=== PATIENT | female | born 1975 ===

== ENCOUNTER 2020-04-05 11:03 | Outpatient (REF) | payer OTHER, SELFPAY ==
--- NOTE | 2020-04-05 | XR_ITS ---
EXAMINATION: XR LUMBOSACRAL SPINE WITH OBLIQUES CLINICAL INFORMATION: Lower back pain. COMPARISON: None TECHNIQUE: AP, both oblique, and lateral views of the lumbar spine. Lateral view of the lumbosacral junction. FINDINGS: The vertebral bodies and posterior elements are normal. There is no spondylolysis defect. The disc spaces are preserved and the vertebral alignment is normal. The paraspinal soft tissues are normal. IMPRESSION: Unremarkable examination.
== END 2020-04-05 11:04 | disposition home or self-care (01) ==
LOC: HO.XRAY 11:03
PROVIDERS: PCP Internal Medicine; Visit Provider Internal Medicine
DX: M54.5 Low back pain (principal)
CPT/HCPCS: 72110

== ENCOUNTER 2020-05-08 16:04 | Outpatient (REF) | payer OTHER, SELFPAY ==
--- NOTE | 2020-05-08 | US_ITS ---
EXAMINATION: US PELVIS COMPLETE. CLINICAL INFORMATION: Pelvic pain. COMPARISON: None. TECHNIQUE: Transabdominal and transvaginal ultrasound of the pelvis is performed. FINDINGS: Uterus is anteverted, anteflexed measuring 8.6 cm in length, 4.5 cm in AP and 6.8 cm in transverse dimension. No focal lesion seen. There is a small echogenic area within the fundal endometrial canal, likely a polyp measuring 0.7 x 0.5 x 0.7 cm. Endometrial thickness is 1.1 cm. Small nabothian cysts are seen in the pelvis. Right ovary measures 2.5 x 1.5 x 1.6 cm and volume 3.1 mL. It appears unremarkable. Left ovary measures 3.5 x 2.2 x 2.1 cm and volume 8.5 mL. The ovary appears unremarkable. There is no free fluid in cul-de-sac. US/US transvaginal IMPRESSION: Anteverted uterus with likely a small endometrial polyp in the fundal region. Correlate with hysteroscopy. Unremarkable ovaries. No free fluid in the cul-de-sac.
--- NOTE | 2020-05-08 | US_ITS ---
EXAMINATION: US PELVIS COMPLETE. CLINICAL INFORMATION: Pelvic pain. COMPARISON: None. TECHNIQUE: Transabdominal and transvaginal ultrasound of the pelvis is performed. FINDINGS: Uterus is anteverted, anteflexed measuring 8.6 cm in length, 4.5 cm in AP and 6.8 cm in transverse dimension. No focal lesion seen. There is a small echogenic area within the fundal endometrial canal, likely a polyp measuring 0.7 x 0.5 x 0.7 cm. Endometrial thickness is 1.1 cm. Small nabothian cysts are seen in the pelvis. Right ovary measures 2.5 x 1.5 x 1.6 cm and volume 3.1 mL. It appears unremarkable. Left ovary measures 3.5 x 2.2 x 2.1 cm and volume 8.5 mL. The ovary appears unremarkable. There is no free fluid in cul-de-sac. US/US pelvic complete IMPRESSION: Anteverted uterus with likely a small endometrial polyp in the fundal region. Correlate with hysteroscopy. Unremarkable ovaries. No free fluid in the cul-de-sac.
== END 2020-05-08 16:05 | disposition home or self-care (01) ==
LOC: HO.US 16:04
PROVIDERS: PCP Internal Medicine
DX: N92.1 Excessive and frequent menstruation with irregular cycle (principal); R10.2 Pelvic and perineal pain
CPT/HCPCS: 76830; 76856

== ENCOUNTER 2020-06-06 13:56 | Outpatient (REF) | payer OTHER, SELFPAY ==
[2020-06-07 10:09] LABS: BV Int Neg Control Negative (Negative); BV Int Pos Control Positive (Positive)
[2020-06-11 12:33] LABS: CT PCR NOT DETECTED (Not Detect.); NG PCR NOT DETECTED (Not Detect.)
== END 2020-06-06 13:57 | disposition home or self-care (01) ==
LOC: HO.LAB 13:56
PROVIDERS: Visit Provider Advanced Practice Midwife
DX: Z20.2 Contact with and (suspected) exposure to infections with a predominantly sexual mode of transmission (principal); R10.2 Pelvic and perineal pain
CPT/HCPCS: 87480; 87491; 87510; 87591; 87660

== ENCOUNTER → 2020-06-18 12:38 | Outpatient (BNVA) | payer OTHER, SELFPAY | PROVIDERS: PCP Internal Medicine; Visit Provider Surgery Vascular Surgery | DX: I83.11 Varicose veins of right lower extremity with inflammation (principal) | CPT/HCPCS: 99202 ==

== ENCOUNTER 2020-07-11 11:00 | Outpatient (RCR) | payer OTHER, SELFPAY | END 2020-07-16 08:18 | disposition other institution (70) | LOC: HO.PT 11:00 | PROVIDERS: PCP Internal Medicine; Visit Provider Internal Medicine | DX: M54.2 Cervicalgia (principal); M54.5 Low back pain | CPT/HCPCS: 97110; 97140; 97161; 99202 ==

== ENCOUNTER 2021-01-23 07:48 | Outpatient (REF) | payer OTHER, SELFPAY ==
[2021-01-24 11:47] LABS: CT PCR NOT DETECTED (Not Detect.); NG PCR NOT DETECTED (Not Detect.)
[2021-01-28 21:15] LABS: HPV mRNA E6/E7 rflx Not Detected (Not Detected)
== END 2021-01-23 07:49 | disposition home or self-care (01) ==
LOC: HO.LAB 07:48
PROVIDERS: Visit Provider Obstetrics & Gynecology
DX: Z01.411 Encounter for gynecological examination (general) (routine) with abnormal findings (principal); Z11.3 Encounter for screening for infections with a predominantly sexual mode of transmission; Z11.51 Encounter for screening for human papillomavirus (HPV); N92.1 Excessive and frequent menstruation with irregular cycle
CPT/HCPCS: 87491; 87591; 87624; 88142

== ENCOUNTER 2021-01-31 09:42 | Day surgery (SDC) | payer OTHER, SELFPAY ==
--- NOTE | 2021-01-30 12:31 | P.CONAN_ITS ---
Documented by User: Nicol Patel 01/30/21 12:31 HPI - Anesthesia Eval Consult details Narrative: 45yo F for D&C Hysteroscopy,poss [facility]pect[facility] Active Problems Active Problems: All Active Problems (Updated 01/23/21 @ 08:22 by Lino Mobley MD) Menometrorrhagia (Acute) Varicose veins of right lower extremity with inflammation (Acute) Potential exposure to STD (Acute) Pelvic pain in female (Acute) Past Medical History Medical History No significant past medical history Surgical History Surgical History Hx of tubal ligation Social History Social History Alcohol intake: never Patient Tobacco Use Status: Never used Tobacco Use of substances other than those prescribed or required for medical reasons: No Are you DNR?: No Advance Directives: No Advance Directives Information Provided: Yes Gender identity: female Meds Allergies Allergy/AdvReac Type Severity Reaction Status Date / Time No Known Allergies Allergy Verified 01/31/21 10:16 Home Medications Medication Instructions Recorded Confirmed Last Taken Type No Known Home Meds 06/06/20 01/31/21 Unknown History Exam Exam Date and Time: January 30, 2021 123 Assessment and Plan Assessment Anesthesia Assessment: Chart Reviewed Documented by User: Alicia Bell 01/31/21 10:52 [facility] Past Medical History Medical History No significant past medical history Family History Family history of problems with anesthesia: No Surgical History Surgical History Hx of tubal ligation History of Problems with Anesthesia: No Social History Social History Alcohol intake: never Patient Tobacco Use Status: Never used Tobacco Use of substances other than those prescribed or required for medical reasons: No Are you DNR?: No Advance Directives: No Advance Directives Information Provided: Yes Gender identity: female Meds Allergies Allergy/AdvReac Type Severity Reaction Status Date / Time No Known Allergies Allergy Verified 01/31/21 10:16 Home Medications Medication Instructions Recorded Confirmed Last Taken Type No Known Home Meds 06/06/20 01/31/21 Unknown History Exam Airway TM Dist: >3cm Neck ROM: Full Loose/Missing/Broken Teeth: No Heart: RRR Lungs: CTA Assessment and Plan Assessment Anesthesia Assessment: Anesthesia Plan Discussed and Chart Reviewed Final Anesthetic Review Family History of Problems with Anesthesia: No History of Problems with Anesthesia: No NPO: Yes ASA Class: II Final Preanesthetic Review: Meds/Allgs Chart Reviewed, Consent Obtained/Reviewed and Anes Risks/Benef Reviewed Patient Risk: Low Procedure Risk: Low Anesthetic Plan Anesthetic Plan: GA Disposition: Standard PACU
[2021-01-31 10:17] VITALS: BMI 34.2
--- NOTE | 2021-01-31 10:23 | MHC.SHP ---
Pre-Procedural Eval Section A Date of Service: 01/31/21 The patient is an INPATIENT: No Changes since office visit: No Cold of Flu in the past 2 weeks, No New Medical Problems, No Changes in Medication and No Patient answered all questions The History & Physical has been completed within 30 days and I have reviewed it.: Yes Section B Chief Complaint: excessive menstruation Allergies: Allergies Allergy/AdvReac Type Severity Reaction Status Date / Time No Known Allergies Allergy Verified 01/31/21 10:16 Plan Diagnosis/Plan: Unchanged I have reviewed the history and physical and performed a pertinent physical examination on my patient. No changes have occurred unless specified.
[2021-01-31 10:28] LABS: UPreg QC Valid YES; Urine Pregnancy NEGATIVE (NEGATIVE)
[2021-01-31 10:31] VITALS: BP 135/80; PULSE 76; RESP 16; TEMP 37.2; O2SAT 100
[2021-01-31] MEDS: Lactated Ringers 1,000 ML 100 ML IVCONT (10:42)
--- NOTE | 2021-01-31 11:38 | P.OP_ITS ---
Operative Note Operative Note Date of Service: 01/31/21 Narrative: Preop Diagnosis: Menometrorrhagia and Endometrial polyp by US Operation: Diagnostic Hysteroscopy, Dilataion & Curettage and polypectomy Post Op Diagnosis: Endometrial Polyp QBL: Minimal Anesthesia: MAC Surgeon: Lino Mobley MD Social Welfare Administrator: None Complication: None Pathology: Endometrial Scrapings, Endometrial polyp Procedure: The patient was put in the dorsal lithotomy position, scrubbed, and draped in the usual manner. A sterile speculum was inserted in the patient's vagina. The anterior lip of the cervix was grasped with a single tooth tenaculum. The cervix was dilated up to 5 mm, then the scope was inserted in the patient's uterus. Inspection revealed endometrial polyp. The Myosure device was used; it was introduced through the operative channel and polypectomy done with no complications. Sharp curettings was carried on the afterwards. At the end of the procedure, all instruments were taken out of the patient uterine and vaginal cavity. The single tooth tenaculum was removed and homeostasis was assured using pressure,. The patient tolerated the procedure well and was transferred to the PACU in a stable condition.
--- NOTE | 2021-01-31 11:38 | PM.OP ---
Brief Operative Note Date of Service: 01/31/21 Pre-op diagnosis: Menometrorrhagia with endometrial polyp by ultrasound Post-op diagnosis: same Procedure: Hysteroscopy D&C, Polypectomy Surgeon: Lino Mobley MD Anesthesia: MAC Was an [employer] Faculty Member used for this Procedure?: No Estimated blood loss (mL): 0 Pathology: other (Endometrial Scrapping. Polyp) Condition: stable Disposition: PACU
[2021-01-31 11:40] VITALS: BP 123/76; PULSE 86; RESP 18; TEMP 36.9; O2SAT 100
[2021-01-31 11:45] VITALS: BP 133/72; PULSE 68; RESP 18; O2SAT 100
[2021-01-31 11:50] VITALS: BP 143/84; PULSE 85; RESP 18; O2SAT 100
[2021-01-31 11:55] VITALS: BP 129/72; PULSE 69; RESP 18; TEMP 36.9; O2SAT 100
== END 2021-01-31 12:22 | disposition home or self-care (01) ==
PROVIDERS: Visit Provider Obstetrics & Gynecology
PROC: 0UDB8ZZ Extraction of Endometrium, Via Natural or Artificial Opening Endoscopic (ICD-10-PCS; CPT 58558; principal; 2021-01-31 11:20)
DX: N92.1 Excessive and frequent menstruation with irregular cycle (principal); N84.0 Polyp of corpus uteri; Z98.51 Tubal ligation status
CPT/HCPCS: 58558; 81025; 88305; J1100; J1885; J2250; J2405; J3010

== ENCOUNTER → 2021-02-12 10:39 | Outpatient (BNVA) | payer OTHER, SELFPAY | PROVIDERS: Visit Provider Obstetrics & Gynecology ==

== ENCOUNTER 2021-02-18 13:20 | Outpatient (REF) | payer OTHER, SELFPAY ==
[2021-02-19 09:06] LABS: CT PCR NOT DETECTED (Not Detect.); NG PCR NOT DETECTED (Not Detect.)
[2021-02-19 09:44] LABS: BV Int Neg Control Negative (Negative); BV Int Pos Control Positive (Positive)
== END 2021-02-18 13:21 | disposition home or self-care (01) ==
LOC: HO.LAB 13:20
PROVIDERS: Visit Provider Obstetrics & Gynecology
DX: Z11.3 Encounter for screening for infections with a predominantly sexual mode of transmission (principal); B37.3 Candidiasis of vulva and vagina
CPT/HCPCS: 87480; 87491; 87510; 87591; 87660

== ENCOUNTER 2021-03-30 13:25 | Emergency (ER) | payer OTHER, SELFPAY ==
[2021-03-30 13:34] VITALS: BP 141/92; PULSE 85; RESP 18; TEMP 36.8; O2SAT 99; BMI 30.7
--- NOTE | 2021-03-30 15:23 | ED.EAR ---
HPI - Ear Problem General Chief complaint: Ear Problems Stated complaint: clogged ear Time Seen by Provider: 03/30/21 15:23 Source: patient Mode of arrival: ambulatory Limitations: language barrier History of Present Illness HPI Narrative: 45-year-old female presents with reduced hearing in her right ear for the last 5 days. Patient states she feels her ears clogged. No ear pain, no fevers, no sore throat or upper respiratory symptoms. Patient has been using the bur ox, but feels that her ears feel clogged. MD Complaint: decreased hearing Location: right ear Duration: constant Severity: moderate Relieving factors: nothing Exacerbating factors: nothing Discharge from ear: no Treatment prior to arrival: eardrops and attempt at ear wax removal Related Data Previous Rx's Medication Instructions Recorded terconazole 0.8 % vaginal cream 1 appful VAGINAL BEDTIME 3 Days 02/18/21 #20 g Allergies Allergy/AdvReac Type Severity Reaction Status Date / Time No Known Allergies Allergy Verified 03/30/21 13:34 Review of Systems Constitutional: Constitutional: Denies body ache(s), Denies chills, Denies fatigue, Denies fever(s), Denies headache(s), Denies malaise and Denies weakness Eyes: Eyes: Denies diplopia ENT: Denies vertigo, Denies dizziness, Denies ear discharge, Denies otalgia, Denies headache(s), Denies nasal congestion, Denies nasal discharge, Denies nasal obstruction, Denies disequilibrium, Denies post nasal drip, Denies tinnitus and Denies throat swelling Comments: Reduced hearing right ear, feeling of right ear being clogged Cardiovascular: Cardiovascular: Denies chest pain, Denies syncope, Denies leg edema, Denies lightheadedness, Denies Loss of Consciousness, Denies palpitations and Denies dyspnea Respiratory: Respiratory: Denies chest congestion, Denies cough and Denies dyspnea Musculoskeletal: Musculoskeletal: Reports no additional musculoskeletal complaints Neurologic: Denies confusion, Denies vertigo, Denies dizziness, Denies syncope, Denies headache(s), Denies disequilibrium and Denies weakness Psychiatric: Psychiatric: Denies anxiety, Denies confusion and Denies depression Endocrine: Endocrine: Denies fatigue and Denies palpitations Allergic/Immunologic: Allergic/Immunologic: Denies throat swelling PMFSH Past Medical History Medical History No significant past medical history Surgical History Hx of tubal ligation Social History Social History Alcohol intake: never Patient Tobacco Use Status: Never used Tobacco Advance Directives: No Advance Directives Information Provided: Yes Patient : No Gender identity: Female Physical Exam Vital Signs: Vital Signs: Last Vital Signs Temp 98.2 F 03/30/21 13:34 Pulse 85 03/30/21 13:34 Resp 18 03/30/21 13:34 BP 141/92 H 03/30/21 13:34 Pulse Ox 99 03/30/21 13:34 Body Mass Index 30.7 Const: General: No confusion Nutritional Appearance: well nourished Orientation/consciousness: No confusion Limitations: no limitations HENMT: Head: Yes normal to inspection, Yes normocephalic and Yes atraumatic Ears: mastoids normal and Abnormal EAC present cerumen impaction bilateral General nose exam: Normal external nose present Face and sinus: Yes normal facial exam Mouth: Normal oral and palatal mucosa present Throat: Yes posterior oropharynx normal Eyes: Conjunctivae: conjunctivae normal Pupils: Equal, round and reactive pupils present EOM: EOMs intact bilaterally Neck: Neck: Yes full ROM, Yes no lymphadenopathy and Yes supple Resp: Effort & Inspection: normal respiratory effort and able to speak in complete sentences Auscultation: clear to auscultation bilaterally, no crackles, no rales, no rhonchi and no wheezes Cardio: Rate: regular rate Rhythm: regular rhythm Heart sounds: S1 normal heart sound present and S2 normal heart sound present Skin: General skin exam: no rashes or lesions noted Neuro: General: No confusion Cranial nerves: Yes Equal, round and reactive pupils present Extrem: General: Yes normal to inspection and Yes full ROM Psych: Appearance: grossly normal Affect: normal affect Attitude: cooperative Thought process: Normal thought process present Course Course Course Narrative: Refer year old female with cerumen impaction bilaterally, with decreased sensation of hearing in right ear Lavage here with warm water, a large chunk of cerumen was dislodged and removed. Patient can hear nail, on her exam, right TM is normal. Patient has cerumen impaction left ear, however this is not bothering her, no reduced hearing. Counseled use Cerumenex on a weekly basis Discharge Plan Discharge Clinical Impression: Cerumen impaction Qualifiers: Laterality: right Qualified Code(s): H61.21 - Impacted cerumen, right ear Patient Disposition: Home, Self-Care Additional Instructions: Please use the ear drops you pot, Ceruminex, every week going forward. This may help you from getting another ear wax impaction in her years again. Please return to emergency room for any new or concerning symptoms Prescriptions: No Action terconazole 0.8 % cream 1 appful vaginal BEDTIME 3 Days Qty: 20 RF: 0
--- NOTE | 2021-03-30 15:25 | PC.NURSE ---
HEBER ERWIN IN TO ASSESS, IRRIGATE RIGHT EAR, LARGE AMOUNT CERUMEN REMOVED, PT CAN NOW HEAR
== END 2021-03-30 15:41 | disposition home or self-care (01) ==
PROVIDERS: Emergency Provider Emergency Medicine Emergency Medical Services; PCP Internal Medicine
DX: H92.01 Otalgia, right ear (principal); H61.21 Impacted cerumen, right ear; Z79.899 Other long term (current) drug therapy
CPT/HCPCS: 69209; 99283

== ENCOUNTER 2021-09-16 14:49 | Outpatient (REF) | payer BC, SELFPAY ==
--- NOTE | ~2021-09-16 | MM_ITS ---
EXAMINATION: MM SCREENING DIGITAL BREAST TOMOSYNTHESIS, BILATERAL CLINICAL INFORMATION: Screening. Asymptomatic. The lifetime risk of breast cancer based on the Tyrer-Cuzick Model is 9%. COMPARISON: Mammography: 06/03/2018, 04/29/2018 (new baseline). TECHNIQUE: Digital breast tomosynthesis is performed in both the craniocaudal and mediolateral oblique views along with computer-aided detection (CAD). Synthesized 2D images are generated from the tomosynthesis. FINDINGS: There are scattered areas of fibroglandular density (ACR BI-RADS breast composition Category b). There are no significant masses, abnormal calcifications, or other abnormalities. Breast tissue composition borders on heterogeneously dense. There is fine fibronodular parenchymal pattern is similar to prior study. The axilla and skin contours are unremarkable. No significant changes. MM/MM tomosynthesis screening BI IMPRESSION: No mammographic evidence of malignancy. ASSESSMENT: BI-RADS 1: Negative RECOMMENDATION: Routine annual mammography screening. This patient's information was entered into a reminder system with a target due date for their next mammogram.
== END 2021-09-16 14:50 | disposition home or self-care (01) ==
LOC: HO.MAMMO 14:49
PROVIDERS: PCP Internal Medicine; Visit Provider Internal Medicine
DX: Z12.31 Encounter for screening mammogram for malignant neoplasm of breast (principal)
CPT/HCPCS: 77063; 77067

== ENCOUNTER 2022-01-26 09:58 | Outpatient (REF) | payer BC, SELFPAY ==
[2022-01-26 12:47] LABS: HCG Quantitative < 2 mIU/mL; TSH reflex Free T4 1.26 uIU/mL (0.32-4.0)
[2022-01-26 15:17] LABS: CT PCR NOT DETECTED (Not Detect.); NG PCR NOT DETECTED (Not Detect.)
[2022-01-27 07:22] LABS: Prolactin 9.2 ng/mL
== END 2022-01-26 09:59 | disposition home or self-care (01) ==
LOC: HO.LAB 09:58
PROVIDERS: PCP Internal Medicine; Visit Provider Obstetrics & Gynecology
DX: Z01.419 Encounter for gynecological examination (general) (routine) without abnormal findings (principal); N93.9 Abnormal uterine and vaginal bleeding, unspecified
CPT/HCPCS: 36415; 84146; 84443; 84702; 87491; 87591

== ENCOUNTER 2022-03-01 08:18 | Emergency (ER) | payer BC, SELFPAY ==
--- NOTE | ~2022-03-01 | XR_ITS ---
EXAMINATION: XR SHOULDER, LEFT CLINICAL INFORMATION: Nodular matter pain COMPARISON: March 23, 2019 TECHNIQUE: AP external rotation, Grashey, scapular Y, and axillary views of the left shoulder. FINDINGS: The bones and soft tissues are normal. No fracture. Glenohumeral and acromioclavicular alignment is anatomic with normal joint space. No abnormal soft tissue calcifications. XR/XR shoulder LT min 2V IMPRESSION: No left shoulder abnormality appreciated.
[2022-03-01 08:25] VITALS: BP 157/85; PULSE 67; RESP 15; TEMP 36.1; O2SAT 98; BMI 30.7
--- NOTE | 2022-03-01 08:36 | ED_ITS ---
HPI - General Adult General Chief complaint: Back Pain/Injury Stated complaint: L side arm pain Time Seen by Provider: 03/01/22 08:25 Source: patient Mode of arrival: ambulatory Limitations: language barrier (speaks british [place] islander-wants to use family as translator/interpreter) History of Present Illness HPI narrative: 46 yo female previously healthy here with left posterior shoulder and arm chávez x 2 weeks despite tylenol, lidocaine patches. Patient reports she is left handed. Patient reports she works with [employer] and does a lot of heavy lifting but cannot recall any specific injury. Patient reports pain is in the posterior shoulder and upper back. No associated weakness, numbness, tingling, fevers or chills. Related Data Previous Rx's Medication Instructions Recorded terconazole 0.8 % vaginal cream 1 appful vaginal BEDTIME 3 days 02/18/21 #20 grams cyclobenzaprine 10 mg tablet 10 mg PO TID PRN muscle spasm #15 03/01/22 tabs naproxen 500 mg tablet 500 mg PO BID PRN pain #30 tabs 03/01/22 Allergies Allergy/AdvReac Type Severity Reaction Status Date / Time No Known Allergies Allergy Verified 01/26/22 09:34 Review of Systems Review of Systems: Yes all other systems are reviewed and are negative Constitutional: Constitutional: Reports no additional constitutional complaints, Denies body ache(s), Denies chills, Denies fever(s), Denies headache(s) and Denies weakness Eyes: Eyes: Reports no additional eye complaints and Denies change in vision ENT: Reports system reviewed and no additional complaints, except as documented, Denies dizziness, Denies headache(s), Denies nasal congestion, Denies nasal discharge and Denies neck pain Cardiovascular: Cardiovascular: Reports no additional cardiovascular complaints, Denies chest pain, Denies leg edema and Denies dyspnea Respiratory: Respiratory: Reports no additional respiratory complaints, Denies cough and Denies dyspnea Gastrointestinal: Gastrointestinal: Reports no additional gastrointestinal complaints, Denies abdominal pain, Denies diarrhea, Denies nausea and Denies vomiting Genitourinary: Genitourinary: Reports no additional female genitourinary complaints and Denies urinary incontinence Musculoskeletal: Musculoskeletal: Reports no additional musculoskeletal c omplaints, Reports back pain, Reports arthralgias, Denies joint swelling, Denies neck pain, Denies numbness and Denies tingling Integumentary/Breasts: Skin/Breast: Reports system reviewed and no additional complaints, except as docu and Denies rash Neurologic: Reports system reviewed and no additional complaints, except as documented, Denies dizziness, Denies headache(s), Denies numbness, Denies tingling and Denies weakness PMFSH Past Medical History Attestation statement: The following information was validated with the patient. Source: old records reviewed and nursing notes reviewed Medical History No significant past medical history Surgical History Hx of tubal ligation Social History Social History Alcohol intake: never Patient Tobacco Use Status: Never used Tobacco Advance Directives: No Advance Directives Information Provided: Yes Gender identity: Female Physical Exam ED Vital Signs: Vital Signs - 24 hr 03/01/22 08:25 Temperature 97 F Pulse Rate 67 Respiratory Rate 15 Blood Pressure 157/85 H Pulse Oximetry 98 Oxygen Delivery Method Room Air BMI result Body Mass Index 30.7 Const General: cooperative, healthy appearing, comfortable and no acute distress Orientation/consciousness: patient oriented x3 Limitations: no limitations HENMT Head: Yes normal to inspection Ears: hearing grossly normal bilaterally Eyes General: appearance normal, both eyes and all related structures Pupils: Equal, round and reactive pupils present Neck Other: No cervical midline tenderness, step-offs deformities Neck: Yes normal visual inspection, Yes full ROM, Yes no lymphadenopathy and Yes no meningeal signs Chest Chest palpation & inspection: normal inspection of the chest Resp Effort & Inspection: normal respiratory effort Auscultation: clear to auscultation bilaterally Cardio Rate: regular rate Rhythm: regular rhythm Peripheral pulses: Peripheral pulses 2+ throughout GI Inspection: Yes normal to inspection Back/Spine/Pelvis Thoracic/Lumbar Spine: thoracic and lumbar spine normal to inspection Skin General skin exam: no rashes or lesions noted Neuro General: patient oriented x3, moves all extremities and no meningeal signs Cranial nerves: Yes CN's II-XII intact bilaterally, Yes Equal, round and reactive pupils present, Yes Bilaterally intact EOM present, Yes Nystagmus not present, Yes Normal facial strength present and Yes Midline tongue present Cognition (Neuro): normal cognition Gait exam (Neuro): Normal gait present Motor exam (neuro): 5/5 motor strength present throughout Sensory Exam: Normal double simultaneous stimulation for sensation Extrem Other: Tenderness to the posterior left shoulder and over the proximal humerus with no obvious swelling or deformity or warmth or redness. Patient has full range of motion of the shoulder. Normal strength and sensation. Normal pulses distally. Patient has pain which is worsened with abduction of the extremity. There is palpable muscle spasm over the left trapezius. Course Course Course Narrative: X-ray show no bony abnormality. Likely strain/muscle spasm. Will recommend patient use anti-inflammatory, low-dose muscle relaxant, heat to the area. She should follow-up with her primary care doctor for any persistent symptoms. Reviewed worrisome signs and symptoms of when to return to the emergency department. Comfortable discharge home. Medical Decision Making MDM Narrative Medical decision making narrative: 46-year-old female who is left-hand dominant who is otherwise healthy presents with 2 weeks of left upper back pain and left shoulder pain that is worsened with movement. Will obtain x-rays Considered strain/sprain Medical Records Medical records reviewed: Yes I reviewed the patient's medical records. Imaging Data shoulder xray: Attestation: I personally reviewed and interpreted this imaging study as follows: Radiologist's impression: [address] [address] XRay Report Signed Patient: Manuela Rodriguez MR#: [id number] : 1975 Acct:[id number] Age/Sex: 46 / F ADM Date: 03/01/22 Loc: HO.ED Attending Dr: Ordering Physician: Leah Sesay NP Date of Service: 03/01/22 Procedure(s): XR shoulder LT min 2V Accession Number(s): [id number] cc: Leah Sesay NP~ EXAMINATION: XR SHOULDER, LEFT CLINICAL INFORMATION: Nodular matter pain? COMPARISON: March 23, 2019? TECHNIQUE: AP external rotation, Grashey, scapular Y, and axillary views of the left shoulder. FINDINGS: The bones and soft tissues are normal. No fracture. Glenohumeral and acromioclavicular alignment is anatomic with normal joint space. No abnormal soft tissue calcifications.? XR/XR shoulder LT min 2V IMPRESSION: No left shoulder abnormality appreciated. Discharge Plan Discharge Clinical Impression: Left shoulder strain, Muscle spasm Patient Disposition: Home, Self-Care Instructions: Muscle Strain (ED), Muscle Spasm (ED) Additional Instructions: Heat to the area gentle stretching see pcp in 1 week for persistent symptoms Prescriptions: New cyclobenzaprine 10 mg tablet 10 mg PO TID PRN (Reason: muscle spasm) Qty: 15 0RF naproxen 500 mg tablet 500 mg PO BID PRN (Reason: pain) Qty: 30 0RF No Action terconazole 0.8 % cream 1 appful vaginal BEDTIME 3 Days Qty: 20 0RF Referrals: Stef Sol MD [Primary Care Provider] - 5 days (for any persistent symptoms ) Stand Alone Forms: Work/School Release Interventions: ED Discharge Assessment Last Done: 03/01/22 10:06 Discharge Date/Time: 03/01/22 10:07 Print Language: Vietnamese
== END 2022-03-01 10:07 | disposition home or self-care (01) ==
PROVIDERS: Emergency Provider Emergency Medicine; PCP Internal Medicine
DX: M54.50 Low back pain, unspecified (principal); M25.512 Pain in left shoulder; Z79.899 Other long term (current) drug therapy
CPT/HCPCS: 73030; 99283

== ENCOUNTER 2022-03-18 06:49 | Emergency (ER) | payer BC, SELFPAY ==
[2022-03-18 07:25] VITALS: BP 145/87; PULSE 90; RESP 16; TEMP 37.1; O2SAT 98; BMI 31.9
--- NOTE | 2022-03-18 07:50 | ED_ITS ---
HPI - URI/Sore Throat General Chief Complaint: Upper Respiratory Symptoms Stated Complaint: Sore throat/Earache Time Seen by Provider: 03/18/22 07:36 Source: patient and park interpreter Mode of arrival: ambulatory Limitations: no limitations History of Present Illness MD elicited complaint: sore throat Onset (ago): day(s) (3) Consistency: constant Severity: moderate Description of mucous: clear Able to tolerate fluids by mouth: Yes Exacerbating factors: swallowing Relieving factors: nothing Context: sick contacts Associated symptoms: headache and other (ear pain) Treatments prior to arrival: none Related Data Previous Rx's Medication Instructions Recorded terconazole 0.8 % vaginal cream 1 appful vaginal BEDTIME 3 days 02/18/21 #20 grams cyclobenzaprine 10 mg tablet 10 mg PO TID PRN muscle spasm #15 03/01/22 tabs naproxen 500 mg tablet 500 mg PO BID PRN pain #30 tabs 03/01/22 amoxicillin 500 mg tablet 500 mg PO BID 10 days #20 tabs 03/18/22 Allergies Allergy/AdvReac Type Severity Reaction Status Date / Time No Known Allergies Allergy Verified 01/26/22 09:34 Review of Systems Review of Systems: Constitutional : no Fever, no Chills ENT/Mouth : positive sore throat, no runny nose, pos ear pain Eyes: No Discharge Cardiovascular : No Chest Pain, No SOB Respiratory : No Cough, No Sputum Gastrointestinal : No Nausea, No Vomiting, No Diarrhea Genitourinary : No Dysuria, No Urinary Frequency Musculoskeletal : no Myalgia Skin : No rash Neuro : No Headache PMFSH Past Medical History Attestation statement: The following information was validated with the patient. Medical History No significant past medical history Surgical History Hx of tubal ligation Social History Social History Alcohol intake: never Patient Tobacco Use Status: Never used Tobacco Advance Directives: No Advance Directives Information Provided: Yes Gender identity: Female Physical Exam Vital Signs: Vital Signs: Last Vital Signs Temp 98.8 F 03/18/22 07:25 Pulse 90 03/18/22 07:25 Resp 16 03/18/22 07:25 BP 145/87 H 03/18/22 07:25 Pulse Ox 98 03/18/22 07:25 O2 Del Method 03/18/22 07:25 BMI result Body Mass Index 31.9 Appearance: Alert. Oriented X3. No acute distress. Eyes: Pupils equal, round and reactive to light. ENT: Pharynx moderate erythema white patches on L tonsil. mild swelling of both tonsils - uvula midline. both TMs normal Neck: Normal inspection. Neck supple. CVS: Normal heart rate and rhythm. Pulses normal. Respiratory: No respiratory distress. Breath sounds normal. Abdomen: Soft and non-tender. Skin: Skin warm and dry. Normal skin color. Normal skin turgor. Extremities: No lower extremity edema. Neuro: Oriented X 3. No motor deficit. No sensory deficit. MDM - URI/Sore Throat MDM Narrative Medical decision making narrative: 46 yo female with no PMH here with c/o sore throat - she has exudates on her throat and symptoms concerning for strep will obtain COVID/strep swab and likely start on amoxicilin. 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 pyogenes GrpA REDD Negative (Negative) Discharge Plan Discharge Clinical Impression: Pharyngitis Qualifiers: Pharyngitis/tonsillitis etiology: unspecified etiology Qualified Code(s): J02.9 - Acute pharyngitis, unspecified Patient Disposition: Home, Self-Care Instructions: Pharyngitis (ED) Additional Instructions: return to ED for any worsening symptoms or concerns COVID negative Prescriptions: New amoxicillin 500 mg tablet 500 mg PO BID 10 Days Qty: 20 0RF No Action terconazole 0.8 % cream 1 appful vaginal BEDTIME 3 Days Qty: 20 0RF cyclobenzaprine 10 mg tablet 10 mg PO TID PRN (Reason: muscle spasm) Qty: 15 0RF naproxen 500 mg tablet 500 mg PO BID PRN (Reason: pain) Qty: 30 0RF Stand Alone Forms: Work/School Release Print Language: Wolof
[2022-03-18 07:53] LABS: Strep A Nucleic Acid Negative (Negative)
[2022-03-18 08:30] LABS: COVID-19 Test Negative (Negative); IDNOW Serial# 16C4AD1C
== END 2022-03-18 09:14 | disposition home or self-care (01) ==
PROVIDERS: Emergency Provider Emergency Medicine
DX: J02.9 Acute pharyngitis, unspecified (principal); Z20.822 Contact with and (suspected) exposure to COVID-19; Z79.899 Other long term (current) drug therapy
CPT/HCPCS: 87635; 87651; 99282; 99283

== ENCOUNTER 2022-03-19 10:56 | Outpatient (REF) | payer BC, SELFPAY ==
--- NOTE | ~2022-03-19 | US_ITS ---
EXAMINATION: US PELVIS COMPLETE CLINICAL INFORMATION: Abnormal uterine bleeding COMPARISON: 05/08/2020 pelvic ultrasound TECHNIQUE: Transabdominal and transvaginal imaging was performed. FINDINGS: The uterus is arcuate in morphology and measures 10.0 x 5.6 x 7.7 cm. A regular homogeneous endometrium is identified measuring 1.6 cm. Both ovaries are of normal appearance and and echogenicity. The right measures 4.3 x 2.2 x 2.7 cm for a volume of 12.9 mL. The left measures 3.4 x 1.7 x 2.0 cm for a volume of 0.9 mL. There is no pelvic free fluid. US/US pelvic and transvaginal IMPRESSION: Acute morphology of the uterus with a 1.6 cm endometrium. Unremarkable ovaries.
== END 2022-03-19 10:57 | disposition home or self-care (01) ==
LOC: HO.US 10:56
PROVIDERS: Visit Provider Obstetrics & Gynecology
DX: N93.9 Abnormal uterine and vaginal bleeding, unspecified (principal)
CPT/HCPCS: 76830; 76856

== ENCOUNTER 2022-07-06 12:35 | Emergency (ER) | payer BC, SELFPAY ==
[2022-07-06 13:46] VITALS: BP 136/85; PULSE 90; RESP 16; TEMP 36.6; O2SAT 97; BMI 30.7
--- NOTE | 2022-07-06 13:46 | ED_ITS ---
HPI - URI/Sore Throat General Chief Complaint: Upper Respiratory Symptoms <HEBER Dewey - Last Filed: 07/06/22 13:48> Stated Complaint: cough congestion headache <HEBER Deewy - Last Filed: 07/06/22 13:48> Time Seen by Provider: 07/06/22 14:50 <HEBER Dewey - Last Filed: 07/06/22 13:48> Source: patient and enterprise analyst <Leah Sesay NP - Last Filed: 07/06/22 15:29> Mode of arrival: ambulatory <Leah Sesay NP - Last Filed: 07/06/22 15:29> Limitations: language barrier <KARENA Polanco Last Filed: 07/06/22 15:29> History of Present Illness HPI Narrative: 46-year-old female previously healthy here with 2 days of cough, sneezing, headache. No fevers, chills, diff breathing, chest pain, shortness of breath <KARENA Polanco Last Filed: 07/06/22 15:29> Related Data Home Medications: Previous Rx's Medication Instructions Recorded terconazole 0.8 % vaginal cream 1 appful vaginal BEDTIME 3 days 02/18/21 #20 grams cyclobenzaprine 10 mg tablet 10 mg PO TID PRN muscle spasm #15 03/01/22 tabs naproxen 500 mg tablet 500 mg PO BID PRN pain #30 tabs 03/01/22 amoxicillin 500 mg tablet 500 mg PO BID 10 days #20 tabs 03/18/22 oseltamivir 75 mg capsule (Tamiflu) 75 mg PO Q12H 5 days #10 caps 07/06/22 <HEBER Dewey - Last Filed: 07/06/22 13:48> Allergies/Adverse Reactions: Allergies Allergy/AdvReac Type Severity Reaction Status Date / Time No Known Allergies Allergy Verified 01/26/22 09:34 <HEBER Dewey Last Filed: 07/06/22 13:48> Review of Systems Review of Systems: Yes all other systems are reviewed and are negative <KARENA Polanco Last Filed: 07/06/22 15:29> Constitutional: Constitutional: Reports no additional constitutional complaints, Denies body ache(s), Denies chills, Denies fever(s), Reports headache(s) and Denies weakness <Leah Sesay NP - Last Filed: 07/06/22 15:29> Eyes: Eyes: Reports no additional eye complaints and Denies change in vision <Leah Sesay WEATHERIZATION INSTALLER - Last Filed: 07/06/22 15:29> ENT: Reports system reviewed and no additional complaints, except as documented, Denies dizziness, Reports headache(s), Reports nasal congestion, Denies nasal discharge and Denies neck pain <Leah Sesay WEATHERIZATION INSTALLER - Last Filed: 07/06/22 15:29> Cardiovascular: Cardiovascular: Reports no additional cardiovascular complaints, Denies chest pain, Denies leg edema and Denies dyspnea <Leah Sesay WEATHERIZATION INSTALLER - Last Filed: 07/06/22 15:29> Respiratory: Respiratory: Reports no additional respiratory complaints, Reports cough and Denies dyspnea <Leah Sesay WEATHERIZATION INSTALLER - Last Filed: 07/06/22 15:29> Gastrointestinal: Gastrointestinal: Reports no additional gastrointestinal complaints, Denies abdominal pain, Denies diarrhea, Denies nausea and Denies vomiting <Leah Sesay WEATHERIZATION INSTALLER - Last Filed: 07/06/22 15:29> Genitourinary: Genitourinary: Reports no additional female genitourinary complaints and Denies urinary incontinence <Leah Sesay WEATHERIZATION INSTALLER - Last Filed: 07/06/22 15:29> Musculoskeletal: Musculoskeletal: Reports no additional musculoskeletal complaints, Denies back pain, Denies arthralgias, Denies joint swelling, Denies neck pain, Denies numbness and Denies tingling <Leah Sesay WEATHERIZATION INSTALLER - Last Filed: 07/06/22 15:29> Integumentary/Breasts: Skin/Breast: Reports system reviewed and no additional complaints, except as docu and Denies rash <Leah Sesay WEATHERIZATION INSTALLER - Last Filed: 07/06/22 15:29> Neurologic: Reports system reviewed and no additional complaints, except as documented, Denies Abnormal speech present, Denies dizziness, Reports headache(s), Denies numbness, Denies tingling and Denies weakness <Leah Sesay NP - Last Filed: 07/06/22 15:29> [facility], LATER [facility] Past Medical History Attestation statement: The following information was validated with the patient. <Leah Sesay NP - Last Filed: 07/06/22 15:29> Source: old records reviewed and nursing notes reviewed <Leah Sesay NP - Last Filed: 07/06/22 15:29> Medical History: Medical History No significant past medical history <HEBER Dewey - Last Filed: 07/06/22 13:48> Surgical History: Surgical History Hx of tubal ligation <HEBER Dewey - Last Filed: 07/06/22 13:48> Social History Social History: Social History Alcohol intake: never Patient Tobacco Use Status: Never used Tobacco Advance Directives: No Advance Directives Information Provided: Yes Gender identity: Female <HEBER Dewey - Last Filed: 07/06/22 13:48> Physical Exam Vital Signs: Vital Signs: Last Vital Signs Temp 97.9 F 07/06/22 13:46 Pulse 90 07/06/22 13:46 Resp 16 07/06/22 13:46 BP 136/85 07/06/22 13:46 Pulse Ox 97 07/06/22 13:46 O2 Del Method 07/06/22 13:46 BMI result Body Mass Index 30.7 <HEBER Dewey - Last Filed: 07/06/22 13:48> Vital Signs: Last Vital Signs Temp 97.9 F 07/06/22 13:46 Pulse 90 07/06/22 13:46 Resp 16 07/06/22 13:46 BP 136/85 07/06/22 13:46 Pulse Ox 97 07/06/22 13:46 O2 Del Method 07/06/22 13:46 BMI result Body Mass Index 30.7 <Leah Sesay NP - Last Filed: 07/06/22 15:29> Const: General: cooperative, healthy appearing, comfortable and no acute distress <Leah Sesay NP - Last Filed: 07/06/22 15:29> Orientation/consciousness: patient oriented x3 <Leah Sesay NP - Last Filed: 07/06/22 15:29> Limitations: no limitations <Leah Sesay NP - Last Filed: 07/06/22 15:29> HEENT: Head: Yes normal to inspection <Leah Sesay NP - Last Filed: 07/06/22 15:29> Ears: hearing grossly normal bilaterally and TM's normal bilaterally <Leah Sesay NP - Last Filed: 07/06/22 15:29> General nose exam: Normal external nose present <Leah Sesay NP - Last Filed: 07/06/22 15:29> Face and sinus: Yes normal facial exam <Leah Sesay NP - Last Filed: 07/06/22 15:29> Mouth: Normal oral and palatal mucosa present <Leah Sesay NP - Last Filed: 07/06/22 15:29> Throat: Yes posterior oropharynx normal, Yes tonsils normal and Yes uvula midline <Leah Sesay NP - Last Filed: 07/06/22 15:29> Eyes: General: appearance normal, both eyes and all related structures <Leah Sesay NP - Last Filed: 07/06/22 15:29> Pupils: Equal, round and reactive pupils present <Leah Sesay NP - Last Filed: 07/06/22 15:29> Neck: Neck: Yes normal visual inspection, Yes full ROM, Yes no lymphadenopathy and Yes no meningeal signs <Leah Sesay NP - Last Filed: 07/06/22 15:29> Chest: Chest palpation & inspection: normal inspection of the chest <Leah Sesay NP - Last Filed: 07/06/22 15:29> Resp: Effort & Inspection: normal respiratory effort <Leah Sesay NP - Last Filed: 07/06/22 15:29> Auscultation: clear to auscultation bilaterally <Leah Sesay NP - Last Filed: 07/06/22 15:29> Cardio: Rate: regular rate <Leah Sesay NP - Last Filed: 07/06/22 15:29> Rhythm: regular rhythm <Leah Sesay NP - Last Filed: 07/06/22 15:29> Peripheral pulses: Peripheral pulses 2+ throughout <Leah Sesay NP - Last Filed: 07/06/22 15:29> GI: Inspection: Yes normal to inspection <Leah Sesay NP - Last Filed: 07/06/22 15:29> Palpation (GI): Soft to palpation and nontender <Leah Sesay NP - Last Filed: 07/06/22 15:29> Auscultation: normal bowel sounds <Leah Sesay NP - Last Filed: 07/06/22 15:29> Back/Spine/Pelvis: Thoracic/Lumbar Spine: thoracic and lumbar spine normal to inspection <Leah Sesay WEATHERIZATION INSTALLER - Last Filed: 07/06/22 15:29> Skin: General skin exam: no rashes or lesions noted <Leah Sesay NP - Last Filed: 07/06/22 15:29> Neuro: General: patient oriented x3, no meningeal signs, no focal motor deficits and normal sensation to monofilament <Leah Sesay NP - Last Filed: 07/06/22 15:29> Cranial nerves: Yes Equal, round and reactive pupils present <Leah Sesay NP - Last Filed: 07/06/22 15:29> Cognition (Neuro): normal cognition <Leah Sesay NP - Last Filed: 07/06/22 15:29> Speech: No Abnormal speech present <Leah Sesay NP - Last Filed: 07/06/22 15:29> Gait exam (Neuro): Normal gait present <Leah Sesay NP - Last Filed: 07/06/22 15:29> Motor exam (neuro): 5/5 motor strength present throughout <Leah Sesay NP - Last Filed: 07/06/22 15:29> Extrem: General: Yes normal to inspection <Leah Sesay NP - Last Filed: 07/06/22 15:29> Course Course Course Narrative: AMBER-13:45PM - 46yoF who is Korean-speaking presenting to the ED with URI complaints for the past 2 days which include generalized fatigue/malaise, body aches, nasal congestion/rhinorrhea there intermittent cough. Reports that her father in law has similar symptoms and he is in the waiting room at this time. She denies any other sick contacts. She denies any other symptoms complaints or concerns at this time. Plan: At this time patient is stable she will be going back to the waiting room to be evaluated in the [facility]. COVID/RSV/flu swab ordered at this time. <HEBER Dewey - Last Filed: 07/06/22 13:48> Reevaluation(s) Reevaluation #1: Flu screen positive. Patient wants Tamiflu. Patient aware of side effects. No hypoxia tachypnea. Lungs are clear. Patient to be discharged home with Tamiflu and supportive care. Reviewed worrisome signs and symptoms when to return to the emergency room. Comfortable plan for discharge home. <Leah Sesay NP - Last Filed: 07/06/22 15:29> Medical Decision Making Medical Decision Making [facility] Narrative: 46-year-old female here with 2 days of cough, congestion, headache. Vitals stable. Normal exam. Will send testing for flu, COVID, RSV <Leah Sesay NP - Last Filed: 07/06/22 15:29> Differential Diagnosis Differential Diagnoses: The differential diagnosis associated with the presentation includes <Leah Sesay NP - Last Filed: 07/06/22 15:29> OM, influenza <Leah Sesay NP - Last Filed: 07/06/22 15:29> Lab Data [facility] Lab Attestation statement: I reviewed the patient's lab results. <Leah Sesay NP - Last Filed: 07/06/22 15:29> Labs: Lab Results 07/06/22 Range/Units 13:55 Influenza Type A (PCR) POSITIVE A (Negative) Influenza Type B (PCR) NEGATIVE (Negative) RSV RNA Qual (PCR) NEGATIVE (Negative) SARS-CoV-2 RNA (RT-PCR) NEGATIVE (Negative) <HEBER Dewey - Last Filed: 07/06/22 13:48> Lab Results 07/06/22 Range/Units 13:55 Influenza Type A (PCR) POSITIVE A (Negative) Influenza Type B (PCR) NEGATIVE (Negative) RSV RNA Qual (PCR) NEGATIVE (Negative) SARS-CoV-2 RNA (RT-PCR) NEGATIVE (Negative) <Leah Sesay NP - Last Filed: 07/06/22 15:29> Prescription Management I considered prescription management with: Antiviral <Leah Sesay NP - Last Filed: 07/06/22 15:29> Offered Tamiflu for flu and patient agreeable with plan of care <Leah Sesay NP - Last Filed: 07/06/22 15:29> Discharge Plan Discharge Clinical Impression: Influenza <HEBER Dewey - Last Filed: 07/06/22 13:48> Patient Disposition: Home, Self-Care <HEBER Dewey - Last Filed: 07/06/22 13:48> Instructions: Influenza (ED) <HEBER Dewey - Last Filed: 07/06/22 13:48> Additional Instructions: Las pruebas para COVID, RSV son negativas. Alterne Motrin y Tylenol para el dolor o la fiebre. [place]umenta los l?quidos, descansa. [place] el Tamiflu para la gripe, agustin si presenta efectos secundarios yesenia v?mitos, diarrea y malestar estomacal, deje de tomarlo. <HEBER Dewey - Last Filed: 07/06/22 13:48> Prescriptions: New oseltamivir [Tamiflu] 75 mg capsule 75 mg PO Q12H 5 Days Qty: 10 0RF No Action terconazole 0.8 % cream 1 appful vaginal BEDTIME 3 Days Qty: 20 0RF cyclobenzaprine 10 mg tablet 10 mg PO TID PRN (Reason: muscle spasm) Qty: 15 0RF naproxen 500 mg tablet 500 mg PO BID PRN (Reason: pain) Qty: 30 0RF amoxicillin 500 mg tablet 500 mg PO BID 10 Days Qty: 20 0RF <HEBER Dewey - Last Filed: 07/06/22 13:48> Referrals: [facility] [Primary Care Provider] - <HEBER Dewey - Last Filed: 07/06/22 13:48> Stand Alone Forms: Work/School Release <HEBER Dewey - Last Filed: 07/06/22 13:48> Print Language: Korean <HEBER Dewey - Last Filed: 07/06/22 13:48>
[2022-07-06 14:43] LABS: Influenza A PCR POSITIVE (Negative); Influenza B PCR NEGATIVE (Negative); Resp Syncy Virus RNA Qual PCR NEGATIVE (Negative); SARS COV2 PCR INHOUSE NEGATIVE (Negative)
== END 2022-07-06 15:39 | disposition home or self-care (01) ==
PROVIDERS: Physician Assistant Medical; Emergency Provider Student in an Organized Health Care Education/Training Program
DX: J11.1 Influenza due to unidentified influenza virus with other respiratory manifestations (principal); Z20.822 Contact with and (suspected) exposure to COVID-19
CPT/HCPCS: 0241U; 99282; 99283

== ENCOUNTER → 2022-07-16 12:50 | Outpatient (BNV) | payer BC, OTHER, SELFPAY | PROVIDERS: Visit Provider Internal Medicine | DX: D50.9 Iron deficiency anemia, unspecified (principal) | CPT/HCPCS: 99204; 99213; 99214 ==

== ENCOUNTER 2022-07-31 07:20 | Outpatient (REF) | payer BC, SELFPAY | END 2022-07-31 07:21 | disposition home or self-care (01) | LOC: HO.MDS 07:20 | PROVIDERS: Visit Provider Internal Medicine | DX: D50.9 Iron deficiency anemia, unspecified (principal) | CPT/HCPCS: 96365; J1756 ==

== ENCOUNTER 2022-08-03 07:58 | Outpatient (REF) | payer BC, SELFPAY ==
[2022-08-03 09:52] LABS: Hematocrit 29.8 % (37.0-47.0); Hemoglobin 8.2 g/dl (12.0-16.0); Mean Corpuscular HGB Conc 27.5 g/dl (31.0-35.0); Mean Corpuscular Hemoglobin 17.8 pg (27.0-33.0); Mean Platelet Volume 10.2 fL (9.4-12.3); Platelet Count 399 X10*3/uL (160-400); Red Blood Count 4.61 X10*6/uL (4.20-5.50); Red Cell Distribution Width 21.3 % (11.0-16.0); White Blood Count 4.7 X10*3/uL (4.8-10.8)
[2022-08-03 09:53] LABS: Mean Corpuscular Volume 64.6 fL (80.0-98.0)
[2022-08-03 10:51] LABS: HCG Quantitative < 2 mIU/mL
== END 2022-08-03 07:59 | disposition home or self-care (01) ==
LOC: HO.LAB 07:58
PROVIDERS: PCP Registered Nurse; Visit Provider Obstetrics & Gynecology
DX: N92.1 Excessive and frequent menstruation with irregular cycle (principal); D64.9 Anemia, unspecified
CPT/HCPCS: 36415; 84443; 84702; 85027

== ENCOUNTER 2022-08-07 12:05 | Outpatient (REF) | payer BC, SELFPAY | END 2022-08-07 12:06 | disposition home or self-care (01) | LOC: HO.MDS 12:05 | PROVIDERS: PCP Registered Nurse; Visit Provider Internal Medicine | DX: D50.9 Iron deficiency anemia, unspecified (principal) | CPT/HCPCS: 96365; J1756 ==

== ENCOUNTER 2022-08-14 07:26 | Outpatient (REF) | payer BC, SELFPAY | END 2022-08-14 07:27 | disposition home or self-care (01) | LOC: HO.MDS 07:26 | PROVIDERS: Visit Provider Internal Medicine | DX: D50.9 Iron deficiency anemia, unspecified (principal) | CPT/HCPCS: 96365; J1756 ==

== ENCOUNTER 2022-08-19 08:57 | Outpatient (REF) | payer BC, SELFPAY | END 2022-08-19 08:58 | disposition home or self-care (01) | LOC: HO.MDS 08:57 | PROVIDERS: Visit Provider Internal Medicine | DX: D50.9 Iron deficiency anemia, unspecified (principal) | CPT/HCPCS: 96365; J1756 ==

== ENCOUNTER 2022-08-19 16:14 | Outpatient (REF) | payer BC, SELFPAY ==
--- NOTE | ~2022-08-19 | US_ITS ---
EXAMINATION: US PELVIS CLINICAL INFORMATION: Pelvic and perineal pain. COMPARISON: None TECHNIQUE: Ultrasound of the pelvis is performed using both transabdominal and transvaginal transducers along with Doppler. Transvaginal imaging is performed due to inadequate visualization transabdominally. FINDINGS: UTERUS: The uterus is anteverted and measures 8.4 x 4.9 x 6.8 cm. There is an arcuate-type appearance. The double wall endometrial thickness is 12-14 mm, decreased from prior when thickness was 16 mm. The uterus is smooth in contour and has normal myometrial echogenicity. There is a submucosal 7 mm hypoechoic mass present consistent with a tiny fibroid. ADNEXA: Both ovaries are visualized. There is normal color flow to the adnexa. There is no ovarian torsion. There is no pelvic ascites or fluid collection. Right ovary measures 3.8 x 2.3 x 2.8 cm for a volume of 12.8 mL which includes a 2.3 x 2.1 x 2.3 cm corpus luteal cyst. Left ovary measures 3.1 x 2.4 x 2.2 cm for a volume of 8.6 mL. US/US pelvic and transvaginal IMPRESSION: Tiny 7 mm submucosal fibroid.
== END 2022-08-19 16:15 | disposition home or self-care (01) ==
LOC: HO.US 16:14
PROVIDERS: Visit Provider Obstetrics & Gynecology
DX: R10.2 Pelvic and perineal pain (principal)
CPT/HCPCS: 76830; 76856

== ENCOUNTER 2022-08-26 08:28 | Outpatient (REF) | payer BC, SELFPAY | END 2022-08-26 08:29 | disposition home or self-care (01) | LOC: HO.MDS 08:28 | PROVIDERS: Visit Provider Internal Medicine | DX: D50.9 Iron deficiency anemia, unspecified (principal) | CPT/HCPCS: 96372; J1756 ==

== ENCOUNTER 2022-09-22 13:32 | Outpatient (REF) | payer BC, SELFPAY ==
[2022-09-22 18:14] LABS: CT PCR NOT DETECTED (Not Detect.); NG PCR NOT DETECTED (Not Detect.)
== END 2022-09-22 13:33 | disposition home or self-care (01) ==
LOC: HO.LNP 13:32
PROVIDERS: PCP Registered Nurse; Visit Provider Obstetrics & Gynecology
DX: N93.9 Abnormal uterine and vaginal bleeding, unspecified (principal); Z32.02 Encounter for pregnancy test, result negative
CPT/HCPCS: 0353U; 58100; 81025; 88305

== ENCOUNTER 2022-09-23 08:15 | Outpatient (REF) | payer BC, SELFPAY ==
--- NOTE | ~2022-09-23 | MM_ITS ---
EXAMINATION: MM SCREENING DIGITAL BREAST TOMOSYNTHESIS, BILATERAL CLINICAL INFORMATION: Screening. Asymptomatic. The lifetime risk of breast cancer based on the Tyrer-Cuzick Model is 9%. COMPARISON: Mammography: 09/16/2021, 06/03/2018, 04/29/2018 (new baseline). TECHNIQUE: Digital breast tomosynthesis is performed in both the craniocaudal and mediolateral oblique views along with computer-aided detection (CAD). Synthesized 2D images are generated from the tomosynthesis. FINDINGS: There are scattered areas of fibroglandular density (ACR BI-RADS breast composition Category b). There are no significant masses, abnormal calcifications, or other abnormalities. No architectural abnormality or developing density or significant change from prior studies. Breast tissue composition borders on heterogeneously dense. The axilla and skin contours are unremarkable. MM/MM tomosynthesis screening BI IMPRESSION: No mammographic evidence of malignancy. ASSESSMENT: BI-RADS 1: Negative RECOMMENDATION: Routine annual mammography screening. This patient's information was entered into a reminder system with a target due date for their next mammogram.
== END 2022-09-23 08:16 | disposition home or self-care (01) ==
LOC: HO.MAMMO 08:15
PROVIDERS: PCP Registered Nurse; Visit Provider Obstetrics & Gynecology
DX: Z12.31 Encounter for screening mammogram for malignant neoplasm of breast (principal)
CPT/HCPCS: 77063; 77067

== ENCOUNTER → 2022-11-27 13:38 | Outpatient (BNVA) | payer BC, SELFPAY | PROVIDERS: PCP Registered Nurse; Visit Provider Obstetrics & Gynecology ==

== ENCOUNTER → 2022-12-16 15:44 | Outpatient (BNVA) | payer BC, SELFPAY | PROVIDERS: PCP Registered Nurse; Visit Provider Obstetrics & Gynecology ==

== ENCOUNTER 2023-01-01 09:48 | Day surgery (SDC) | payer BC, SELFPAY ==
[2022-12-29 12:48] VITALS: BMI 32.0
--- NOTE | 2022-12-31 08:42 | HO.ANESPROP2 ---
Documented by User: Nicol Patel NP 12/31/22 08:42 HPI - Anesthesia Eval Consult details Narrative: 47yo F for D&C Hysteroscopy,poss myomectomy,poss polypectomy, s/p tubal PMFSH Active Problems Active Problems: All Active Problems (Updated 11/27/22 @ 13:58 by Lino Mobley MD) Pelvic pain in female (Acute) Potential exposure to STD (Acute) Varicose veins of right lower extremity with inflammation (Acute) Menometrorrhagia (Acute) Candidal vulvovaginitis (Acute) Well woman exam (Acute) Abnormal uterine bleeding (Acute) Encounter for screening colonoscopy (Acute) Iron deficiency anemia (Chronic) Past Medical History Medical History Anxiety Elevated blood pressure reading Gastroesophageal reflux disease Iron deficiency anemia No significant past medical history Palpitations Family History Family history of problems with anesthesia: No Surgical History Surgical History (Updated 12/29/22 @ 12:48 by Tatiana Avitia RN) History of hysteroscopy Hx of tubal ligation History of Problems with Anesthesia: No Social History Social History Household Members: Spouse, Family and Children Housing: House Alcohol intake: never Patient Tobacco Use Status: Never used Tobacco Are you DNR?: No Advance Directives: No Advance Directives Information Provided: Yes service: No Current occupational status: unemployed Gender identity: Female Meds Allergies Allergy/AdvReac Type Severity Reaction Status Date / Time No Known Allergies Allergy Verified 12/16/22 15:50 Home Medications Medication Instructions Recorded Confirmed Last Taken Type cholecalciferol (vitamin D3) 25 25 mcg PO QAM 11/27/22 Unknown History mcg (1,000 unit) tablet hydroxyzine HCl 25 mg tablet 25 - 50 mg PO BEDTIME PRN insomnia 11/27/22 Unknown History omeprazole 20 mg capsule,delayed 20 mg PO DAILY 11/27/22 Unknown History release Exam Exam Date and Time: December 31, 2022 0842 Height,Weight and Vital Signs: Height 5 ft 6 in Weight 89.811 kg Pertinent Lab Results Pertinent Lab Results: Laboratory Tests 09/11/22 09:45 WBC 4.1 L Hgb 11.2 L D Hct 38.0 D Plt Count 347 Assessment and Plan Assessment Anesthesia Assessment: Chart Reviewed Final Anesthetic Review Family History of Problems with Anesthesia: No History of Problems with Anesthesia: No Documented by User: [place] Damon MD 01/01/23 11:09 PMFSH Past Medical History Medical History Anxiety Elevated blood pressure reading Gastroesophageal reflux disease Iron deficiency anemia No significant past medical history Palpitations Patient : No Surgical History Surgical History (Updated 12/29/22 @ 12:48 by Tatiana Avitia RN) History of hysteroscopy Hx of tubal ligation Social History Social History Household Members: Spouse, Family and Children Housing: House Alcohol intake: never Patient Tobacco Use Status: Never used Tobacco Are you DNR?: No Advance Directives: No Advance Directives Information Provided: Yes service: No Current occupational status: unemployed Gender identity: Female Meds Allergies Allergy/AdvReac Type Severity Reaction Status Date / Time No Known Allergies Allergy Verified 12/16/22 15:50 Home Medications Medication Instructions Recorded Confirmed Last Taken Type cholecalciferol (vitamin D3) 25 25 mcg PO QAM 11/27/22 Unknown History mcg (1,000 unit) tablet hydroxyzine HCl 25 mg tablet 25 - 50 mg PO BEDTIME PRN insomnia 11/27/22 Unknown History omeprazole 20 mg capsule,delayed 20 mg PO DAILY 11/27/22 Unknown History release Exam Airway Mallampati Class: I TM Dist: >3cm Neck ROM: Full Heart: ok Lungs: ok Assessment and Plan Assessment Anesthesia Assessment: Anesthesia Plan Discussed Final Anesthetic Review NPO: Yes ASA Class: II Final Preanesthetic Review: No Changes in Pt Med Stat, Meds/Allgs Chart Reviewed, Consent Obtained/Reviewed and Anes Risks/Benef Reviewed Patient Risk: Low Procedure Risk: Low Anesthetic Plan Anesthetic Plan: GA and Agree w/ Assess. and Plan Disposition: Standard PACU
[2023-01-01 10:12] VITALS: BP 146/81; PULSE 68; RESP 20; TEMP 36.3; O2SAT 99
[2023-01-01 10:15] LABS: UPreg QC Valid YES; Urine Pregnancy NEGATIVE (NEGATIVE)
--- NOTE | 2023-01-01 11:12 | MHC.SHP ---
Pre-Procedural Eval Section A Date of Service: 01/01/23 The patient is an INPATIENT: No Changes since office visit: No Cold of Flu in the past 2 weeks, No New Medical Problems, No Changes in Medication and No Patient answered all questions The History & Physical has been completed within 30 days and I have reviewed it.: Yes Section B Chief Complaint: Abnormal uterine and vaginal bleeding, unspecified Allergies: Allergies Allergy/AdvReac Type Severity Reaction Status Date / Time No Known Allergies Allergy Verified 12/16/22 15:50 Plan Diagnosis/Plan: Unchanged I have reviewed the history and physical and performed a pertinent physical examination on my patient. No changes have occurred unless specified. Time Spent With Patient Time: Total time managing care of this patient today ____ minutes.
--- NOTE | 2023-01-01 11:53 | P.BOP_ITS ---
Brief Operative Note Date of Service: 01/01/23 Pre-op diagnosis: Abnormal uterine bleeding, endometrial polyp on pathology and abnormal endometrium on ultrasound Post-op diagnosis: same (Endometrial polyp) Procedure: Hysteroscopy D&C, Polypectomy Surgeon: Lino Mobley MD Anesthesia: GLMA Was an Oracle Application Consultant used for this Procedure?: No Estimated blood loss (mL): 0 Pathology: other (Endometrial Scrapping. Polyp) Condition: stable Disposition: PACU
--- NOTE | 2023-01-01 11:54 | P.OP_ITS ---
Operative Note Operative Note Date of Service: 01/01/23 Narrative: Preop Diagnosis: Abnormal uterine bleeding, endometrial polyp on pathology and abnormal endometrium by US Operation: Diagnostic Hysteroscopy, Dilataion & Curettage and polypectomy Post Op Diagnosis: Endometrial Polyp QBL: Minimal Anesthesia: GLMA Surgeon: Lino Mobley MD Evening Or Night Nurse Supervisor: None Complication: None Pathology: Endometrial Scrapings, Endometrial polyp Procedure: The patient was put in the dorsal lithotomy position, scrubbed, and draped in the usual manner. A sterile speculum was inserted in the patient's vagina. The anterior lip of the cervix was grasped with a single tooth tenaculum. The cervix was dilated up to 5 mm, then the scope was inserted in the patient's uterus. Inspection revealed endometrial polyp. The Myosure Reach device was used; it was introduced through the operative channel and polypectomy done with no complications. The scope was then taken out from the uterine cavity, sharp curettings was carried on with minimal to moderate amount of tissues retrieved. At the end of the procedure, all instruments were taken out of the patient uterine and vaginal cavity. The single tooth tenaculum was removed and homeostasis was assured using pressure,. The patient tolerated the procedure well and was transferred to the PACU in a stable condition.
[2023-01-01 12:03] VITALS: BP 158/93; PULSE 68; RESP 15; TEMP 37.1; O2SAT 99
[2023-01-01 12:08] VITALS: BP 155/80; PULSE 68; RESP 16; O2SAT 96
[2023-01-01 12:13] VITALS: BP 150/90; PULSE 81; RESP 15; O2SAT 99
[2023-01-01 12:17] VITALS: BP 155/95; PULSE 66; RESP 17; O2SAT 99
[2023-01-01 12:33] VITALS: BP 146/85; PULSE 71; RESP 18; TEMP 36.1; O2SAT 99
== END 2023-01-01 13:05 | disposition home or self-care (01) ==
PROVIDERS: PCP Registered Nurse; Visit Provider Obstetrics & Gynecology
PROC: 0UDB8ZZ Extraction of Endometrium, Via Natural or Artificial Opening Endoscopic (ICD-10-PCS; CPT 58558; principal; 2023-01-01 11:30)
DX: N93.9 Abnormal uterine and vaginal bleeding, unspecified (principal); N84.0 Polyp of corpus uteri; R03.0 Elevated blood-pressure reading, without diagnosis of hypertension; D50.9 Iron deficiency anemia, unspecified; F41.1 Generalized anxiety disorder; R00.2 Palpitations; K21.9 Gastro-esophageal reflux disease without esophagitis; Z79.899 Other long term (current) drug therapy; Z98.51 Tubal ligation status
CPT/HCPCS: 58558; 81025; 88305; J1100; J1885; J2405; J3010

== ENCOUNTER 2023-01-13 22:44 | Emergency (ER) | payer BC, SELFPAY ==
[2023-01-13 22:48] VITALS: BP 154/76; PULSE 81; RESP 18; TEMP 36.5; O2SAT 96; BMI 33.7
--- NOTE | 2023-01-14 01:30 | ED.GENADULT ---
[facility] - General Adult General Chief complaint: Dental/Oral Stated complaint: Ride side of face swollen Time Seen by Provider: 01/14/23 00:32 Source: patient, family and pharmaceutical botanist Mode of arrival: ambulatory History of Present Illness HPI narrative: This is a 47-year-old female who states that she was eating chicken nuggets earlier in the evening when she developed pain at the right lower angle of the jaw and symptoms began approximately 30 minutes prior to arrival. She denies any ear pain, fevers but does states that she has dental issues on the left side and denies any tongue swelling shortness of breath, difficulty swallowing. Related Data Home Medications Medication Instructions Recorded Confirmed cholecalciferol (vitamin D3) 25 25 mcg PO QAM 11/27/22 mcg (1,000 unit) tablet hydroxyzine HCl 25 mg tablet 25 - 50 mg PO BEDTIME PRN insomnia 11/27/22 omeprazole 20 mg capsule,delayed 20 mg PO DAILY 11/27/22 release Previous Rx's Medication Instructions Recorded cyclobenzaprine 10 mg tablet 10 mg PO TID PRN muscle spasm #15 03/01/22 tabs Allergies Allergy/AdvReac Type Severity Reaction Status Date / Time No Known Allergies Allergy Verified 01/13/23 22:54 Review of Systems Review of Systems: Pertinent positives and negatives as stated in HPI [facility] Past Medical History Source: nursing notes reviewed Medical History Anxiety Elevated blood pressure reading Gastroesophageal reflux disease Iron deficiency anemia No significant past medical history Palpitations Surgical History History of hysteroscopy Hx of tubal ligation Social History Social History Household Members: Spouse, Family and Children Housing: House Alcohol intake: never Patient Tobacco Use Status: Never used Tobacco Advance Directives: No Advance Directives Information Provided: Yes service: No Current occupational status: unemployed Gender identity: Female Physical Exam ED Vital Signs: Vital Signs - 24 hr 01/13/23 22:48 Temperature 97.7 F Pulse Rate 81 Respiratory Rate 18 Blood Pressure 154/76 H Pulse Oximetry 96 Oxygen Delivery Method Room Air BMI result Body Mass Index 33.7 VITAL SIGNS: Reviewed. GENERAL: Well developed, well nourished, in no acute distress. HEAD: Normocephalic/atraumatic EYES: PERRLA, EOMI EARS: Ext canals without abnormality, TMs non-bulging and non-erythematous NOSE: Nares patent bilateral OROPHARYNX: no oral lesions noted, posterior pharynx clear and non-erythematous without noted tonsillar enlargement/erythema/exudates, no lip/tongue/facial swelling JAW: There is some mild fullness to the angle of the right jaw but on evaluation there is good alignment on opening and closing of the mouth, there is no temporal tenderness to palpation NECK: Supple, no adenopathy LUNGS: Normal breath sounds. No adventitious sounds or accessory muscle use. SpO2<96> CARDIOVASCULAR: Regular rate and rhythm without noted murmurs ABDOMEN: Soft, non-tender, non-distended with bowel sounds. MUSCULOSKELETAL: No tenderness, deformities, or effusions noted on gross inspection. EXTREMITIES: No cyanosis, clubbing or edema. SKIN: Inspection of the skin reveals no rashes NEUROLOGIC: Alert and oriented x 4. Strength and sensation to light touch were grossly intact x 4. Medical Decision Making Medical Decision Making MDM Narrative: This is a 47-year-old female with acute onset of right job pain without visual disturbance and no symptoms of scalp pain or ear pain. Patient does have a dental caries on the left lower jaw, no evidence to suggest angioedema or anaphylaxis, no evidence to suggest trismus, infected tooth, dislocation, and I feel that this may be secondary to a TMJ as I do not find anything to suggest sialadenitis. Patient does have a follow-up appointment with a dentist and she was strongly encouraged to discuss TMJ. There is no evidence to suggest peritonsillar abscess, pharyngitis, AOM. She is otherwise discharged with presumptive TMJ. Differential Diagnosis Differential Diagnoses: The differential diagnosis associated with the presentation includes Please see the discussion above Discharge Plan Discharge Clinical Impression: Pain in lower jaw Patient Disposition: Home, Self-Care Instructions: Atypical Facial Pain (ED), Temporomandibular Disorder (ED) Additional Instructions: Seguimiento con [facility] dent[facility] seg?n lo programado. Recomiende Tylenol/ibuprofeno de venta neftaly seg?n sea necesario para controlar el dolor. Follow-up with your dentist as scheduled. Recommend [id number] Tylenol/ibuprofen as needed for pain control. Prescriptions: No Action cyclobenzaprine 10 mg tablet 10 mg PO TID PRN (Reason: muscle spasm) Qty: 15 0RF cholecalciferol (vitamin D3) 25 mcg (1,000 unit) tablet 25 mcg PO QAM hydroxyzine HCl 25 mg tablet 25 - 50 mg PO BEDTIME PRN (Reason: insomnia) omeprazole 20 mg capsule,delayed release(DR/EC) 20 mg PO DAILY Referrals: [place],[facility] [Primary Care Provider] - Print Language: Ugandan
== END 2023-01-14 02:40 | disposition home or self-care (01) ==
PROVIDERS: Emergency Provider Student in an Organized Health Care Education/Training Program
DX: R68.84 Jaw pain (principal)
CPT/HCPCS: 99282

== ENCOUNTER 2023-01-14 15:04 | Outpatient (AMB) | payer BC, SELFPAY ==
--- NOTE | 2023-01-14 15:09 | MHC.OFFVIS ---
Intake Vital Signs 01/14/23 15:13 Height 5 ft 6 in Weight 207 lb 3.752 oz BMI 33.4 BP 120/74 Intake Visit Reasons: post op Homemaking Rehabilitation Consultant Required: Yes Homemaking Rehabilitation Consultant Language: Senior Gl Accountant Name: Val KING Information Interpreted: non-clinical & clinical Accompanied by: Self / Same As Patient Allergies No Known Allergies Allergy (Verified 01/14/23 15:13) HPI HPI Comments History of Present Illness Details The patient is presenting post hysteroscopy D&C no complaints minimal vaginal bleeding no feverishness chills or abdominal pain. The pathology showed the following: A. Endometrium, curettage: -Benign dyssynchronous endometrium with variable secretory and focal proliferative glands, and focal breakdown; no atypia or carcinoma. B. Endometrial polyp, resection: -Fragments consistent with benign polyp with secretory changes; no atypia or carcinoma. -Fragments of benign smooth muscle (myometrium versus submucosal leiomyoma). ?The following workup was done.: Recent H&H= 11.2/38 TSH, hCG were negative in 07/27 GC and chlamydia were negative. Endometrial biopsy pathology showed the following: Endometrium, biopsy:? Benign late secretory endometrium; no atypia or carcinoma.? Comment:? Some fragments may be derived from benign functional polyps. Co testing was done in 01/22 was negative. Mammogram was BI-RADS 1 . Pelvic ultrasound showed the following: The uterus is anteverted and measures 8.4 x 4.9 x 6.8 cm. There is an arcuate-type appearance. The double wall endometrial thickness is 12-14 mm, decreased from prior when thickness was 16 mm. The uterus is smooth in contour and has normal myometrial echogenicity. There is a submucosal 7 mm hypoechoic mass present consistent with a tiny fibroid. ADNEXA: Both ovaries are visualized. There is normal color flow to the adnexa. There is no ovarian torsion. There is no pelvic ascites or fluid collection. Right ovary measures 3.8 x 2.3 x 2.8 cm for a volume of 12.8 mL which includes a 2.3 x 2.1 x 2.3 cm corpus luteal cyst. Left ovary measures 3.1 x 2.4 x 2.2 cm for a volume of 8.6 mL. ? [facility] Medical History Anxiety Elevated blood pressure reading Gastroesophageal reflux disease Iron deficiency anemia No significant past medical history Palpitations Surgical History History of hysteroscopy Hx of tubal ligation Social History Household Members: Spouse, Family and Children Housing: House Alcohol intake: never Patient Tobacco Use Status: Never used Tobacco service: No Current occupational status: unemployed Gender identity: Female Female Reproductive History Menstrual Age of Menarche: 14 Review of Systems Const All systems reviewed & are unremarkable except as noted in HPI and below Reports as per HPI and Reports no additional complaints GI Reports no additional complaints Reports no additional complaints Physical Exam Vital Signs: Last Vital Signs BP 120/74 01/14/23 15:13 BMI result Body Mass Index 33.4 Assessment & Plan Assessment & Plan (1) Abnormal uterine bleeding: Code(s): N93.9 - Abnormal uterine and vaginal bleeding, unspecified Plan: Discussed with the patient the results of the work up done and options of treatment including but not limited to BCP's, cyclic Progesterone, Mirena IUD, endometrial ablation and hysterectomy. All pros, cons, risks and benefits of each option were discussed with the patient and the patient decided to go ahead with cyclic Provera, so a more detailed discussion re: Progesterone treatment including mechanism of action, benefits (regular menses, endometrial protection form unopposed estrogen and reduction in the risk of endometrial hyperplasia and/or cancer ...), risks (Thrombosis, mood changes, weight gain, breast soreness, ? increased breast ca, others). Instructions were given to the patient to schedule a 3 month follow-up appointment. All questions answered, the patient verbalized understanding and agreed with the plan. (2) Uterine myoma: Code(s): D25.9 - Leiomyoma of uterus, unspecified Plan: Discussed with the patient the findings on pelvic ultrasound & the risk of myosarcoma; discussed with the patient the options of treatment including expectant management versus hysterectomy; the pros and cons, risks benefits of each approach were discussed with the patient including the fact that in cases of myosarcoma, surgical treatment can lead to early diagnosis and positively affects the prognosis; after further discussion, the patient decided to proceed with expectant management. Will repeat pelvic ultrasound periodically. Instructions given to patient to call in case any of the following occurs: pressure symptoms, abnormal uterine bleeding, pelvic pain; and to schedule a future office follow-up appointment for reassessment and to order a repeat ultrasound . All questions answered, the patient verbalized understanding and agreed with the plan . Medications: New medroxyprogesterone (Provera) start Provera 1 tablet daily from day 15-24 cyclically every months, day 1 being 1st day of menses 10 mg PO DAILY 30 tabs 3RF 10 days Coding Level of Care Code Est Pt Level 3 (76756) Diagnoses Abnormal uterine bleeding N93.9 Uterine myoma D25.9
[2023-01-14 15:13] VITALS: BP 120/74; BMI 33.4
== END 2023-01-14 15:30 | disposition home or self-care (01) ==
LOC: HO.HWS 15:04
PROVIDERS: Visit Provider Obstetrics & Gynecology
DX: N93.9 Abnormal uterine and vaginal bleeding, unspecified (principal); D25.9 Leiomyoma of uterus, unspecified
CPT/HCPCS: 99213

== ENCOUNTER 2023-02-10 13:47 | Outpatient (REF) | payer BC, SELFPAY ==
[2023-02-10 17:17] LABS: Alanine Aminotransferase 16 U/L (0-31); Albumin Level 3.9 g/dL (3.5-5.0); Alkaline Phosphatase 67 U/L (39-117); Anion Gap 12 (12-20); Aspartate Amino Transferase 17 U/L (5-31); Bilirubin Total 0.3 mg/dL (0.0-1.0); Blood Urea Nitrogen 14 mg/dL (9-16); Calcium 9.6 mg/dL (8.4-10.2); Carbon Dioxide 27 mmol/L (22-29); Chloride 103 mmol/L (96-108); Estimated Glomerular Filt Rate > 60; Glucose Random 93 mg/dL (60-115); Sodium 138 mmol/L (135-145); Total Protein 7.5 g/dL (6.5-8.0)
== END 2023-02-10 13:48 | disposition home or self-care (01) ==
LOC: HO.LAB 13:47
PROVIDERS: PCP Registered Nurse; Visit Provider Nurse Practitioner
DX: Z01.818 Encounter for other preprocedural examination (principal)
CPT/HCPCS: 36415; 80053

== ENCOUNTER 2023-02-10 13:47 | Outpatient (AMB) | payer BC, SELFPAY ==
[2023-02-10 13:52] VITALS: BP 119/79; PULSE 95; BMI 33.4
--- NOTE | 2023-02-10 13:52 | MHC.OFFVIS ---
Intake Vital Signs 02/10/23 13:52 Height 5 ft 6 in Weight 207 lb BMI 33.4 BP 119/79 Blood Pressure Location Lt brachial Position Sitting Pulse 95 Intake Visit Reasons: Colonoscopy Screening Intake Note: Patient presents to in office visit today as a new patient for colonoscopy screening. CC: Patient c/o GERD, denies other GI symptoms today. 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 She is referred by Komal Sol of [facility]. PMX Hypertension GERD Anxiety and depression Palpitations Pelvic pain Irregular menses Varicose veins. * SURGICAL HISTORY Hysteroscopy Tubal ligation * ALLERGIES: NKDA * [employer] LABS: Laboratory Tests 09/11/22 09:45 WBC 4.1 L Hgb 11.2 L D Hct 38.0 D MCV 74.1 L MCH 21.8 L Plt Count 347 NEEDS CHEM PANEL TODAY'S VISIT Serbian #Bret Andrade This is her first colonoscopy She has occasional GERD she treats with prn Prilosec, no bowels or other upper GI problems. She has some concern because she has had [address] Mobley, and she was apparently over-sedated the first time, but under-sedated the second time and this second experience frightened her. She is not on any HTN meds now, will be seeing her PCP in 6 weeks to decide this. She denies any cardiac or respiratory problems. NO ID problems. There is no known FHX of crc or polyps. [facility] Medical History Anxiety Elevated blood pressure reading Gastroesophageal reflux disease Iron deficiency anemia No significant past medical history Palpitations Surgical History History of hysteroscopy Hx of tubal ligation Social History Household Members: Spouse, Family and Children Housing: House Alcohol intake: never Patient Tobacco Use Status: Never used Tobacco service: No Current occupational status: unemployed Gender identity: Female Female Reproductive History Menstrual Age of Menarche: 14 Review of Systems Const Denies fatigue, Denies fever(s), Denies night sweats, Denies poor appetite and Denies weight loss ENT Reports Normal hearing present, Denies dental pain, Denies dysphagia, Denies hearing loss, Denies mouth pain, Denies odynophagia, Denies throat swelling, Denies tongue swelling and Reports other (Dentition adequate) Card Reports no additional complaints Resp Reports no additional complaints GI Denies abdominal pain, Denies melena, Denies bloating, Denies hematochezia, Denies constipation, Denies GI cramping, Denies dysphagia, Denies excessive flatus, Denies early satiety, Reports heartburn, Denies diarrhea, Denies nausea, Denies odynophagia, Denies vomiting and Denies hematemesis Skin/Breast Denies pruritus, Denies lesions, Denies rash and Denies jaundice Neuro Reports Normal hearing present and Denies Abnormal speech present Endo Denies fatigue Aller/Immun Denies throat swelling and Denies tongue swelling Physical Exam Vital Signs: Last Vital Signs Pulse 95 02/10/23 13:52 BP 119/79 02/10/23 13:52 BMI result Body Mass Index 33.4 Const General: cooperative, no acute distress, well developed and well groomed Nutritional Appearance: well nourished and obese Orientation/consciousness: oriented to person, oriented to place and oriented to time Limitations: language barrier HEENT Head: Yes normocephalic and Yes atraumatic Eyes General: appearance normal, both eyes and all related structures Pupils: Equal, round and reactive pupils present Neck Neck: Yes normal visual inspection and Yes no lymphadenopathy Thyroid: Thyroid normal Resp Effort & Inspection: normal respiratory effort and able to speak in complete sentences Auscultation: clear to auscultation bilaterally Cardio Rate: regular rate Rhythm: regular rhythm Heart sounds: Normal, physiologic split S2 sound present Peripheral pulses: radial pulses present and posterior tibial pulses present GI Inspection: No distended, No Abdominal panniculus present, Yes obesity and Yes striae Palpation (GI): Soft to palpation, nontender, no guarding, not rigid and No hepatosplenomegaly present Percussion: Yes normal to percussion Auscultation: normal bowel sounds Rectal Exam - Female: deferred Skin General skin exam: no rashes or lesions noted, turgor normal, skin not dry, no jaundice, No spider nevi and no striae Rashes: no rashes Nails: normal Neuro General: oriented to person, oriented to place and oriented to time Cranial nerves: Yes Equal, round and reactive pupils present and Yes Normal hearing present Speech: No Abnormal speech present Extrem General: Yes normal to inspection, No clubbing, No cyanosis and No edema Psych Appearance: grossly normal and well kempt Mental Status: mental status grossly normal Speech and movement: Normal speech and movement present Affect: normal affect Attitude: cooperative Thought process: Normal thought process present and not confabulating Thought content: Normal thought content present Insight: Fair insight present (Psych) Judgement: Fair judgement present (Psych) Assessment & Plan Assessment & Plan (1) Pre-op examination: Code(s): Z01.818 - Encounter for other preprocedural examination Plan: Serbian #Bret Live This is her first colonoscopy She has occasional GERD she treats with prn Prilosec, no bowels or other upper GI problems. She has some concern because she has had [address] Mobley, and she was apparently over-sedated the first time, but under-sedated the second time and this second experience frightened her. She is not on any HTN meds now, will be seeing her PCP in 6 weeks to decide this. She denies any cardiac or respiratory problems. NO ID problems. There is no known FHX of crc or polyps. Orders: Orders Comprehensive Met. Panel Today Z01.818 - Encounter for other preprocedural examination Colonoscopy - GI Use Only Today Z01.818 - Encounter for other preprocedural examination Medications: New peg 3350-electrolytes 236-22.74-6.74 -5.86 gram (Golytely) until fecal effluent is clear; do not exceed a total volume of 2,000 mL 240 mL PO Q10M 1 day 4,000 mL 0RF Z12.11 - Encounter for screening for malignant neoplasm of colon Coding Level of Care Code New Pt Level 3 (86882) Diagnoses Pre-op examination Z01.818
== END 2023-02-10 14:42 | disposition home or self-care (01) ==
PROVIDERS: PCP Registered Nurse; Visit Provider Nurse Practitioner
DX: Z01.818 Encounter for other preprocedural examination (principal); Z12.11 Encounter for screening for malignant neoplasm of colon
CPT/HCPCS: S0285

== ENCOUNTER 2023-04-02 11:29 | Outpatient (REF) | payer BC, SELFPAY ==
[2023-04-02 13:16] LABS: MANUAL DIFF FLAG NO
[2023-04-02 13:22] LABS: Basophils Absolute Auto 0.1 X10*3/uL (0.0-0.2); Basophils Percent Auto 1.6 % (0-2); Eosinophils Absolute Auto 0.2 X10*3/uL (0.0-0.4); Eosinophils Percent Auto 3.8 % (0-4); Hematocrit 31.5 % (37.0-47.0); Hemoglobin 9.4 g/dl (12.0-16.0); Imm Gran Abs Auto 0.01 X10*3/uL (0.00-0.03); Imm Gran Pct Auto 0.2 % (0.0-0.4); Lymphocytes Absolute Auto 1.3 X10*3/uL (1.2-4.9); Mean Corpuscular HGB Conc 29.8 g/dl (31.0-35.0); Mean Corpuscular Hemoglobin 21.9 pg (27.0-33.0); Mean Corpuscular Volume 73.3 fL (80.0-98.0); Mean Platelet Volume 10.3 fL (9.4-12.3); Monocytes Absolute Auto 0.5 X10*3/uL (0.1-1.2); Monocytes Percent Auto 10.9 % (2-11); Neutrophils Absolute Auto 2.5 x10*3/uL (2.0-8.3); Neutrophils Percent Auto 55.5 % (45-73); Platelet Count 390 X10*3/uL (160-400); Red Cell Distribution Width 16.1 % (11.0-16.0); White Blood Count 4.5 X10*3/uL (4.8-10.8)
[2023-04-02 13:44] LABS: Iron 31 mcg/dL (30-160); Percent Iron Saturation 9 % (15-50); Total Iron Binding Capacity 349 mcg/dL (228-428); Unsaturated Iron Binding 318 ug/dL
[2023-04-02 14:02] LABS: Ferritin 5 ng/mL (10-250)
== END 2023-04-02 11:30 | disposition home or self-care (01) ==
LOC: HO.HHCL 11:29
PROVIDERS: Visit Provider Family Medicine
DX: K92.1 Melena (principal)
CPT/HCPCS: 36415; 82728; 83540; 85025

== ENCOUNTER 2023-04-13 10:50 | Outpatient (AMB) | payer BC, SELFPAY ==
--- NOTE | 2023-04-13 10:52 | MHC.OFFVIS ---
Intake Vital Signs 04/13/23 10:54 Height 5 ft 6 in Weight 205 lb BMI 33.1 BP 110/72 Intake Visit Reasons: ANNUAL/3 month medication follow up Intake Note: no concerns Sales And Distribution Clerk Required: Yes Sales And Distribution Clerk Language: Pump Machine Operator Name: Val KING Information Interpreted: non-clinical & clinical Finger Buff Sewer: Finger Buff Sewer Present (Val Carlos KING) Accompanied by: Self / Same As Patient Allergies No Known Allergies Allergy (Verified 04/13/23 10:56) Is last menstrual period known: Yes Last menstrual period: 03/31/23 HPI HPI Comments History of Present Illness Details Presenting for annual exam. No complaints. Patient is Menstrual cycle are regular on cyclic Provera Last Pap/HPV was negative in 01/21 Last Mammogram was BI-RADS 1 in 09/24 No previous screening Colonoscopy [facility] Medical History Iron deficiency anemia Palpitations Gastroesophageal reflux disease Elevated blood pressure reading Anxiety No significant past medical history Surgical History History of hysteroscopy Hx of tubal ligation Social History (Updated 04/13/23 @ 10:57 by Val Gonzalez CMA) Household Members: Spouse, Family and Children Housing: House Alcohol intake: never Patient Tobacco Use Status: Never used Tobacco service: No Current occupational status: unemployed Sexually active: Yes Sexual orientation: Straight/Heterosexual Gender identity: Female Female Reproductive History Menstrual Age of Menarche: 14 Date of last menstrual period: 03/31/23 Total pregnancies: 3 Full term: 3 Number of Living Children: 3 Date of last pap smear: 01/24/21 Date of Mammogram: 09/23/22 Review of Systems Const All systems reviewed & are unremarkable except as noted in HPI and below Card Reports as per HPI Resp Reports as per HPI GI Reports as per HPI and Reports no additional complaints Reports as per HPI Physical Exam Vital Signs: Last Vital Signs BP 110/72 04/13/23 10:54 BMI result Body Mass Index 33.1 Const General: cooperative, healthy appearing and comfortable Chest Chest palpation & inspection: normal inspection of the chest and normal palpation of entire chest wall Breast/axilla inspection: normal inspection of the breasts and normal inspection of the axillae Breast/axilla palpation: normal palpation of the breasts, normal palpation of the axillae and no axillary lymphadenopathy Resp Effort & Inspection: normal respiratory effort Auscultation: clear to auscultation bilaterally Percussion: percussion normal Cardio Palpation: normal PMI Rate: regular rate Rhythm: regular rhythm Heart sounds: no murmurs and no rubs Peripheral pulses: Peripheral pulses 2+ throughout GI Inspection: Yes normal to inspection Palpation (GI): Soft to palpation, nontender, no guarding, not rigid and No hepatosplenomegaly present Percussion: Yes normal to percussion Auscultation: normal bowel sounds Rectal Exam - Female: deferred General: Yes bladder normal to palpation External Female Exam: No lesion Speculum Exam - Vagina: normal appearance of the vagina, normal palpation, normal vaginal discharge and not erythematous Speculum Exam - Cervix: normal appearance of the cervix and normal palpation Bimanual exam- vagina & uterus: normal bimanual exam, normal palpation, uterine size normal, bladder normal to palpation, consistency normal and normal palpation Bimanual Exam- Adnexa, other: normal adnexae, no masses and no tenderness Assessment & Plan Assessment & Plan (1) Well woman exam: Code(s): Z01.419 - Encounter for gynecological examination (general) (routine) without abnormal findings Plan: Co testing not indicated this year. Instructions given the patient to continue Provera cyclicly 10 mg p.o. q.d. day 15-24 Counseled the patient about the recommended dietary allowance of 1200 mg of Calcium & 600 IU of vitamin D. Instructions given the patient to schedule next screen Mammogram in 09/25. The patient is scheduled in June for screening colonoscopy . The patient was instructed to perform monthly self-breast exams and schedule annual exam in a year. All questions answered and the patient verbalized understanding. Coding Level of Care Code Est Pt Prev Care 40-64y(65700) Diagnoses Well woman exam Z01.419
[2023-04-13 10:54] VITALS: BP 110/72; BMI 33.1
== END 2023-04-13 11:38 | disposition home or self-care (01) ==
PROVIDERS: Visit Provider Obstetrics & Gynecology
DX: Z01.419 Encounter for gynecological examination (general) (routine) without abnormal findings (principal)
CPT/HCPCS: 99396

== ENCOUNTER → 2023-04-13 10:50 | Outpatient (BNVA) | payer BC, SELFPAY | PROVIDERS: Visit Provider Obstetrics & Gynecology ==

== ENCOUNTER 2023-07-13 13:13 | Outpatient (REF) | payer OTHER, SELFPAY | END 2023-07-13 13:14 | disposition home or self-care (01) | LOC: HO.MDS 13:13 | PROVIDERS: Visit Provider Internal Medicine | DX: D50.9 Iron deficiency anemia, unspecified (principal) | CPT/HCPCS: 96365; J1756 ==

== ENCOUNTER 2023-07-27 11:32 | Outpatient (REF) | payer OTHER, SELFPAY | END 2023-07-27 11:33 | disposition home or self-care (01) | LOC: HO.MDS 11:32 | PROVIDERS: Visit Provider Internal Medicine | DX: D50.9 Iron deficiency anemia, unspecified (principal) | CPT/HCPCS: 96365; J1756 ==

== ENCOUNTER 2023-08-12 07:46 | Outpatient (REF) | payer OTHER, SELFPAY | END 2023-08-12 07:47 | disposition home or self-care (01) | LOC: HO.MDS 07:46 | PROVIDERS: Visit Provider Internal Medicine | DX: D50.9 Iron deficiency anemia, unspecified (principal) | CPT/HCPCS: 96365; J1756 ==

== ENCOUNTER 2023-08-31 07:37 | Outpatient (REF) | payer OTHER, SELFPAY ==
[2023-08-31 08:04] VITALS: BP 116/57; RESP 16; TEMP 36.8; O2SAT 98; BMI 32.8
[2023-08-31] MEDS: Iron Sucrose Complex 200 MG in 0.9 % Sodium Chloride 100 ML 440 MG IV (08:20)
== END 2023-08-31 07:38 | disposition home or self-care (01) ==
LOC: HO.MDS 07:37
PROVIDERS: Visit Provider Internal Medicine
DX: D50.9 Iron deficiency anemia, unspecified (principal)
CPT/HCPCS: 96374; J1756

== ENCOUNTER 2023-09-15 08:28 | Outpatient (REF) | payer OTHER, SELFPAY ==
[2023-09-15 08:28] VITALS: BP 145/85; PULSE 88; RESP 18; TEMP 36.9; O2SAT 98
[2023-09-15] MEDS: Iron Sucrose Complex 200 MG in 0.9 % Sodium Chloride 100 ML 440 MG IV (08:35)
== END 2023-09-15 08:29 | disposition home or self-care (01) ==
LOC: HO.MDS 08:28
PROVIDERS: Visit Provider Internal Medicine
DX: D50.9 Iron deficiency anemia, unspecified (principal)
CPT/HCPCS: 96365; J1756

== ENCOUNTER 2023-10-08 10:43 | Outpatient (REF) | payer SELFPAY ==
[2023-10-08 14:31] LABS: MANUAL DIFF FLAG NO
[2023-10-08 14:38] LABS: Basophils Percent Auto 0.8 % (0-2); Eosinophils Absolute Auto 0.2 X10*3/uL (0.0-0.4); Eosinophils Percent Auto 4.4 % (0-4); Hematocrit 38.1 % (37.0-47.0); Hemoglobin 11.7 g/dl (12.0-16.0); Imm Gran Abs Auto 0.01 X10*3/uL (0.00-0.03); Imm Gran Pct Auto 0.2 % (0.0-0.4); Lymphocytes Absolute Auto 1.4 X10*3/uL (1.2-4.9); Lymphocytes Percent Auto 28.2 % (20-40); Mean Corpuscular HGB Conc 30.7 g/dl (31.0-35.0); Mean Corpuscular Hemoglobin 23.5 pg (27.0-33.0); Mean Corpuscular Volume 76.7 fL (80.0-98.0); Mean Platelet Volume 9.7 fL (9.4-12.3); Monocytes Absolute Auto 0.5 X10*3/uL (0.1-1.2); Monocytes Percent Auto 10.1 % (2-11); Neutrophils Absolute Auto 2.8 x10*3/uL (2.0-8.3); Neutrophils Percent Auto 56.3 % (45-73); Platelet Count 347 X10*3/uL (160-400); Red Blood Count 4.97 X10*6/uL (4.20-5.50); Red Cell Distribution Width 21.7 % (11.0-16.0)
[2023-10-08 14:45] LABS: Estimated Average Glucose 105 mg/dL; Hemoglobin A1c % 5.3 % (<6.0)
[2023-10-08 15:23] LABS: Alanine Aminotransferase 20 U/L (0-31); Alkaline Phosphatase 55 U/L (39-117); Anion Gap 11 (12-20); Aspartate Amino Transferase 18 U/L (5-31); Bilirubin Total 0.5 mg/dL (0.0-1.0); Blood Urea Nitrogen 11 mg/dL (9-16); Calcium 9.3 mg/dL (8.4-10.2); Carbon Dioxide 28 mmol/L (22-29); Chloride 105 mmol/L (96-108); Cholesterol 234 mg/dL (<200); Estimated Glomerular Filt Rate > 60; Glucose Random 73 mg/dL (60-115); HDL Cholesterol 57 mg/dL (>40); Iron 37 mcg/dL (30-160); LDL Cholesterol Calculated 161 mg/dL (<100); Percent Iron Saturation 12 % (15-50); Potassium 4.3 mmol/L (3.3-5.1); Sodium 140 mmol/L (135-145); Total Iron Binding Capacity 297 mcg/dL (228-428); Total Protein 7.6 g/dL (6.5-8.0); Triglycerides 83 mg/dL (<150); Unsaturated Iron Binding 260 ug/dL
[2023-10-08 15:29] LABS: Ferritin 56 ng/mL (10-250); TSH reflex Free T4 1.08 uIU/mL (0.32-4.0); Vitamin D 25-OH Total 6.8 ng/mL (>30)
[2023-10-08 15:46] LABS: Microalbum/Creatinine Ratio Ur 8.3 ug/mg cr (<30)
[2023-10-09 09:28] LABS: HBS Num1 0.11 mIU/mL (0-7.99); HBc Num1 0.17 S/CO (0.00-0.79); HBsAGNum1 0.37 S/CO (0.00-0.99); HIV AB/AG Nonreactive (Nonreactive); HIV Num 1 0.06 S/CO (0.00-0.99); Hepatitis B Core Antibody Nonreactive (Nonreactive); Hepatitis B Surface Antigen Negative (Negative); ~Hepatitis B Surface Antibody NONREACTIVE (Nonreactive)
[2023-10-12 11:13] LABS: RPR Rapid Plasma Reagin NON-REACTIVE (NON-REACTIVE)
[2023-10-12 16:03] LABS: HCV Log PCR <1.18 NOT DETECTED Log IU/mL (NOT DETECTED); HepC Viral Load <15 NOT DETECTED IU/mL (NOT DETECTED)
== END 2023-10-08 10:44 | disposition home or self-care (01) ==
LOC: HO.CHCLDS 10:43
PROVIDERS: Visit Provider Registered Nurse
DX: Z00.00 Encounter for general adult medical examination without abnormal findings (principal); Z11.4 Encounter for screening for human immunodeficiency virus [HIV]; Z13.6 Encounter for screening for cardiovascular disorders; Z11.59 Encounter for screening for other viral diseases; Z20.2 Contact with and (suspected) exposure to infections with a predominantly sexual mode of transmission; Z72.89 Other problems related to lifestyle
CPT/HCPCS: 36415; 80053; 80061; 82043; 82306; 82570; 82728; 83036; 83540; 84443; 85025; 86592; 86704; 86706; 87340; 87389; 87522

== ENCOUNTER 2023-11-25 09:46 | Outpatient (REF) | payer SELFPAY ==
[2023-11-27 21:22] LABS: TS Negative Control Passed; TS Panel A 3; TS Panel B 4; TS Positive Control Passed; TSpotTB Negative (Negative)
== END 2023-11-25 09:47 | disposition home or self-care (01) ==
LOC: HO.CHCLDS 09:46
PROVIDERS: Visit Provider Registered Nurse
DX: Z00.00 Encounter for general adult medical examination without abnormal findings (principal)
CPT/HCPCS: 36415; 86481

== ENCOUNTER 2024-01-10 11:05 | Outpatient (REF) | payer BC, SELFPAY ==
[2024-01-10 15:12] LABS: MANUAL DIFF FLAG NO
[2024-01-10 15:18] LABS: Basophils Absolute Auto 0.1 X10*3/uL (0.0-0.2); Eosinophils Absolute Auto 0.3 X10*3/uL (0.0-0.4); Eosinophils Percent Auto 6.5 % (0-4); Hemoglobin 11.2 g/dl (12.0-16.0); Imm Gran Abs Auto 0.01 X10*3/uL (0.00-0.03); Imm Gran Pct Auto 0.2 % (0.0-0.4); Lymphocytes Absolute Auto 1.6 X10*3/uL (1.2-4.9); Lymphocytes Percent Auto 33.5 % (20-40); Mean Corpuscular HGB Conc 31.1 g/dl (31.0-35.0); Mean Corpuscular Hemoglobin 24.4 pg (27.0-33.0); Mean Corpuscular Volume 78.4 fL (80.0-98.0); Mean Platelet Volume 10.8 fL (9.4-12.3); Monocytes Absolute Auto 0.4 X10*3/uL (0.1-1.2); Neutrophils Absolute Auto 2.4 x10*3/uL (2.0-8.3); Neutrophils Percent Auto 50.8 % (45-73); Platelet Count 403 X10*3/uL (160-400); Red Blood Count 4.59 X10*6/uL (4.20-5.50); Red Cell Distribution Width 15.3 % (11.0-16.0); White Blood Count 4.8 X10*3/uL (4.8-10.8)
[2024-01-10 15:57] LABS: Cholesterol 176 mg/dL (<200); HDL Cholesterol 42 mg/dL (>40); Iron 26 mcg/dL (30-160); LDL Cholesterol Calculated 115 mg/dL (<100); Percent Iron Saturation 8 % (15-50); Total Iron Binding Capacity 309 mcg/dL (228-428); Triglycerides 99 mg/dL (<150); Unsaturated Iron Binding 283 ug/dL
[2024-01-10 16:07] LABS: Ferritin 13 ng/mL (10-250); Vitamin D 25-OH Total 23.5 ng/mL (>30)
== END 2024-01-10 11:06 | disposition home or self-care (01) ==
LOC: HO.HHCL 11:05
PROVIDERS: Visit Provider Registered Nurse
DX: Z00.00 Encounter for general adult medical examination without abnormal findings (principal); Z13.89 Encounter for screening for other disorder
CPT/HCPCS: 36415; 80061; 82306; 82728; 83540; 85025

== ENCOUNTER 2024-01-28 | Outpatient (REF) | payer BC, SELFPAY | END 2024-01-28 00:01 | disposition home or self-care (01) | LOC: HO.LAB | PROVIDERS: PCP Registered Nurse; Visit Provider Obstetrics & Gynecology | DX: Z32.02 Encounter for pregnancy test, result negative (principal) | CPT/HCPCS: 81002; 81025 ==

== ENCOUNTER 2024-01-28 10:01 | Outpatient (AMB) | payer BC, SELFPAY ==
--- NOTE | 2024-01-28 10:04 | MHC.OFFVIS ---
Vital Signs 01/28/24 10:11 Height 5 ft 6 in Weight 205 lb 0.478 oz BMI 33.1 BP 124/76 Intake Visit Reasons: pelvic pain Allergies No Known Allergies Allergy (Verified 10/15/23 13:51) HPI Comments Details: Presenting complaining of suprapubic pressure more when she holds her unit associated urinary frequency and dysuria, no fever or chills no flank pain no vaginal discharge or any other concerns PFSH Medical History Iron deficiency anemia Palpitations Gastroesophageal reflux disease Elevated blood pressure reading Anxiety Surgical History History of hysteroscopy Hx of tubal ligation Social History Household Members: Spouse, Family and Children Housing: House Alcohol intake: never Patient Tobacco Use Status: Never used Tobacco service: No Current occupational status: unemployed Sexual orientation: Straight/Heterosexual Gender identity: Female Female Reproductive History Menstrual Age of Menarche: 14 Review of Systems Const All systems reviewed & are unremarkable except as noted in HPI and below Physical Exam General: Yes no CVA tenderness External Female Exam: normal external appearance and normal appearance of the urethra Speculum Exam - Vagina: normal appearance of the vagina, normal palpation, no lesions and no masses Speculum Exam - Cervix: normal appearance of the cervix, normal palpation, no lesions, no masses and nontender Bimanual exam- vagina & uterus: normal bimanual exam, normal palpation, uterine size normal, normal palpation, uterine shape normal, No Cervical tenderness present and non-tender Bimanual Exam- Adnexa, other: normal adnexae Back/Spine/Pelvis Back: no CVA tenderness Assessment & Plan Assessment & Plan (1) Pelvic pain in female: Code(s): R10.2 - Pelvic and perineal pain Category: Medical Plan: UPT done in the office was negative. Urine dip was positive for leukocytes and protein. GC/CT taken, Will order pelvic ultrasound. Instructions given the patient to schedule pelvic ultrasound follow-up appointment within 2 weeks. (2) UTI (urinary tract infection): Code(s): N39.0 - Urinary tract infection, site not specified Category: Medical Plan: Since urine dip is positive for leukocyte and protein and the patient is complaining of urinary frequency and dysuria, will send urine for culture treat with Macrobid 100 mg p.o. b.i.d. for 5 days. Instructions given the patient to call in case of persistence of her symptoms within 48 hours, fever above 100.4, flank pain, nausea or vomiting. All questions answered, the patient verbalized understanding Orders: Orders US pelvic and transvaginal Today R10.2 - Pelvic and perineal pain Medications: New nitrofurantoin monohyd/m-cryst 100 mg (Macrobid) 100 mg PO BID 5 days 10 caps 0RF Coding Level of Care Code Est Pt Level 3 (97922) Diagnoses Pelvic pain in female R10.2 UTI (urinary tract infection) N39.0
[2024-01-28 10:11] VITALS: BP 124/76; BMI 33.1
== END 2024-01-28 10:48 | disposition home or self-care (01) ==
LOC: HO.HWS 10:02
PROVIDERS: PCP Registered Nurse; Visit Provider Obstetrics & Gynecology
DX: R10.2 Pelvic and perineal pain (principal); N39.0 Urinary tract infection, site not specified; Z32.02 Encounter for pregnancy test, result negative
CPT/HCPCS: 99213

== ENCOUNTER 2024-01-28 10:35 | Outpatient (REF) | payer BC, SELFPAY ==
[2024-01-28 17:03] LABS: CT PCR NOT DETECTED (Not Detect.); NG PCR NOT DETECTED (Not Detect.)
== END 2024-01-28 10:36 | disposition home or self-care (01) ==
LOC: HO.LNP 10:35
PROVIDERS: Visit Provider Obstetrics & Gynecology
DX: R10.2 Pelvic and perineal pain (principal)
CPT/HCPCS: 87491; 87591

== ENCOUNTER 2024-02-16 11:43 | Outpatient (AMB) | payer BC, SELFPAY ==
--- NOTE | 2024-02-16 12:08 | A.OFFVIS_ITS ---
Vital Signs 02/16/24 12:09 Height 5 ft 6 in Weight 182 lb 15.739 oz BMI 29.5 Intake Visit Reasons: urine dip Airway Controller Required: Yes Airway Controller Language: Ems Instructor Services: Airway Controller Present (in person) Airway Controller Name: Val KING Information Interpreted: non-clinical & clinical Accompanied by: Self / Same As Patient Allergies No Known Allergies Allergy (Verified 02/16/24 12:09) HPI Comments Details: Presenting for repeat urine dip. The patient took Macrobid 100 mg p.o. b.i.d. for 5 days and urine symptoms have improved markedly. Ultrasound is not scheduled yet [facility] Medical History Iron deficiency anemia Palpitations Gastroesophageal reflux disease Elevated blood pressure reading Anxiety Surgical History History of hysteroscopy Hx of tubal ligation Social History Household Members: Spouse, Family and Children Housing: House Alcohol intake: never Patient Tobacco Use Status: Never used Tobacco service: No Current occupational status: unemployed Sexual orientation: Straight/Heterosexual Gender identity: Female Female Reproductive History Menstrual Age of Menarche: 14 Review of Systems Const All systems reviewed & are unremarkable except as noted in HPI and below Reports as per HPI and Reports no additional complaints GI Reports no additional complaints Reports no additional complaints Physical Exam Vital Signs: BMI result Body Mass Index 29.5 Assessment & Plan Assessment & Plan (1) UTI (urinary tract infection): Code(s): N39.0 - Urinary tract infection, site not specified Category: Medical Plan: Repeat urine dip showed leukocytes and protein but no microscopic hematuria. Will send urine for culture. Instructions given the patient to schedule an ultrasound follow-up appointment and to call in case of recurrence of her urine symptoms. All questions answered, the patient verbalized understanding. Coding Level of Care Code Est Pt Level 3 (80282) Diagnoses UTI (urinary tract infection) N39.0
[2024-02-16 12:09] VITALS: BMI 29.5
== END 2024-02-16 12:27 | disposition home or self-care (01) ==
PROVIDERS: PCP Registered Nurse; Visit Provider Obstetrics & Gynecology
DX: N39.0 Urinary tract infection, site not specified (principal)
CPT/HCPCS: 99213

== ENCOUNTER 2024-02-16 11:43 | Outpatient (REF) | payer BC, SELFPAY | END 2024-02-16 11:44 | disposition home or self-care (01) | LOC: HO.LNP 11:43 | PROVIDERS: PCP Registered Nurse; Visit Provider Obstetrics & Gynecology | DX: N39.0 Urinary tract infection, site not specified (principal) | CPT/HCPCS: 87086 ==

== ENCOUNTER 2024-02-23 10:37 | Outpatient (REF) | payer BC, SELFPAY ==
--- NOTE | ~2024-02-23 | US_ITS ---
EXAMINATION: US PELVIS CLINICAL INFORMATION: Pelvic and perineal pain. COMPARISON: Pelvic ultrasound 08/19/2022, 03/19/2022.. TECHNIQUE: Ultrasound of the pelvis is performed using both transabdominal and transvaginal transducers along with Doppler. Transvaginal imaging is performed due to inadequate visualization transabdominally. FINDINGS: Uterus: The uterus measures 9.6 x 5.2 x 7.4 cm. Apparent arcuate morphology. The endometrial stripe measures 1.7 cm. 1.1 cm submucosal fibroid. 0.8 cm submucosal fibroid. Adnexa: The right ovary measures 4.5 x 2.1 x 2.5 cm, volume 12.4 mL. There is a 2.7 cm simple physiologic cyst in the right ovary for which no imaging follow-up is recommended. Color Doppler appears normal. The left ovary measures 3.9 x 1.5 x 2.0 cm, volume 6.1 mL. The left ovary appears normal. Color Doppler appears normal. No free fluid. US/US pelvic and transvaginal IMPRESSION: 2.7 cm physiologic cyst in the right ovary. No imaging follow-up is recommended. Endometrial stripe measures 1.7 cm in thickness which is similar to previous imaging measuring up to 1.6 cm. Small submucosal uterine fibroids. Electronically signed by: Aneudy Jarrett MD 03/08/2024 03:11 PM EDT
== END 2024-02-23 10:38 | disposition home or self-care (01) ==
LOC: HO.US 10:37
PROVIDERS: PCP Registered Nurse; Visit Provider Obstetrics & Gynecology
DX: R10.2 Pelvic and perineal pain (principal)
CPT/HCPCS: 76830; 76856

== ENCOUNTER 2024-03-03 11:22 | Outpatient (REF) | payer BC, SELFPAY ==
--- NOTE | ~2024-03-03 | MM_ITS ---
EXAMINATION: MM SCREENING DIGITAL BREAST TOMOSYNTHESIS, BILATERAL CLINICAL INFORMATION: Screening. Asymptomatic. COMPARISON: Mammography: Comparison is made with available priors TECHNIQUE: Digital breast mammography with tomosynthesis is performed in both the craniocaudal and mediolateral oblique views along with computer-aided detection (CAD). FINDINGS: The breasts are heterogeneously dense, which may obscure small masses (ACR BI-RADS breast composition Category c). There are no significant masses, abnormal calcifications, or other abnormalities. MM/MM tomosynthesis screening BI IMPRESSION: No mammographic evidence of malignancy. ASSESSMENT: BI-RADS BI-RADS 1 - Negative RECOMMENDATION: Routine annual mammography screening. 1 year F/U This examination should not preclude the clinical evaluation of a suspicious palpable abnormality. This patient's information was entered into a reminder system with a target due date for their next mammogram. Electronically signed by: Alta Rodgers DO 03/25/2024 10:37 PM EDT
== END 2024-03-03 11:23 | disposition home or self-care (01) ==
LOC: HO.MAMMO 11:22
PROVIDERS: PCP Registered Nurse; Visit Provider Registered Nurse
DX: Z12.31 Encounter for screening mammogram for malignant neoplasm of breast (principal)
CPT/HCPCS: 77063; 77067

== ENCOUNTER → 2024-03-03 12:00 | Outpatient (BNV) | payer BC, SELFPAY | PROVIDERS: PCP Registered Nurse; Visit Provider Internal Medicine | DX: Z12.31 Encounter for screening mammogram for malignant neoplasm of breast (principal) | CPT/HCPCS: 77063; 77067 ==

== ENCOUNTER 2024-04-20 13:43 | Outpatient (AMB) | payer BC, SELFPAY ==
--- NOTE | 2024-04-20 13:44 | A.OFFVIS_ITS ---
Intake Visit Reasons: u/s results ([phone]) Allergies No Known Allergies Allergy (Verified 03/03/24 10:54) HPI Comments Details: The patient is scheduled a tele health visit to discuss the results of her pelvic ultrasound which showed the following: Uterus: The uterus measures 9.6 x 5.2 x 7.4 cm. Apparent arcuate morphology. The endometrial stripe measures 1.7 cm. 1.1 cm submucosal fibroid. 0.8 cm submucosal fibroid. Adnexa: The right ovary measures 4.5 x 2.1 x 2.5 cm, volume 12.4 mL. There is a 2.7 cm simple physiologic cyst in the right ovary for which no imaging follow-up is recommended. Color Doppler appears normal. The left ovary measures 3.9 x 1.5 x 2.0 cm, volume 6.1 mL. The left ovary appears normal. Color Doppler appears normal. No free fluid. The patient is doing well her pain has completely resolved GC/CT negative. Last visit urine test was negative. Last visit urine dip was neg after ATB rx. PFSH Medical History Iron deficiency anemia Palpitations Gastroesophageal reflux disease Elevated blood pressure reading Anxiety Surgical History History of hysteroscopy Hx of tubal ligation Social History Household Members: Spouse, Family and Children Housing: House Alcohol intake: never Patient Tobacco Use Status: Never used Tobacco service: No Current occupational status: unemployed Sexual orientation: Straight/Heterosexual Gender identity: Female Female Reproductive History Menstrual Age of Menarche: 14 Review of Systems Const All systems reviewed & are unremarkable except as noted in HPI and below Reports as per HPI and Reports no additional complaints GI Reports no additional complaints Reports no additional complaints Telehealth Telehealth Telehealth Platform: Telephone Location of provider rendering services: practice address Location of patient: address on file Patient Identification confirmed using: Name, : Yes Telehealth method: video Patient verbally consented to treatment: Yes Patient verbally consented to billing insurance company: Yes Patient informed of any privacy concerns related to visit: Yes Assessment & Plan Assessment & Plan (1) Pelvic pain in female: Code(s): R10.2 - Pelvic and perineal pain Category: Medical Plan: Discussed with the patient the results of the workup done including negative GC/chlamydia, urine dip, urine test and pelvic ultrasound. Instructions given the patient to call in case of recurrence of pelvic pain. All questions answered, the patient verbalized understand (2) Uterine myoma: Code(s): D25.9 - Leiomyoma of uterus, unspecified Category: Medical Plan: Discussed with the patient the findings on pelvic ultrasound & the risk of myosarcoma; discussed with the patient the options of treatment including expectant management versus hysterectomy; the pros and cons, risks benefits of each approach were discussed with the patient including the fact that in cases of myosarcoma, surgical treatment can lead to early diagnosis and positively affects the prognosis; after further discussion, the patient decided to proceed with expectant management. Will repeat pelvic ultrasound periodically. Instructions given to patient to call in case any of the following occurs: pressure symptoms, abnormal uterine bleeding, pelvic pain; and to schedule a 12months pelvic ultrasound and a follow-up appointment . All questions answered, the patient verbalized understanding and agreed with the plan . I spent a total of 20 minutes reviewing the chart, talking to the patient via video and documenting in the medical record. Orders: Orders 2 US pelvic and transvaginal 1 Year R10.2 - Pelvic and perineal pain Coding Level of Care Code Tele Est Pt Level 1 (91563) Diagnoses Pelvic pain in female R10.2 Uterine myoma D25.9
== END 2024-04-20 15:41 | disposition home or self-care (01) ==
LOC: HO.HWS 13:43
PROVIDERS: PCP Registered Nurse; Visit Provider Obstetrics & Gynecology
DX: R10.2 Pelvic and perineal pain (principal); D25.9 Leiomyoma of uterus, unspecified
CPT/HCPCS: 99211

== ENCOUNTER → 2024-04-20 13:43 | Outpatient (BNVA) | payer BC, SELFPAY | PROVIDERS: PCP Registered Nurse; Visit Provider Obstetrics & Gynecology ==

== ENCOUNTER 2024-10-06 13:02 | Outpatient (AMB) | payer OTHER, SELFPAY ==
--- NOTE | 2024-10-06 13:19 | A.OFFVIS_ITS ---
Intake Visit Reasons: Pelvic pain International Sales Manager Required: Yes International Sales Manager Language: Personal Clothing Laundry Aide Services: International Sales Manager Present (in person) International Sales Manager Name: Val CHRISTINE Gonzalez Information Interpreted: non-clinical & clinical Laboratory Development Technician: Laboratory Development Technician Present (CHRISTINE Dickey) Accompanied by: Self / Same As Patient Allergies No Known Allergies Allergy (Verified 10/06/24 13:20) Is last menstrual period known: Yes Last menstrual period: 09/25/24 (Twice in the month of September ) Post menopausal: No Patient : No HPI Comments Details: The patient is presenting with bilateral lower pain started 1-2 days ago. It's intermittent in nature lasting few seconds . it is not associated with any vaginal discharge or bleeding, no constipation, no dysuria, frequency incontinence, no n/v, no feverishness PFSH Medical History Iron deficiency anemia Palpitations Gastroesophageal reflux disease Elevated blood pressure reading Anxiety Surgical History History of hysteroscopy Hx of tubal ligation Social History Household Members: Spouse, Family and Children Housing: House Alcohol intake: never Patient Tobacco Use Status: Never used Tobacco Patient : No service: No Current occupational status: unemployed Sexual orientation: Straight/Heterosexual Gender identity: Female Female Reproductive History Menstrual Age of Menarche: 14 Duration of menses: 6-7 days Date of last menstrual period: 09/25/24 (Twice in the month of September ) Review of Systems Const All systems reviewed & are unremarkable except as noted in HPI and below Physical Exam General: Yes no CVA tenderness External Female Exam: normal external appearance and normal appearance of the urethra Speculum Exam - Vagina: normal appearance of the vagina, normal palpation, no lesions and no masses Speculum Exam - Cervix: normal appearance of the cervix, normal palpation, no le sions, no masses and nontender Bimanual exam- vagina & uterus: normal bimanual exam, normal palpation, uterine size normal, normal palpation, uterine shape normal, No Cervical tenderness present and non-tender Bimanual Exam- Adnexa, other: normal adnexae Back/Spine/Pelvis Back: no CVA tenderness Assessment & Plan Assessment & Plan (1) Pelvic pain: Code(s): R10.2 - Pelvic and perineal pain Category: Medical Plan: Urine dip and test done in the office were both negative. GC and chlamydia taken and pelvic ultrasound ordered. Discussed with the patient the differential diagnosis of pelvic pain including but not limited to adnexal, uterine masses, pelvic infections (PID), GI the (Irritable bowel syndrome, diverticulitis, others), musculoskeletal, myofascial pain abdominal wall , adhesions, endometriosis, psychological and others causes. Will check results and treat accordingly. All questions answered, the patient verbalized understanding. Instructed the patient to schedule an ultrasound and a follow-up appointment in 2 weeks. All questions answered, the patient verbalized understa nding and agreed with the plan. Orders: Orders US pelvic and transvaginal Today R10.2 - Pelvic and perineal pain Coding Level of Care Code Est Pt Level 3 (38017) Diagnoses Pelvic pain R10.2
== END 2024-10-06 14:05 | disposition home or self-care (01) ==
LOC: HO.HWS 13:02
PROVIDERS: PCP Registered Nurse; Visit Provider Obstetrics & Gynecology
DX: R10.2 Pelvic and perineal pain (principal)
CPT/HCPCS: 99213

== ENCOUNTER 2024-10-06 13:02 | Outpatient (REF) | payer OTHER, SELFPAY ==
--- OUTSIDE RECORDS SUMMARY | 2024-10-06 15:49 | XMS_ITS | Encounter Summary ---
Author Organization [employer] Address [address] [facility] [address] [place] [address] Care Team Providers Care Play Back Operator Name Role Phone Kay Peterson Primary Care Provider [phone] Lino Mobley MD Unavailable Talita Gallagher MD Unavailable [phone] Reason for Visit * Reason Onset Date Comments Appointment Request 10/02/2022 Encounter Details Date Type Department Care Team (Late st Contact Info) Description 10/02/2022 Telephone [facility] [address] [place] [address] Kay Peterson FNP [address] [place], [place] [phone] Appointment Request Social History Tobacco Use Types Packs/Day Years Used Date Smoking Tobacco: Never Smokeless Tobacco: Never Alcohol Use Standard Drinks/Week Comments Never 0 (1 standard drink = 0.6 oz pur e alcohol) Comments Unknown Sex and Gender Information Value Date Recorded Sex Assigned at Female 05/04/2022 10:34 AM EDT Legal Sex Female 10:34 AM EDT Gender Identity Female 05/04/2022 10:34 AM EDT Sexual Orientation Straight 02/23/2023 2: 55 PM EDT Sexual Orientation Choose not to disclose 2022 2:55 PM EDT COVID-19 Exposure Response Date Recorded In the last 10 days, have yo u been in contact with someone who was confirmed or suspected to have Coronavirus/COVID-19? No / Unsure 09/25/2022 10:28 AM EDT documented as of this encounter Miscellaneous Notes * Telephone Encounter - Johnson Mccarthy - 10/02/2022 10:30 AM EDT Tc from pt requesting to r/s appt on 10/02/22 ( Serumen Impact of left ear. Per E[place]se ). Please contact pt at [phone] documented in this encounter Plan of Treatment Upcoming Encounters Date Type Department Care Team (Late st Contact Info) Description 11/17/2024 3:30 PM EDT Office Visit [facility] [address] [place] [address] Kay Peterson FNP [address] [place] [address] documented as of this encounter Visit Diagnoses Not on filedocumented in this encounter Care Teams Play Back Operator Relationship Specialty Start Date End Date Kay Peterson FNP [address] [place] [address] PCP - General Family Medicine 02/26/22 Lino Mobley MD [address] [place] [address] [place] [address] Obstetrics and Gynecology 07/20/24 Talita Gallagher MD [address] [place] [address] Hematology and Oncology 07/20/24 documented as of this encounter
--- OUTSIDE RECORDS SUMMARY | 2024-10-06 15:49 | XMS_ITS | Encounter Summary ---
Author Organization [employer] Address [address] [facility] [address] [place] [address] Care Team Providers Care Reinforcing Steel Worker Wire Mesh Name Role Phone ColtonKay arshad JAMIE Primary Care Provider [phone] Lino Mobley MD Unavailable Talita Gallagher MD Unavailable [phone] Reason for Visit * Reason Onset Date Comments medication 02/19/2023 Encounter Details Date Type Department Care Team (Late st Contact Info) Description 02/19/2023 Telephone [facility] [address] [place], [place] [phone] Fausto Rascon DDS [address] [place], [place] [phone] medication Social History Tobacco Use Types Packs/Day Years Used Date Smoking Tobacco: Never Passive Smoke Exposure: Never Smokeless Tobacco: Never Alcohol Use Standard Drinks/Week Comments Never 0 (1 standard drink = 0.6 oz pur e alcohol) Depression Answer Date Recorded Patient Health Questionnaire-9 Score 0 10/26/2022 Depression Answer Date Recorded Patient Health Questionnaire-2 Score 0 10/26/2022 Comments Unknown Sex and Gender Information Value Date Recorded Sex Assigned at Female 05/04/2022 10:34 AM EDT Legal Sex Female 10:34 AM EDT Gender Identity Female 05/04/2022 10:34 AM EDT Sexual Orientation Straight 02/23/2023 2: 55 PM EDT Sexual Orientation Choose not to disclose 2022 2:55 PM EDT documented as of this encounter Miscellaneous Notes * Telephone Encounter - Gladys Murillos - 02/19/2023 2:28 PM EDT Patient called in stating that she went to the pharmacy and script not there. I do see it in the system as being sent but it has not gone through. Can it be resent. documented in this encounter Plan of Treatment Upcoming Encounters Date Type Department Care Team ([facility] st Contact Info) Description 11/17/2024 3:30 PM EDT Office Visit [facility] [address] [place] [address] Kay Peterson FNP [address] [place] [address] documented as of this encounter Visit Diagnoses Not on filedocumented in this encounter Additional Health Concerns Assessment Noted Time PHQ-9 Depression Total Score: 0 10/27/19 23 10:17 AM EDT documented as of this encounter Care Teams Reinforcing Steel Worker Wire Mesh Relationship Specialty Start Date End Date Kay Peterson FNP [address] [place] [address] PCP - General Family Medicine 02/26/22 Lino Mobley MD [address] [place] [phone] Obstetrics and Gynecology 07/20/24 Talita Gallagher MD [address] [place] [address] Hematology and Oncology 07/20/24 documented as of this encounter
--- OUTSIDE RECORDS SUMMARY | 2024-10-06 15:49 | XMS_ITS | Encounter Summary ---
Author Organization [employer] Address [address] [facility] [address] [place] [address] Care Team Providers Care Physician Scribe Name Role Phone Kay Peterson Primary Care Provider [phone] Lino Mobley MD Unavailable Talita Gallagher MD Unavailable [phone] Reason for Visit * Reason Onset Date Comments Appointment Request 08/26/2022 Encounter Details Date Type Department Care Team (Late st Contact Info) Description 08/26/2022 Telephone [facility] [address] [place] [address] Kay Peterson FNP [address] [place], [place] [phone] Appointment Request Social History Tobacco Use Types [...] encounter Miscellaneous Notes * Telephone Encounter - Syd Marino - 08/31/2022 10:26 AM EST Tc from pt requesting status for Physical states she doesn't mind with a different provider. ([place] speaker) * Telephone Encounter - Johnson Mccarthy - 08/26/2022 11:44 AM EST Tc from pt requesting an Physical appt states work is requiring pt to have Physical updated Please contact pt at [phone] documented in this encounter Plan of Treatment Upcoming Encounters Date Type Department Care Team (Late st Contact Info) Description 11/17/2024 3:30 PM EDT Office Visit [facility] [address] [place] [address] Kay Peterson FNP [address] [place] [address] documented as of this encounter Visit Diagnoses Not on filedocumented in this encounter Care Teams Physician Scribe Relationship Specialty Start Date End Date Kay Peterson FNP [address] [place] [address] PCP - General Family Medicine 02/26/22 Lino Mobley MD [address] [place] [address] [place] [address] Obstetrics and Gynecology 07/20/24 Talita Gallagher MD [address] [place] [address] Hematology and Oncology 07/20/24 documented as of this encounter
--- OUTSIDE RECORDS SUMMARY | 2024-10-06 15:49 | XMS_ITS | Encounter Summary ---
Author Organization [employer] Address [address] [facility] [address] [place] [address] Care Team Providers Care Automobile Tester Name Role Phone Kay Peterson Primary Care Provider [phone] Lino Mobley MD Unavailable Talita Gallagher MD Unavailable [phone] Reason for Visit * Reason Onset Date Comments Appointment Confirmation 11/08/2023 Encounter Details Date Type Department Care Team ([facility] st Contact Info) Description 11/08/2023 Telephone [facility] MED [facility] PEDS [address] [place], [place] [phone] Kay Peterson FNP [address] [place], [place] [phone] Appointment Confirmation Social History Tobacco Use Types Packs/Day Years Used Date Smoking Tobacco: Never Passive Smoke Exposure: Never Smokeless Tobacco: Never Alcohol Use Standard Drinks/Week Comments Never 0 (1 standard drink = 0.6 oz pur e alcohol) Depression Answer Date Recorded Patient Health Questionnaire-9 Score 3 10/08/2023 Patient Health Questionnaire-9 Score 3 10/08/2023 Last PHQ-9: Questionnaire Data Not on file 0 10/08/2023 Housing Stability Answer Date Recorded What is your housing situation today? I have john paniagua 09/28/[address] you li ve. Do you have problems with any of the following? None of the above 09/28/2023 Food Insecurity Answer Date Recorded Within the past 12 months, y ou worried that your food would run out before you got money to buy more: Never True 09/28/2023 Within the past 12 months,th e food you bought just didn't last and you didn't have enough money to get more: Never True Transportation Answer Date Recorded In the past 12 months, has l ack of transportation kept you from medical appts, meetings, work or from getting things needed for daily living? No 09/28/2023 Utilities Answer Date Recorded In the past 12 months, has t he electric, gas, oil or water company threatened to shut off services in your home? No 09/28/2023 Depression Answer Date Recorded Patient Health Questionnaire-2 Score 0 10/08/2023 Comments Unknown Sex and Gender Information Value Date Recorded Sex Assigned at Female 05/04/2022 10:34 AM EDT Legal Sex Female 10:34 AM EDT Gender Identity Female 05/04/2022 10:34 AM EDT Sexual Orientation Straight 02/23/2023 2: 55 PM EDT Sexual Orientation Choose not to disclose 2022 2:55 PM EDT documented as of this encounter Miscellaneous Notes * Telephone Encounter - Marisol Orellana - 11/08/2023 9:41 AM EDT Tc from pt requesting an appt to get TB shot. States has an orientation tomorrow and has to provideinformation. documented in this encounter Plan of Treatment Upcoming Encounters Date Type Department Care Team ([facility] st Contact Info) Description 11/17/2024 3:30 PM EDT Office Visit [facility] MED & PEDS [address] [place] [address] Kay Peterson FNP [address] [place] [address] documented as of this encounter Visit Diagnoses Not on filedocumented in this encounter Additional Health Concerns Assessment Noted Time PHQ-9 Depression Total Score: 3 10/08/19 24 9:44 AM EDT documented as of this encounter Care Teams Automobile Tester Relationship Specialty Start Date End Date Kay Peterson FNP [address] [place] [phone] PCP - General Family Medicine 02/26/22 Lino Mobley MD [address] [place] [address] [place] [phone] Obstetrics and Gynecology 07/20/24 Talita Gallagher MD [address] [place] [id number] Hematology and Oncology 07/20/24 documented as of this encounter
--- OUTSIDE RECORDS SUMMARY | 2024-10-06 15:49 | XMS_ITS | Encounter Summary ---
Author Organization [employer] Address [address] [facility] [address] [place] [address] Care Team Providers Care Public Health Inspector Name Role Phone Kay Peterson Primary Care Provider [phone] Lino Mobley MD Unavailable Talita Gallagher MD Unavailable [phone] Reason for Visit * Reason Onset Date Comments Nurse Triage 11/30/2023 Encounter Details Date Type Department Care Team (Late st Contact Info) Description 11/30/2023 Telephone [facility] MEDICINE [address] [place] [address] Kay Peterson FNP [address] [place], [place] [phone] Nurse Triage Social History Tobacco Use Types Packs/Day Years [...] encounter Miscellaneous Notes * Telephone Encounter - JAMIE Tony - 12/01/2023 8:06 AM EDT Pt currently on recall for beginning of January 2024. Ok to schedule end of December/early January. Same Day Care or Walk in Center available sooner with any urgent concerns, thank you! * Telephone Encounter - Maria G James RN - 11/30/2023 3:09 PM EDT T/C to pt who is requesting appointment with PCP for re-evaluation of pain in her ovaries. Pt is also complaining of swelling in her feet. Ovary pain began about 10 days ago and has been extremely intense - but pt does report no pain today. Pt states that she feet began swelling 4 days ago, but pt states that she think the swelling is more related to her new shoes. RN asked for clarification about if she believes her feet are swelling or if her shoes are causing discomfort. Pt states that she believes that her feet are swelling - but states that she is not swollen at this time. Pt denies any other symptoms at this time. Pt then complains of urinary urgency x10 days (pt also states she is not experiencing these symptoms today). Pt denies urinary frequency and states that she is peeing baseline volumes. Pt also deniesurinary pain. At this time RN asks pt to clarify which symptoms she is still experiencing and would like to be seen for. Pt states that all symptoms have subsided at this time. RN advises pt to call back if any ofthese symptoms return for further evaluation. RN also reviews the diamond cutter triage nurses and that ptcan call anytime, and the hours of operations of the walk-in clinic. RN will also send an FYI to PCP for update on pt status. Pt expresses understanding and agrees to plan of care. * Telephone Encounter - Per Ramirez - 11/30/2023 2:40 PM EDT Symptoms: Foot or Ankle Swelling, Abdominal Pain - Female - Not Outcome: Schedule an urgent appointment (within 4 hours) or talk to a nurse or provider soon Reason: Started within the past 3 days The caller accepted this outcome Patient speaks chinese documented in this encounter Plan of Treatment Upcoming Encounters Date Type Department Care Team (Late st Contact Info) Description 11/17/2024 3:30 PM EDT Office Visit [facility] MED & PEDS [address] [place] [address] Kay Peterson FNP [address] [place] [address] documented as of this encounter Visit Diagnoses Not on filedocumented in this encounter Additional Health Concerns Assessment Noted Time PHQ-9 Depression Total Score: 3 10/08/19 24 9:44 AM EDT documented as of this encounter Care Teams Public Health Inspector Relationship Specialty Start Date End Date Kay Peterson FNP [address] [place] [address] PCP - General Family Medicine 02/26/22 Lino Mobley MD [address] [place] [address] [place] [phone] Obstetrics and Gynecology 07/20/24 Talita Gallagher MD [address] [place] [phone] Hematology and Oncology 07/20/24 documented as of this encounter
--- OUTSIDE RECORDS SUMMARY | 2024-10-06 15:49 | XMS_ITS | Encounter Summary ---
Author Organization [employer] Address [address] [facility] [address] [place] [address] Care Team Providers Care Building Construction Foreman Name Role Phone Kay Peterson Primary Care Provider [phone] Lino Mobley MD Unavailable Talita Gallagher MD Unavailable [phone] Reason for Visit * Reason Onset Date Comments Lab Orders 11/05/2023 Encounter Details Date Type Department Care Team (Late st Contact Info) Description 11/05/2023 Telephone [facility] MEDICINE [address] [place] [address] Kay Peterson FNP [address] [place], [place] [phone] Lab Orders Social History Tobacco Use Types Packs/Day Years [...] encounter Miscellaneous Notes * Telephone Encounter - Per Ramirez - 11/05/2023 11:43 AM EDT Tc from patient 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 documented in this encounter Plan of Treatment Upcoming Encounters Date Type Department Care Team (Late st Contact Info) Description 11/17/2024 3:30 PM EDT Office Visit [facility] MED & PEDS [address] [place] [address] Kay Peterson FNP [address] [place] [address] documented as of this encounter Visit Diagnoses Not on filedocumented in this encounter Additional Health Concerns Assessment Noted Time PHQ-9 Depression Total Score: 3 10/08/19 24 9:44 AM EDT documented as of this encounter Care Teams Building Construction Foreman Relationship Specialty Start Date End Date Kay Peterson FNP [address] [place] [address] PCP - General Family Medicine 02/26/22 Lino Mobley MD [address] [place] [address] [place] [phone] Obstetrics and Gynecology 07/20/24 Talita Gallagher MD [address] [place] [phone] Hematology and Oncology 07/20/24 documented as of this encounter
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
[2024-10-06 18:08] LABS: CT PCR NOT DETECTED (Not Detect.); NG PCR NOT DETECTED (Not Detect.)
== END 2024-10-06 13:03 | disposition home or self-care (01) ==
LOC: HO.LNP 13:02
PROVIDERS: PCP Registered Nurse; Visit Provider Obstetrics & Gynecology
DX: R10.2 Pelvic and perineal pain (principal)
CPT/HCPCS: 87491; 87591

== ENCOUNTER 2024-10-18 09:58 | Outpatient (AMB) | payer OTHER, SELFPAY ==
--- NOTE | 2024-10-18 10:07 | A.OFFPC_ITS ---
Vital Signs 10/18/24 10:17 10/18/24 10:24 Height 5 ft 6 in Weight 202 lb 8 oz BMI 32.7 BP 134/94 H 128/88 Blood Pressure Location Lt brachial Lt brachial Position Sitting Sitting Respiration 14 Pulse 72 Pulse Source Pulse Oximeter Pulse Oximetry (%) 97 Oxygen Delivery Method Room Air Intake Visit Reasons: est care/ anxiety Intake Note: New patient visit Tool Radial Drill Press Set Up Operator Required: Yes Allergies No Known Allergies Allergy (Verified 10/18/24 10:07) Tobacco use date assessed: 10/18/24 Dental Screening Dental Screen Date: 10/18/24 Did you have a dental visit in the last 12 months?: Yes Did you have a dental problem in the last 6 months where you did not have access to dental care?: No Was dental information given to patient?: Patient has dentist HPI est care/ anxiety HPI Details Patient is a 49-year-old female who presents today to [facility]. She is transferring from [facility]. Tool Radial Drill Press Set Up Operator: #[id number] Psych: Currently on hydroxyzine 25-50 mg as needed. Heme: She had blood work which showed significant anemia. She is following with Hematology. There is no personal or family history of bleeding disorder. She did not have any problems during her pregnancies, delivery or multiple teeth extractions. She received Venofer 200 mg IV weekly x5 in 10/23/2023. She was unable to receive oral iron therapy because of insurance reasons. She was become anemic again with ferritin below 10. She is started on Venofer infusions. Sterile Proc Tech: Following with rehabilitation medicine physician for pelvic pain. Has a pelvic ultrasound ordered. She did have 1 last year which did show a right ovarian cyst. Colonoscopy: never had Mammo: 02/2024 Pap: UTD- follows with WIRELESS DEVELOPMENT MANAGER [facility] Medical History (Updated 10/18/24 @ 10:42 by [place] Mg PA-C) Iron deficiency anemia Palpitations Gastroesophageal reflux disease Elevated blood pressure reading Anxiety Surgical History History of hysteroscopy Hx of tubal ligation Family History Other Substance abuse Social History Household Members: Spouse, Family and Children Housing: House Alcohol intake: never Patient Tobacco Use Status: Never used Tobacco e-Cigarette/Vaping Use: Never Used Second Hand Smoke Exposure: No service: No Current occupational status: unemployed Sexual orientation: Straight/Heterosexual Gender identity: Female Cognitive needs: No Hearing needs: No Vision needs: No Female Reproductive History Menstrual Age of Menarche: 14 Questionnaire PHQ-9 Over the last 2 weeks, how often have you been bothered by any of the following problems? 1. Little interest or pleasure in doing things: not at all 2. Feeling down, depressed, or hopeless: not at all 3. Trouble falling or staying asleep, or sleeping too much: not at all 4. Feeling tired or having little energy: several days 5. Poor appetite or overeating: not at all 6. Feeling bad about yourself - or that you are a failure or have let yourself or your family down: not at all 7. Trouble concentrating on things, such as reading the newspaper or watching television: not at all 8. Moving or speaking so slowly that other people could have noticed. Or the opposite - being so fidgety or restless that you have been moving around a lot more than usual: not at all 9. Thoughts that you would be better off or of hurting yourself in some way: not at all Total score: 1 Depression Screening Interpretation: Negative Depression Screening Done: Yes 96278 - PHQ-9 Billing: Yes Source: Developed by Drs. Marlon Virk, Suki Crane, Ozzie Thompson and colleagues, with an educational niranjan from [employer]. Thrive Questionnaire Date Thrive assessed: 10/18/24 I am a: Patient What is your living situation today?: I have a steady place to live Within the past 12 months, did the food you bought not last and you didn't have the money to get more?: I choose not to answer this question Within the past 12 months, did you worry whether your food would run out before you got money to buy more?: I choose not to answer this question Do you have trouble paying for medicines?: No Do you have trouble getting transportation to medical appointments?: No Do you have trouble paying your heating and electricity bill?: No Do you have trouble taking care of your child, family member or friend?: No Do you have trouble with day-to-day activities such as bathing, preparing meals, shopping, managing finances, etc.?: No Are you currently unemployed and looking for a job?: No Are you interested in more education?: No Please select the resources that you would like help with: None Currently or been in a relationship where the following occur: I choose not to answer THRIVE Score: 0 AUDIT C Alcohol Use Questionnaire (AUDIT-C) 1. How often do you have a drink containing alcohol?: Never 3. How often do you have six or more drinks on one occasion?: Never Total Score: 0 Score Reviewed/Action Taken: Yes NILDA-7 AMB Questionnaire NILDA-7 Date NILDA - 7 assessed: 10/18/24 Feeling nervous, anxious, or on edge: 0 = Not at all Not being able to stop or control worryin = Several days Worrying too much about different things: 1 = Several days Trouble relaxin = Not at all Being so restless that it is hard to sit still: 0 = Not at all Becoming easily annoyed or irritable: 0 = Not at all Feeling afraid as if something awful might happen: 0 = Not at all Total NILDA-7 score (0-4 normal; 5-9 mild; 10-14 moderate; 15-21 severe): 2 Source: Developed by Drs. Marlon Virk, Suki Crane, Ozzie Thompson and colleagues, with an educational niranjan from [employer]. NILDA-7 Assessment Billing NILDA-7 Assessment Tool: NILDA-7 Assessment 32721 Physical exam (Primary Care) Vital Signs: Last Vital Signs Pulse 72 10/18/24 10:17 Resp 14 10/18/24 10:17 BP 128/88 10/18/24 10:24 Pulse Ox 97 10/18/24 10:17 Oxygen Delivery Method Room Air 10/18/24 10:17 BMI result Body Mass Index 32.7 Tobacco/Smoking Status: Tobacco use Status Tobacco use date assessed 10/18/24 10/18/24 10:09 Patient Tobacco Use Status Never used Tobacco 10/18/24 10:09 e-Cigarette/Vaping Use Never Used 10/18/24 10:09 PHQ-9: PHQ-9 Score PHQ-9: Total score 1 10/18/24 10:42 Depression Screening Interpretation: Negative Thrive Assessment: Date of Thrive Assessment Date Thrive assessed 10/18/24 10/18/24 10:09 Currently or been in a relationship where the following occur: I choose not to answer Const Orientation/consciousness: patient oriented x3 HENMT Ears: hearing grossly normal bilaterally Neck Thyroid: Thyroid normal Lymphatic: no lymphadenopathy noted Resp Auscultation: clear to auscultation bilaterally Cardio Rate: regular rate Rhythm: regular rhythm Heart sounds: S1 normal heart sound present and S2 normal heart sound present GI Inspection: Yes normal to inspection Palpation (GI): Soft to palpation and Other GI palpation findings present (nontender, no cva tenderness) Auscultation: normoactive bowel sounds Rectal Exam - Female: deferred Skin General skin exam: no rashes or lesions noted Neuro General: patient oriented x3, gait normal and no focal motor deficits Coding Level of Care Code New Pt Level 3 (01605) Complex EM visit Add On G2211 Diagnoses Encounter to establish care Z76.89 Iron deficiency anemia D50.9 Generalized anxiety disorder F41.1 Palpitations R00.2 Additional Codes NILDA-7 Assessment Billing - NILDA-7 Assessment Tool: NILDA-7 Assessment 48255 ([id number]) PHQ-9 - 30431 - PHQ-9 Billing: Yes ([id number]) Assessment & Plan Assessment & Plan (1) Encounter to establish care: Code(s): Z76.89 - Persons encountering health services in other specified circumstances Plan: labs ordered hm reviewed referred to GI for colonoscopy (2) Iron deficiency anemia: Code(s): D50.9 - Iron deficiency anemia, unspecified Category: Medical Plan: going for infusions will monitor following with hematology (3) Generalized anxiety disorder: Code(s): F41.1 - Generalized anxiety disorder Category: Medical Plan: overall stable (4) Palpitations: Code(s): R00.2 - Palpitations Category: Medical Plan: ekg today holter and echo ordered ?related to anemia will check labs today She will try hydroxyizine too if needed as she thinks it could be related to anxiety Orders: Orders CA echo transthoracic complete 10/18/24 D50.9 - Iron deficiency anemia, unspecified, R00.2 - Palpitations UA CC w/rflx Micro + Cult 10/18/24 D50.9 - Iron deficiency anemia, unspecified, F41.1 - Generalized anxiety disorder, Z13.220 - Encounter for screening for lipoid disorders, Z76.89 - Persons encountering health services in other specified circumstances Complete Blood Count Auto Diff 10/18/24 D50.9 - Iron deficiency anemia, unspecified, F41.1 - Generalized anxiety disorder, Z13.220 - Encounter for screening for lipoid disorders, Z76.89 - Persons encountering health services in other specified circumstances Comprehensive Canones. Panel Fast 10/18/24 D50.9 - Iron deficiency anemia, unsp ecified, F41.1 - Generalized anxiety disorder, Z13.220 - Encounter for screening for lipoid disorders, Z76.89 - Persons encountering health services in other specified circumstances IRON PROFILE 10/18/24 D50.9 - Iron deficiency anemia, unspecified, F41.1 - Generalized anxiety disorder, Z13.220 - Encounter for screening for lipoid disorders, Z76.89 - Persons encountering health services in other specified circumstances Lipid Panel 10/18/24 D50.9 - Iron deficiency anemia, unspecified, F41.1 - Generalized anxiety disorder, Z13.220 - Encounter for screening for lipoid disorders, Z76.89 - Persons encountering health services in other specified circumstances TSH reflex Free T4 10/18/24 D50.9 - Iron deficiency anemia, unspecified, F41.1 - Generalized anxiety disorder, Z13.220 - Encounter for screening for lipoid disorders, Z76.89 - Persons encountering health services in other specified circumstances AMB EKG-In Office 10/18/24 D50.9 - Iron deficiency anemia, unspecified, R00.2 - Palpitations ECG holter monitor 24 hour 10/18/24 D50.9 - Iron deficiency anemia, unspecified, R00.2 - Palpitations Referrals Gastroenterology Referral D50.9 - Iron deficiency anemia, unspecified, Z12.11 - Encounter for screening for malignant neoplasm of colon
[2024-10-18 10:17] VITALS: BP 134/94; PULSE 72; RESP 14; O2SAT 97; BMI 32.7
[2024-10-18 10:24] VITALS: BP 128/88
--- OUTSIDE RECORDS SUMMARY | 2024-10-18 11:23 | XMS_ITS | Encounter Summary ---
Author Organization [employer] Address [address] [facility] [address] [place] [address] Care Team Providers Care Community Health Agent Name Role Phone Kay Peterson Primary Care Provider [phone] Lino Mobley MD Unavailable Talita Gallagher MD Unavailable Reason for Visit * Reason Onset Date Comments Appointment Request 10/02/2022 Encounter Details Date Type Department Care Team (Late st Contact Info) Description 10/02/2022 Telephone [facility] MEDICINE [address] [place] [address] Kay Peterson FNP [address] [place], [place] [phone] Appointment Request Social History Tobacco Use Types [...] Per Elyse ). Please contact pt at [phone] documented in this encounter Plan of Treatment Upcoming Encounters Date Type Department Care Team (Late st Contact Info) Description 10/19/2024 10:15 AM EDT Office Visit [facility] PEDS [address] [place] [address] Yuki Mccormack MD [address] [place] [address] 11/17/2024 3:30 PM EDT Office Visit [facility] [address] [place] [address] Kay Peterson FNP [address] [place] [address] documented as of this encounter Visit Diagnoses Not on filedocumented in this encounter Care Teams Community Health Agent Relationship Specialty Start Date End Date Kay Peterson FNP [address] [place] [address] PCP - General Family Medicine 02/26/22 Lino Mobley MD [address] [place] [address] [place] [address] Obstetrics and Gynecology 07/20/24 Talita Gallagher MD [address] [place] [address] Hematology and Oncology 07/20/24 documented as of this encounter
--- OUTSIDE RECORDS SUMMARY | 2024-10-18 11:24 | XMS_ITS | Encounter Summary ---
Author Organization [employer] Address [address] [facility] 7t [place] [address] Care Team Providers Care Switchboard And Control Room Operator Name Role Phone Kay Peterson Primary Care Provider [phone] Lino Mobley MD Unavailable Talita Gallagher MD Unavailable [phone] Reason for Visit * Reason Onset Date Comments Nurse Triage 11/30/2023 Encounter Details Date Type Department Care Team (Late st Contact Info) Description 11/30/2023 Telephone [facility] MEDICINE [address] [place] [address] Kay Peterson FNP [address] [place], [place] [phone] Nurse Triage Social History Tobacco Use Types [...] for further evaluation. RN also reviews the manager validation triage nurses and that ptcan call anytime, and the hours of operations of the walk-in clinic. RN will also send an FYI to PCP for update on pt status. Pt expresses understanding and agrees to plan of care. * Telephone Encounter - Per James - 11/30/2023 2:40 PM EDT Symptoms: Foot or Ankle Swelling, Abdominal Pain - Female - Not Outcome: Schedule an urgent appointment (within 4 hours) or talk to a nurse or provider soon Reason: Started within the past 3 days The caller accepted this outcome Patient speaks burkinan documented in this encounter Plan of Treatment Upcoming Encounters Date Type Department Care Team (Late st Contact Info) Description 10/19/2024 10:15 AM EDT Office Visit [facility] MED & PEDS [address] [place] [address] Yuki Mccormack MD [address] [place] [address] 11/17/2024 3:30 PM EDT Office Visit [facility] MED [facility] PEDS [address] [place] [address] Kay Peterson FNP [address] [place] [address] documented as of this encounter Visit Diagnoses Not on filedocumented in this encounter Additional Health Concerns Assessment Noted Time PHQ-9 Depression Total Score: 3 10/08/19 24 9:44 AM EDT documented as of this encounter Care Teams Switchboard And Control Room Operator Relationship Specialty Start Date End Date Kay Peterson FNP [address] [place] [address] PCP - General Family Medicine 02/26/22 Lino Mobley MD [address] [place] [address] Obstetrics and Gynecology 07/20/24 Talita Gallagher MD [address] [place] [address] Hematology and Oncology 07/20/24 documented as of this encounter
--- OUTSIDE RECORDS SUMMARY | 2024-10-18 11:24 | XMS_ITS | Encounter Summary ---
Author Organization [employer] Address [address] [facility] 7t [place] [address] Care Team Providers Care Dope Worker Name Role Phone Kay Peterson Primary Care Provider [phone] Lino Mobley MD Unavailable Talita Gallagher MD Unavailable Reason for Visit * Reason Onset Date Comments Lab Orders 11/05/2023 Encounter Details Date Type Department Care Team (Late st Contact Info) Description 11/05/2023 Telephone [facility] MEDICINE [address] [place] [address] Kay Peterson FNP [address] [place], [place] [phone] Lab Orders Social History Tobacco Use Types [...] Description 10/19/2024 10:15 AM EDT Office Visit [facility] MED & PEDS [address] [place] [address] Yuki Mccormack MD [address] [place] [address] 11/17/2024 3:30 PM EDT Office Visit [facility] MED & PEDS [address] [place] [address] Kay Peterson FNP [address] [place], [place] documented as of this encounter Visit Diagnoses Not on filedocumented in this encounter Additional Health Concerns Assessment Noted Time PHQ-9 Depression Total Score: 3 04/05/20 24 9:44 AM EDT documented as of this encounter Care Teams Dope Worker Relationship Specialty Start Date End Date Kay Peterson FNP [address] [place] [address] PCP - General Family Medicine 02/26/22 Lino Mobley MD [address] [place] [address] Obstetrics and Gynecology 07/20/24 Talita Gallagher MD [address] [place] [address] Hematology and Oncology 07/20/24 documented as of this encounter
--- OUTSIDE RECORDS SUMMARY | 2024-10-18 11:24 | XMS_ITS | Encounter Summary ---
Author Organization [employer] Address [address] [facility] 7t [place] [address] Care Team Providers Care Cosmetic Sales Consultant Name Role Phone ColtonKay arshad JAMIE Primary Care Provider [phone] Lino Mobley MD Unavailable Talita Gallagher MD Unavailable [phone] Reason for Visit * Reason Onset Date Comments medication 02/19/2023 Encounter Details Date Type Department Care Team (Late st Contact Info) Description 02/19/2023 Telephone [facility] [address] [place], [place] [phone] Fausto Rascon DDS [address] [place], [place] [phone] medication Social History Tobacco Use Types Packs/Day [...] Miscellaneous Notes * Telephone Encounter - Gladys Bucio - 02/19/2023 2:28 PM EDT Patient called [...] 10:15 AM EDT Office Visit [facility] MED [facility] PEDS [address] [place] [address] Yuki Mccormack MD [address] [place] [address] 11/17/2024 3:30 PM EDT Office Visit [facility] MED & PEDS [address] [place] [address] Kay Peterson FNP [address] [place] [address] documented as of this encounter Visit Diagnoses Not on filedocumented in this encounter Additional Health Concerns Assessment Noted Time PHQ-9 Depression Total Score: 0 10/27/19 23 10:17 AM EDT documented as of this encounter Care Teams Cosmetic Sales Consultant Relationship Specialty Start Date End Date Kay Peterson FNP [address] [place] [address] PCP - General Family Medicine 02/26/22 Lino Mobley MD [address] [place] [address] Obstetrics and Gynecology 07/20/24 Talita Gallagher MD [address] [place] [address] Hematology and Oncology 07/20/24 documented as of this encounter
--- OUTSIDE RECORDS SUMMARY | 2024-10-18 11:24 | XMS_ITS | Encounter Summary ---
Author Organization [employer] Address [address] [facility] [address] [place] [address] Care Team Providers Care Retail Furniture Sales Name Role Phone Kay Peterson Primary Care Provider [phone] Lino Mobley MD Unavailable Talita Gallagher MD Unavailable [phone] Reason for Visit * Reason Onset Date Comments Appointment Request 08/26/2022 Encounter Details Date Type Department Care Team (Late st Contact Info) Description 08/26/2022 Telephone [facility] MEDICINE [address] [place] [address] Kay Peterson FNP [address] [place], [place] [phone] Appointment Request Social History Tobacco Use Types [...] she doesn't mind with a different provider. (Wolof speaker) * Telephone Encounter - Johnson Mccarthy - 08/26/2022 11:44 AM EST Tc from pt requesting an Physical appt states work is requiring pt to have Physical updated Please contact pt at [phone] documented in this encounter Plan of Treatment Upcoming Encounters Date Type Department Care Team (Late st Contact Info) Description 10/19/2024 10:15 AM EDT Office Visit [facility]S [address] [place] [address] Yuki Mccormack MD [address] [place] [address] 11/17/2024 3:30 PM EDT Office Visit [facility] [address] [place] [address] Kay Peterson FNP [address] [place] [address] documented as of this encounter Visit Diagnoses Not on filedocumented in this encounter Care Teams Retail Furniture Sales Relationship Specialty Start Date End Date Kay Peterson FNP [address] [place] [address] PCP - General Family Medicine 02/26/22 Lino Mobley MD [address] [place] [address] Obstetrics and Gynecology 07/20/24 Talita Gallagher MD [address] [place] [address] Hematology and Oncology 07/20/24 documented as of this encounter
--- OUTSIDE RECORDS SUMMARY | 2024-10-18 11:24 | XMS_ITS | Encounter Summary ---
Author Organization [employer] Address [address] [facility] 7t [place] [address] Care Team Providers Care Lab Manager Name Role Phone Kay Peterson Primary Care Provider [phone] Lino Mobley MD Unavailable Talita Gallagher MD Unavailable [phone] Reason for Visit * Reason Onset Date Comments Appointment Confirmation 11/08/2023 Encounter Details Date Type Department Care Team ([facility] st Contact Info) Description 11/08/2023 Telephone [facility] PEDS [address] [place], [place] [phone] Kay Peterson FNP [address] [place], [place] [phone] Appointment Confirmation Social History Tobacco Use Types [...] Upcoming Encounters Date Type Department Care Team ([facility] st Contact Info) Description 10/19/2024 10:15 AM EDT [facility] Visit [facility] [address] [place] [address] Yuki Mccormack MD [address] [place] [address] 11/17/2024 3:30 PM EDT Office Visit [facility] [address] [place] [address] Kay Peterson FNP [address] [place] [address] documented as of this encounter Visit Diagnoses Not on filedocumented in this encounter Additional Health Concerns Assessment Noted Time PHQ-9 Depression Total Score: 3 10/08/19 24 9:44 AM EDT documented as of this encounter Care Teams Lab Manager Relationship Specialty Start Date End Date Kay Peterson FNP [address] [place] [address] PCP - General Family Medicine 02/26/22 Lino Mobley MD [address] [place] [address] Obstetrics and Gynecology 07/20/24 Talita Gallagher MD [address] [place] [address] Hematology and Oncology 07/20/24 documented as of this encounter
--- OUTSIDE RECORDS SUMMARY | 2024-10-18 11:24 | XMS_ITS | Clinical Summary ---
Author Organization [employer] Address [address] [place] [address] Care Team Providers Care Food And Beverage Assistant Name Role Phone Coltonjeancarlos Kay AYALA Primary Care Provider [phone] Lino Mobley MD Unavailable Talita Gallagher MD Unavailable [phone] Allergies No known active allergies Medications [...] 4 Active ergocalciferol (Vitamin D2) 1.25 MG (18084 UT) capsuleIndication s:Vitamin D deficiency Take 1 [...] 5:14 PM EDT): Intermittently bothersome/symptomatic Referral to [facility] placed 01/14/24 for further eval [...] May 2018. Due May 2023. Following with [facility] - encouraged to call office to schedule Colonoscopy: referred 09/25/22 for routine colon CA screening. Scheduled October 2023 Optometry: referral to [facility] Eye Care October 2023 Dental: established BMD: starting at 65 y/o ASCVD: 0.7% September 2022 Last PE: 10/08/23 Abnormal uterine bleeding 02/03/2023 Overview (07/20/2024): Followed by [facility] - Dr. Mobley Endometrial biopsy September 2022 w/o signs atypia or carcinoma 01/01/23: Hysteroscopy D&C, polypectomy by Dr. Mobley at [facility]. Post op diagnosis: AUB, endometrial polyp Feb 2024: Pelvic US demonstrated 2.7cm physiologic cyst right ovary. No follow up imaging rec. Endometrial stripe is 1.7cm. Also noted small submucosal uterine fibroid. Pt reviewed results w/ Dr. Mobley during [facility] consult in April 2024. Plan to proceed with expectant management at this time and repeat pelvic ultrasounds periodically Iron deficiency anemia 07/15/2022 Overview (07/20/2024): -Established with [facility] Heme/Onc: Dr. Gallagher -Received iron infusions (Venofer 200mg IV weekly x 5-6 weeks) through their office H/H improved from 7.8/27.8 in Jul 2022 to 11.7/37.8 in September 2022 H/H 9.4/31.5, microcytic Mar 2023 H/H 11.7/38.1 in October 2023 -Cause: upcoming colonoscopy scheduled to r/o GIB; following with [facility] for menorrhagia Assessment & Plan (07/20/2024 11:08 AM EST): - Plan to start iron supplementation with vitamin C through heme-onc. Encouraged hydration and fiber to help offset constipation Assessment & Plan (10/08/2023 5:51 AM EDT): -Last consult note: Jun 2023 Assessment & Plan (03/31/2023 4:21 PM EDT): -Established with [facility] Heme/Onc -Receiving iron infusions (Venofer 200mg IV [...] organization. Date Type Department Care Team Description 10/11/2024 Patient Outreach [facility] MEDICINE [address] [place] [address] Kay Peterson FNP Pre-visit Planning (SDOH screening negative and Tobacco screening negative) 10/06/2024 Orders Only GENERIC EXTERNAL DATA DEPARTMENT Provider, Generic External Data 09/12/2024 Telephone [facility] [address] [place], [place] [phone] Kay Peterson FNP October recall from Last 3 Months Immunizations Name Administration [...] housing situation today? I have john paniagua 10/11/[address] you li ve. Do you have problems with any of the following? None of the above 10/11/2024 Food Insecurity Answer Date Recorded Within the past 12 months, y ou worried that your food would run out before you got money to buy more: Never True 10/11/2024 Within the past 12 months,th e food you bought just didn't last and you didn't have enough money to get more: Never True 03/2025 Transportation Answer Date Recorded In the past 12 months, has l ack of transportation kept you from medical appts, meetings, work or from getting things needed for daily living? No 10/11/2024 Utilities Answer Date Recorded In the past 12 months, has t he electric, gas, oil or water company threatened to shut off services in your home? No 10/11/2024 Depression Answer Date Recorded Patient Health Questionnaire-2 Score 0 10/08/2023 Internet Access Answer Date Recorded Internet Access Q1 Yes 10/11/2024 Internet Access Q2 Not on file 10/11/2024 Comments Unknown Sex and Gender Information Value [...] Description 10/19/2024 10:15 AM EDT Office Visit [facility] [address] [place] [address] Yuki Mccormack MD [address] [place] [address] 11/17/2024 3:30 PM EDT Office Visit [facility] [address] [place] [address] Kay Peterson, INDUSTRIAL CONTROLS TECHNICIAN [address] [place] [address] Health Maintenance Due Date Last Done Comments CT Colonography 1976 Colonoscopy 1976 Colorectal Cancer Screening 1976 Dental Oral Exam 1976 Dental Prophylaxis 1976 FIT DNA/Cologuard 1976 FIT 1976 FOBT 1976 Sigmoidoscopy 1976 Alcohol/Substance Use Screening 1988 Family Planning (PISQ) 10/17/1991 Pap Smear 1997 Dental X-Ray: Bitewings 08/09/2021 08/08/2020 Cervical Cancer Screening 05/11/2023 HPV/Cotest 05/11/2023 05/11/2018, 05/11/2018 Hepatitis B Vaccines (2 of 3 - 19+ 3-dose series) 02/07/2024 01/10/2024 COVID-19 Vaccine (2 - 2023- season) 2024 07/29/2021 Depression Screening 10/07/2024 10/08/2023, 10/08/19 24 Mammogram 03/03/2025 03/03/2024, 09/02, 06/03/2018, Additional history exists Tobacco Screening 07/17/2025 07/17/2024 SDOH Screening 10/11/2025 10/11/2024 Dental X-Ray: Full Mouth 01/15/2026 01/14/2023 Zoster Vaccines (1 of 2) 2026 DTaP/Tdap/Td Vaccines (2 - Td or Tdap) 07/08/2028 07/08/2018 Lipid Panel 01/09/2029 01/10/2024, 04/11/2023, 09/29/2022, Additional history exists RSV Patients and Patients Aged 60 years or older (1 - 1-dose 75+ series) 10/17/2051 HIV Screening Completed 10/08/2023, 03/2 02/2023, 08/12/2021 Hepatitis C Screening Completed 10/08/2023 , [...] Procedure Name Priority Date/Time Associated Diagnosis Comments CHLAMYDIA/N. GONORRHOEAE RNA, TMA, UROGENITAL Routine 10/06/2024 1:02 PM EDT BI MAMMOGRAM SCREENING TOMOSYNTHESIS BILATERAL Routine 03/03/2024 [...] Recently Relevant to Health Maintenance Results * Chlamydia/N. Gonorrhoeae RNA, TMA, Urogenitial (10/06/2024 1:02 PM EDT) CT PCR NOT DETECTED Not Detect. [facility] Comment:A not detected test result does not exclude the possibilityof infection because test results can be affected byimproper specimen collection, concurrent antibiotic therapy,or the number of organisms in the specimen which may bebelow the sensitivity of the test. As with many diagnostictests, results from the Xpert CT/NG assay should beinterpreted in conjunction with other laboratory andclinical data available to the clinician.Xpert CT/NG performance has not been evaluated in patientsless than 14 years of age. The assay should not be used forthe evaluationof suspected sexual abuse or for other medico-legalindications. Additional testing is recommended in anycircumstance when false positive or false negative resultscould lead to adverse medical, social or psychologicalconsequences. NG PCR NOT DETECTED Not Detect. [facility] Comment:A not detected test result does not exclude the possibilityof infection because test results can be affected byimproper specimen collection, concurrent antibiotic therapy,or the number of organisms in the specimen which may bebelow the sensitivity of the test. As with many diagnostictests, results from the Xpert CT/NG assay should beinterpreted in conjunction with other laboratory andclinical data available to the clinician.Xpert CT/NG performance has not been evaluated in patientsless than 14 years of age. The assay should not be used forthe evaluationof suspected sexual abuse or for other medico-legalindications. Additional testing is recommended in anycircumstance when false positive or false negative resultscould lead to adverse medical, social or psychologicalconsequences. 10/06/2024 1:02 PM EDT 10/06/2024 3:24 PM EDT Narrative [facility] - 10/06/2024 6:08 PM EDT Vaginal us Generic External Data Provider LAB MICROBIOLOGY - GENERAL ORDERABLES Final Result [facility] [address] [place] [phone] * BI Mammogram Screening Tomosynthesis Bilateral (03/03/2024 11:30 AM EDT) Anatomical Region Laterality Modality Breast Bilateral Mammography 03/03/2024 11:3 0 AM EDT Narrative 03/25/2024 10:40 PM EDT ? [facility] ? [address] ?[place] [address] ? Mammography Report ? Signed ? Patient: Manuela Rodriguez ?M ?? R#: [id number] ? : 1975 ?Acct:[id number] ? Age/Sex: 48 / F ?ADM Date: 03/03/24 ? Loc: HO.MAMMO ? Attending Dr: Kay Peterson INDUSTRIAL CONTROLS TECHNICIAN ? Ordering Physician: Kristen,Kay INDUSTRIAL CONTROLS TECHNICIAN ?Results: 1Negat ?? roberta ? Date of Service: 03/03/24 ?Follow Up: 1 Year From Orig ?? inal Mammogram ? Procedure(s): MM tomosynthesis screening BI ?? Accession Number(s): [id number] ? cc: Kristen,Kya INDUSTRIAL CONTROLS TECHNICIAN ? EXAMINATION: ?? MM SCREENING DIGITAL BREAST [...] by Alta Rodgers, DO in OV> ? 09/21/24 2237 ? DD/ 1130 ? TD/TT: 03/03/24 1148 ? Hydraulic Plumber Helper: ? Procedure Note Gómez Denise - 03/25/2024 Shlomo [facility] [address] [place] [address] Mammography Report Signed Patient: Jacqueline LarryManuela R#: [id number] : 1975Acct:[id number] Age/Sex: 48 / FADM Date: 03/03/24 Loc: HO.MAMMO Attending Dr: Kay Peterson INDUSTRIAL CONTROLS TECHNICIAN Ordering Physician: Kay Peterson FNPResults: 1Negat roberta Date of Service: 03/03/24Follow Up: 1 Year From Orig inal Mammogram Procedure(s): MM tomosynthesis screening BI Accession Number(s): [id number] cc: Kay Peterson EXAMINATION: MM SCREENING DIGITAL [...] 03/25/24 2237 DD/ 1130 TD/TT: 03/03/24 1148 Hydraulic Plumber Helper: Kay Peterson INDUSTRIAL CONTROLS TECHNICIAN IMG BI PROCEDURES Edited Resul t - Final * (ABNORMAL) Lipid Panel, Standard (01/10/2024 11:06 AM EDT) Triglycerides 99 <150 mg/dL [facility] Comment:Desirable Triglyceri de: less than 150 mg/dLBorderline High Triglyceride 150-199 mg/dLHigh Triglyceride: 200-499 mg/dLVery High Triglyceride: greater than or equal to 5OO mg/dL Cholesterol 176 <200 mg/dL [facility] Comment:Desirable Cholestero l: less than 200 mg/dLBorderline High Cholesterol: 200-239 mg/dLHigh Cholesterol: greater than 239 mg/dL LDL Cholesterol Calculated 115(H) <100 mg/dL [facility] Comment:Desirable LDL: less than 100 mg/dLNear Optimal/Above Optimal LDL: 110- 129 mg/dLBorderline High LDL: 130-159 mg/dLHigh LDL: 160-189 mg/dLVery High LDL: greater than or equal to 190 mg/dL HDL Cholesterol 42 >40 mg/dL [facility] Comment:Desirable HDL: great er than 40 mg/dL Note: This HDL assay may give artificially low results in patients with liver disease. Blood Venous blood specimen / Unknown 01/10/2024 11:06 AM EDT 01/10/2024 3:04 PM EDT Kay Peterson [facility] BLOOD ORDERABLES Final Res ult Performing Organization Address [facility] Co de Phone Number [facility] [address] [place] [phone] * Hepatitis C Viral RNA, Quantitative, Real-Time PCR (10/08/2023 10:47 AM EDT) Hepatitis C Viral Load <15 NOT DETECTED NOT DETECTED IU/mL [facility] HCV Log PCR <1.18 NOT DETECTED NOT DETECTED Log IU/mL [facility] Comment:This test was perfor med using Real-Time Polymerase ChainReaction.Reportable Range: 15 IU/mL to 100,000,000 IU/mL(1.18 Log IU/mL to 8.00 Log IU/mL).The analytical performance characteristics of thisassay have been determined by [employer].The modifications have not been cleared or approved bythe FDA. This assay has been validated pursuant to theCLIA regulations and is used for clinical purposes.For more information on this test, go to:http://education.[employer].Tonara/faq/UMR82v4(This link is being provided for informational/educational purposes only.)THIS TEST WAS PERFORMED AT:[facility] [place] [phone] CORNEJO MD Blood 10/08/2023 10:4 7 AM EDT 10/08/2023 2:24 PM EDT Kay Peterson [facility] LAB BLOOD ORDERABLES Final Res ult Performing Organization Address [facility]/ZIP Co de Phone Number [facility] [address] [place] [phone] * HIV-1/2 Antigen and Antibodies, Fourth Generation, with Reflexes (10/08/2023 10:47 AM EDT) Pathologist [facility] HIV AB/AG Nonreactive Nonreactive [facility] Comment:HIV-1 p24 Ag and/or HIV-1/HIV-2 Ab not detected.A test result that is nonreactive does not exclude thepossibility of exposure to or infection with HIV-1 and/orHIV-2. Nonreactive results in this assay for individualswith prior exposure to HIV-1 and/or HIV-2 may be due toantigen and antibody levels that are below the limit ofdetection of this assay.The charming charlie HIV Ag/Ab Combo assay result andsupplemental assay results should be interpreted inconjunction with the patient's clinical presentation,history and other laboratory results. If the results areinconsistent with clinical evidence, additional testing issuggested to confirm the result. Blood Venous blood specimen / Unknown 10/08/2023 10:47 AM EDT 10/08/2023 2:24 PM EDT us Kay Peterson [facility] LAB BLOOD ORDERABLES Final Res ult [facility] [address] [place] [phone] * HPV mRNA E6/E7 (05/11/2018 3:05 PM EST) Pathologist [facility] HPV mRNA E6/E7 Not Detected NOT DETECTED [facility] Comment: This test was performed using the APTIMA(R) HPV Assay ([employer] This assay detects E6/E7 viral messenger RNA (mRNA) from 14 high-risk HPV types (16,18,31,33,35,39,45,51, 52,56,58,59,66,68). For additional information please refer to: http://education.[employer].Tonara/faq/TGV575y0 (This link is being provided for informational/ educational purposes only.) The analytical performance characteristics of this assay have been determined by [employer] [place], [place]. The modifications have not been cleared or approved by the FDA. This assay has been validated pursuant to the CLIA regulations and is used for clinical purposes. Test Performed by [facility], [employer] [facility], [address] [place] [address] Rogelio Lua M.D., Ph.D., Director of Laboratories , CLIA [id number] Please note: ??Effective 03/16/2016, HPV testing will be performed using [employer]'s APTIMA test which targets mRNA. Detecting mRNA instead of DNA, as in older methods, offers significant improvements in specificity. 05/11/2018 3:05 PM EST us Quin Barney MD HISTORICAL/NON ORDERABLE LABS Final Result [facility] [address] from Last 3 Months or Most Recently Relevant to Health Maintenance Insurance [employer] Care Teams Food And Beverage Assistant Relationship Specialty Start Date End Date Kay Peterson FNP [address] [place] [phone] PCP - General Family Medicine 02/26/22 Lino Mobley MD [address] [place] [phone] Obstetrics and Gynecology 07/20/24 Talita Gallagher MD [address] [place] [phone] Hematology and Oncology 07/20/24
== END 2024-10-18 10:59 | disposition home or self-care (01) ==
LOC: HO.HMCFM 09:59
PROVIDERS: PCP Registered Nurse; Visit Provider Physician Assistant
DX: Z76.89 Persons encountering health services in other specified circumstances (principal); D50.9 Iron deficiency anemia, unspecified; F41.1 Generalized anxiety disorder; R00.2 Palpitations

== ENCOUNTER → 2024-10-18 09:58 | Outpatient (BNVA) | payer OTHER, SELFPAY | PROVIDERS: PCP Registered Nurse; Visit Provider Physician Assistant | DX: Z76.89 Persons encountering health services in other specified circumstances (principal); D50.9 Iron deficiency anemia, unspecified; F41.1 Generalized anxiety disorder; R00.2 Palpitations; Z79.899 Other long term (current) drug therapy | CPT/HCPCS: 96127 ==

== ENCOUNTER 2024-10-24 11:34 | Outpatient (REF) | payer OTHER, SELFPAY ==
--- OUTSIDE RECORDS SUMMARY | 2024-10-24 14:09 | XMS_ITS | Clinical Summary ---
Author Organization [employer] Address [address] [facility] [address] 7t [place] [address] Care Team Providers Care Blockmason Name Role Phone Coltonjeancarlos Kay AYALA Primary Care Provider [phone] Lino Mobley MD Unavailable Talita Gallagher MD Unavailable [phone] Allergies No known active allergies Medications [...] 4 Active ergocalciferol (Vitamin D2) 1.25 MG (37260 UT) capsuleIndication s:Vitamin D deficiency Take 1 [...] May 2018. Due May 2023. Following with [facility] RESOLUTION REP - encouraged to call office to schedule Colonoscopy: referred 09/25/22 for routine colon CA screening. Scheduled October 2023 Optometry: referral to [facility] October 2023 Dental: established BMD: starting at 66 y/o ASCVD: 0.7% September 2022 Last PE: 10/08/23 Abnormal uterine bleeding 02/03/2023 Overview (07/20/2024): Followed by [facility] RESOLUTION REP - Dr. Mobley Endometrial biopsy September 2022 w/o signs atypia or carcinoma 01/01/23: Hysteroscopy D&C, polypectomy by Dr. Mobley at [facility]. Post op diagnosis: AUB, endometrial polyp Feb 2024: Pelvic US demonstrated 2.7cm physiologic cyst right ovary. No follow up imaging rec. Endometrial stripe is 1.7cm. Also noted small submucosal uterine fibroid. Pt reviewed results w/ Dr. Mobley during RESOLUTION REP consult in April 2024. Plan to proceed with expectant management at this time and repeat pelvic ultrasounds periodically Iron deficiency anemia 07/15/2022 Overview (07/20/2024): -Established with [facility] Heme/Onc: Dr. Gallagher -Received iron infusions (Venofer 200mg IV weekly x 5-6 weeks) through their office H/H improved from 7.8/27.8 in Jul 2022 to 11.7/37.8 in September 2022 H/H 9.4/31.5, microcytic Mar 2023 H/H 11.7/38.1 in October 2023 -Cause: upcoming colonoscopy scheduled to r/o GIB; following with [facility] RESOLUTION REP for menorrhagia Assessment & Plan (07/20/2024 11:08 AM EST): - Plan to start iron supplementation with vitamin C through heme-onc. Encouraged hydration and fiber to help offset constipation Assessment & Plan (10/08/2023 5:51 AM EDT): -Last consult note: Jun 2023 Assessment & Plan (03/31/2023 4:21 PM EDT): -Established with [facility] Heme/Onc -Receiving iron infusions (Venofer 200mg IV [...] organization. Date Type Department Care Team Description 10/19/2024 10:15 AM EDT Office Visit [facility] MED & PEDS [address] [place] [address] Yuki Mccormack MD Healthcare maintenance (Primary Dx); Primary hypertension; Gastroesophageal reflux disease without esophagitis; Class 1 obesity without serious comorbidity with body mass index (BMI) of 31.0 to 31.9 in adult, unspecified obesity type; Other iron deficiency anemia; Vitamin D deficiency 10/19/2024 Travel 10/11/2024 Patient Outreach [facility] MEDICINE [address] [place] [address] Kay Peterson FNP Pre-visit Planning (SDOH screening negative and Tobacco screening negative) 10/06/2024 Orders Only GENERIC EXTERNAL DATA DEPARTMENT Provider, Generic External Data 09/12/2024 Telephone [facility] MED & PEDS [address] [place] [address] Kay Peterson FNP October recall from Last [...] Never Smokeless Tobacco: Never Tobacco Cessation:Counseling Given: Not Answered Alcohol Use Standard Drinks/Week Comments Never 0 (1 standard drink = 0.6 oz pur e alcohol) Depression Answer Date Recorded Patient Health Questionnaire-9 Score 0 10/19/2024 Patient Health Questionnaire-9 Score 0 10/19/2024 Last PHQ-9: Questionnaire Data Not on file 0 10/19/2024 Housing Stability Answer Date Recorded What is [...] Date Recorded Patient Health Questionnaire-2 Score 0 10/19/2024 Internet Access Answer Date Recorded Internet Access Q1 No 10/19/2024 Internet Access Q2 I do not want or need it 10/03 Comments No Sex and Gender Information Value Date Recorded Sex Assigned at Female 05/04/2022 10:34 AM EDT Legal Sex Female 10:34 AM EDT Gender Identity Female 05/04/2022 10:34 AM EDT Sexual Orientation Straight 02/23/2023 2: 55 PM EDT Sexual Orientation Choose not to disclose 2022 2:55 PM EDT Last Filed Vital Signs Vital Sign Reading Time Taken Comments Blood Pressure 128/78 10/19/2024 10:20 AM EDT Pulse 90 10/19/2024 10:20 AM EDT Temperature 36.2 ??C (97.1 ??F) 10/19/2024 10:20 AM E DT Respiratory Rate 18 10/19/2024 10:20 AM EDT Oxygen Saturation 98% 02/29/2024 2:54 PM EDT Inhaled Oxygen Concentration - - Weight 89.8 kg (198 lb) 10/19/2024 10:20 AM EDT Height 170.2 cm (5' 7 ) 10/19/2024 10:20 AM EDT Body Mass Index 31.01 10/19/2024 10:20 AM EDT Plan of Treatment Upcoming Encounters Date Type Department Care Team (Late st Contact Info) Description 11/17/2024 3:30 PM EDT Office Visit [facility] MED & PEDS [address] [place] [address] Kay Peterson, RO[address] [employer] LOCKSMITH [address] [place] [address] Health Maintenance Due Date Last Done Comments [...] 19+ 3-dose series) 02/07/2024 01/10/2024 COVID-19 Vaccine ( - 2023- season) 2024 07/29/2021 Mammogram 03/03/2025 03/03/2024, 09/02, 06/03/2018, Additional history exists Alcohol/Substance Use Screening 10/19/2025 10/19/2024 Depression Screening 10/19/2025 10/19/2024, 10/20/19 25 SDOH Screening 10/19/2025 10/19/2024 Tobacco Screening 10/19/2025 10/19/2024 Dental X-Ray: Full Mouth 01/15/2026 01/14/2023 Zoster [...] RADIOGRAPHIC IMAGE Routine 08/08/2020 12:00 AM EST ESTEPHANIA HISTORICAL HPV MRNA E6/E7 Routine 05/11/2018 3:05 PM EST from Last 3 Months or Most Recently Relevant to Health Maintenance Results * Chlamydia/N. Gonorrhoeae RNA, TMA, Urogenitial (10/06/2024 1:02 PM EDT) CT PCR NOT DETECTED Not Detect. [facility] Comment:A not detected test result [...] psychologicalconsequences. NG PCR NOT DETECTED Not Detect. [facility] Comment:A not detected test result [...] PM EDT 10/06/2024 3:24 PM EDT Narrative [facility] - 10/06/2024 6:08 PM EDT Vaginal us Generic External Data Provider LAB MICROBIOLOGY - GENERAL ORDERABLES Final Result [facility] [address] [place] [address] [phone] * BI Mammogram Screening Tomosynthesis Bilateral (03/03/2024 11:30 AM EDT) Anatomical Region Laterality Modality Breast Bilateral Mammography 03/03/2024 11:3 0 AM EDT Narrative 03/25/2024 10:40 PM EDT ? [facility] [place] ? [address] ?[place] [address] ? Mammography Report ? Signed ? Patient: Manuela Rodriguez ?M ?? R#: [id number] ? : 1975 ?Acct:[id number] ? Age/Sex: 48 / F ?ADM Date: 03/03/24 ? Loc: HO.MAMMO ? Attending Dr: Kay Peterson ROAD [employer]OCKSMITH ? Ordering Physician: Kay Peterson RO[employer]OCKSM[employer] ?Results: 1Negat ?? roberta ? Date of Service: 03/03/24 ?Follow Up: 1 Year From Orig ?? inal Mammogram ? Procedure(s): MM tomosynthesis screening BI ?? Accession Number(s): [id number] ? cc: Kay Peterson RO[employer]SMITH ? EXAMINATION: ?? MM SCREENING DIGITAL BREAST [...] by Alta Rodgers, DO in OV> ? 03/25/247 ? DD/ 1130 ? TD/TT: 03/03/24 1148 ? Manufacturing Specialist: ? Procedure Note Camelia, Gómez - 03/25/2024 [facility] [address] [place] [address] Dr. Ke[place], [place] [address] Mammography Report Signed Patient: Manuela Rodriguez R#: [id number] : 1975Acct:[id number] Age/Sex: 48 / FADM Date: 03/03/24 Loc: HO.MAMMO Attending Dr: Kay Peterson RO[employer] Ordering Physician: Kay Peterson FNPResults: 1Negat roberta Date of Service: 03/03/24Follow Up: 1 Year From Orig inal Mammogram Procedure(s): MM tomosynthesis screening BI Accession Number(s): [id number] cc: Kay Peterson EXAMINATION: MM SCREENING DIGITAL [...] Alta Rodgers DO 03/25/2024 10:37 PM EDT Dictated By: Alta Rodgers DO Signed By: <Electronically signed by Alta Rodgers DO in OV> 03/25/24 2237 DD/ 1130 TD/TT: 03/03/24 1148 Manufacturing Specialist: Kay Peterson RO[employer]SMITH IMG BI PROCEDURES Edited Resul t - Final * (ABNORMAL) Lipid Panel, Standard (01/10/2024 11:06 AM EDT) Triglycerides 99 <150 mg/dL [facility] Comment:Desirable Triglyceri de: less than 150 mg/dLBorderline High Triglyceride 150-199 mg/dLHigh Triglyceride: 200-499 mg/dLVery High Triglyceride: greater than or equal to 5OO mg/dL Cholesterol 176 <200 mg/dL [facility] Comment:Desirable Cholestero l: less than 200 mg/dLBorderline High Cholesterol: 200-239 mg/dLHigh Cholesterol: greater than 239 mg/dL LDL Cholesterol Calculated 115(H) <100 mg/dL [facility] Comment:Desirable LDL: less than 100 mg/dLNear Optimal/Above Optimal LDL: 110- 129 mg/dLBorderline High LDL: 130-159 mg/dLHigh LDL: 160-189 mg/dLVery High LDL: greater than or equal to 190 mg/dL HDL Cholesterol 42 >40 mg/dL [facility] Comment:Desirable HDL: great er than 40 mg/dL Note: This HDL assay may give artificially low results in patients with liver disease. Blood Venous blood specimen / Unknown 01/10/2024 11:06 AM EDT 01/10/2024 3:04 PM EDT Kay AYALA LAB BLOOD ORDERABLES Final Res ult [facility] [address] [place] [phone] * Hepatitis C Viral RNA, Quantitative, Real-Time PCR (10/08/2023 10:47 AM EDT) Hepatitis C Viral Load <15 NOT DETECTED NOT DETECTED IU/mL [facility] HCV Log PCR <1.18 NOT DETECTED NOT DETECTED Log IU/mL [facility] Comment:This test was perfor med using Real-Time Polymerase ChainReaction.Reportable Range: 15 IU/mL to 100,000,000 IU/mL(1.18 Log IU/mL to 8.00 Log IU/mL).The analytical performance characteristics of thisassay have been determined by [employer].The modifications have not been cleared or approved bythe FDA. This assay has been validated pursuant to theCLIA regulations and is used for clinical purposes.For more information on this test, go to:http://education.SantoSolve/faq/MDV17a1(This link is being provided for informational/educational purposes only.)THIS TEST WAS PERFORMED AT:[facility] [place] [id number] CORNEJO MD Blood 10/08/2023 10:4 7 AM EDT 10/08/2023 2:24 PM EDT us Kay TOP LAB BLOOD ORDERABLES Final Res ult Performing Organization Address [facility] Co de Phone Number [facility] [address] [place] [phone] * HIV-1/2 Antigen and Antibodies, Fourth Generation, with Reflexes (10/08/2023 10:47 AM EDT) Pathologist [facility] HIV AB/AG Nonreactive Nonreactive [facility] Comment:HIV-1 p24 Ag and/or HIV-1/HIV-2 Ab not detected.A test result that is nonreactive does not exclude thepossibility of exposure to or infection with HIV-1 and/orHIV-2. Nonreactive results in this assay for individualswith prior exposure to HIV-1 and/or HIV-2 may be due toantigen and antibody levels that are below the limit ofdetection of this assay.The Topix HIV Ag/Ab Combo assay result andsupplemental assay results should be interpreted inconjunction with the patient's clinical presentation,history and other laboratory results. If the results areinconsistent with clinical evidence, additional testing issuggested to confirm the result. Blood Venous blood specimen / Unknown 10/08/2023 10:47 AM EDT 10/08/2023 2:24 PM EDT Kay Peterson [facility] LAB BLOOD ORDERABLES Final Res ult Performing Organization Address [facility] Co de Phone Number [facility] [address] [place] [phone] * HPV mRNA E6/E7 (05/11/2018 3:05 PM EST) Pathologist [facility] HPV mRNA E6/E7 Not Detected NOT DETECTED [facility] Comment: This test was performed using the APTIMA(R) HPV Assay ([employer] This assay detects E6/E7 viral messenger RNA (mRNA) from 14 high-risk HPV types (16,18,31,33,35,39,45,51, 52,56,58,59,66,68). For additional information please refer to: http://education.MaxxAthlete.Dinos Rule/faq/TFR688m5 (This link is being provided for informational/ educational purposes only.) The analytical performance characteristics of this assay have been determined by [employer] [place]. The modifications have not been cleared or approved by the FDA. This assay has been validated pursuant to the CLIA regulations and is used for clinical purposes. Test Performed by [facility], [employer] [facility], [address] [place] [address] Rogelio Lua M.D., Ph.D., Director of Laboratories , CLIA [id number] Please note: ??Effective 03/16/2016, HPV testing will be performed using [employer]'s APTIMA test which targets mRNA. Detecting mRNA instead of DNA, as in older methods, offers significant improvements in specificity. 05/11/2018 3:05 PM EST us Quin Barney MD HISTORICAL/NON ORDERABLE LABS Final Result [facility] [address] from Last 3 Months or Most Recently Relevant to Health Maintenance Insurance [employer] Care Teams Blockmason Relationship Specialty Start Date End Date Kay Peterson FNP [address] [place] [address] PCP - General Family Medicine 02/26/22 Lino Mobley MD [address] [place] [address] Obstetrics and Gynecology 07/20/24 Talita Gallagher MD [address] [place] [address] Hematology and Oncology 07/20/24
--- OUTSIDE RECORDS SUMMARY | 2024-10-24 14:09 | XMS_ITS | Encounter Summary ---
Author Organization [employer] Address [address] [facility] 7t [place] [address] Care Team Providers Care Director Of Special Education Name Role Phone ColtonKay arshad JAMIE Primary Care Provider [phone] Lino Mobley MD Unavailable Talita Gallagher MD Unavailable [phone] Reason for Visit * Reason Onset Date Comments medication 02/19/2023 Encounter Details Date Type Department Care Team (Late st Contact Info) Description 02/19/2023 Telephone [facility] ADULT DENTAL [address] [place], [place] [phone] Fausto Rascon DDS [address] [place], [place] [phone] medication Social History Tobacco Use Types Packs/Day [...] Upcoming Encounters Date Type Department Care Team ([facility] st Contact Info) Description 11/17/2024 3:30 PM EDT Office Visit [facility] MED & PEDS [address] [place] [address] Kay Peterson FNP [address] [place] [address] documented as of this encounter Visit Diagnoses Not on filedocumented in this encounter Additional Health Concerns Assessment Noted Time PHQ-9 Depression Total Score: 0 10/27/19 23 10:17 AM EDT documented as of this encounter Care Teams Director Of Special Education Relationship Specialty Start Date End Date Kay Peterson FNP [address] [place] [address] PCP - General Family Medicine 02/26/22 Lino Mobley MD [address] [place] [address] Obstetrics and Gynecology 07/20/24 Talita Gallagher MD [address] [place] [address] Hematology and Oncology 07/20/24 documented as of this encounter
--- OUTSIDE RECORDS SUMMARY | 2024-10-24 14:09 | XMS_ITS | Encounter Summary ---
Author Organization [employer] Address [address] [facility] 7t [place] [address] Care Team Providers Care Accounting Director Name Role Phone Kay Peterson Primary Care Provider [phone] Lino Mobley MD Unavailable Talita Gallagher MD Unavailable [phone] Reason for Visit * Reason Onset Date Comments Appointment Request 10/02/2022 Encounter Details Date Type Department Care Team (Late st Contact Info) Description 10/02/2022 Telephone [facility] MEDICINE [address] [place] [address] Kay Peterson FNP [address] [place], [place] [phone] Appointment Request Social History Tobacco Use Types [...] Per Elyse ). Please contact pt at [phone] documented in this encounter Plan of Treatment Upcoming Encounters Date Type Department Care Team (Late st Contact Info) Description 11/17/2024 3:30 PM EDT Office Visit [facility] MED & PEDS [address] [place] [address] Kay Peterson FNP [address] [place] [address] documented as of this encounter Visit Diagnoses Not on filedocumented in this encounter Care Teams Accounting Director Relationship Specialty Start Date End Date Kay Peterson FNP [address] [place] [address] PCP - General Family Medicine 02/26/22 Lino Mobley MD [address] [place] [address] [place] [address] Obstetrics and Gynecology 07/20/24 Talita Gallagher MD [address] [place] [address] Hematology and Oncology 07/20/24 documented as of this encounter
--- OUTSIDE RECORDS SUMMARY | 2024-10-24 14:09 | XMS_ITS | Encounter Summary ---
Author Organization [employer] Address [address] 7t [place] [address] Care Team Providers Care Surgeon Partner Name Role Phone Kay Peterson JAMIE Primary Care Provider [phone] Lino Mobley MD Unavailable Talita Gallagher MD Unavailable [phone] Encounter Details Date Type Department Care Team (Latest Contact Info) Description 10/19/2024 Travel Social History Tobacco Use Types Packs/Day Years [...] PM EDT documented as of this encounter Plan of Treatment Upcoming Encounters Date Type Department Care Team (Late st Contact Info) Description 11/17/2024 3:30 PM EDT Office Visit [facility] MED & PEDS [address] [place] [address] Kay Peterson FNP [address] [place] [address] documented as of this encounter Visit Diagnoses Not on filedocumented in this encounter Additional Health Concerns Assessment Noted Time PHQ-9 Depression Total Score: 0 10/20/19 25 10:22 AM EDT documented as of this encounter Care Teams Surgeon Partner Relationship Specialty Start Date End Date Kay Peterson FNP [address] [place] [address] PCP - General Family Medicine 02/26/22 Lino Mobley MD [address] [place] [address] Obstetrics and Gynecology 07/20/24 Talita Gallagher MD [address] [place] [address] Hematology and Oncology 07/20/24 documented as of this encounter
--- OUTSIDE RECORDS SUMMARY | 2024-10-24 14:09 | XMS_ITS | Encounter Summary ---
Author Organization [employer] Address [address] [facility] 7t [place] [address] Care Team Providers Care Patient Financial Representative Name Role Phone Kay Peterson Primary Care Provider [phone] Lino Mobley MD Unavailable Talita Gallagher MD Unavailable [phone] Reason for Visit * Reason Onset Date Comments Appointment Request 08/26/2022 Encounter Details Date Type Department Care Team (Late st Contact Info) Description 08/26/2022 Telephone [facility] MEDICINE [address] [place] [address] Kay Peterson FNP [address] [place], [place] [phone] Appointment Request Social History Tobacco Use Types [...] she doesn't mind with a different provider. (Irish speaker) * Telephone Encounter - Johnson Mccarthy - 08/26/2022 11:44 AM EST Tc from pt requesting an Physical appt states work is requiring pt to have Physical updated Please contact pt at [phone] documented in this encounter Plan of Treatment Upcoming Encounters Date Type Department Care Team (Late st Contact Info) Description 11/17/2024 3:30 PM EDT Office Visit [facility] MED & PEDS [address] [place] [address] Kay Peterson FNP [address] [place] [address] documented as of this encounter Visit Diagnoses Not on filedocumented in this encounter Care Teams Patient Financial Representative Relationship Specialty Start Date End Date Kay Peterson FNP [address] [place] [address] PCP - General Family Medicine 02/26/22 Lino Mobley MD [address] [place] [address] [place] [address] Obstetrics and Gynecology 07/20/24 Talita Gallagher MD [address] [place] [address] Hematology and Oncology 07/20/24 documented as of this encounter
--- OUTSIDE RECORDS SUMMARY | 2024-10-24 14:09 | XMS_ITS | Encounter Summary ---
Author Organization [employer] Address [address] [facility] 7t [place] [address] Care Team Providers Care Stave Planer Tender Name Role Phone Kay Peterson Primary Care Provider [phone] Lino Mobley MD Unavailable Talita Gallagher MD Unavailable [phone] Reason for Visit * Reason Onset Date Comments Appointment Confirmation 11/08/2023 Encounter Details Date Type Department Care Team ([facility] st Contact Info) Description 11/08/2023 Telephone [facility] MED & PEDS [address] [place], [place] [phone] Kay Peterson FNP [address] [place], [place] [phone] Appointment Confirmation Social History Tobacco Use Types [...] Upcoming Encounters Date Type Department Care Team ([facility] st Contact Info) Description 11/17/2024 3:30 PM EDT Office Visit [facility] MED & PEDS [address] [place] [address] Kay Peterson FNP [address] [place] [address] documented as of this encounter Visit Diagnoses Not on filedocumented in this encounter Additional Health Concerns Assessment Noted Time PHQ-9 Depression Total Score: 3 10/08/19 24 9:44 AM EDT documented as of this encounter Care Teams Stave Planer Tender Relationship Specialty Start Date End Date Kay Peterson FNP [address] [place] [address] PCP - General Family Medicine 02/26/22 Lino Mobley MD [address] [place] [address] [place] [address] Obstetrics and Gynecology 07/20/24 Talita Gallagher MD [address] [place] [address] Hematology and Oncology 07/20/24 documented as of this encounter
--- OUTSIDE RECORDS SUMMARY | 2024-10-24 14:09 | XMS_ITS | Encounter Summary ---
Author Organization [employer] Address [address] [facility] 7t [place] [address] Care Team Providers Care Political Geographer Name Role Phone Kay Peterson Primary Care Provider [phone] Lino Mobley MD Unavailable Talita Gallagher MD Unavailable [phone] Reason for Visit * Reason Onset Date Comments Nurse Triage 11/30/2023 Encounter Details Date Type Department Care Team (Late st Contact Info) Description 11/30/2023 Telephone [facility] MEDICINE [address] [place] [address] Kay Peterson FNP [address] [place], [place] [phone] Nurse Triage Social History Tobacco Use Types [...] for further evaluation. RN also reviews the front end web designer triage nurses and that ptcan call anytime, [...] The caller accepted this outcome Patient speaks czech documented in this encounter Plan of Treatment Upcoming Encounters Date Type Department Care Team (Late st Contact Info) Description 11/17/2024 3:30 PM EDT Office Visit [facility] MED & PEDS [address] [place] [address] Kay Peterson FNP [address] [place] [address] documented as of this encounter Visit Diagnoses Not on filedocumented in this encounter Additional Health Concerns Assessment Noted Time PHQ-9 Depression Total Score: 3 10/08/19 24 9:44 AM EDT documented as of this encounter Care Teams Political Geographer Relationship Specialty Start Date End Date Kay Peterson FNP [address] [place] [address] PCP - General Family Medicine 02/26/22 Lino Mobley MD [address] [place] [address] [place] [phone] Obstetrics and Gynecology 07/20/24 Talita Gallagher MD [address] [place] [address] Hematology and Oncology 07/20/24 documented as of this encounter
--- OUTSIDE RECORDS SUMMARY | 2024-10-24 14:09 | XMS_ITS | Encounter Summary ---
Author Organization [employer] Address [address] [facility] 7t [place] [address] Care Team Providers Care Cherry Picker Operator Name Role Phone Kay Peterson Primary Care Provider [phone] Lino Mobley MD Unavailable Talita Gallagher MD Unavailable [phone] Reason for Visit * Reason Onset Date Comments Lab Orders 11/05/2023 Encounter Details Date Type Department Care Team (Late st Contact Info) Description 11/05/2023 Telephone [facility] MEDICINE [address] [place] [address] Kay Peterson FNP [address] [place], [place] [phone] Lab Orders Social History Tobacco Use Types [...] [facility] MED [facility] PED[facility] 505 [place] [address] Kay Peterson FNP [address] [place] [address] documented as of this encounter Visit Diagnoses Not on filedocumented in this encounter Additional Health Concerns Assessment Noted Time PHQ-9 Depression Total Score: 3 10/08/19 24 9:44 AM EDT documented as of this encounter Care Teams Cherry Picker Operator Relationship Specialty Start Date End Date Kay Peterson FNP [address] [place] [address] PCP - General Family Medicine 02/26/22 Lino Mobley MD [address] [place] [address] [place] [address] [phone] Obstetrics and Gynecology 07/20/24 Talita Gallagher MD [address] [place] [address] [phone] Hematology and Oncology 07/20/24 documented as of this encounter
--- OUTSIDE RECORDS SUMMARY | 2024-10-24 14:09 | XMS_ITS | Encounter Summary ---
Author Organization [employer] Address [address] [facility] [address] 7[address] [place] [address] Care Team Providers Care Cigarette Making Machine Hopper Feeder Name Role Phone ColtonKay arshad JAMIE Primary Care Provider [phone] Lino Mobley MD Unavailable aTlita Gallagher MD Unavailable [phone] Reason for Visit * Reason Comments Annual Exam Headache Encounter Details Date Type Department Care Team (Late st Contact Info) Description 10/19/2024 10:15 AM EDT Office Visit [facility] MED & PEDS [address] [place], [place] [phone] Yuki Mccormack MD [address] [place], [place] [phone] Healthcare maintenance (Primary Dx); Primary hypertension; Gastroesophageal reflux disease without esophagitis; Class 1 obesity without serious comorbidity with body mass index (BMI) of 31.0 to 31.9 in adult, unspecified obesity type; Other iron deficiency anemia; Vitamin D deficiency Social History Tobacco Use Types Packs/Day Years [...] PM EDT documented as of this encounter Last Filed Vital Signs Vital Sign Reading Time Taken Comments Blood Pressure 128/78 10/19/2024 10:20 AM EDT Pulse 90 10/19/2024 10:20 AM EDT Temperature 36.2 ??C (97.1 ??F) 10/19/2024 10:20 AM E DT Respiratory Rate 18 10/19/2024 10:20 AM EDT Oxygen Saturation - - Inhaled Oxygen Concentration - - Weight 89.8 kg (198 lb) 10/19/2024 10:20 AM EDT Height 170.2 cm (5' 7 ) 10/19/2024 10:20 AM EDT Body Mass Index 31.01 10/19/2024 10:20 AM EDT documented in this encounter Progress Notes * Yuki Mccormack MD - 10/19/2024 10:15 AM EDT Subjective Patient ID: Manuela Juarez is a 49 y.o. female who presents for Annual Exam and Headache. Hypertension This is a chronic problem. The current episode started more than 1 year ago. The problem is controlled. Pertinent negatives include no chest pain, headaches, neck pain, palpitations or shortness of breath. Review of Systems Constitutional: Negative. Respiratory: Negative. Negative for shortness of breath. Cardiovascular: Negative for chest pain and palpitations. Gastrointestinal: Negative. Genitourinary: Negative. Musculoskeletal: Negative for neck pain. Neurological: Negative for headaches. Objective Physical Exam Constitutional: Appearance: Normal appearance. HENT: Head: Normocephalic and atraumatic. Right Ear: Tympanic membrane normal. Left Ear: Tympanic membrane normal. Mouth/Throat: Mouth: Mucous membranes are moist. Eyes: Pupils: Pupils are equal, round, and reactive to light. Cardiovascular: Rate and Rhythm: Normal rate and regular rhythm. Pulmonary: Effort: Pulmonary effort is normal. Breath sounds: Normal breath sounds. Abdominal: General: Abdomen is flat. Palpations: Abdomen is soft. Musculoskeletal: General: Normal range of motion. Skin: General: Skin is warm. Neurological: General: No focal deficit present. Mental Status: She is alert. Psychiatric: Mood and Affect: Mood normal. Behavior: Behavior normal. Assessment/Plan Diagnoses and all orders for this visit: Healthcare maintenance Comments: Pt is scheduled for Colonoscopy PAP uptodate Primary hypertension Comments: Well controlled Maintain a low-sodium diet (less than 2 grams per day). Maintain a regular cardiovascular exercise program. Advised to maintain a low-fat, low-cholesterol diet. Counseled regarding importance of weight loss. Counseled re: potential co-morbidities including cardiovascular disease. Orders: - Basic Metabolic Panel; Future - Lipid Panel, Standard; Future - Hepatic Function Panel; Future Gastroesophageal reflux disease without esophagitis Comments: Stable Avoid provocative foods: citrus, alcohol, coffee, chocolate, mints. Eat smaller meals, no eating three hours prior to bedtime. Class 1 obesity without serious comorbidity with body mass index (BMI) of 31.0 to 31.9 in adult, unspecified obesity type Other iron deficiency anemia Comments: Follows with Labs ordered today Orders: - CBC auto differential; Future Vitamin D deficiency Comments: Cont Vit D Labs ordered Orders: - Vitamin D, 25-Hydroxy, Total, Immunoassay; Future documented in this encounter Plan of Treatment Upcoming Encounters Date Type Department Care Team (Late st Contact Info) Description 11/17/2024 3:30 PM EDT Office Visit [facility] MED & PEDS [address] [place] [address] Kay Peterson FNP [address] [place] [address] Scheduled Orders Name Type Priority Associated Diagnoses Orde r Schedule Basic Metabolic Panel Lab Routine Primary hypertension Expected: 10/19/2024 (Approximate), Expires: 10/19/2025 Lipid Panel, Standard Lab Routine Primary hypertension Expected: 10/19/2024 (Approximate), Expires: 10/19/2025 Hepatic Function Panel Lab Routine Primary hypertension Expected: 10/19/2024 (Approximate), Expires: 10/19/2025 CBC auto differential Lab Routine Other iron deficiency anemia Expected: 10/19/2024 (Approximate), Expires: 10/19/2025 Vitamin D, 25-Hydroxy, Total, Immunoassay Lab Routine Vitamin D deficiency Expected: 10/19/2024 (Approximate), Expires: 10/19/2025 documented as of this encounter Visit Diagnoses Diagnosis Healthcare maintenance- Primary Primary hypertension Unspecified essential hypertension Gastroesophageal reflux disease without esophagitis Esophageal reflux Class 1 obesity without serious comorbidity with body mass index (BMI) of 31.0 to 31.9 in adult, unspecified obesity type Other iron deficiency anemia Vitamin D deficiency documented in this encounter Additional Health Concerns Assessment Noted Time PHQ-9 Depression Total Score: 0 10/20/19 25 10:22 AM EDT documented as of this encounter Care Teams Cigarette Making Machine Hopper Feeder Relationship Specialty Start Date End Date Kay Peterson FNP [address] [place] [address] PCP - General Family Medicine 02/26/22 Lino Mobley MD [address] [place] [address] Obstetrics and Gynecology 07/20/24 Talita Gallagher MD [address] [place] [address] Hematology and Oncology 07/20/24 documented as of this encounter
[2024-10-24 14:10] LABS: MANUAL DIFF FLAG NO
[2024-10-24 14:13] LABS: Basophils Absolute Auto 0.1 X10*3/uL (0.0-0.2); Basophils Percent Auto 1.3 % (0-2); Eosinophils Absolute Auto 0.2 X10*3/uL (0.0-0.4); Eosinophils Percent Auto 3.8 % (0-4); Hematocrit 33.8 % (37.0-47.0); Imm Gran Abs Auto 0.01 X10*3/uL (0.00-0.03); Imm Gran Pct Auto 0.2 % (0.0-0.4); Lymphocytes Absolute Auto 1.5 X10*3/uL (1.2-4.9); Lymphocytes Percent Auto 28.4 % (20-40); Mean Corpuscular HGB Conc 29.6 g/dl (31.0-35.0); Monocytes Absolute Auto 0.6 X10*3/uL (0.1-1.2); Monocytes Percent Auto 11.5 % (2-11); Neutrophils Absolute Auto 2.9 x10*3/uL (2.0-8.3); Neutrophils Percent Auto 54.8 % (45-73); Platelet Count 427 X10*3/uL (160-400); Red Blood Count 4.76 X10*6/uL (4.20-5.50); Red Cell Distribution Width 19.4 % (11.0-16.0); White Blood Count 5.2 X10*3/uL (4.8-10.8)
[2024-10-24 14:20] LABS: Appearance Urine Turbid; Color Urine Yellow; Glucose Urine UA Negative (Negative); Leukocyte Esterase Urine Small (1+) (Negative); Nitrite Urine Negative (Negative); PH 5.5 (5.0-9.0); UMIC TRIGGER UACC YES; Urine Blood Trace (Negative); Urine Ketones Negative (Negative); Urine Protein Trace mg/dL (Neg-Trace)
[2024-10-24 14:26] LABS: Bacteria Urine None Seen (None Seen); Hyaline Casts Urine 0-2 /LPF (0-2); RBC Urine 0-2 /HPF (0-2); UACC Culture Trigger YES
[2024-10-24 14:41] LABS: Estimated Average Glucose 114 mg/dL; Hemoglobin A1C 102.1119 umol/L; Hemoglobin A1c % 5.6 % (<6.0); Total Hemoglobin (HGBA1C) 2699.9195 umol/L
[2024-10-24 14:44] LABS: Cholesterol 220 mg/dL (<200); HDL Cholesterol 50 mg/dL (>40); LDL Cholesterol Calculated 148 mg/dL (<100); Triglycerides 113 mg/dL (<150)
[2024-10-24 14:46] LABS: Alanine Aminotransferase 16 U/L (0-31); Albumin Level 4.1 g/dL (3.5-5.0); Alkaline Phosphatase 59 U/L (39-117); Anion Gap 9 (12-20); Aspartate Amino Transferase 26 U/L (5-31); Bilirubin Direct 0.2 mg/dL (0.0-0.5); Bilirubin Total 0.6 mg/dL (0.0-1.0); Blood Urea Nitrogen 8 mg/dL (9-16); Carbon Dioxide 27 mmol/L (22-29); Chloride 106 mmol/L (96-108); Estimated Glomerular Filt Rate > 60; Glucose Fasting 94 mg/dL (60-99); Glucose Random 93 mg/dL (60-115); Iron 21 mcg/dL (30-160); Percent Iron Saturation 6 % (15-50); Potassium 3.8 mmol/L (3.3-5.1); Sodium 138 mmol/L (135-145); Total Iron Binding Capacity 362 mcg/dL (228-428); Total Protein 7.5 g/dL (6.5-8.0); Unsaturated Iron Binding 341 ug/dL
[2024-10-24 14:59] LABS: Vitamin D 25-OH Total 18.4 ng/mL (>30)
[2024-10-24 15:06] LABS: TSH reflex Free T4 1.12 uIU/mL (0.32-4.0)
== END 2024-10-24 11:35 | disposition home or self-care (01) ==
LOC: HO.CHCLDS 11:34
PROVIDERS: PCP Student in an Organized Health Care Education/Training Program; Referring Provider Physician Assistant; Visit Provider Student in an Organized Health Care Education/Training Program
DX: I10 Essential (primary) hypertension (principal); D50.9 Iron deficiency anemia, unspecified; Z13.220 Encounter for screening for lipoid disorders; F41.1 Generalized anxiety disorder; Z76.89 Persons encountering health services in other specified circumstances; E55.9 Vitamin D deficiency, unspecified; D50.8 Other iron deficiency anemias; R30.0 Dysuria; Z13.1 Encounter for screening for diabetes mellitus
CPT/HCPCS: 36415; 80048; 80053; 80061; 80076; 81001; 82248; 82306; 83036; 83540; 84443; 85025; 87086

== ENCOUNTER 2024-11-06 16:19 | Outpatient (REF) | payer SELFPAY ==
--- NOTE | ~2024-11-06 | US_ITS ---
EXAMINATION: US PELVIS CLINICAL INFORMATION: Pelvic and perineal pain COMPARISON: Present pelvis 02/23/2024 TECHNIQUE: Ultrasound of the pelvis is performed using both transabdominal and transvaginal transducers along with Doppler. Transvaginal imaging is performed due to inadequate visualization transabdominally. FINDINGS: Uterus: The uterus is anteverted , anteflexed and measures 9.7 x 5.1 x 5.9 cm. The double wall endometrial thickness is 1.1 cm. The uterus is smooth in contour and has normal myometrial echogenicity. There are 2 small hypoechoic lesions. A 1.2 x 0.9 x 1.0 lesion likely submucosal in the mid to lower uterus. Previously measured 1.1 x 1.1 x 1.0 cm. Second lesion in the body of the left mid uterus measuring 0.6 x 0.3 x 0.6 cm. Previously it measured 0.8 x 0.4 0.6 cm. There are small nabothian cyst in the cervix. Adnexa: Both ovaries are visualized. There is normal color flow to the adnexa. There is no ovarian torsion. There is no pelvic ascites or fluid collection. Right ovary transabdominal ultrasound measures 3.5 and 1.9 x 2.8 cm in volume 9.8 mL. There is anechoic dominant follicle or cyst measuring 1.0 x 0.9 0.9 cm. Left ovary is not visualized. US/US pelvic and transvaginal IMPRESSION: Dominant 1 cm follicle right ovary. Left ovary not seen. Small nabothian cysts in cervix. There are 2 hypoechoic fibroids noted. Electronically signed by: Luis M Fletcher MD 11/07/2024 07:26 AM EDT
--- OUTSIDE RECORDS SUMMARY | 2024-11-06 17:36 | XMS_ITS | Encounter Summary ---
Author Organization [employer] Address [address] [facility] [address] [place] [address] Care Team Providers Care Kiln Puller Name Role Phone Kristen Kay AYALA Primary Care Provider [phone] Lino Mobley MD Unavailable Talita Gallagher MD Unavailable [phone] Encounter Details Date Type Department Care Team (Late st Contact Info) Description 10/25/2024 Orders Only [facility] MED & PEDS [address] [place] [address] Veronica Zhang Social History Tobacco Use Types Packs/Day Years [...] as of this encounter Plan of Treatment Not on file documented as of this encounter Procedures Procedure Name Priority Date/Time Associated Diagnosis Comments HM PAP/HPV Routine 01/24/2021 12:00 AM EDT documented in this encounter Results * HM PAP/HPV (01/24/2021 12:00 AM EDT) us Historical Provider HEALTH MAINTENANCE Final Result Performing Organization Address City/State/[facility] Co de Phone Number [facility] [address] [place] [phone] documented in this encounter Visit Diagnoses Not on filedocumented in this encounter Additional Health Concerns Assessment Noted Time PHQ-9 Depression Total Score: 0 10/20/19 25 10:22 AM EDT documented as of this encounter Care Teams Kiln Puller Relationship Specialty Start Date End Date Kay Peterson FNP [address] [place] [address] PCP - General Family Medicine 02/26/22 Lino Mobley MD [address] [place] [address] [place] [address] Obstetrics and Gynecology 07/20/24 Talita Gallagher MD [address] [place] [address] Hematology and Oncology 07/20/24 documented as of this encounter
--- OUTSIDE RECORDS SUMMARY | 2024-11-06 17:36 | XMS_ITS | Encounter Summary ---
Author Organization [employer] Address [address] [facility] [address] 7[address] [place] [address] Care Team Providers Care Pharmacy Benefit Manager Name Role Phone Kay Peterson Primary Care Provider [phone] Lino Mobley MD Unavailable Talita Gallagher MD Unavailable [phone] Reason for Visit * Reason Onset Date Comments Appointment Request 10/02/2022 Encounter Details Date Type Department Care Team (Late st Contact Info) Description 10/02/2022 Telephone [facility] MEDICINE [address] [place] [address] Kay Peterson FNP [address] [place], [place] [phone] Appointment Request Social History Tobacco Use Types [...] Per Elyse ). Please contact pt at [phone] documented in this encounter Plan of Treatment Not on file documented as of this encounter Visit Diagnoses Not on filedocumented in this encounter Care Teams Pharmacy Benefit Manager Relationship Specialty Start Date End Date Kay Peterson FNP [address] [place] [address] PCP - General Family Medicine 02/26/22 Lino Mobley MD [address] [place] [address] Obstetrics and Gynecology 07/20/24 Talita Gallagher MD [address] [place] [address] Hematology and Oncology 07/20/24 documented as of this encounter
--- OUTSIDE RECORDS SUMMARY | 2024-11-06 17:36 | XMS_ITS | Encounter Summary ---
Author Organization [employer] Address [address] [facility] [address] 7[address] [place] [address] Care Team Providers Care Band Saw Runner Name Role Phone Kay Peterson Primary Care Provider [phone] Lino Mobley MD Unavailable Talita Gallagher MD Unavailable [phone] Reason for Visit * Reason Onset Date Comments medication 02/19/2023 Encounter Details Date Type Department Care Team (Late st Contact Info) Description 02/19/2023 Telephone [facility] [address] [place], [place] [phone] Fausto Rascon DDS [address] [place], [place] [phone] medication Social History Tobacco Use Types Packs/Day [...] documented as of this encounter Care Teams Band Saw Runner Relationship Specialty Start Date End Date Kay Peterson FNP [address] [place] [address] PCP - General Family Medicine 02/26/22 Lino Mobley MD [address] [place] [address] Obstetrics and Gynecology 07/20/24 Talita Gallagher MD [address] [place] [address] Hematology and Oncology 07/20/24 documented as of this encounter
--- OUTSIDE RECORDS SUMMARY | 2024-11-06 17:37 | XMS_ITS | Encounter Summary ---
Author Organization [employer] Address [address] [facility] [address] 7[address] [place] [address] Care Team Providers Care Hog Handler Name Role Phone Kay Peterson Primary Care Provider [phone] Lino Mobley MD Unavailable Talita Gallagher MD Unavailable [phone] Reason for Visit * Reason Onset Date Comments Appointment Request 08/26/2022 Encounter Details Date Type Department Care Team (Late st Contact Info) Description 08/26/2022 Telephone [facility] MEDICINE [address] [place] [address] Kay Peterson FNP [address] [place], [place] [phone] Appointment Request Social History Tobacco Use Types [...] she doesn't mind with a different provider. ([place] speaker) * Telephone Encounter - Johnson Mccarthy - 08/26/2022 11:44 AM EST Tc from pt requesting an Physical appt states work is requiring pt to have Physical updated Please contact pt at [phone] documented in this encounter Plan of Treatment Not on file documented as of this encounter Visit Diagnoses Not on filedocumented in this encounter Care Teams Hog Handler Relationship Specialty Start Date End Date Kay Peterson FNP [address] [place] [address] PCP - General Family Medicine 02/26/22 Lino Mobley MD [address] [place] [address] Obstetrics and Gynecology 07/20/24 Talita Gallagher MD [address] [place] [address] Hematology and Oncology 07/20/24 documented as of this encounter
--- OUTSIDE RECORDS SUMMARY | 2024-11-06 17:37 | XMS_ITS | Encounter Summary ---
Author Organization [employer] Address [address] [facility] 7t [place] [address] Care Team Providers Care Magnetometer Operator Name Role Phone Kay Peterson Primary Care Provider [phone] Lino Mobley MD Unavailable Talita Gallagher MD Unavailable [phone] Reason for Visit * Reason Onset Date Comments Appointment Confirmation 11/08/2023 Encounter Details Date Type Department Care Team ([facility] st Contact Info) Description 11/08/2023 Telephone [facility] MED & PEDS [address] [place], [place] [phone] Kay Peterson FNP [address] [place], [place] [phone] Appointment Confirmation Social History Tobacco Use Types [...] documented as of this encounter Care Teams Magnetometer Operator Relationship Specialty Start Date End Date Kay Peterson FNP [address] [place] [address] PCP - General Family Medicine 02/26/22 Lino Mobley MD [address] [place] [address] [place] [phone] Obstetrics and Gynecology 07/20/24 Talita Gallagher MD [address] [place] [address] Hematology and Oncology 07/20/24 documented as of this encounter
--- OUTSIDE RECORDS SUMMARY | 2024-11-06 17:37 | XMS_ITS | Clinical Summary ---
Author Organization [employer] Address [address] [place] [address] Care Team Providers Care Edging Catcher Name Role Phone Kay Peterson Primary Care Provider [phone] Lino Mobley MD Unavailable Talita Gallagher MD Unavailable [phone] Allergies No known active allergies Medications * This document contains information received from the source organization and may not represent a complete record from that organization. hydrOXYzine HCl (Atarax) 25 MG tablet Take 1-2 tablets before bed as needed for sleep. 30 tablet 02/04/20 23 Active medroxyPROGESTE Richard (Provera) 10 MG tablet 03/22/20 23 Active cyclobenzaprine (Flexeril) 10 MG tabletIndicatio ns:Muscle spasm Take 1 tablet (10 mg) by mouth if needed in the morning, at noon, and at bedtime for muscle spasms. 30 tablet 3 10/08/19 24 Active cholecalciferol (Vitamin D-3) 25 MCG (1000 UT) tabletIndicatio ns:Vitamin D Deficiency Take 1 tablet (25 mcg) by mouth Once per day. 90 tablet 3 05/04/20 24 025 Active naproxen (Naprosyn) 500 MG tabletIndicatio ns:Muscle spasm Take 1 tablet (500 mg) by mouth if needed in the morning and at bedtime for moderate pain or headaches. 60 tablet 1 07/17/19 25 Active olmesartan (Benicar) 5 MG tabletIndicatio ns:Primary hypertension Take 1 tablet (5 mg) by mouth at bedtime. 90 tablet 1 07/17/19 25 026 Active omeprazole OTC (PriLOSEC OTC) 20 MG EC tabletIndicatio ns:Gastroesopha geal reflux disease, unspecified whether esophagitis present take 1 tablet by mouth prior to meal once daily as needed for heartburn 90 tablet 3 07/17/19 25 Active propranolol (Inderal) 10 MG tabletIndicatio ns:Anxiety TAKE 1 TABLET BY MOUTH 30 TO 60 MINUTES BEFORE STRESS INDUCING EVENT 90 tablet 1 07/17/19 25 Active ergocalciferol (Vitamin D2) 1.25 MG (59633 UT) capsuleIndicati ons:Vitamin D deficiency Take 1 capsule (1.25 mg) by mouth 1 (one) time per week. Take for 8 weeks, then repeat labs. 8 capsule 10/27/19 25 Active simvastatin (Zocor) 5 MG tablet Take 1 tablet (5 mg) by mouth at bedtime. 30 tablet 11 10/27/19 25 026 Active ergocalciferol (Vitamin D2) 1.25 MG (64355 UT) capsuleIndicati ons:Vitamin D deficiency Take 1 capsule (1.25 mg) by mouth 1 (one) time per week. Take for 8 weeks, then repeat labs. 8 capsule 10/12/19 24 025 Discontinued(Re order (will not trigger notification to Pharmacy)) Active Problems Problem Noted Date Diagnosed Date [...] 5:14 PM EDT): Intermittently bothersome/symptomatic Referral to [facility] placed 01/14/24 for further eval Encouraged symptomatic management such as compression stockings Class 1 obesity without seri ous comorbidity with body mass index (BMI) of 31.0 to 31.9 in adult 01/14/2024 Assessment & Plan (01/14/2024 5:17 PM EDT): Discussed multimodal approach to weight management involving pharm and non-pharm interventions. Shared decision making to proceed with PA for Wegovy. Reviewed med safety and SE. Pt to [...] without first consulting health care provider EMMETT CUMMINGS in 2 weeks Healthcare maintenance 02/04/2023 Overview (07/20/2024): Mammo: Bi-RADS 1 on 03/03/24 Pap: NILM HPV neg May 2018. Due May 2023. Following with [facility] MEDICINE OFFICER - encouraged to call office to schedule Colonoscopy: referred 09/25/22 for routine colon CA screening. Scheduled October 2023 Optometry: referral to [facility] October 2023 Dental: established BMD: starting at 66 y/o ASCVD: 0.7% September 2022 Last PE: 10/08/23 Abnormal uterine bleeding 02/03/2023 Overview (07/20/2024): Followed by [facility] PREVENTIVE MEDICINE OFFICER - Dr. Mobley Endometrial biopsy September 2022 w/o signs atypia or carcinoma 01/01/23: Hysteroscopy D&C, polypectomy by Dr. Mobley at [facility]. Post op diagnosis: AUB, endometrial polyp Feb 2024: Pelvic US demonstrated 2.7cm physiologic cyst right ovary. No follow up imaging rec. Endometrial stripe is 1.7cm. Also noted small submucosal uterine fibroid. Pt reviewed results w/ Dr. Mobley during [facility] MEDICINE OFFIC[facility] consult in April 2024. Plan to proceed with expectant management at this time and repeat pelvic ultrasounds periodically Iron deficiency anemia 07/15/2022 Overview (07/20/2024): -Established with [facility] Heme/Onc: Dr. Gallagher -Received iron infusions (Venofer 200mg IV weekly x 5-6 weeks) through their office H/H improved from 7.8/27.8 in Jul 2022 to 11.7/37.8 in September 2022 H/H 9.4/31.5, microcytic Mar 2023 H/H 11.7/38.1 in October 2023 -Cause: upcoming colonoscopy scheduled to r/o GIB; following with [facility] PRE[facility] MEDICINE OFFICER for menorrhagia Assessment & Plan (07/20/2024 11:08 AM EST): - Plan to start iron supplementation with vitamin C through heme-onc. Encouraged hydration and fiber to help offset constipation Assessment & Plan (10/08/2023 5:51 AM EDT): -Last consult note: Jun 2023 Assessment & Plan (03/31/2023 4:21 PM EDT): -Established with [facility] Heme/Onc -Receiving iron infusions (Venofer 200mg IV [...] daily Anxiety 02/22/2018 Overview (07/20/2024): -Referral to [facility] 09/27/22 -Referral for IBH on 02/04/23 -Previous [...] Elevated blood pressure reading 02/22/2018 09/27/2022 Encounters Date Type Department Care Team Description 10/27/2024 Telephone [facility] [address] [place] [address] Kay Peterson FNP PCP Contact 10/26/2024 9:40 AM EDT Telemedicine [facility] [address] [place] [address] Yuki Mccormack MD Other iron deficiency anemia (Primary Dx); Vitamin D deficiency; Hypercholesterolemi a 10/26/2024 Travel 10/25/2024 Telephone [facility] [address] [place] [address] Yuki Mccormack MD Appointment Request 10/25/2024 Orders Only [facility] [address] [place] [address] Veronica Zhang 10/24/2024 Orders Only GENERIC EXTERNAL DATA DEPARTMENT Provider, Generic External Data 10/19/2024 10:15 AM EDT Office Visit [facility] [address] [place] [address] Yuki Mccormack MD Healthcare maintenance (Primary Dx); Primary hypertension; Gastroesophageal reflux disease without esophagitis; Class 1 obesity without serious comorbidity with body mass index (BMI) of 31.0 to 31.9 in adult, unspecified obesity type; Other iron deficiency anemia; Vitamin D deficiency 10/19/2024 Travel 10/11/2024 Patient Outreach [facility] [address] [place] [address] Kay Peterson FNP Pre-visit Planning (SDOH screening negative and Tobacco screening negative) 10/06/2024 Orders Only GENERIC EXTERNAL DATA DEPARTMENT Provider, Generic External Data 09/12/2024 Telephone [facility] [address] [place] [address] Kay Peterson FNP October recall from Last [...] 10/19/2024 10:20 AM EDT Plan of Treatment Health Maintenance Due Date Last Done Comments CT Colonography 1975 Colonoscopy 1975 Colorectal Cancer Screening 1975 Dental Oral Exam 1975 Dental Prophylaxis 1975 FIT DNA/Cologuard 1975 FIT 1975 FOBT 1975 Sigmoidoscopy 1975 Family Planning (PISQ) 10/17/1991 Dental X-Ray: Bitewings 08/09/2021 08/08/2020 Hepatitis B Vaccines (2 of 3 - 19+ 3-dose series) 02/07/2024 01/10/2024 COVID-19 Vaccine ( season) 2024 07/29/2021 Mammogram 03/03/2025 03/03/2024, 0311/2021, 06/03/2018, Additional history exists Alcohol/Substance Use Screening 10/19/2025 10/19/2024 Depression Screening 10/19/2025 10/19/2024, 10/20/19 SDOH Screening 10/19/2025 10/19/2024 Tobacco Screening 10/19/2025 10/19/2024 Dental X-Ray: Full Mouth 01/15/2026 01/14/2023 Cervical Cancer Screening 01/24/2026 HPV/Cotest 01/24/2026 05/11/2018, 05/11/2018 Pap Smear 01/24/2026 01/24/2021 Zoster Vaccines (1 of 2) 2026 DTaP/Tdap/Td Vaccines (2 - Td or Tdap) 07/08/2028 07/08/2018 Lipid Panel 10/24/2029 10/24/2024, 07/0 02/2024, 10/08/2023, Additional history exists RSV Patients and Patients [...] Procedure Name Priority Date/Time Associated Diagnosis Comments URINALYSIS, COMPLETE, WITH REFLEX TO CULTURE Routine 10/24/2024 11:45 AM EDT TSH W/REFLEX TO FT4 Routine 10/24/2024 1 1:40 AM EDT IRON AND TOTAL IRON BINDING CAPACITY Routine 10/24/2024 11:40 AM EDT COMPREHENSIVE METABOLIC PANEL, FASTING Routine 10/24/2024 11:40 AM EDT HEMOGLOBIN A1C Routine 10/24/2024 11:40 AM EDT VITAMIN D,25-OH,TOTAL,IA Routine 10/24/2024 11:40 AM EDT Vitamin D deficiency CBC WITH AUTO DIFFERENTIAL Routine 10/24/2024 11:40 AM EDT Other iron deficiency anemia HEPATIC FUNCTION PANEL Routine 10/24/2024 11:40 AM EDT Primary hypertension LIPID PANEL, STANDARD Routine 10/24/2024 11:40 AM EDT Primary hypertension BASIC METABOLIC PANEL Routine 10/24/2024 11:40 AM EDT Primary hypertension CULTURE, URINE, ROUTINE Routine 10/24/2024 12:00 AM EDT CHLAMYDIA/N. GONORRHOEAE RNA, TMA, UROGENITAL Routine 10/06/2024 1:02 PM EDT BI MAMMOGRAM SCREENING TOMOSYNTHESIS BILATERAL Routine 03/03/2024 11:30 AM EDT HEPATITIS C VIRAL RNA, QUANTITATIVE, REAL-TIME PCR Routine 10/08/2023 10:47 AM EDT Encounter for routine history and physical examination of adult HIV 1/2 ANTIGEN/ANTIBODY, FOURTH GENERATION W/RFL Routine 10/08/2023 10:47 AM EDT Encounter for routine history and physical examination of adult PANORAMIC RADIOGRAPHIC IMAGE Routine 01/14/2023 11:30 AM EDT HM PAP/HPV Routine 01/24/2021 12:00 AM EDT BITEWING - SINGLE RADIOGRAPHIC IMAGE Routine 08/08/2020 12:00 AM EST ZZZ HISTORICAL HPV MRNA E6/E7 Routine 05/11/2018 3:05 PM EST from Last 3 Months or Most Recently Relevant to Health Maintenance Results * (ABNORMAL) Urinalysis, Complete, with Reflex to Culture (10/24/2024 11:45 AM EDT) Color Urine Yellow [facility] Appearance Urine Turbid [facility] PH 5.5 5.0 - 9.0 [facility] Glucose Urine UA Negative Negative mg/dL [facility] Urine Blood Trace(A) Negative [facility] Specific [place] - Urine 1.020 1.005 - 1.025 [facility] Urine Protein Trace Neg-Trace mg/dL [facility] Urine Ketones Negative Negative mg/dL [facility] Nitrite Urine Negative Negative [facility] Leukocyte Esterase Urine Small (1+)(A) Negative [facility] RBC Urine 0-2 0 - 2 /HPF [facility] Urine WBC 11-20(A) 0 - 5 /HPF [facility] Urine Squamous Epithelial Cell 3-5 0 - 2 /HPF [facility] Urine Bacteria None Seen None Seen [facility] Hyaline Casts, Urine 0-2 0 - 2 /LPF [facility] 10/24/2024 11:4 5 AM EDT 10/24/2024 2:04 PM EDT Narrative [facility] - 10/24/2024 2:27 PM EDT Urine, Clean Catch us Generic External Data Provider LAB URINE ORDERAB LES Final Result [facility] [address] [place] [phone] * (ABNORMAL) Comprehensive Metabolic Panel, Fasting (10/24/2024 11:40 AM EDT) Pathologist [facility] Sodium 138 135 - 145 mmol/L [facility] Potassium 3.8 3.3 - 5.1 mmol/L [facility] Chloride 106 96 - 108 mmol/L [facility] Carbon Dioxide 27 22 - 29 mmol/L [facility] Anion Gap 9(L) 12 - 20 [facility] Urea Nitrogen (BUN) 8(L) 9 - 16 mg/dL [facility] Creatinine, Serum 0.67 0.5 - 1.4 mg/dL [facility] Estimated Glomerular Filt Rate >60 [facility] Comment:Chronic Kidney Disea se: Estimated GFR < 60 mL/min/1.30m7Wxddcg Kidney Disease: Estimated GFR < 15 mL/min/1.73m2 Glucose Fasting 94 60 - 99 mg/dL [facility] Calcium 9.0 8.4 - 10.2 mg/dL [facility] Bilirubin, Total 0.6 0.0 - 1.0 mg/dL [facility] Aspartate Amino Transferase 26 5 - 31 U/L [facility] Alanine Aminotransferase 16 0 - 31 U/L [facility] Total Protein 7.5 6.5 - 8.0 g/dL [facility] Albumin Level 4.1 3.5 - 5.0 g/dL [facility] Alkaline Phosphatase 59 39 - 117 U/L [facility] 10/24/2024 11:4 0 AM EDT 10/24/2024 2:04 PM EDT us Generic External Data Provider LAB BLOOD ORDERAB LES Final Result [facility] [address] [place] [phone] * (ABNORMAL) Vitamin D, 25-Hydroxy, Total, Immunoassay (10/24/2024 11:40 AM EDT) Pathologist [facility] Vitamin D 25-OH Total 18.4(L) >30 ng/mL [facility] Comment: Health Based Reference Values*< 20 ??ng/mL ??Ukvyuunwb36-47 ng/mL ??Insufficient> 30 ??ng/mL ??Sufficient*Danny ROSEN. N Engl J Med. 2007;357:266-280There is no well-established upper level of normal vitamin Dlevels. Some laboratories use 50 ng/mL as an upper limit ofnormal. However, toxicity is patient-dependent and may occurat any level. Careful correlation with the patient'spresentation is necessary and, if there is concern forvitamin D toxicity, treatment should be consideredirrespective of the serum level.Care must be taken in interpreting Vitamin D results fromdifferent laboratories and methodologies. ??Published datademonstrated that results from patients undergoinghemodialysis may show a negative bias when tested withvarious automated 25-OH vitamin D assays when compared toLC- MS/MS.When testing samples from patients whose predominant form ofVitamin D is Vitamin D2, such as patients receiving VitaminD2 supplementation, results that are subtherapeutic shouldbe confirmed with another method such as LC-MS/MS. Blood Venous blood specimen / Unknown 10/24/2024 11:40 AM EDT 10/24/2024 2:04 PM EDT us Yuki Mccormack MD LAB BLOOD ORDERABLES Final Resul t Performing Organization Address City/[facility]/ZIP Co de Phone Number [facility] [address] [place] [phone] * TSH with Reflex to Free T4 (10/24/2024 11:40 AM EDT) TSH reflex Free T4 1.12 0.32 - 4.0 uIU/mL [facility] 10/24/2024 11:4 0 AM EDT 10/24/2024 2:04 PM EDT us Generic External Data Provider LAB BLOOD ORDERAB LES Final Result [facility] [address] [place] [phone] * (ABNORMAL) CBC auto differential (10/24/2024 11:40 AM EDT) White Blood Count 5.2 4.8 - 10.8 X10*3/uL [facility] Red Blood Count 4.76 4.20 - 5.50 X10*6/uL [facility] Hemoglobin 10.0(L) 12.0 - 16.0 g/dl [facility] Hematocrit 33.8(L) 37.0 - 47.0 % [facility] Mean Corpuscular Volume 71.0(L) 80.0 - 98.0 fL [facility] Mean Corpuscular Hemoglobin 21.0(L) 27.0 - 33.0 pg [facility] Mean Corpuscular HGB Conc 29.6(L) 31.0 - 35.0 g/dl [facility] Red Cell Distribution Width 19.4(H) 11.0 - 16.0 % [facility] Platelet Count 427(H) 160 - 400 X10*3/uL [facility] Mean Platelet Volume 10.0 9.4 - 12.3 fL [facility] Neutrophils Percent Auto 54.8 45 - 73 % [facility] Imm Gran Pct Auto 0.2 0.0 - 0.4 % [facility] Lymphocytes Percent Auto 28.4 20 - 40 % [facility] Monocytes Percent Auto 11.5(H) 2 - 11 % [facility] Eosinophils Percent Auto 3.8 0 - 4 % [facility] Basophils Percent Auto 1.3 0 - 2 % [facility] NRBC Pct Auto 0.0 0.0 - 0.2 /100WBC [facility] Neutrophils Absolute Auto 2.9 2.0 - 8.3 x10*3/uL [facility] Imm Gran Abs Auto 0.01 0.00 - 0.03 X10*3/uL [facility] Lymphocytes Absolute Auto 1.5 1.2 - 4.9 X10*3/uL [facility] Monocytes Absolute Auto 0.6 0.1 - 1.2 X10*3/uL [facility] Eosinophils Absolute Auto 0.2 0.0 - 0.4 X10*3/uL [facility] Basophils Absolute Auto 0.1 0.0 - 0.2 X10*3/uL [facility] NRBC Abs Auto 0.000 0.0 - 0.012 X10*3/uL [facility] Blood Venous blood specimen / Unknown 10/24/2024 11:40 AM EDT 10/24/2024 2:04 PM EDT us Yuki Mccormack MD LAB BLOOD ORDERABLES Final Resul t Performing Organization Address [facility] Co de Phone Number [facility] [address] [place] [phone] * (ABNORMAL) Iron And Total Iron Binding Capacity (10/24/2024 11:40 AM EDT) Pathologist [facility] Iron 21(L) 30 - 160 mcg/dL [facility] Total Iron Binding Capacity 362 228 - 428 mcg/dL [facility] Percent Iron Saturation 6(L) 15 - 50 % [facility] Unsaturated Iron Binding 341 ug/dL [facility] 10/24/2024 11:4 0 AM EDT 10/24/2024 2:04 PM EDT us Generic External Data Provider LAB BLOOD ORDERAB LES Final Result Performing Organization Address [facility]/ZIP Co de Phone Number [facility] [address] [place] [phone] * Hemoglobin A1c (10/24/2024 11:40 AM EDT) Hemoglobin A1c 5.6 <6.0 % [facility] Comment:Hemoglobin A1C Refer ence Range Adults: 4.8 - 6.0 % Non diabetic: < 6.0 % Goal: < 7.0 %Additional Action Suggested: > 8.0 %Note: Hemoglobin A1c results are invalid for patients with abnormal amounts of HbF. Blood transfusions may impact the HbA1c concentration in the patient sample. Estimated Average Glucose 114 mg/dL [facility] Comment:eAG = Estimated ave rage glucose which is %A1C expressed asaverage glucose, using the formula of the H0E-MbkfhowMcawzzg Glucose study (ADAG), Diabetes Care, Vol.31,#8,2007 10/24/2024 11:4 0 AM EDT 10/24/2024 2:04 PM EDT Yuki Mccormack MD LAB BLOOD ORDERABLES Final Resul t Performing Organization Address City/[facility]/ZIP Co de Phone Number [facility] [address] [place] [phone] * Hepatic Function Panel (10/24/2024 11:40 AM EDT) Bilirubin, Direct 0.2 0.0 - 0.5 mg/dL [facility] Blood Venous blood specimen / Unknown 10/24/2024 11:40 AM EDT 10/24/2024 2:04 PM EDT Yuki Mccormack MD LAB BLOOD ORDERABLES Final Resul t Performing Organization Address [facility] Co de Phone Number [facility] [address] [place] [address] [phone] * (ABNORMAL) Lipid Panel, Standard (10/24/2024 11:40 AM EDT) Triglycerides 113 <150 mg/dL [facility] Comment:Desirable Triglyceri de: less than 150 mg/dLBorderline High Triglyceride 150-199 mg/dLHigh Triglyceride: 200-499 mg/dLVery High Triglyceride: greater than or equal to 5OO mg/dL Cholesterol 220(H) <200 mg/dL [facility] Comment:Desirable Cholestero l: less than 200 mg/dLBorderline High Cholesterol: 200-239 mg/dLHigh Cholesterol: greater than 239 mg/dL LDL Cholesterol Calculated 148(H) <100 mg/dL [facility] Comment:Desirable LDL: less than 100 mg/dLNear Optimal/Above Optimal LDL: 110- 129 mg/dLBorderline High LDL: 130-159 mg/dLHigh LDL: 160-189 mg/dLVery High LDL: greater than or equal to 190 mg/dL HDL Cholesterol 50 >40 mg/dL [facility] Comment:Desirable HDL: great er than 40 mg/dL Note: This HDL assay may give artificially low results in patients with liver disease. Blood Venous blood specimen / Unknown 10/24/2024 11:40 AM EDT 10/24/2024 2:04 PM EDT Yuki Mccormack MD LAB BLOOD ORDERABLES Final Resul t Performing Organization Address [facility] de Phone Number [facility] [address] [place] [address] [phone] * Basic Metabolic Panel (10/24/2024 11:40 AM EDT) Glucose 93 60 - 115 mg/dL [facility] Blood Venous blood specimen / Unknown 10/24/2024 11:40 AM EDT 10/24/2024 2:04 PM EDT Yuki Mccormack MD LAB BLOOD ORDERABLES Final Resul t Performing Organization Address [facility] Co de Phone Number [facility] [address] [place] [phone] * Culture, Urine, Routine (10/24/2024 12:00 AM EDT) Urine Urine specimen obtained by clean catch procedure / Unknown 10/24/2024 10/24/2024 Comment:UACC Narrative [facility] - 10/25/2024 8:31 AM EDT Urine Culture No growth. Specimen Source: Urine clean catch Generic External Data Provider LAB MICROBIOLOGY - GENERAL ORDERABLES Final Result Performing Organization Address [facility] Co de Phone Number [facility] [address] [place] [address] [phone] * Chlamydia/N. Gonorrhoeae RNA, TMA, Urogenitial (10/06/2024 1:02 PM EDT) CT PCR NOT DETECTED Not Detect. [facility] Comment:A not detected test result [...] psychologicalconsequences. NG PCR NOT DETECTED Not Detect. [facility] Comment:A not detected test result [...] PM EDT 10/06/2024 3:24 PM EDT Narrative [facility] - 10/06/2024 6:08 PM EDT Vaginal us Generic External Data Provider LAB MICROBIOLOGY - GENERAL ORDERABLES Final Result [facility] [address] [facility] [place] [phone] * BI Mammogram Screening Tomosynthesis Bilateral (03/03/2024 11:30 AM EDT) Anatomical Region Laterality Modality Breast Bilateral Mammography 03/03/2024 11:3 0 AM EDT Narrative 03/25/2024 10:40 PM EDT ? [facility] [place] ? [address] ?[place] [address] ? Mammography Report ? Signed ? Patient: Manuela Rodriguez L ?M ?? R#: [id number] ? : 1975 ?Acct:[id number] ? Age/Sex: 48 / F ?ADM Date: 03/03/24 ? Loc: HO.MAMMO ? Attending Dr: Kay Peterson LURE MAKER ? Ordering Physician: Kay Peterson LURE MAKER ?Results: 1Negat ?? roberta ? Date of Service: 03/03/24 ?Follow Up: 1 Year From Orig ?? inal Mammogram ? Procedure(s): MM tomosynthesis screening BI ?? Accession Number(s): [id number] ? cc: ColtonjeancarlosKay LURE MAKER ? EXAMINATION: ?? MM SCREENING DIGITAL BREAST [...] by Alta Rodgers, DO in OV> ? 03/25/24 2237 ? DD/ 1130 ? TD/TT: 03/03/24 1148 ? Silhouette Artist: ? Procedure Note Troyemorybyronsisi, Image - 03/25/2024 [facility] [address] [place] [address] Mammography Report Signed Patient: Manuela Rodriguez R#: [id number] : 1975Acct:[id number] Age/Sex: 48 / FADM Date: 03/03/24 Loc: SON[facility] Attending Dr: Kay Peterson LURE MAKER Ordering Physician: Kay Peterson FNPResults: 1Negat roberta Date of Service: 03/03/24Follow Up: 1 Year From Orig inal Mammogram Procedure(s): MM tomosynthesis screening BI Accession Number(s): [id number] cc: Kay Peterson LURE MAKER EXAMINATION: MM SCREENING DIGITAL BREAST TOMOSYNTHESIS, BILATERAL [...] 03/25/24 2237 DD/ 1130 TD/TT: 03/03/24 1148 Silhouette Artist: Kay Peterson [facility] BI PROCEDURES Edited Resul t - Final * Hepatitis C Viral RNA, Quantitative, Real-Time PCR (10/08/2023 10:47 AM EDT) Hepatitis C Viral Load <15 NOT DETECTED NOT DETECTED IU/mL [facility] HCV Log PCR <1.18 NOT DETECTED NOT DETECTED Log IU/mL [facility] Comment:This test was perfor med using Real-Time Polymerase ChainReaction.Reportable Range: 15 IU/mL to 100,000,000 IU/mL(1.18 Log IU/mL to 8.00 Log IU/mL).The analytical performance characteristics of thisassay have been determined by [employer].The modifications have not been cleared or approved bythe FDA. This assay has been validated pursuant to theCLIA regulations and is used for clinical purposes.For more information on this test, go to:http://education.[employer].SmarTots/faq/AUQ53g3(This link is being provided for informational/educational purposes only.)THIS TEST WAS PERFORMED AT:[employer] [place] [id number] CORNEJO MD Blood 10/08/2023 10:4 7 AM EDT 10/08/2023 2:24 PM EDT Kay Coltonjeancarlos [facility] BLOOD ORDERABLES Final Res ult Performing Organization Address City/[facility]/ZIP Co de Phone Number [facility] [address] [place] [address] [phone] * HIV-1/2 Antigen and Antibodies, Fourth Generation, with Reflexes (10/08/2023 10:47 AM EDT) [facility] HIV AB/AG Nonreactive Nonreactive [facility] Comment:HIV-1 p24 Ag and/or HIV-1/HIV-2 Ab not detected.A test result that is nonreactive does not exclude thepossibility of exposure to or infection with HIV-1 and/orHIV-2. Nonreactive results in this assay for individualswith prior exposure to HIV-1 and/or HIV-2 may be due toantigen and antibody levels that are below the limit ofdetection of this assay.[employer] HIV Ag/Ab Combo assay result andsupplemental assay results should be interpreted inconjunction with the patient's clinical presentation,history and other laboratory results. If the results areinconsistent with clinical evidence, additional testing issuggested to confirm the result. Blood Venous blood specimen / Unknown 10/08/2023 10:47 AM EDT 10/08/2023 2:24 PM EDT Kay [facility] LAB BLOOD ORDERABLES Final Res ult Performing Organization Address City/[facility]/ZIP Co de Phone Number [facility] [address] [place] [address] [phone] * HM PAP/HPV (01/24/2021 12:00 AM EDT) Historical Provider MD HEALTH MAINTENANCE Final Result [facility] [address] [place] [address] [phone] * HPV mRNA E6/E7 (05/11/2018 3:05 PM EST) HPV mRNA E6/E7 Not Detected NOT DETECTED [facility] Comment: This test was performed using the APTIMA(R) HPV Assay ([employer] This assay detects E6/E7 viral messenger RNA (mRNA) from 14 high-risk HPV types (16,18,31,33,35,39,45,51, 52,56,58,59,66,68). For additional information please refer to: http://education.Dandelion/faq/CDM720c5 (This link is being provided for informational/ educational purposes only.) The analytical performance characteristics of this assay have been determined by [employer] [place], [place]. The modifications have not been cleared or approved by the FDA. This assay has been validated pursuant to the CLIA regulations and is used for clinical purposes. Test Performed by [facility], [facility] [place], [address] [place] [address] Rogelio Lua M.D., Ph.D., Director of Laboratories , CLIA [id number] Please note: ??Effective 03/16/2016, HPV testing will be performed using [employer]'s APTIMA test which targets mRNA. Detecting mRNA instead of DNA, as in older methods, offers significant improvements in specificity. 05/11/2018 3:05 PM EST Quin Barney MD HISTORICAL/NON ORDERABLE LABS Final Result [facility] [address] from Last 3 Months or Most Recently Relevant to Health [place] [address] Care Teams Edging Catcher Relationship Specialty Start Date End Date Kay Peterson FNP [address] [place] [address] PCP - General Family Medicine 02/26/22 Lino Mobley MD [address] [place] [address] Obstetrics and Gynecology 07/20/24 Talita Gallagher MD [address] [place] [address] Hematology and Oncology 07/20/24
--- OUTSIDE RECORDS SUMMARY | 2024-11-06 17:37 | XMS_ITS | Encounter Summary ---
Author Organization [employer] Address [address] [facility] [address] 7t [place] [address] Care Team Providers Care Service Line Bus Cleaner Name Role Phone Kay Peterson Primary Care Provider [phone] Lino Mobley MD Unavailable Talita Gallagher MD Unavailable [phone] Reason for Visit * Reason Onset Date Comments Lab Orders 11/05/2023 Encounter Details Date Type Department Care Team (Late st Contact Info) Description 11/05/2023 Telephone [facility] MEDICINE [address] [place] [address] Kay Peterson FNP [address] [place], [place] [phone] Lab Orders Social History Tobacco Use Types [...] documented as of this encounter Care Teams Service Line Bus Cleaner Relationship Specialty Start Date End Date Kay Peterson FNP [address] [place] [address] PCP - General Family Medicine 02/26/22 Lino Mobley MD [address] [place] [address] [place] [address] Obstetrics and Gynecology 07/20/24 Talita Gallagher MD [address] [place] [address] [place] [address] Hematology and Oncology 07/20/24 documented as of this encounter
--- OUTSIDE RECORDS SUMMARY | 2024-11-06 17:37 | XMS_ITS | Encounter Summary ---
Author Organization [employer] Address [address] [facility] [address] 7t [place] [address] Care Team Providers Care Science Intern Name Role Phone Kay Peterson Primary Care Provider Lino Mobley MD Unavailable Talita Gallagher MD Unavailable [phone] Reason for Visit * Reason Onset Date Comments Nurse Triage 11/30/2023 Encounter Details Date Type Department Care Team (Late st Contact Info) Description 11/30/2023 Telephone [facility] [address] [place] [address] Kay Peterson FNP [address] [place], [place] [phone] Nurse Triage Social History Tobacco Use Types [...] further evaluation. RN also reviews the manager of broadcast content triage nurses and that ptcan call anytime, [...] The caller accepted this outcome Patient speaks french documented in this encounter Plan of Treatment Not on file documented as of this encounter Visit Diagnoses Not on filedocumented in this encounter Additional Health Concerns Assessment Noted Time PHQ-9 Depression Total Score: 3 10/08/19 24 9:44 AM EDT documented as of this encounter Care Teams Science Intern Relationship Specialty Start Date End Date Kay Peterson FNP [address] [place] [address] PCP - General Family Medicine 02/26/22 Lino Mobley MD [address] [place] [address] Obstetrics and Gynecology 07/20/24 Talita Gallagher MD [address] [place] [address] Hematology and Oncology 07/20/24 documented as of this encounter
== END 2024-11-06 16:20 | disposition home or self-care (01) ==
LOC: HO.US 16:19
PROVIDERS: PCP Physician Assistant; Visit Provider Obstetrics & Gynecology
DX: R10.2 Pelvic and perineal pain (principal)
CPT/HCPCS: 76830; 76856

== ENCOUNTER → 2024-11-06 16:21 | Outpatient (BNV) | payer SELFPAY | PROVIDERS: PCP Physician Assistant; Visit Provider Radiology Diagnostic Radiology | DX: N83.01 Follicular cyst of right ovary (principal); N88.8 Other specified noninflammatory disorders of cervix uteri; D25.9 Leiomyoma of uterus, unspecified | CPT/HCPCS: 76830; 76856 ==

== ENCOUNTER 2024-11-09 09:54 | Outpatient (AMB) | payer OTHER, SELFPAY ==
--- NOTE | 2024-11-09 09:54 | A.OFFVIS_ITS ---
Intake Visit Reasons: ultrasound results Talent Development Coordinator Required: Yes Talent Development Coordinator Language: Senior Communications Specialist Services: Talent Development Coordinator Present (in person) Talent Development Coordinator Name: Val Gonzalez RMAnil Allergies No Known Allergies Allergy (Verified 11/03/24 13:16) HPI Comments Details: Presenting for follow-up regarding her pelvic pain. The patient is doing well. The following workup was done so far: GC/CT negative. Last visit urine test was negative. Last visit urine dip was negative. Pelvic ultrasound showed the following: Uterus: The uterus is anteverted , anteflexed and measures 9.7 x 5.1 x 5.9 cm. The double wall endometrial thickness is 1.1 cm. The uterus is smooth in contour and has normal myometrial echogenicity. There are 2 small hypoechoic lesions. A 1.2 x 0.9 x 1.0 lesion likely submucosal in the mid to lower uterus. Previously measured 1.1 x 1.1 x 1.0 cm. Second lesion in the body of the left mid uterus measuring 0.6 x 0.3 x 0.6 cm. Previously it measured 0.8 x 0.4 0.6 cm. There are small nabothian cyst in the cervix. Adnexa: Both ovaries are visualized. There is normal color flow to the adnexa. There is no ovarian torsion. There is no pelvic ascites or fluid collection. Right ovary transabdominal ultrasound measures 3.5 and 1.9 x 2.8 cm in volume 9.8 mL. There is anechoic dominant follicle or cyst measuring 1.0 x 0.9 0.9 cm. Left ovary is not visualized.. [facility] Medical History (Updated 11/03/24 @ 17:04 by Saloni Valles NP) Iron deficiency anemia Palpitations Gastroesophageal reflux disease Elevated blood pressure reading Anxiety Surgical History History of hysteroscopy Hx of tubal ligation Family History Other Substance abuse Social History Household Members: Spouse, Family and Children Housing: House Alcohol intake: never Patient Tobacco Use Status: Never used Tobacco e-Cigarette/Vaping Use: Never Used Second Hand Smoke Exposure: No service: No Current occupational status: unemployed Sexual orientation: Straight/Heterosexual Gender identity: Female Cognitive needs: No Hearing needs: No Vision needs: No Female Reproductive History Menstrual Age of Menarche: 14 Review of Systems Const All systems reviewed & are unremarkable except as noted in HPI and below Reports as per HPI and Reports no additional complaints GI Reports no additional complaints Reports no additional complaints Telehealth Telehealth Telehealth Platform: Telephone Location of provider rendering services: practice address Location of patient: address on file Patient Identification confirmed using: Name, : Yes Telehealth method: video Patient verbally consented to treatment: Yes Patient verbally consented to billing insurance company: Yes Patient informed of any privacy concerns related to visit: Yes Minutes spent on Phone/Video with Pt.: 4 Assessment & Plan Assessment & Plan (1) Pelvic pain in female: Code(s): R10.2 - Pelvic and perineal pain Category: Medical Plan: Discussed with the patient the results of the workup done including negative GC/chlamydia, urine dip, urine test and pelvic ultrasound. Dif ferential diagnosis of auto body repair teacher causes that have not be ruled out yet include but not limited to endometriosis, pelvic adhesions , or others. Recommended for the patient to see her PCP for further workup for non auto body repair teacher causes; if the all the results are negative and the patient's pelvic pain is persistent, instructions given to patient to call back for further testing. Meanwhile, instructions were given the patient to go to emergency room or call in case of fever above 100.4, heavy vaginal bleeding, persistence or worsening of her pelvic pain. All questions answered, the patient verbalized understanding. (2) Uterine myoma: Code(s): D25.9 - Leiomyoma of uterus, unspecified Category: Medical Plan: Discussed with the patient the findings on pelvic ultrasound & the risk of myosarcoma; in addition reviewed with the patient that malignancy and pre malignancy cannot be ruled out without hysterectomy for pathological evaluation ; furthermore, explained to the patient the limitation of pelvic ultrasound and endometrial biopsy in the setting. Discussed with the patient the options of treatment including expectant management versus hysterectomy; the pros and cons, risks benefits of each approach were discussed with the patient including the fact that in cases of myosarcoma, surgical treatment can lead to early diagnosis and positively affects the prognosis; after further discussion, the patient decided to proceed with expectant management. Will repeat pelvic ultrasound periodically. Instructions given to patient to call in case any of the following occurs: pressure symptoms, abnormal uterine bleeding, pelvic pain; and to schedule a 12 months pelvic ultrasound (order placed) and a follow-up appointment . All questions answered, the patient verbalized understanding and agreed with the plan . I spent a total of 20 minutes reviewing the chart, talking to the patient via video and documenting in the medical record. Orders: Orders US pelvic and transvaginal 12 Months D25.9 - Leiomyoma of uterus, unspecified Coding Level of Care Code Tele Est Pt Level 3 (18278) Diagnoses Pelvic pain in female R10.2 Uterine myoma D25.9
--- OUTSIDE RECORDS SUMMARY | 2024-11-09 10:47 | XMS_ITS | Encounter Summary ---
Author Organization [employer] Address [address] [facility] [address] [facility] [address] 7[address] [place] [address] Care Team Providers Care Customs Manager Name Role Phone Kristen Kay AYALA Primary Care Provider [phone] Lino Mobley MD Unavailable Talita Gallagher MD Unavailable [phone] Encounter Details Date Type Department Care Team (Late st Contact Info) Description 10/25/2024 Orders Only [facility] MED & PEDS [address] [place] [address] Veronica Zhang Social History Tobacco Use Types [...] HEALTH MAINTENANCE Final Result Performing Organization Address City/State/[facility] Co de Phone Number [facility] [address] [place] [phone] documented in this encounter Visit Diagnoses Not on filedocumented in this encounter Additional Health Concerns Assessment Noted Time PHQ-9 Depression Total Score: 0 10/20/19 25 10:22 AM EDT documented as of this encounter Care Teams Customs Manager Relationship Specialty Start Date End Date Kay Peterson FNP [address] [place] [address] PCP - General Family Medicine 02/26/22 Lino Mobley MD [address] [place] [address] [place] [address] Obstetrics and Gynecology 07/20/24 Talita Gallagher MD [address] [place] [address] Hematology and Oncology 07/20/24 documented as of this encounter
--- OUTSIDE RECORDS SUMMARY | 2024-11-09 10:47 | XMS_ITS | Encounter Summary ---
Author Organization [employer] Address [address] [facility] [address] 7[address] [place] [address] Care Team Providers Care Hooker Inspector Name Role Phone Kay Peterson Primary Care Provider [phone] Lino Mobley MD Unavailable Talita Gallagher MD Unavailable [phone] Reason for Visit * Reason Onset Date Comments Lab Orders 11/05/2023 Encounter Details Date Type Department Care Team (Late st Contact Info) Description 11/05/2023 Telephone [facility] MEDICINE [address] [place] [address] Kay Peterson FNP [address] [place], [place] [phone] Lab Orders Social History Tobacco Use Types [...] documented as of this encounter Care Teams Hooker Inspector Relationship Specialty Start Date End Date Kay Peterson FNP [address] [place] [address] PCP - General Family Medicine 02/26/22 Lino Mobley MD [address] [place] [address] [place] [address] Obstetrics and Gynecology 07/20/24 Talita Gallagher MD [address] [place] [address] [place] [address] Hematology and Oncology 07/20/24 documented as of this encounter
--- OUTSIDE RECORDS SUMMARY | 2024-11-09 10:47 | XMS_ITS | Encounter Summary ---
Author Organization [employer] Address [address] [facility] [address] 7t [place] [address] Care Team Providers Care Steel Cutter Name Role Phone Kay Peterson Primary Care Provider [phone] Lino Mobley MD Unavailable Talita Gallagher MD Unavailable [phone] Reason for Visit * Reason Onset Date Comments Nurse Triage 11/30/2023 Encounter Details Date Type Department Care Team (Late st Contact Info) Description 11/30/2023 Telephone [facility] MEDICINE [address] [place] [address] Kay Peterson FNP [address] [place], [place] [phone] Nurse Triage Social History Tobacco Use Types [...] for further evaluation. RN also reviews the projection welding machine operator triage nurses and that ptcan call anytime, [...] The caller accepted this outcome Patient speaks ukrainian documented in this encounter Plan of Treatment Not on file documented as of this encounter Visit Diagnoses Not on filedocumented in this encounter Additional Health Concerns Assessment Noted Time PHQ-9 Depression Total Score: 3 10/08/19 24 9:44 AM EDT documented as of this encounter Care Teams Steel Cutter Relationship Specialty Start Date End Date Kay Peterson FNP [address] [place] [address] PCP - General Family Medicine 02/26/22 Lino Mobley MD [address] [place] [address] Obstetrics and Gynecology 07/20/24 Talita Gallagher MD [address] [place] [address] Hematology and Oncology 07/20/24 documented as of this encounter
--- OUTSIDE RECORDS SUMMARY | 2024-11-09 10:47 | XMS_ITS | Encounter Summary ---
Author Organization [employer] Address [address] [facility] [address] 7[address] [place] [address] Care Team Providers Care Senior Microsoft Consultant Name Role Phone Kay Peterson Primary Care Provider [phone] Lino Mobley MD Unavailable Talita Gallagher MD Unavailable [phone] Reason for Visit * Reason Onset Date Comments Appointment Request 08/26/2022 Encounter Details Date Type Department Care Team (Late st Contact Info) Description 08/26/2022 Telephone [facility] MEDICINE [address] [place] [address] Kay Peterson FNP [address] [place], [place] [phone] Appointment Request Social History Tobacco Use Types [...] she doesn't mind with a different provider. (Puerto Rican speaker) * Telephone Encounter - Johnson Mccarthy - 08/26/2022 11:44 AM EST Tc from pt requesting an Physical appt states work is requiring pt to have Physical updated Please contact pt at [phone] documented in this encounter Plan of Treatment Not on file documented as of this encounter Visit Diagnoses Not on filedocumented in this encounter Care Teams Senior Microsoft Consultant Relationship Specialty Start Date End Date Kay Peterson FNP [address] [place] [address] PCP - General Family Medicine 02/26/22 Lino Mobley MD [address] [place] [address] Obstetrics and Gynecology 07/20/24 Talita Gallagher MD [address] [place] [address] Hematology and Oncology 07/20/24 documented as of this encounter
--- OUTSIDE RECORDS SUMMARY | 2024-11-09 10:47 | XMS_ITS | Encounter Summary ---
Author Organization [employer] Address [address] [facility] [address] 7[address] [place] [address] Care Team Providers Care Dining Room Tables Set Up Attendant Name Role Phone Kay Peterson Primary Care Provider [phone] Lino Mobley MD Unavailable Talita Gallagher MD Unavailable [phone] Reason for Visit * Reason Onset Date Comments Appointment Request 10/02/2022 Encounter Details Date Type Department Care Team (Late st Contact Info) Description 10/02/2022 Telephone [facility] MEDICINE [address] [place] [address] Kay Peterson FNP [address] [place], [place] [phone] Appointment Request Social History Tobacco Use Types [...] Per Elyse ). Please contact pt at [phone] documented in this encounter Plan of Treatment Not on file documented as of this encounter Visit Diagnoses Not on filedocumented in this encounter Care Teams Dining Room Tables Set Up Attendant Relationship Specialty Start Date End Date Kay Peterson FNP [address] [place] [address] PCP - General Family Medicine 02/26/22 Lino Mobley MD [address] [place] [address] Obstetrics and Gynecology 07/20/24 Talita Gallagher MD [address] [place] [address] Hematology and Oncology 07/20/24 documented as of this encounter
--- OUTSIDE RECORDS SUMMARY | 2024-11-09 10:47 | XMS_ITS | Encounter Summary ---
Author Organization [email or web address] Address [address] [facility] 7t [place] [address] Care Team Providers Care Watcher Lookout Tower Name Role Phone Kay Peterson Primary Care Provider [phone] Lino Mobley MD Unavailable Talita Gallagher MD Unavailable [phone] Reason for Visit * Reason Onset Date Comments Appointment Confirmation 11/08/2023 Encounter Details Date Type Department Care Team ([facility] st Contact Info) Description 11/08/2023 Telephone [facility] MED & PEDS [address] [place], [place] [phone] Kay Peterson FNP [address] [place], [place] [phone] Appointment Confirmation Social History Tobacco Use Types [...] documented as of this encounter Care Teams Watcher Lookout Tower Relationship Specialty Start Date End Date Kay Peterson FNP [address] [place] [address] PCP - General Family Medicine 02/26/22 Lino Mobley MD [address] [place] [address] [place] [address] Obstetrics and Gynecology 07/20/24 Talita Gallagher MD [address] [place] [address] Hematology and Oncology 07/20/24 documented as of this encounter
--- OUTSIDE RECORDS SUMMARY | 2024-11-09 10:47 | XMS_ITS | Encounter Summary ---
Author Organization [employer] Address [address] [facility] [address] [place] [address] Care Team Providers Care E Learning Coordinator Name Role Phone Kay Peterson Primary Care Provider [phone] Lino Mobley MD Unavailable Talita Gallagher MD Unavailable [phone] Reason for Visit * Reason Onset Date Comments medication 02/19/2023 Encounter Details Date Type Department Care Team (Late st Contact Info) Description 02/19/2023 Telephone [facility] D[facility] [address] [place], [place] [phone] Fausto Rascon DDS [address] [place], [place] [phone] medication Social History Tobacco Use Types Packs/Day [...] documented as of this encounter Care Teams E Learning Coordinator Relationship Specialty Start Date End Date Kay Peterson FNP [address] [place] [address] PCP - General Family Medicine 02/26/22 Lino Mobley MD [address] [place] [address] Obstetrics and Gynecology 07/20/24 Talita Gallagher MD [address] [place] [address] Hematology and Oncology 07/20/24 documented as of this encounter
--- OUTSIDE RECORDS SUMMARY | 2024-11-09 10:47 | XMS_ITS | Clinical Summary ---
Author Organization [employer] Address [address] [facility] [address] [place] [address] Care Team Providers Care Clothing Presser Name Role Phone Kay Peterson Primary Care Provider Lino Mobley MD Unavailable Talita Gallagher MD Unavailable [phone] Allergies No known active allergies Medications [...] 25 Active ergocalciferol (Vitamin D2) 1.25 MG (98592 UT) capsuleIndicati ons:Vitamin D deficiency Take 1 capsule (1.25 mg) by mouth 1 (one) time per week. Take for 8 weeks, then repeat labs. 8 capsule 10/27/19 25 Active simvastatin (Zocor) 5 MG tablet Take 1 tablet (5 mg) by mouth at bedtime. 30 tablet 11 10/27/19 25 026 Active ergocalciferol (Vitamin D2) 1.25 MG (39893 UT) capsuleIndicati ons:Vitamin D deficiency Take 1 [...] 5:14 PM EDT): Intermittently bothersome/symptomatic Referral to [facility] placed 01/14/24 for further eval Encouraged [...] May 2018. Due May 2023. Following with [facility]ERAPIST - encouraged to call office to schedule Colonoscopy: referred 09/25/22 for routine colon CA screening. Scheduled October 2023 Optometry: referral to [facility] October 2023 Dental: established BMD: starting at 66 y/o ASCVD: 0.7% September 2022 Last PE: 10/08/23 Abnormal uterine bleeding 02/03/2023 Overview (07/20/2024): Followed by [facility]ODYWORK THERAPIST - Dr. Mobley Endometrial biopsy September 2022 w/o signs atypia or carcinoma 01/01/23: Hysteroscopy D&C, polypectomy by Dr. Mobley at [facility]. Post op diagnosis: AUB, endometrial polyp Feb 2024: Pelvic US demonstrated 2.7cm physiologic cyst right ovary. No follow up imaging rec. Endometrial stripe is 1.7cm. Also noted small submucosal uterine fibroid. Pt reviewed results w/ Dr. Mobley during BODYWORK THERAPIST consult in April 2024. Plan to proceed with expectant management at this time and repeat pelvic ultrasounds periodically Iron deficiency anemia 07/15/2022 Overview (07/20/2024): -Established with [facility] Heme/Onc: Dr. Gallagher -Received iron infusions (Venofer 200mg IV weekly x 5-6 weeks) through their office H/H improved from 7.8/27.8 in Jul 2022 to 11.7/37.8 in September 2022 H/H 9.4/31.5, microcytic Mar 2023 H/H 11.7/38.1 in October 2023 -Cause: upcoming colonoscopy scheduled to r/o GIB; following with [facility]WORK THERAPIST for menorrhagia Assessment & Plan (07/20/2024 11:08 AM EST): - Plan to start iron supplementation with vitamin C through heme-onc. Encouraged hydration and fiber to help offset constipation Assessment & Plan (10/08/2023 5:51 AM EDT): -Last consult note: Jun 2023 Assessment & Plan (03/31/2023 4:21 PM EDT): -Established with [facility] -Receiving iron infusions (Venofer 200mg IV [...] Type Department Care Team Description 10/27/2024 Telephone [facility] [address] [place] [address] Kay Peterson FNP PCP Contact 10/26/2024 9:40 AM EDT Telemedicine [facility] [address] [place] [address] Yuki Mccormack MD Other iron deficiency anemia (Primary Dx); Vitamin D deficiency; Hypercholesterolemi a 10/26/2024 Travel 10/25/2024 Telephone [facility] [address] [place] [address] Yuki Mccormack MD Appointment Request 10/25/2024 Orders Only [facility] [address] [place] [address] Veronica Zhang 10/24/2024 Orders Only GENERIC EXTERNAL DATA DEPARTMENT Provider, Generic External Data 10/19/2024 10:15 AM EDT Office Visit [facility] [address] [place] [address] Yuki Mccormack MD Healthcare maintenance (Primary Dx); Primary hypertension; Gastroesophageal reflux disease without esophagitis; Class 1 obesity without serious comorbidity with body mass index (BMI) of 31.0 to 31.9 in adult, unspecified obesity type; Other iron deficiency anemia; Vitamin D deficiency 10/19/2024 Travel 10/11/2024 Patient Outreach [facility] [address] [place] [address] Kay Peterson FNP Pre-visit Planning (SDOH screening negative and Tobacco screening negative) 10/06/2024 Orders Only GENERIC EXTERNAL DATA DEPARTMENT Provider, Generic External Data 09/12/2024 Telephone [facility] [address] [place] [address] Kay Peterson FNP October recall from Last [...] (10/24/2024 11:45 AM EDT) Color Urine Yellow [facility] Appearance Urine Turbid [facility] PH 5.5 5.0 - 9.0 [facility] Glucose Urine UA Negative Negative mg/dL [facility] Urine Blood Trace(A) Negative [facility] Specific [place] - Urine 1.020 1.005 - 1.025 [facility] Urine Protein Trace Neg-Trace mg/dL [facility] Urine Ketones Negative Negative mg/dL [facility] Nitrite Urine Negative Negative [facility] Leukocyte Esterase Urine Small (1+)(A) Negative [facility] RBC Urine 0-2 0 - 2 /HPF [facility] Urine WBC 11-20(A) 0 - 5 /HPF [facility] Urine Squamous Epithelial Cell 3-5 0 - 2 /HPF [facility] Urine Bacteria None Seen None Seen [facility] Hyaline Casts, Urine 0-2 0 - 2 /LPF [facility] 10/24/2024 11:4 5 AM EDT 10/24/2024 2:04 PM EDT Narrative [facility] - 10/24/2024 2:27 PM EDT Urine, Clean Catch us Generic External Data Provider LAB URINE ORDERAB LES Final Result [facility] [address] [place] [phone] * (ABNORMAL) Comprehensive Metabolic Panel, Fasting (10/24/2024 11:40 AM EDT) Pathologist [facility] Sodium 138 135 - 145 mmol/L [facility] Potassium 3.8 3.3 - 5.1 mmol/L [facility] Chloride 106 96 - 108 mmol/L [facility] Carbon Dioxide 27 22 - 29 mmol/L [facility] Anion Gap 9(L) 12 - 20 [facility] Urea Nitrogen (BUN) 8(L) 9 - 16 mg/dL [facility] Creatinine, Serum 0.67 0.5 - 1.4 mg/dL [facility] Estimated Glomerular Filt Rate >60 [facility] Comment:Chronic Kidney Disea se: Estimated GFR < 60 mL/min/[id number] Kidney Disease: Estimated GFR < 15 mL/min/1.73m2 Glucose Fasting 94 60 - 99 mg/dL [facility] Calcium 9.0 8.4 - 10.2 mg/dL [facility] Bilirubin, Total 0.6 0.0 - 1.0 mg/dL [facility] Aspartate Amino Transferase 26 5 - 31 U/L [facility] Alanine Aminotransferase 16 0 - 31 U/L [facility] Total Protein 7.5 6.5 - 8.0 g/dL [facility] Albumin Level 4.1 3.5 - 5.0 g/dL [facility] Alkaline Phosphatase 59 39 - 117 U/L [facility] 10/24/2024 11:4 0 AM EDT 10/24/2024 2:04 PM EDT us Generic External Data Provider LAB BLOOD ORDERAB LES Final Result [facility] [address] [place] [address] [phone] * (ABNORMAL) Vitamin D, 25-Hydroxy, Total, Immunoassay (10/24/2024 11:40 AM EDT) Pathologist [facility] Vitamin D 25-OH Total 18.4(L) >30 ng/mL [facility] Comment: Health Based Reference Values*< 20 ??ng/mL ??[id number] ng/mL ??Insufficient> 30 ??ng/mL ??Sufficient*Danny ROSEN. N [...] ORDERABLES Final Resul t Performing Organization Address City/[facility]/ZIP Co de Phone Number [facility] [address] [place] [phone] * TSH with Reflex to Free T4 (10/24/2024 11:40 AM EDT) TSH reflex Free T4 1.12 0.32 - 4.0 uIU/mL [facility] 10/24/2024 11:4 0 AM EDT 10/24/2024 2:04 PM EDT us Generic External Data Provider LAB BLOOD ORDERAB LES Final Result [facility] [address] [place] [address] [phone] * (ABNORMAL) CBC auto differential (10/24/2024 11:40 AM EDT) White Blood Count 5.2 4.8 - 10.8 X10*3/uL [facility] Red Blood Count 4.76 4.20 - 5.50 X10*6/uL [facility] Hemoglobin 10.0(L) 12.0 - 16.0 g/dl [facility] Hematocrit 33.8(L) 37.0 - 47.0 % [facility] Mean Corpuscular Volume 71.0(L) 80.0 - 98.0 fL [facility] Mean Corpuscular Hemoglobin 21.0(L) 27.0 - 33.0 pg [facility] Mean Corpuscular HGB Conc 29.6(L) 31.0 - 35.0 g/dl [facility] Red Cell Distribution Width 19.4(H) 11.0 - 16.0 % [facility] Platelet Count 427(H) 160 - 400 X10*3/uL [facility] Mean Platelet Volume 10.0 9.4 - 12.3 fL [facility] Neutrophils Percent Auto 54.8 45 - 73 % [facility] Imm Gran Pct Auto 0.2 0.0 - 0.4 % [facility] Lymphocytes Percent Auto 28.4 20 - 40 % [facility] Monocytes Percent Auto 11.5(H) 2 - 11 % [facility] Eosinophils Percent Auto 3.8 0 - 4 % [facility] Basophils Percent Auto 1.3 0 - 2 % [facility] NRBC Pct Auto 0.0 0.0 - 0.2 /100WBC [facility] Neutrophils Absolute Auto 2.9 2.0 - 8.3 x10*3/uL [facility] Imm Gran Abs Auto 0.01 0.00 - 0.03 X10*3/uL [facility] Lymphocytes Absolute Auto 1.5 1.2 - 4.9 X10*3/uL [facility] Monocytes Absolute Auto 0.6 0.1 - 1.2 X10*3/uL [facility] Eosinophils Absolute Auto 0.2 0.0 - 0.4 X10*3/uL [facility] Basophils Absolute Auto 0.1 0.0 - 0.2 X10*3/uL [facility] NRBC Abs Auto 0.000 0.0 - 0.012 X10*3/uL [facility] Blood Venous blood specimen / Unknown 10/24/2024 11:40 AM EDT 10/24/2024 2:04 PM EDT us Yuki Mccormack MD LAB BLOOD ORDERABLES Final Resul t Performing Organization Address [facility] Co de Phone Number [facility] [address] [place] [phone] * (ABNORMAL) Iron And Total Iron Binding Capacity (10/24/2024 11:40 AM EDT) Pathologist [facility] Iron 21(L) 30 - 160 mcg/dL [facility] Total Iron Binding Capacity 362 228 - 428 mcg/dL [facility] Percent Iron Saturation 6(L) 15 - 50 % [facility] Unsaturated Iron Binding 341 ug/dL [facility] 10/24/2024 11:4 0 AM EDT 10/24/2024 2:04 PM EDT us Generic External Data Provider LAB BLOOD ORDERAB LES Final Result Performing Organization Address [facility]/ZIP Co de Phone Number [facility] [address] [place] [phone] * Hemoglobin A1c (10/24/2024 11:40 AM EDT) Hemoglobin A1c 5.6 <6.0 % [facility] Comment:Hemoglobin A1C Refer ence Range Adults: 4.8 - 6.0 % Non diabetic: < 6.0 % Goal: < 7.0 %Additional Action Suggested: > 8.0 %Note: Hemoglobin A1c results are invalid for patients with abnormal amounts of HbF. Blood transfusions may impact the HbA1c concentration in the patient sample. Estimated Average Glucose 114 mg/dL [facility] Comment:eAG = Estimated ave rage glucose which is %A1C expressed asaverage glucose, using the formula of the J9Z-EzrtlzfTninbra Glucose study (ADAG), Diabetes Care, Vol.31,#8,2007 10/24/2024 11:4 0 AM EDT 10/24/2024 2:04 PM EDT Yuki Mccomrack MD LAB BLOOD ORDERABLES Final Resul t Performing Organization Address City/[facility]/ZIP Co de Phone Number [facility] [address] [place] [phone] * Hepatic Function Panel (10/24/2024 11:40 AM EDT) Bilirubin, Direct 0.2 0.0 - 0.5 mg/dL [facility] Blood Venous blood specimen / Unknown 10/24/2024 11:40 AM EDT 10/24/2024 2:04 PM EDT Yuki Mccormack MD LAB BLOOD ORDERABLES Final Resul t Performing Organization Address [facility] Co de Phone Number [facility] [address] [place] [phone] * (ABNORMAL) Lipid Panel, Standard (10/24/2024 11:40 AM EDT) Triglycerides 113 <150 mg/dL [facility] Comment:Desirable Triglyceri de: less than 150 mg/dLBorderline High Triglyceride 150-199 mg/dLHigh Triglyceride: 200-499 mg/dLVery High Triglyceride: greater than or equal to 5OO mg/dL Cholesterol 220(H) <200 mg/dL [facility] Comment:Desirable Cholestero l: less than 200 mg/dLBorderline High Cholesterol: 200-239 mg/dLHigh Cholesterol: greater than 239 mg/dL LDL Cholesterol Calculated 148(H) <100 mg/dL [facility] Comment:Desirable LDL: less than 100 mg/dLNear Optimal/Above Optimal LDL: 110- 129 mg/dLBorderline High LDL: 130-159 mg/dLHigh LDL: 160-189 mg/dLVery High LDL: greater than or equal to 190 mg/dL HDL Cholesterol 50 >40 mg/dL [facility] Comment:Desirable HDL: great er than 40 mg/dL Note: This HDL assay may give artificially low results in patients with liver disease. Blood Venous blood specimen / Unknown 10/24/2024 11:40 AM EDT 10/24/2024 2:04 PM EDT Yuki Mccormack MD LAB BLOOD ORDERABLES Final Resul t Performing Organization Address [facility] de Phone Number [facility] [address] [place] [phone] * Basic Metabolic Panel (10/24/2024 11:40 AM EDT) Glucose 93 60 - 115 mg/dL [facility] Blood Venous blood specimen / Unknown 10/24/2024 11:40 AM EDT 10/24/2024 2:04 PM EDT Yuki Mccormack MD LAB BLOOD ORDERABLES Final Resul t Performing Organization Address [facility] Co de Phone Number [facility] [address] [place] [phone] * Culture, Urine, Routine (10/24/2024 12:00 AM EDT) Urine Urine specimen obtained by clean catch procedure / Unknown 10/24/2024 10/24/2024 Comment:UACC Narrative [facility] - 10/25/2024 8:31 AM EDT Urine Culture No growth. Specimen Source: Urine clean catch Generic External Data Provider LAB MICROBIOLOGY - GENERAL ORDERABLES Final Result Performing Organization Address [facility] Co de Phone Number [facility] [address] [place] [phone] * Chlamydia/N. Gonorrhoeae RNA, TMA, Urogenitial (10/06/2024 1:02 PM EDT) CT PCR NOT DETECTED Not Detect. [facility] Comment:A not detected test result [...] psychologicalconsequences. NG PCR NOT DETECTED Not Detect. [facility] Comment:A not detected test result [...] PM EDT 10/06/2024 3:24 PM EDT Narrative [facility] - 10/06/2024 6:08 PM EDT Vaginal us Generic External Data Provider LAB MICROBIOLOGY - GENERAL ORDERABLES Final Result [facility] [address] [facility] [place] [address] [phone] * BI Mammogram Screening Tomosynthesis Bilateral (03/03/2024 11:30 AM EDT) Anatomical Region Laterality Modality Breast Bilateral Mammography 03/03/2024 11:3 0 AM EDT Narrative 03/25/2024 10:40 PM EDT ? [facility] [place] ? [address] ?[place] [address] ? Mammography Report ? Signed ? Patient: Manuela Rodriguez L ?M ?? R#: [id number] ? : 1975 ?Acct:[id number] ? Age/Sex: 48 / F ?ADM Date: 03/03/24 ? Loc: HO.MAMMO ? Attending Dr: Kay Peterson VIBRATING SCREED OPERATOR ? Ordering Physician: Kay Peterson VIBRATING SCREED OPERATOR ?Results: 1Negat ?? roberta ? Date of Service: 03/03/24 ?Follow Up: 1 Year From Orig ?? inal Mammogram ? Procedure(s): MM tomosynthesis screening BI ?? Accession Number(s): [id number] ? cc: ColtonjeancarlosKay VIBRATING SCREED OPERATOR ? EXAMINATION: ?? MM SCREENING DIGITAL BREAST [...] DD/ 1130 ? TD/TT: 03/03/24 1148 ? Reproduction Technician: ? Procedure Note Troyemorybyronsisi, Image - 03/25/2024 [facility] [address] [place] [address] Mammography Report Signed Patient: Manuela Rodriguez R#: [id number] : 1975Acct:[id number] Age/Sex: 48 / FADM Date: 03/03/24 Loc: SONIA Attending Dr: Kay Peterson VIBRATING SCREED OPERATOR Ordering Physician: Kay Peterson FNPResults: 1Negat roberta Date of Service: 03/03/24Follow Up: 1 Year From Orig inal Mammogram Procedure(s): MM tomosynthesis screening BI Accession Number(s): [id number] cc: Kay Peterson VIBRATING SCREED OPERATOR EXAMINATION: MM SCREENING DIGITAL BREAST TOMOSYNTHESIS, BILATERAL [...] 03/25/24 2237 DD/ 1130 TD/TT: 03/03/24 1148 Reproduction Technician: Kay Peterson [facility] BI PROCEDURES Edited Resul t - Final * Hepatitis C Viral RNA, Quantitative, Real-Time PCR (10/08/2023 10:47 AM EDT) Hepatitis C Viral Load <15 NOT DETECTED NOT DETECTED IU/mL [facility] HCV Log PCR <1.18 NOT DETECTED NOT DETECTED Log IU/mL [facility] Comment:This test was perfor med using Real-Time Polymerase ChainReaction.Reportable Range: 15 IU/mL to 100,000,000 IU/mL(1.18 Log IU/mL to 8.00 Log IU/mL).The analytical performance characteristics of thisassay have been determined by [employer].The modifications have not been cleared or approved bythe FDA. This assay has been validated pursuant to theCLIA regulations and is used for clinical purposes.For more information on this test, go to:http://education.[employer]/faq/HCF64m2(This link is being provided for informational/educational purposes only.)THIS TEST WAS PERFORMED AT:[facility] [place] [phone] CORNEJO MD Blood 10/08/2023 10:4 7 AM EDT 10/08/2023 2:24 PM EDT Kay Coltonjeancarlos [facility] LAB BLOOD ORDERABLES Final Res ult Performing Organization Address City/[facility]/ZIP Co de Phone Number [facility] [address] [place] [phone] [phone] * HIV-1/2 Antigen and Antibodies, Fourth Generation, with Reflexes (10/08/2023 10:47 AM EDT) [facility] HIV AB/AG Nonreactive Nonreactive [facility] Comment:HIV-1 p24 Ag and/or HIV-1/HIV-2 Ab not detected.A test result that is nonreactive does not exclude thepossibility of exposure to or infection with HIV-1 and/orHIV-2. Nonreactive results in this assay for individualswith prior exposure to HIV-1 and/or HIV-2 may be due toantigen and antibody levels that are below the limit ofdetection of this assay.The [employer] HIV Ag/Ab Combo assay result andsupplemental assay results should be interpreted inconjunction with the patient's clinical presentation,history and other laboratory results. If the results areinconsistent with clinical evidence, additional testing issuggested to confirm the result. Blood Venous blood specimen / Unknown 10/08/2023 10:47 AM EDT 10/08/2023 2:24 PM EDT Kay TOP LAB BLOOD ORDERABLES Final Res ult Performing Organization Address City/[facility]/ZIP Co de Phone Number [facility] [address] [place] [address] [phone] * HM PAP/HPV (01/24/2021 12:00 AM EDT) Historical Provider MD HEALTH MAINTENANCE Final Result [facility] [address] [place] [phone] * HPV mRNA E6/E7 (05/11/2018 3:05 PM EST) HPV mRNA E6/E7 Not Detected NOT DETECTED [facility] Comment: This test was performed using the APTIMA(R) HPV Assay ([employer] This assay detects E6/E7 viral messenger RNA (mRNA) from 14 high-risk HPV types (16,18,31,33,35,39,45,51, 52,56,58,59,66,68). For additional information please refer to: http://education.Ariisto/faq/HFK437m8 (This link is being provided for informational/ educational purposes only.) The analytical performance characteristics of this assay have been determined by [employer] [place], [place]. The modifications have not been cleared or approved by the FDA. This assay has been validated pursuant to the CLIA regulations and is used for clinical purposes. Test Performed by [facility], [employer] [place], [address] [place] [address] Rogelio Lua M.D., Ph.D., Director of Laboratories , CLIA [id number] Please note: ??Effective 03/16/2016, HPV testing will be performed using [employer] APTIMA test which targets mRNA. Detecting mRNA instead of DNA, as in older methods, offers significant improvements in specificity. 05/11/2018 3:05 PM EST Quin Barney MD HISTORICAL/NON ORDERABLE LABS Final Result [facility] [address] from Last 3 Months or Most Recently Relevant to Health [place] [address] Care Teams Clothing Presser Relationship Specialty Start Date End Date Kay Peterson FNP [address] [place] [address] PCP - General Family Medicine 02/26/22 Lino Mobley MD [address] [place] [phone] Obstetrics and Gynecology 07/20/24 Talita Gallagher MD [address] [place] [phone] Hematology and Oncology 07/20/24
== END 2024-11-09 10:03 | disposition home or self-care (01) ==
LOC: HO.HWS 09:54
PROVIDERS: PCP Physician Assistant; Visit Provider Obstetrics & Gynecology
DX: R10.2 Pelvic and perineal pain (principal); D25.9 Leiomyoma of uterus, unspecified
CPT/HCPCS: 99213

== ENCOUNTER → 2024-11-14 13:46 | Outpatient (REF) | payer OTHER, SELFPAY ==
--- NOTE | 2024-11-14 14:18 | CA_ITS ---
Transthoracic Echocardiogram Patient (Last, First, Middle): Manuela Rodriguez L Gender: Female Date of : 1975 Age: 49 Procedure Date: 11/14/2024 Procedure Type: Transthoracic Echocardiogram Location: OP Height: 170.18 cm Weight: 87.09 kg BSA: 1.99 m2 Heart Rate: bpm BP: 128 / 82 mmHg Gre Tutor: TO Referring MD: [place] Mg PA-C Symptoms: R00.2 - Palpitations Study Quality: Adequate w contrast Conclusions: - 1. Normal LV ejection fraction 55-60% 2. Mildly dilated right ventricle with preserved contractility and mildly dilated left atrium 3. Mild tricuspid regurgitation 4. Normal RV systolic pressure 5. No pericardial effusion Findings Procedure Information Contrast agent, definity, is being given per protocol without apparent complications. Left Ventricle Normal left ventricular size, thickness, and systolic function. The visually estimated ejection fraction is between 55-60%. Spectral Doppler is indicative of a normal filling pattern. Right Ventricle Mildly increased right ventricular cavity size. There is normal right ventricular systolic function. Atria The left atrium is mildly dilated. There is a mobile atrial septum noted. Interatrial shunt cannot be excluded. The right atrium is normal in size. Aortic Valve Normal aortic valve structure and function. There is no aortic valve stenosis. There is no aortic valve regurgitation. Mitral Valve Normal mitral valve structure and function. There is trace mitral valve regurgitation. There is no mitral valve stenosis. Pulmonic Valve The pulmonic valve is likely normal. Tricuspid Valve Normal tricuspid valve structure. There is mild tricuspid valve regurgitation. The right ventricular systolic pressure is normal. The right ventricular systolic pressure is 25 mmHg. Normal right atrial pressure. There is no evidence of pulmonary hypertension. Great Vessels All visible segments of the aorta are normal in size. The pulmonary artery was not well visualized. Venous The inferior vena cava is normal in size and collapses greater than 50% with inspiration. Pericardium/Pleural There is no evidence of pericardial effusion. Measurements 2D Linear Measurements IVSd: 0.69 0.6-0.9/0.6-1.0 cm LVIDd: 4.85 3.9-5.3/4.2-5.9 cm LVIDd Index: 2.44 2.4-3.2/2.2-3.1 cm/m2 LVIDs: 3.50 2.0-3.6 cm LVPWd: 0.79 0.7-1.1 cm LA Diam: 4.00 2.7-3.8/3.0-4.0 cm LAIDs Index: 2.01 1.5-2.3 cm/m2 LV Mass: 144.88 67-162/88-224 g LV Mass Index: 72.81 43-95/49-115 g/m2 LVOT Diam: 2.00 3.0+(-)1.3 cm Mitral Valve MV Pk E: 0.65 MV PK A: 0.62 MV Decel Time: 170.00 E/A: 1.10 E'Lateral: 9.36 E'Medial: 6.42 E/E' Med: 10.10 E/E' Lat: 7.00 PHT: 50.00 MVA PHT: 4.40 Decel [place]: 3.83 Aortic Valve AoV Pk [place]: 1.35 AoV Mn [place]: 0.91 AoV VTI: 0.29 AoV Pk Grad: 7.00 Aov Mn Grad: 4.00 TRAY Cont.VTI: 2.90 LVOT LVOT Pk [place]: 1.21 LVOT Mn [place]: 0.72 LVOT VTI: 0.26 LVOT Pk Grad: 6.00 LVOT Mn Grad: 2.00 LVOT Diam: 2.00 LVOT Area: 3.14 Diastolic Function MV Pk E: 0.65 MV Pk A: 0.62 E/A: 1.10 E'Medial: 6.42 E/E' Med: 10.10 E' Laterial: 9.36 E/E' Lat: 7.00 Right Ventricle TAPSE (mm): 23.00 TVS' Kay[place]: 12.30 Tricuspid Valve TR Pk [place]: 2.34 TR Pk Grad: 22.00 RA Press: 3.00 RVSP: 25.00 Great Vessels Aorta Sinus of Valsalva: 2.89 2.0-3.5 cm Ao Asc: 2.80 2.1-3.4 cm Updated in Other Vendor System with Status of Final Justin Duran MD electronically signed on 11/14/2024 5:34:29 PM with status of Final
--- OUTSIDE RECORDS SUMMARY | 2024-11-14 14:57 | XMS_ITS | Encounter Summary ---
Author Organization [employer] Address [address] [place] [address] Care Team Providers Care Arterial Embalmer Name Role Phone Kay Peterson Primary Care Provider [phone] Lino Mobley MD Unavailable Talita Gallagher MD Unavailable [phone] Reason for Visit * Reason Onset Date Comments Nurse Triage 11/30/2023 Encounter Details Date Type Department Care Team (Late st Contact Info) Description 11/30/2023 Telephone [facility] MEDICINE [address] [place] [address] Kay Peterson FNP [address] [place], [place] [id number] Nurse Triage Social History Tobacco Use Types [...] for further evaluation. RN also reviews the dermatological surgeon triage nurses and that ptcan call anytime, [...] The caller accepted this outcome Patient speaks italian documented in this encounter Plan of Treatment Not on file documented as of this encounter Visit Diagnoses Not on filedocumented in this encounter Additional Health Concerns Assessment Noted Time PHQ-9 Depression Total Score: 3 10/08/19 24 9:44 AM EDT documented as of this encounter Care Teams Arterial Embalmer Relationship Specialty Start Date End Date Kay Peterson FNP [address] [place] [id number] PCP - General Family Medicine 02/26/22 Lino Mobley MD [address] [place] [id number] Obstetrics and Gynecology 07/20/24 Talita Gallagher MD [address] [place] [id number] Hematology and Oncology 07/20/24 documented as of this encounter
--- OUTSIDE RECORDS SUMMARY | 2024-11-14 14:57 | XMS_ITS | Clinical Summary ---
Author Organization [employer] Address [address] [place] [address] Care Team Providers Care Note Keeper Name Role Phone Kay Peterson Primary Care Provider [phone] Lino Mobley MD Unavailable Talita Gallagher MD Unavailable [phone] Allergies No known active allergies Medications [...] 25 Active ergocalciferol (Vitamin D2) 1.25 MG (24959 UT) capsuleIndicati ons:Vitamin D deficiency Take 1 capsule (1.25 mg) by mouth 1 (one) time per week. Take for 8 weeks, then repeat labs. 8 capsule 10/27/19 25 Active simvastatin (Zocor) 5 MG tablet Take 1 tablet (5 mg) by mouth at bedtime. 30 tablet 11 10/27/19 25 026 Active ergocalciferol (Vitamin D2) 1.25 MG (40008 UT) capsuleIndicati ons:Vitamin D deficiency Take 1 [...] 5:14 PM EDT): Intermittently bothersome/symptomatic Referral to [facility] placed 01/14/24 for further eval Encouraged [...] May 2018. Due May 2023. Following with [facility] - encouraged to call office to schedule Colonoscopy: referred 09/25/22 for routine colon CA screening. Scheduled October 2023 Optometry: referral to [facility] October 2023 Dental: established BMD: starting at 66 y/o ASCVD: 0.7% September 2022 Last PE: 10/08/23 Abnormal uterine bleeding 02/03/2023 Overview (07/20/2024): Followed by [facility] - Dr. Mobley Endometrial biopsy September 2022 w/o signs atypia or carcinoma 01/01/23: Hysteroscopy D&C, polypectomy by Dr. Mobley at [facility]. Post op diagnosis: AUB, endometrial polyp Feb 2024: Pelvic US demonstrated 2.7cm physiologic cyst right ovary. No follow up imaging rec. Endometrial stripe is 1.7cm. Also noted small submucosal uterine fibroid. Pt reviewed results w/ Dr. Mobley during [facility] consult in April 2024. Plan to proceed with expectant management at this time and repeat pelvic ultrasounds periodically Iron deficiency anemia 07/15/2022 Overview (07/20/2024): -Established with [facility] Heme/Onc: Dr. Gallagher -Received iron infusions (Venofer 200mg IV weekly x 5-6 weeks) through their office H/H improved from 7.8/27.8 in Jul 2022 to 11.7/37.8 in September 2022 H/H 9.4/31.5, microcytic Mar 2023 H/H 11.7/38.1 in October 2023 -Cause: upcoming colonoscopy scheduled to r/o GIB; following with [facility] for menorrhagia Assessment & Plan (07/20/2024 11:08 AM EST): - Plan to start iron supplementation with vitamin C through heme-onc. Encouraged hydration and fiber to help offset constipation Assessment & Plan (10/08/2023 5:51 AM EDT): -Last consult note: Jun 2023 Assessment & Plan (03/31/2023 4:21 PM EDT): -Established with [facility] -Receiving iron infusions (Venofer 200mg IV [...] Type Department Care Team Description 10/27/2024 Telephone [facility] [address] [place] [address] Kay Peterson FNP PCP Contact 10/26/2024 9:40 AM EDT Telemedicine [facility] [address] [place] [address] Yuki Mccormack MD Other iron deficiency anemia (Primary Dx); Vitamin D deficiency; Hypercholesterolemi a 10/26/2024 Travel 10/25/2024 Telephone [facility] [address] [place] [address] Yuki Mccormack MD Appointment Request 10/25/2024 Orders Only [facility] [address] [place] [address] Veronica Zhang 10/24/2024 Orders Only GENERIC EXTERNAL DATA DEPARTMENT Provider, Generic External Data 10/19/2024 10:15 AM EDT Office Visit [facility] [address] [place] [address] Yuki Mccormack MD Healthcare maintenance (Primary Dx); Primary hypertension; Gastroesophageal reflux disease without esophagitis; Class 1 obesity without serious comorbidity with body mass index (BMI) of 31.0 to 31.9 in adult, unspecified obesity type; Other iron deficiency anemia; Vitamin D deficiency 10/19/2024 Travel 10/11/2024 Patient Outreach [facility] [address] [place] [address] Kay Peterson FNP Pre-visit Planning (SDOH screening negative and Tobacco screening negative) 10/06/2024 Orders Only GENERIC EXTERNAL DATA DEPARTMENT Provider, Generic External Data 09/12/2024 Telephone [facility] [address] [place] [address] Kay Peterson FNP October recall from Last [...] (10/24/2024 11:45 AM EDT) Color Urine Yellow [facility] Appearance Urine Turbid [facility] PH 5.5 5.0 - 9.0 [facility] Glucose Urine UA Negative Negative mg/dL [facility] Urine Blood Trace(A) Negative [facility] Specific [place] - Urine 1.020 1.005 - 1.025 [facility] Urine Protein Trace Neg-Trace mg/dL [facility] Urine Ketones Negative Negative mg/dL [facility] Nitrite Urine Negative Negative [facility] Leukocyte Esterase Urine Small (1+)(A) Negative [facility] RBC Urine 0-2 0 - 2 /HPF [facility] Urine WBC 11-20(A) 0 - 5 /HPF [facility] Urine Squamous Epithelial Cell 3-5 0 - 2 /HPF [facility] Urine Bacteria None Seen None Seen [facility] Hyaline Casts, Urine 0-2 0 - 2 /LPF [facility] 10/24/2024 11:4 5 AM EDT 10/24/2024 2:04 PM EDT Narrative [facility] - 10/24/2024 2:27 PM EDT Urine, Clean Catch us Generic External Data Provider LAB URINE ORDERAB LES Final Result [facility] [address] [place] [phone] * (ABNORMAL) Comprehensive Metabolic Panel, Fasting (10/24/2024 11:40 AM EDT) Pathologist [facility] Sodium 138 135 - 145 mmol/L [facility] Potassium 3.8 3.3 - 5.1 mmol/L [facility] Chloride 106 96 - 108 mmol/L [facility] Carbon Dioxide 27 22 - 29 mmol/L [facility] Anion Gap 9(L) 12 - 20 [facility] Urea Nitrogen (BUN) 8(L) 9 - 16 mg/dL [facility] Creatinine, Serum 0.67 0.5 - 1.4 mg/dL [facility] Estimated Glomerular Filt Rate >60 [facility] Comment:Chronic Kidney Disea se: Estimated GFR < 60 mL/min/1.45m3Idtoxt Kidney Disease: Estimated GFR < 15 mL/min/1.73m2 Glucose Fasting 94 60 - 99 mg/dL [facility] Calcium 9.0 8.4 - 10.2 mg/dL [facility] Bilirubin, Total 0.6 0.0 - 1.0 mg/dL [facility] Aspartate Amino Transferase 26 5 - 31 U/L [facility] Alanine Aminotransferase 16 0 - 31 U/L [facility] Total Protein 7.5 6.5 - 8.0 g/dL [facility] Albumin Level 4.1 3.5 - 5.0 g/dL [facility] Alkaline Phosphatase 59 39 - 117 U/L [facility] 10/24/2024 11:4 0 AM EDT 10/24/2024 2:04 PM EDT us Generic External Data Provider LAB BLOOD ORDERAB LES Final Result [facility] [address] [place] [address] [phone] * (ABNORMAL) Vitamin D, 25-Hydroxy, Total, Immunoassay (10/24/2024 11:40 AM EDT) Pathologist [facility] Vitamin D 25-OH Total 18.4(L) >30 ng/mL [facility] Comment: Health Based Reference Values*< 20 ??ng/mL ??Lclxdxtpu85-95 ng/mL ??Insufficient> 30 ??ng/mL ??Sufficient*Danny ROSEN. N [...] ORDERABLES Final Resul t Performing Organization Address City/[facility]/ZIP Co de Phone Number [facility] [address] [place] [phone] * TSH with Reflex to Free T4 (10/24/2024 11:40 AM EDT) TSH reflex Free T4 1.12 0.32 - 4.0 uIU/mL [facility] 10/24/2024 11:4 0 AM EDT 10/24/2024 2:04 PM EDT us Generic External Data Provider LAB BLOOD ORDERAB LES Final Result [facility] [address] [place] [address] [phone] * (ABNORMAL) CBC auto differential (10/24/2024 11:40 AM EDT) White Blood Count 5.2 4.8 - 10.8 X10*3/uL [facility] Red Blood Count 4.76 4.20 - 5.50 X10*6/uL [facility] Hemoglobin 10.0(L) 12.0 - 16.0 g/dl [facility] Hematocrit 33.8(L) 37.0 - 47.0 % [facility] Mean Corpuscular Volume 71.0(L) 80.0 - 98.0 fL [facility] Mean Corpuscular Hemoglobin 21.0(L) 27.0 - 33.0 pg [facility] Mean Corpuscular HGB Conc 29.6(L) 31.0 - 35.0 g/dl [facility] Red Cell Distribution Width 19.4(H) 11.0 - 16.0 % [facility] Platelet Count 427(H) 160 - 400 X10*3/uL [facility] Mean Platelet Volume 10.0 9.4 - 12.3 fL [facility] Neutrophils Percent Auto 54.8 45 - 73 % [facility] Imm Gran Pct Auto 0.2 0.0 - 0.4 % [facility] Lymphocytes Percent Auto 28.4 20 - 40 % [facility] Monocytes Percent Auto 11.5(H) 2 - 11 % [facility] Eosinophils Percent Auto 3.8 0 - 4 % [facility] Basophils Percent Auto 1.3 0 - 2 % [facility] NRBC Pct Auto 0.0 0.0 - 0.2 /100WBC [facility] Neutrophils Absolute Auto 2.9 2.0 - 8.3 x10*3/uL [facility] Imm Gran Abs Auto 0.01 0.00 - 0.03 X10*3/uL [facility] Lymphocytes Absolute Auto 1.5 1.2 - 4.9 X10*3/uL [facility] Monocytes Absolute Auto 0.6 0.1 - 1.2 X10*3/uL [facility] Eosinophils Absolute Auto 0.2 0.0 - 0.4 X10*3/uL [facility] Basophils Absolute Auto 0.1 0.0 - 0.2 X10*3/uL [facility] NRBC Abs Auto 0.000 0.0 - 0.012 X10*3/uL [facility] Blood Venous blood specimen / Unknown 10/24/2024 11:40 AM EDT 10/24/2024 2:04 PM EDT us Yuki Mccormack MD LAB BLOOD ORDERABLES Final Resul t Performing Organization Address [facility] Co de Phone Number [facility] [address] [place] [phone] * (ABNORMAL) Iron And Total Iron Binding Capacity (10/24/2024 11:40 AM EDT) Pathologist [facility] Iron 21(L) 30 - 160 mcg/dL [facility] Total Iron Binding Capacity 362 228 - 428 mcg/dL [facility] Percent Iron Saturation 6(L) 15 - 50 % [facility] Unsaturated Iron Binding 341 ug/dL [facility] 10/24/2024 11:4 0 AM EDT 10/24/2024 2:04 PM EDT us Generic External Data Provider LAB BLOOD ORDERAB LES Final Result Performing Organization Address [facility]/ZIP Co de Phone Number [facility] [address] [place] [address] [phone] * Hemoglobin A1c (10/24/2024 11:40 AM EDT) Hemoglobin A1c 5.6 <6.0 % [facility] Comment:Hemoglobin A1C Refer ence Range Adults: 4.8 - 6.0 % Non diabetic: < 6.0 % Goal: < 7.0 %Additional Action Suggested: > 8.0 %Note: Hemoglobin A1c results are invalid for patients with abnormal amounts of HbF. Blood transfusions may impact the HbA1c concentration in the patient sample. Estimated Average Glucose 114 mg/dL [facility] Comment:eAG = Estimated ave rage glucose which is %A1C expressed asaverage glucose, using the formula of the G7F-AvdmynyXmchwoa Glucose study (ADAG), Diabetes Care, Vol.31,#8,2007 10/24/2024 11:4 0 AM EDT 10/24/2024 2:04 PM EDT Yuki Mccormack MD LAB BLOOD ORDERABLES Final Resul t Performing Organization Address City/[facility]/ZIP Co de Phone Number [facility] [address] [place] [phone] * Hepatic Function Panel (10/24/2024 11:40 AM EDT) Bilirubin, Direct 0.2 0.0 - 0.5 mg/dL [facility] Blood Venous blood specimen / Unknown 10/24/2024 11:40 AM EDT 10/24/2024 2:04 PM EDT Yuki Mccormack MD LAB BLOOD ORDERABLES Final Resul t Performing Organization Address [facility] Co de Phone Number [facility] [address] [place] [phone] * (ABNORMAL) Lipid Panel, Standard (10/24/2024 11:40 AM EDT) Triglycerides 113 <150 mg/dL [facility] Comment:Desirable Triglyceri de: less than 150 mg/dLBorderline High Triglyceride 150-199 mg/dLHigh Triglyceride: 200-499 mg/dLVery High Triglyceride: greater than or equal to 5OO mg/dL Cholesterol 220(H) <200 mg/dL [facility] Comment:Desirable Cholestero l: less than 200 mg/dLBorderline High Cholesterol: 200-239 mg/dLHigh Cholesterol: greater than 239 mg/dL LDL Cholesterol Calculated 148(H) <100 mg/dL [facility] Comment:Desirable LDL: less than 100 mg/dLNear Optimal/Above Optimal LDL: 110- 129 mg/dLBorderline High LDL: 130-159 mg/dLHigh LDL: 160-189 mg/dLVery High LDL: greater than or equal to 190 mg/dL HDL Cholesterol 50 >40 mg/dL [facility] Comment:Desirable HDL: great er than 40 mg/dL Note: This HDL assay may give artificially low results in patients with liver disease. Blood Venous blood specimen / Unknown 10/24/2024 11:40 AM EDT 10/24/2024 2:04 PM EDT Yuki Mccormack MD LAB BLOOD ORDERABLES Final Resul t Performing Organization Address [facility] de Phone Number [facility] [address] [place] [phone] * Basic Metabolic Panel (10/24/2024 11:40 AM EDT) Glucose 93 60 - 115 mg/dL [facility] Blood Venous blood specimen / Unknown 10/24/2024 11:40 AM EDT 10/24/2024 2:04 PM EDT Yuki Mccormack MD LAB BLOOD ORDERABLES Final Resul t Performing Organization Address [facility] Co de Phone Number [facility] [address] [place] [phone] * Culture, Urine, Routine (10/24/2024 12:00 AM EDT) Urine Urine specimen obtained by clean catch procedure / Unknown 10/24/2024 10/24/2024 Comment:UACC Narrative [facility] - 10/25/2024 8:31 AM EDT Urine Culture No growth. Specimen Source: Urine clean catch Generic External Data Provider LAB MICROBIOLOGY - GENERAL ORDERABLES Final Result Performing Organization Address [facility] Co de Phone Number [facility] [address] [place] [phone] * Chlamydia/N. Gonorrhoeae RNA, TMA, Urogenitial (10/06/2024 1:02 PM EDT) CT PCR NOT DETECTED Not Detect. [facility] Comment:A not detected test [...] psychologicalconsequences. NG PCR NOT DETECTED Not Detect. [facility] Comment:A not detected test [...] PM EDT 10/06/2024 3:24 PM EDT Narrative [facility] - 10/06/2024 6:08 PM EDT Vaginal us Generic External Data Provider LAB MICROBIOLOGY - GENERAL ORDERABLES Final Result [facility] [address] [place] [phone] * BI Mammogram Screening Tomosynthesis Bilateral (03/03/2024 11:30 AM EDT) Anatomical Region Laterality Modality Breast Bilateral Mammography 03/03/2024 11:3 0 AM EDT Narrative 03/25/2024 10:40 PM EDT ? [facility] [place] ? [address] ?[place] [address] ? Mammography Report ? Signed ? Patient: Manuela Rodriguez L ?M ?? R#: [id number] ? : 1975 ?Acct:[id number] ? Age/Sex: 48 / F ?ADM Date: 03/03/24 ? Loc: HO.MAMMO ? Attending Dr: Kay Peterson WOOD MECHANIST ? Ordering Physician: Kay Peterson WOOD MECHANIST ?Results: 1Negat ?? roberta ? Date of Service: 03/03/24 ?Follow Up: 1 Year From Orig ?? inal Mammogram ? Procedure(s): MM tomosynthesis screening BI ?? Accession Number(s): [id number] ? cc: ColtonjeancarlosKay WOOD MECHANIST ? EXAMINATION: ?? MM SCREENING DIGITAL BREAST [...] DD/ 1130 ? TD/TT: 03/03/24 1148 ? Police Department Secretary: ? Procedure Note Troyemorybyronsisi, Image - 03/25/2024 Shlomo [facility] [address] [place] [address] Mammography Report Signed Patient: Manuela Rodriguez R#: [id number] : 1975Acct:[id number] Age/Sex: 48 / FADM Date: 03/03/24 Loc: SONIA Attending Dr: Kay Peterson WOOD MECHANIST Ordering Physician: Kay Peterson FNPResults: 1Negat roberta Date of Service: 03/03/24Follow Up: 1 Year From Orig inal Mammogram Procedure(s): MM tomosynthesis screening BI Accession Number(s): [id number] cc: Kay Peterson WOOD MECHANIST EXAMINATION: MM SCREENING DIGITAL BREAST TOMOSYNTHESIS, BILATERAL [...] 03/25/24 2237 DD/ 1130 TD/TT: 03/03/24 1148 Police Department Secretary: Kay Peterson [facility] BI PROCEDURES Edited Resul t - Final * Hepatitis C Viral RNA, Quantitative, Real-Time PCR (10/08/2023 10:47 AM EDT) Hepatitis C Viral Load <15 NOT DETECTED NOT DETECTED IU/mL [facility] HCV Log PCR <1.18 NOT DETECTED NOT DETECTED Log IU/mL [facility] Comment:This test was perfor med using Real-Time Polymerase ChainReaction.Reportable Range: 15 IU/mL to 100,000,000 IU/mL(1.18 Log IU/mL to 8.00 Log IU/mL).The analytical performance characteristics of thisassay have been determined by [employer].The modifications have not been cleared or approved bythe FDA. This assay has been validated pursuant to theCLIA regulations and is used for clinical purposes.For more information on this test, go to:http://education.[employer]/faq/ETQ71p0(This link is being provided for informational/educational purposes only.)THIS TEST WAS PERFORMED AT:[facility] [place] [phone] CORNEJO MD Blood 10/08/2023 10:4 7 AM EDT 10/08/2023 2:24 PM EDT Kay Coltonjeancarlos [facility] LAB BLOOD ORDERABLES Final Res ult Performing Organization Address City/[facility]/ZIP Co de Phone Number [facility] [address] [place] [phone] [phone] * HIV-1/2 Antigen and Antibodies, Fourth Generation, with Reflexes (10/08/2023 10:47 AM EDT) [facility] HIV AB/AG Nonreactive Nonreactive [facility] Comment:HIV-1 p24 Ag and/or HIV-1/HIV-2 Ab not detected.A test result that is nonreactive does not exclude thepossibility of exposure to or infection with HIV-1 and/orHIV-2. Nonreactive results in this assay for individualswith prior exposure to HIV-1 and/or HIV-2 may be due toantigen and antibody levels that are below the limit ofdetection of this assay.The Spotlight HIV Ag/Ab Combo assay result andsupplemental assay results should be interpreted inconjunction with the patient's clinical presentation,history and other laboratory results. If the results areinconsistent with clinical evidence, additional testing issuggested to confirm the result. Blood Venous blood specimen / Unknown 10/08/2023 10:47 AM EDT 10/08/2023 2:24 PM EDT Kay TOP LAB BLOOD ORDERABLES Final Res ult Performing Organization Address City/[facility]/ZIP Co de Phone Number [facility] [address] [place] [phone] * HM PAP/HPV (01/24/2021 12:00 AM EDT) Historical Provider MD HEALTH MAINTENANCE Final Result [facility] [address] [place] [address] [phone] * HPV mRNA E6/E7 (05/11/2018 3:05 PM EST) HPV mRNA E6/E7 Not Detected NOT DETECTED [facility] Comment: This test was performed using the APTIMA(R) HPV Assay ([employer] This assay detects E6/E7 viral messenger RNA (mRNA) from 14 high-risk HPV types (16,18,31,33,35,39,45,51, 52,56,58,59,66,68). For additional information please refer to: http://education.[employer]/faq/XJJ302f7 (This link is being provided for informational/ educational purposes only.) The analytical performance characteristics of this assay have been determined by [employer] [place], [place]. The modifications have not been cleared or approved by the FDA. This assay has been validated pursuant to the CLIA regulations and is used for clinical purposes. Test Performed by [facility], [facility] [facility] [place], [address] [place] [address] Rogelio Lua M.D., Ph.D., Director of Laboratories , CLIA [id number] Please note: ??Effective 03/16/2016, HPV testing will be performed using [employer]'s APTIMA test which targets mRNA. Detecting mRNA instead of DNA, as in older methods, offers significant improvements in specificity. 05/11/2018 3:05 PM EST Quin Barney MD HISTORICAL/NON ORDERABLE LABS Final Result [facility] [address] from Last 3 Months or Most Recently Relevant to Health [place] [address] Care Teams Note Keeper Relationship Specialty Start Date End Date Kay Peterson FNP [address] [place] [address] PCP - General Family Medicine 02/26/22 Lino Mobley MD [address] [place] [phone] Obstetrics and Gynecology 07/20/24 Talita Gallagher MD [address] [place] [phone] Hematology and Oncology 07/20/24
--- OUTSIDE RECORDS SUMMARY | 2024-11-14 14:57 | XMS_ITS | Encounter Summary ---
Author Organization [employer] Address [address] [place] [address] Care Team Providers Care Ballast Inspector Name Role Phone Kay Peterson Primary Care Provider [phone] Lino Mobley MD Unavailable Talita Gallagher MD Unavailable [phone] Reason for Visit * Reason Onset Date Comments Appointment Request 08/26/2022 Encounter Details Date Type Department Care Team (Late st Contact Info) Description 08/26/2022 Telephone [facility] [address] [place] [address] Kay Peterson FNP [address] [place], [place] [phone] Appointment Request Social History Tobacco Use Types [...] she doesn't mind with a different provider. (Sinhala speaker) * Telephone Encounter - Johnson Mccarthy - 08/26/2022 11:44 AM EST Tc from pt requesting an Physical appt states work is requiring pt to have Physical updated Please contact pt at [phone] documented in this encounter Plan of Treatment Not on file documented as of this encounter Visit Diagnoses Not on filedocumented in this encounter Care Teams Ballast Inspector Relationship Specialty Start Date End Date Kay Peterson FNP [address] [place] [address] PCP - General Family Medicine 02/26/22 Lino Mobley MD [address] [place] [phone] Obstetrics and Gynecology 07/20/24 Talita Gallagher MD [address] [place] [phone] Hematology and Oncology 07/20/24 documented as of this encounter
--- OUTSIDE RECORDS SUMMARY | 2024-11-14 14:57 | XMS_ITS | Encounter Summary ---
Author Organization [employer] Address [address] [place] [address] Care Team Providers Care Financial Engineer Name Role Phone Kay Peterson Primary Care Provider [phone] Lino Mobley MD Unavailable Talita Gallagher MD Unavailable [phone] Reason for Visit * Reason Onset Date Comments Appointment Request 10/02/2022 Encounter Details Date Type Department Care Team (Late st Contact Info) Description 10/02/2022 Telephone [facility] [address] [place] [address] Kay Peterson FNP [address] [place], [place] [phone] Appointment Request Social History Tobacco Use Types [...] Per Elyse ). Please contact pt at [phone] documented in this encounter Plan of Treatment Not on file documented as of this encounter Visit Diagnoses Not on filedocumented in this encounter Care Teams Financial Engineer Relationship Specialty Start Date End Date Kay Peterson FNP [address] [place] [address] PCP - General Family Medicine 02/26/22 Lino Mobley MD [address] [place] [phone] Obstetrics and Gynecology 07/20/24 Talita Gallagher MD [address] [place] [phone] Hematology and Oncology 07/20/24 documented as of this encounter
--- OUTSIDE RECORDS SUMMARY | 2024-11-14 14:57 | XMS_ITS | Encounter Summary ---
Author Organization [employer] Address [address] [facility] 7[address] [place] [address] Care Team Providers Care Transfer And Line Up Worker Name Role Phone Kay Peterson Primary Care Provider [phone] Lino Mobley MD Unavailable Talita Gallagher MD Unavailable [phone] Reason for Visit * Reason Onset Date Comments Lab Orders 11/05/2023 Encounter Details Date Type Department Care Team (Late st Contact Info) Description 11/05/2023 Telephone [facility] MED[facility] [address] [place] [address] Kay Peterson FNP [address] [place], [place] [phone] Lab Orders Social History Tobacco Use Types [...] documented as of this encounter Care Teams Transfer And Line Up Worker Relationship Specialty Start Date End Date Kay Peterson FNP [address] [place] [address] PCP - General Family Medicine 02/26/22 Lino Mobley MD [address] [place] [address] [place] [address] Obstetrics and Gynecology 07/20/24 Talita Gallagher MD [address] [place] [address] [place] [address] Hematology and Oncology 07/20/24 documented as of this encounter
--- OUTSIDE RECORDS SUMMARY | 2024-11-14 14:57 | XMS_ITS | Encounter Summary ---
Author Organization [employer] Address [address] [facility] [address] [address] 7[address] [place] [address] Care Team Providers Care Asphalt Distributor Tender Name Role Phone Kay Peterson Primary Care Provider [phone] Lino Mobley MD Unavailable Talita Gallagher MD Unavailable [phone] Reason for Visit * Reason Onset Date Comments medication 02/19/2023 Encounter Details Date Type Department Care Team (Late st Contact Info) Description 02/19/2023 Telephone [facility] [address] [place], [place] [phone] Fausto Rascon DDS [address] [place], [place] [phone] medication Social History Tobacco Use Types Packs/Day [...] documented as of this encounter Care Teams Asphalt Distributor Tender Relationship Specialty Start Date End Date Kay Peterson FNP [address] [place] [address] PCP - General Family Medicine 02/26/22 Lino Mobley MD [address] [place] [address] Obstetrics and Gynecology 07/20/24 Talita Gallagher MD [address] [place] [address] Hematology and Oncology 07/20/24 documented as of this encounter
--- OUTSIDE RECORDS SUMMARY | 2024-11-14 14:57 | XMS_ITS | Encounter Summary ---
Author Organization [email or web address] Address [address] [facility] 7t [place] [address] Care Team Providers Care Sports Commentator Name Role Phone Kay Peterson Primary Care Provider [phone] Lino Mobley MD Unavailable Talita Gallagher MD Unavailable [phone] Reason for Visit * Reason Onset Date Comments Appointment Confirmation 11/08/2023 Encounter Details Date Type Department Care Team ([facility] st Contact Info) Description 11/08/2023 Telephone [facility] 505 [place], [place] [phone] Kay Peterson FNP 505 [place], [place] [phone] Appointment Confirmation Social History Tobacco Use Types [...] documented as of this encounter Care Teams Sports Commentator Relationship Specialty Start Date End Date Kay Peterson FNP [address] [place] [address] PCP - General Family Medicine 02/26/22 Lino Mobley MD [address] [place] [address] [place] [address] Obstetrics and Gynecology 07/20/24 Talita Gallagher MD 5 [place] [address] Hematology and Oncology 07/20/24 documented as of this encounter
--- OUTSIDE RECORDS SUMMARY | 2024-11-14 14:57 | XMS_ITS | Encounter Summary ---
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 Name Role Phone Kristen Kay AYALA Primary Care Provider Lino Mobley MD Unavailable Talita Gallagher MD Unavailable [phone] Encounter Details Date Type Department Care Team (Late st Contact Info) Description 10/25/2024 Orders Only [facility]EDS [address] [place] [address] Veronica Zhang Social History Tobacco Use Types [...] HEALTH MAINTENANCE Final Result Performing Organization Address City/State/[facility] Co de Phone Number [facility] [address] [place] [phone] documented in this encounter Visit Diagnoses Not on filedocumented in this encounter Additional Health Concerns Assessment Noted Time PHQ-9 Depression Total Score: 0 10/20/19 25 10:22 AM EDT documented as of this encounter Care Teams Experimental Outboard Motors Mechanic Relationship Specialty Start Date End Date Kay Peterson FNP 230 [place] [address] PCP - General Family Medicine 02/26/22 Lino Mobley MD [address] [place] [address] [place] [address] Obstetrics and Gynecology 07/20/24 Talita Gallagher MD [address] [place] [address] Hematology and Oncology 07/20/24 documented as of this encounter
== END ==
LOC: HO.CARD 13:46
PROVIDERS: PCP Registered Nurse; Visit Provider Physician Assistant
DX: R00.2 Palpitations (principal); D50.9 Iron deficiency anemia, unspecified
CPT/HCPCS: 93225; 93306; Q9957

== ENCOUNTER → 2024-11-14 14:18 | Outpatient (BNV) | payer OTHER, SELFPAY | PROVIDERS: PCP Registered Nurse; Visit Provider Internal Medicine Cardiovascular Disease | DX: I51.0 Cardiac septal defect, acquired (principal); I36.1 Nonrheumatic tricuspid (valve) insufficiency | CPT/HCPCS: 93306 ==

== ENCOUNTER 2024-11-23 10:13 | Outpatient (AMB) | payer OTHER, SELFPAY ==
--- NOTE | 2024-11-23 10:55 | A.OFFPC_ITS ---
Vital Signs 11/23/24 11:03 11/23/24 11:05 Height 5 ft 6 in Weight 206 lb 4 oz BMI 33.3 BP 144/86 H 142/82 H Blood Pressure Location Lt brachial Lt brachial Position Sitting Sitting Respiration 14 Pulse 75 Pulse Source Pulse Oximeter Pulse Oximetry (%) 98 Oxygen Delivery Method Room Air Intake Visit Reasons: labs and palpitations Used Building Materials Yard Worker Required: Yes Used Building Materials Yard Worker Language: Seo Coordinator Name: [id number] Deb Allergies No Known Allergies Allergy (Verified 11/23/24 10:58) Medication List - Last Reconciled 11/23/24 by [place] Mg PA-C bisacodyl (Dulcolax (bisacodyl)) 10 mg (2 x 5 mg) PO BEDTIME 2 days cholecalciferol (vitamin D3) 25 mcg PO QAM cyclobenzaprine 10 mg PO TID PRN ferrous sulfate (Feosol) 325 mg PO BID iron,carbonyl-vitamin C 65 mg iron- 125 mg (Vitron-C) 1 tab PO DAILY naproxen sodium 220 mg PO BID PRN omeprazole 20 mg PO DAILY peg 3350-electrolytes 236-22.74-6.74 -5.86 gram (Golytely) 240 mL PO Q10M 1 day Tobacco use date assessed: 11/23/24 Dental Screening Dental Screen Date: 11/23/24 Did you have a dental visit in the last 12 months?: No Did you have a dental problem in the last 6 months where you did not have access to dental care?: No Was dental information given to patient?: Patient has dentist HPI labs and palpitations HPI Details Patient is a 49-year-old female who presents today for a follow up. this is our second visit. She is transferring from [facility]. Used Building Materials Yard Worker: Deb [id number] Psych: Currently on hydroxyzine 25-50 mg as needed. Heme: She had blood work which showed significant anemia. She is following with Hematology. There is no personal or family history of bleeding disorder. She did not have any problems during her pregnancies, delivery or multiple teeth extractions. She is supposed to be on infusions but is having insurance issues. Trying to take supplemen BID Cabinet Worker: Following with cake tester for pelvic pain. Had pelvic ultrasound consistent with fibroids. Uro: States that she struggles with urinary urge incontinence and some frequency. She says when she has to go to the bathroom she has to go immediately and feels like she can not hold it. This has been going on for many years. She would like to see someone for this. CV: was on atorvastatin in the past but states stopped due to rx sanches. her bp today in the office is 142/82. She states that in the past she was treated with propranolol but told to only take it if she felt that she had symptoms related to high blood pressure. She says that she has not been on this in a few years. This was given to her by her previous PCP. We did review her Holter was overall normal. She says that she is not having as many frequent palpitations. We also reviewed the echo that showed some chronic changes. She would like to consult with a word processing operator. Vasc: Used to follow with vascular surgery for her varicose veins and would like to go back. Colonoscopy: never had- was referred but states she has not heard Mammo: 02/2024 Pap: UTD- follows with [facility] Medical History (Updated 11/23/24 @ 11:30 by India Mg PA-C) Iron deficiency anemia Palpitations Gastroesophageal reflux disease Elevated blood pressure reading Anxiety Surgical History History of hysteroscopy Hx of tubal ligation Family History Other Substance abuse Social History (Updated 11/23/24 @ 11:05 by Norma Grigsby CMA) Household Members: Spouse, Family and Children Housing: House Alcohol intake: never Patient Tobacco Use Status: Never used Tobacco e-Cigarette/Vaping Use: Never Used Second Hand Smoke Exposure: No service: No Current occupational status: unemployed Sexual orientation: Straight/Heterosexual Gender identity: Female Cognitive needs: No Hearing needs: No Vision needs: No Female Reproductive History Menstrual Age of Menarche: 14 Questionnaire Thrive Questionnaire Date Thrive assessed: 10/18/24 I am a: Patient What is your living situation today?: I have a steady place to live Within the past 12 months, did the food you bought not last and you didn't have the money to get more?: I choose not to answer this question Within the past 12 months, did you worry whether your food would run out before you got money to buy more?: I choose not to answer this question Do you have trouble paying for medicines?: No Do you have trouble getting transportation to medical appointments?: No Do you have trouble paying your heating and electricity bill?: No Do you have trouble taking care of your child, family member or friend?: No Do you have trouble with day-to-day activities such as bathing, preparing meals, shopping, managing finances, etc.?: No Are you currently unemployed and looking for a job?: No Are you interested in more education?: No Please select the resources that you would like help with: None Currently or been in a relationship where the following occur: I choose not to answer THRIVE Score: 0 NILDA-7 AMB Questionnaire NILDA-7 Date NILDA - 7 assessed: 10/18/24 Source: Developed by Drs. Marlon Virk, Suki Crane, Ozzie Thompson and colleagues, with an educational niranjan from [employer]. Physical exam (Primary Care) Vital Signs: Last Vital Signs Pulse 75 11/23/24 11:03 Resp 14 11/23/24 11:03 BP 142/82 H 11/23/24 11:05 Pulse Ox 98 11/23/24 11:03 Oxygen Delivery Method Room Air 11/23/24 11:03 BMI result Body Mass Index 33.3 Tobacco/Smoking Status: Tobacco use Status Tobacco use date assessed 11/23/24 11/23/24 11:07 Patient Tobacco Use Status Never used Tobacco 11/23/24 11:05 e-Cigarette/Vaping Use Never Used 11/23/24 11:05 Thrive Assessment: Date of Thrive Assessment Date Thrive assessed 10/18/24 11/23/24 10:56 Currently or been in a relationship where the following occur: I choose not to answer Const Orientation/consciousness: patient oriented x3 HENMT Ears: hearing grossly normal bilaterally Neck Thyroid: Thyroid normal Lymphatic: no lymphadenopathy noted Resp Auscultation: clear to auscultation bilaterally Cardio Rate: regular rate Rhythm: regular rhythm Heart sounds: S1 normal heart sound present and S2 normal heart sound present GI Inspection: Yes normal to inspection Palpation (GI): Soft to palpation and Other GI palpation findings present (nontender, no cva tenderness) Auscultation: normoactive bowel sounds Rectal Exam - Female: deferred Skin General skin exam: no rashes or lesions noted Neuro General: patient oriented x3, gait normal and no focal motor deficits Results Reviewed Results Reviewed: Laboratory Tests 10/24/24 11/03/24 11:40 13:22 WBC 5.3 RBC 4.43 Hgb 9.4 L Hct 30.8 L Plt Count 348 Sodium 138 Potassium 3.8 Chloride 106 Carbon Dioxide 27 Anion Gap 9 L BUN 8 L Creatinine 0.67 Estimated GFR > 60 Random Glucose 93 Hemoglobin A1c % 5.6 Calcium 9.0 Iron 21 L TIBC 362 % Saturation 6 L Unsat Iron Binding 341 Ferritin 5 L AST 26 ALT 16 Alkaline Phosphatase 59 Total Protein 7.5 Albumin 4.1 Triglycerides 113 Cholesterol 220 H LDL Cholesterol, Calc 148 H HDL Cholesterol 50 25-OH Vitamin D Total 18.4 L TSH 1.12 Conclusion: 1. Patient was monitored for total period of 14 hours 2. Baseline was normal sinus rhythm with average heart of 78 beats per minute 3. No significant pauses or arrhythmias noted 4. No patient reported events Conclusions: - 1. Normal LV ejection fraction 55-60% 2. Mildly dilated right ventricle with preserved contractility and mildly dilated left atrium 3. Mild tricuspid regurgitation 4. Normal RV systolic pressure 5. No pericardial effusion Coding Level of Care Code Est Pt Level 4 (92697) Complex EM visit Add On G2211 Diagnoses Palpitations R00.2 Iron deficiency anemia D50.9 Urinary incontinence, urge N39.41 Varicose veins of both lower extremities I83.93 HTN (hypertension) I10 Atrial dilatation, left I51.7 Right ventricular dilation I51.7 Assessment & Plan Assessment & Plan (1) Palpitations: Code(s): R00.2 - Palpitations Category: Medical Plan: feeling a bit better, less sx (2) Iron deficiency anemia: Code(s): D50.9 - Iron deficiency anemia, unspecified Category: Medical Plan: has not started infusions yet trying to take iron bid (3) Urinary incontinence, urge: Code(s): N39.41 - Urge incontinence Category: Medical Plan: ref to urology (4) Varicose veins of both lower extremities: Code(s): I83.93 - Asymptomatic varicose veins of bilateral lower extremities Category: Medical Plan: ref to vasc (5) HTN (hypertension): Code(s): I10 - Essential (primary) hypertension Category: Medical Plan: start amlodipine 5 mg discussed risks and benefits and adverse effects (6) Atrial dilatation, left: Code(s): I51.7 - Cardiomegaly Category: Medical Plan: will start treatment for bps referral to cards (7) Right ventricular dilation: Code(s): I51.7 - Cardiomegaly Category: Medical Plan: as above Orders: Orders Complete Blood Count Auto Diff Today D50.9 - Iron deficiency anemia, unspecified, I10 - Essential (primary) hypertension, I83.93 - Asymptomatic varicose veins of bilateral lower extremities, N39.41 - Urge incontinence, R00.2 - Palpitations Comprehensive Met. Panel Today D50.9 - Iron deficiency anemia, unspecified, I10 - Essential (primary) hypertension, I83.93 - Asymptomatic varicose veins of bilateral lower extremities, N39.41 - Urge incontinence, R00.2 - Palpitations UA CC w/rflx Micro + Cult Today D50.9 - Iron deficiency anemia, unspecified, I10 - Essential (primary) hypertension, I83.93 - Asymptomatic varicose veins of bilateral lower extremities, N39.41 - Urge incontinence, R00.2 - Palpitations, Z13.220 - Encounter for screening for lipoid disorders Referrals Cardiology Referral I10 - Essential (primary) hypertension, I34.0 - Nonr heumatic mitral (valve) insufficiency, I51.7 - Cardiomegaly, R00.2 - Palpitations Urology Referral N39.41 - Urge incontinence Vascular Surgery Referral I83.93 - Asymptomatic varicose veins of bilateral lower extremities Medications: New amlodipine 5 mg PO DAILY 30 tabs 4RF
[2024-11-23 11:03] VITALS: BP 144/86; PULSE 75; RESP 14; O2SAT 98; BMI 33.3
[2024-11-23 11:05] VITALS: BP 142/82
== END 2024-11-23 11:42 | disposition home or self-care (01) ==
LOC: HO.HMCFM 10:14
PROVIDERS: PCP Registered Nurse; Visit Provider Physician Assistant
DX: R00.2 Palpitations (principal); D50.9 Iron deficiency anemia, unspecified; N39.41 Urge incontinence; I83.93 Asymptomatic varicose veins of bilateral lower extremities; I10 Essential (primary) hypertension; I51.7 Cardiomegaly

== ENCOUNTER → 2024-11-23 10:13 | Outpatient (BNVA) | payer OTHER, SELFPAY | PROVIDERS: PCP Registered Nurse; Visit Provider Physician Assistant | DX: Z13.89 Encounter for screening for other disorder (principal) ==

== ENCOUNTER 2024-11-30 09:51 | Outpatient (AMB) | payer OTHER, SELFPAY ==
--- NOTE | 2024-11-30 10:01 | MHC.OFFVIS ---
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 She was seen in June 2020 , ordered but was never done. Reestablishing. She feels cramping and some pain in her right leg. 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 She was seen in this office in 2019 and a was ordered; however, the pt did not schedule the and did not follow up. Complaints include pain over varicosities, swelling of lower extremities, cramping, fatigue, and heaviness of the lower extremities. It has been affecting their daily activities including working, standing, and physical activity. It is noted more so in the right leg. She states her mother has varicose veins, but has not had them assessed/treated; there is no family hx of clotting disorders/blood clots. She is a nonsmoker and does not have diabetes. Patient denies any previous venous surgery or injections. Patient denies any history of DVT/ PE. Patient denies any history of phlebitis. Trial of compression includes - nothing at this point They now present for vascular evaluation regarding their varicose veins. [facility] Medical History (Updated 11/23/24 @ 11:30 by India Mg PA-C) Iron deficiency anemia Palpitations Gastroesophageal reflux disease Elevated blood pressure reading Anxiety Surgical History History of hysteroscopy Hx of tubal ligation Family History Other Substance abuse Social History (Updated 11/23/24 @ 11:05 by Norma Grigsby CMA) Household Members: Spouse, Family and Children Housing: House Alcohol intake: never Patient Tobacco Use Status: Never used Tobacco e-Cigarette/Vaping Use: Never Used Second Hand Smoke Exposure: No service: No Current occupational status: unemployed Sexual orientation: Straight/Heterosexual Gender identity: Female Cognitive needs: No Hearing needs: No Vision needs: No Female Reproductive History Menstrual Age of Menarche: 14 Review of Systems Const Reports as per HPI and Denies weakness ENT Reports Normal hearing present and Denies dizziness Card Reports as per HPI, Denies chest pain, Denies chest pain at rest, Denies chest pain with activity, Denies dyspnea and Denies dyspnea on exertion Resp Reports as per HPI, Denies cough, Denies dyspnea and Denies dyspnea on exertion GI Reports as per HPI, Denies abdominal pain, Denies nausea and Denies vomiting Musc Denies numbness Skin/Breast Reports as per HPI, Denies erythema and Denies wounds Neuro Reports Normal hearing present, Denies dizziness, Denies numbness, Denies Sensory deficit (Neuro) and Denies weakness Psych Reports no additional complaints Endo Reports no additional complaints Physical Exam Const General: healthy appearing and no acute distress Orientation/consciousness: patient oriented x3 HEENT Head: Yes normal to inspection Ears: hearing grossly normal bilaterally Mouth: Normal oral and palatal mucosa present Resp Effort & Inspection: normal respiratory effort and able to speak in complete sentences Auscultation: clear to auscultation bilaterally Cardio Jugular venous distension: no JVD Rate: regular rate Rhythm: regular rhythm Heart sounds: S1 normal heart sound present and S2 normal heart sound present Bruits: no abdominal aortic bruits, no carotid bruits, no femoral bruits and no renal bruits Peripheral pulses: Peripheral pulses 2+ throughout GI Inspection: Yes normal to inspection Palpation (GI): No Abdominal aortic bruit present Skin General skin exam: no rashes or lesions noted Wounds: no wounds Hair: normal Neuro General: patient oriented x3 Cranial nerves: Yes Normal hearing present Cognition (Neuro): normal cognition Gait exam (Neuro): Normal gait present Motor exam (neuro): 5/5 motor strength present throughout Sensory Exam: No Sensory deficit (Neuro) Extrem Other: Right lower extremity: cluster of painful to palpation telangiectasia on the lateral aspect of the right upper thigh. Trace peripheral edema noted. No varicosities noted. Left lower extremity: very small cluster of telangiectasia noted behind the knee. No varicosities noted. Trace peripheral edema noted. CEAP: C - 3 E - primary A - superficial P - reflux General: Yes normal to inspection, Yes full ROM, Yes capillary refill normal and Yes normal gait Assessment & Plan Assessment & Plan (1) Varicose veins of right lower extremity with inflammation: Code(s): I83.11 - Varicose veins of right lower extremity with inflammation Category: Medical Plan: Manuela is presenting today with concerns of worsening VV. She states they started appx 5y ago; she did have an appt in this office in 2019 but did not schedule a US or follow up. In short, the patient has evidence of venous insufficiency. I have discussed the pathophysiology with the patient. In addition I have provided informational material regarding venous disease to the patient. We have discussed conservative measures including compression, elevation, and exercise. We were unable to provide her with a handout (they are only in Belarusian) but we discussed it with her in Lao. I have taken the liberty of ordering venous insufficiency testing with the patient. They will follow up with me after testing. The patient had an opportunity to ask questions regarding the treatment plan. All questions were answered. Imaging studies, laboratory studies and physical exam results were discussed and reviewed in detail. No major barriers to understanding were identified. The patient expressed understanding and agreement with the above treatment plan. The patient is aware they should contact our office by phone for worsening of the current condition or the appearance of new symptoms. Thank you for allowing me to participate in the vascular care of this patient. If you have any questions or concerns regarding the treatment for the above condition please do not hesitate to contact me. The office telephone contact is [phone]. This note is constructed using voice recognition software. While every effort has been made to ensure accuracy, machine edge bander errors may have been included. Thank you for allowing me to participate in the care of your patient. Yours sincerely, HEBER Yates Orders: Orders US venous duplex LE BI 1 Week I83.11 - Varicose veins of right lower extremity with inflammation Coding Level of Care Code New Pt Level 4 (76500) Diagnoses Varicose veins of right lower extremity with inflammation I83.11
--- OUTSIDE RECORDS SUMMARY | 2024-11-30 10:13 | XMS_ITS | Encounter Summary ---
Author Organization [employer] Address [address] [place] [address] Care Team Providers Care Security Messenger Name Role Phone Kay Peterson Primary Care Provider [phone] Lino Mobley MD Unavailable Talita Gallagher MD Unavailable [phone] Reason for Visit * Reason Onset Date Comments Appointment Request 10/02/2022 Encounter Details Date Type Department Care Team (Late st Contact Info) Description 10/02/2022 Telephone [facility] MEDICINE [address] [place] [address] Kay Peterson FNP [address] [place], [place] [phone] Appointment Request Social History Tobacco Use Types [...] ( Serumen Impact of left ear. Per lEyse ). Please contact pt at [phone] documented in this encounter Plan of Treatment Not on file documented as of this encounter Visit Diagnoses Not on filedocumented in this encounter Care Teams Security Messenger Relationship Specialty Start Date End Date Kay Peterson FNP [address] [place] [address] PCP - General Family Medicine 02/26/22 Lino Mobley MD [address] [place] [address] Obstetrics and Gynecology 07/20/24 Talita Gallagher MD [address] [place] [address] Hematology and Oncology 07/20/24 documented as of this encounter
== END 2024-11-30 10:13 | disposition home or self-care (01) ==
LOC: HO.HVS 09:52
PROVIDERS: PCP Physician Assistant; Visit Provider Physician Assistant Surgical
DX: I83.11 Varicose veins of right lower extremity with inflammation (principal)
CPT/HCPCS: 99204

== ENCOUNTER 2024-12-15 09:57 | Outpatient (REF) | payer OTHER, SELFPAY ==
[2024-12-15 14:05] LABS: MANUAL DIFF FLAG NO
[2024-12-15 14:14] LABS: Basophils Absolute Auto 0.1 X10*3/uL (0.0-0.2); Basophils Percent Auto 1.3 % (0-2); Eosinophils Absolute Auto 0.2 X10*3/uL (0.0-0.4); Eosinophils Percent Auto 3.3 % (0-4); Hematocrit 32.3 % (37.0-47.0); Hemoglobin 9.5 g/dl (12.0-16.0); Imm Gran Abs Auto 0.02 X10*3/uL (0.00-0.03); Imm Gran Pct Auto 0.3 % (0.0-0.4); Lymphocytes Absolute Auto 1.6 X10*3/uL (1.2-4.9); Lymphocytes Percent Auto 26.1 % (20-40); Mean Corpuscular HGB Conc 29.4 g/dl (31.0-35.0); Mean Corpuscular Hemoglobin 20.3 pg (27.0-33.0); Mean Corpuscular Volume 69.2 fL (80.0-98.0); Mean Platelet Volume 10.3 fL (9.4-12.3); Monocytes Absolute Auto 0.7 X10*3/uL (0.1-1.2); Monocytes Percent Auto 11.2 % (2-11); Neutrophils Absolute Auto 3.5 x10*3/uL (2.0-8.3); Neutrophils Percent Auto 57.8 % (45-73); Platelet Count 449 X10*3/uL (160-400); Red Blood Count 4.67 X10*6/uL (4.20-5.50); Red Cell Distribution Width 17.2 % (11.0-16.0); White Blood Count 6.1 X10*3/uL (4.8-10.8)
[2024-12-15 14:26] LABS: Alanine Aminotransferase 19 U/L (0-31); Albumin Level 4.4 g/dL (3.5-5.0); Alkaline Phosphatase 61 U/L (39-117); Anion Gap 9 (12-20); Aspartate Amino Transferase 24 U/L (5-31); Bilirubin Total 0.7 mg/dL (0.0-1.0); Blood Urea Nitrogen 10 mg/dL (9-16); Calcium 9.4 mg/dL (8.4-10.2); Carbon Dioxide 28 mmol/L (22-29); Chloride 104 mmol/L (96-108); Estimated Glomerular Filt Rate > 60; Glucose Random 102 mg/dL (60-115); Potassium 4.4 mmol/L (3.3-5.1); Sodium 137 mmol/L (135-145); Total Protein 7.7 g/dL (6.5-8.0)
[2024-12-15 14:40] LABS: Appearance Urine Clear; Color Urine Yellow; Glucose Urine UA Negative (Negative); Leukocyte Esterase Urine Negative (Negative); Nitrite Urine Negative (Negative); Urine Blood Negative (Negative); Urine Ketones Negative (Negative); Urine Protein Trace mg/dL (Neg-Trace)
== END 2024-12-15 09:58 | disposition home or self-care (01) ==
LOC: HO.CHCLDS 09:57
PROVIDERS: Visit Provider Physician Assistant
DX: D50.9 Iron deficiency anemia, unspecified (principal); R00.2 Palpitations; N39.41 Urge incontinence; I83.93 Asymptomatic varicose veins of bilateral lower extremities; Z13.220 Encounter for screening for lipoid disorders; I10 Essential (primary) hypertension
CPT/HCPCS: 36415; 80053; 81003; 85025

== ENCOUNTER 2024-12-18 07:05 | Outpatient (REF) | payer OTHER, SELFPAY ==
[2024-12-18 12:17] LABS: CT PCR NOT DETECTED (Not Detect.); NG PCR NOT DETECTED (Not Detect.)
== END 2024-12-18 07:06 | disposition home or self-care (01) ==
LOC: HO.LNP 07:05
PROVIDERS: PCP Physician Assistant; Visit Provider Obstetrics & Gynecology
DX: N93.9 Abnormal uterine and vaginal bleeding, unspecified (principal)
CPT/HCPCS: 81025; 87491; 87591

== ENCOUNTER 2024-12-18 07:05 | Outpatient (AMB) | payer OTHER, SELFPAY ==
--- NOTE | 2024-12-18 07:32 | A.OFFVIS_ITS ---
Intake Visit Reasons: AUB Tar Distillation Supervisor Required: Yes Tar Distillation Supervisor Language: Certified Alcohol And Drug Counselor Name: Nakita [id number] Information Interpreted: non-clinical & clinical Quick Print Operator: Quick Print Operator Present (Mercedes) Allergies No Known Allergies Allergy (Verified 12/18/24 07:33) HPI Comments Details: Presenting complaining of irregular heavy menstrual cycles associated with pa ssage of blood clots. Pelvic ultrasound done on 11/07/2024 showed the following: Uterus: The uterus is anteverted , anteflexed and measures 9.7 x 5.1 x 5.9 cm. The double wall endometrial thickness is 1.1 cm. The uterus is smooth in contour and has normal myometrial echogenicity. There are 2 small hypoechoic lesions. A 1.2 x 0.9 x 1.0 lesion likely submucosal in the mid to lower uterus. Previously measured 1.1 x 1.1 x 1.0 cm. Second lesion in the body of the left mid uterus measuring 0.6 x 0.3 x 0.6 cm. Previously it measured 0.8 x 0.4 0.6 cm. There are small nabothian cyst in the cervix. Adnexa: Both ovaries are visualized. There is normal color flow to the adnexa. There is no ovarian torsion. There is no pelvic ascites or fluid collection. Right ovary transabdominal ultrasound measures 3.5 and 1.9 x 2.8 cm in volume 9.8 mL. There is anechoic dominant follicle or cyst measuring 1.0 x 0.9 0.9 cm. Left ovary is not visualized. Last co testing In 01/22 was negative Last mammogram 02/25 was BI-RADS 1, next mammogram scheduled on 03/16/2025 [facility] Medical History Iron deficiency anemia Palpitations Gastroesophageal reflux disease Elevated blood pressure reading Anxiety Surgical History History of hysteroscopy Hx of tubal ligation Family History Other Substance abuse Social History Household Members: Spouse, Family and Children Housing: House Alcohol intake: never Patient Tobacco Use Status: Never used Tobacco e-Cigarette/Vaping Use: Never Used Second Hand Smoke Exposure: No service: No Current occupational status: unemployed Sexual orientation: Straight/Heterosexual Gender identity: Female Cognitive needs: No Hearing needs: No Vision needs: No Female Reproductive History Menstrual Age of Menarche: 14 Review of Systems Const All systems reviewed & are unremarkable except as noted in HPI and below Card Reports as per HPI Resp Reports as per HPI GI Reports as per HPI and Reports no additional complaints Reports as per HPI Physical Exam Const General: cooperative, healthy appearing and comfortable Chest Chest palpation & inspection: normal inspection of the chest and normal palpation of entire chest wall Breast/axilla inspection: normal inspection of the breasts and normal inspection of the axillae Breast/axilla palpation: normal palpation of the breasts, normal palpation of the axillae and no axillary lymphadenopathy Resp Effort & Inspection: normal respiratory effort Auscultation: clear to auscultation bilaterally Percussion: percussion normal Cardio Palpation: normal PMI Rate: regular rate Rhythm: regular rhythm Heart sounds: no murmurs and no rubs Peripheral pulses: Peripheral pulses 2+ throughout GI Inspection: Yes normal to inspection Palpation (GI): Soft to palpation, nontender, no guarding, not rigid and No hepatosplenomegaly present Percussion: Yes normal to percussion Auscultation: normal bowel sounds Rectal Exam - Female: deferred General: Yes bladder normal to palpation External Female Exam: No lesion Speculum Exam - Vagina: normal appearance of the vagina, normal palpation, normal vaginal discharge and not erythematous Speculum Exam - Cervix: normal appearance of the cervix and normal palpation Bimanual exam- vagina & uterus: normal bimanual exam, normal palpation, uterine size normal, bladder normal to palpation, consistency normal and normal palpation Bimanual Exam- Adnexa, other: normal adnexae, no masses and no tenderness Results AMB Test Urine AMB Test Urine Negative Last Edit by CHRISTINE Lloyd on 12/18/24 07:38 Results Reviewed Results Reviewed: Laboratory Last Values Tst Clinic Negative 12/18/24 07:37 Assessment & Plan Assessment & Plan (1) Uterine myoma: Code(s): D25.9 - Leiomyoma of uterus, unspecified Category: Medical Plan: Discussed with the patient the findings on pelvic ultrasound & the risk of myosarcoma; in addition reviewed with the patient that malignancy and pre mal ignancy cannot be ruled out without hysterectomy for pathological evaluation ; furthermore, explained to the patient the limitation of pelvic ultrasound and endometrial biopsy in the setting. Discussed with the patient the typical symptoms that are caused by myomas including but not limited to pelvic pain, pressure symptoms, abnormal uterine bleeding. In addition discussed with the patient options of treatment for myomas including: Serial ultrasounds periodically to follow-up on the size of the myoma while targeting the treatment against fibroids related symptoms ( control pills, Mirena IUD, progesterone treatment, GnRH agonist/antagonist, uterine artery embolization or endometrial ablation) versus surgical treatment including hysterectomy and or myomectomy. All pros and cons, risks and benefits of all options were discussed with the patient. The patient understands that delay in surgical treatment in case of myosarcoma can affect her prognosis, after further discussion, the patient decided to think about it and get back to us next visit (2) Abnormal uterine bleeding: Code(s): N93.9 - Abnormal uterine and vaginal bleeding, unspecified Category: Medical Plan: GC and chlamydia taken CBC, TSH, FSH/LH, HCG ordered. Discussed with the patient the different causes of abnormal bleeding including thyroid disorders, uterine and ovarian pathology, endometrial hyperplasia, carcinoma and other potential causes. Discussed with the patient the work up including CBC (to r/o anemia), TSH, FSH/LH, endometrial biopsy to r/o endometrial pathology. All questions answered and the patient verbalized understanding. Instructed the patient to schedule an appointment for an endometrial biopsy in 2 weeks. Orders: Orders HCG Quantitative Today N93.9 - Abnormal uterine and vaginal bleeding, unspecified Lutenizing Hormone Today N93.9 - Abnormal uterine and vaginal bleeding, unspecified TSH reflex Free T4 Today N93.9 - Abnormal uterine and vaginal bleeding, unspecified Complete Blood Count no Diff Today N93.9 - Abnormal uterine and vaginal bleeding, unspecified US pelvic and transvaginal Today N93.9 - Abnormal uterine and vaginal bleeding, unspecified AMB HCG Urine Test Today N93.9 - Abnormal uterine and vaginal bleeding, unspecified CT NG by PCR Today N93.9 - Abnormal uterine and vaginal bleeding, unspecified Follicle Stimulating Hormone Today N93.9 - Abnormal uterine and vaginal bleeding, unspecified Coding Level of Care Code Est Pt Level 3 (41303) Diagnoses Uterine myoma D25.9 Abnormal uterine bleeding N93.9
== END 2024-12-18 07:55 | disposition home or self-care (01) ==
LOC: HO.HWS 07:06
PROVIDERS: PCP Physician Assistant; Visit Provider Obstetrics & Gynecology
DX: D25.9 Leiomyoma of uterus, unspecified (principal); N93.9 Abnormal uterine and vaginal bleeding, unspecified
CPT/HCPCS: 99213

== ENCOUNTER 2024-12-21 11:25 | Outpatient (AMB) | payer OTHER, SELFPAY ==
--- NOTE | 2024-12-21 11:31 | MHC.PC.OV ---
Vital Signs 12/21/24 11:35 Height 5 ft 6 in Weight 200 lb 4 oz BMI 32.3 BP 118/70 Blood Pressure Location Rt brachial Position Sitting Respiration 14 Pulse 81 Pulse Source Pulse Oximeter Temp 98.3 F Temp Source Oral Pulse Oximetry (%) 100 Oxygen Delivery Method Room Air Intake Visit Reasons: 30 min appointment, medication and labs Intake Note: Follow up medication and lab results Management Technician Name: motor vehicle parts interpreter declined Accompanied by: Spouse Allergies No Known Allergies Allergy (Verified 12/18/24 07:33) Tobacco use date assessed: 11/23/24 Dental Screening Dental Screen Date: 11/23/24 HPI 30 min appointment, medication and labs HPI Details Patient is a 49-year-old female who presents today for a follow up. Management Technician: Psych: Currently on hydroxyzine 25-50 mg as needed. Heme: She had blood work which showed significant anemia. She is following with Hematology. There is no personal or family history of bleeding disorder. She did not have any problems during her pregnancies, delivery or multiple teeth extractions. She is supposed to be on infusions but is having insurance issues. cannot tolerate supplement at all. Physician Chief Of Pathology: Following with engineer automated equipment for pelvic pain. Had pelvic ultrasound consistent with fibroids. has bx upcoming. Uro: States that she struggles with urinary urge incontinence and some frequency. She says when she has to go to the bathroom she has to go immediately and feels like she can not hold it. This has been going on for many years. She was referred and scheduled in a couple weeks. CV: bp today in office is 118/70. tolerating the amlodipine. Colonoscopy: never had- was referred but states she has not heard Mammo: 02/2024 Pap: UTD- follows with [facility]PL[facility] Medical History Iron deficiency anemia Palpitations Gastroesophageal reflux disease Elevated blood pressure reading Anxiety Surgical History History of hysteroscopy Hx of tubal ligation Family History Other Substance abuse Social History (Updated 12/21/24 @ 11:40 by Norma Grigsby CMA) Household Members: Spouse, Family and Children Housing: House Alcohol intake: never Patient Tobacco Use Status: Never used Tobacco e-Cigarette/Vaping Use: Never Used Second Hand Smoke Exposure: No service: No Current occupational status: unemployed Sexual orientation: Straight/Heterosexual Gender identity: Female Cognitive needs: No Hearing needs: No Vision needs: No Female Reproductive History Menstrual Age of Menarche: 14 Questionnaire Thrive Questionnaire Date Thrive assessed: 10/18/24 I am a: Patient What is your living situation today?: I have a steady place to live Within the past 12 months, did the food you bought not last and you didn't have the money to get more?: I choose not to answer this question Within the past 12 months, did you worry whether your food would run out before you got money to buy more?: I choose not to answer this question Do you have trouble paying for medicines?: No Do you have trouble getting transportation to medical appointments?: No Do you have trouble paying your heating and electricity bill?: No Do you have trouble taking care of your child, family member or friend?: No Do you have trouble with day-to-day activities such as bathing, preparing meals, shopping, managing finances, etc.?: No Are you currently unemployed and looking for a job?: No Are you interested in more education?: No Please select the resources that you would like help with: None Currently or been in a relationship where the following occur: I choose not to answer THRIVE Score: 0 NILDA-7 AMB Questionnaire NILDA-7 Date NILDA - 7 assessed: 10/18/24 Source: Developed by Drs. Marlon Virk, Suki Crane, Ozzie Thompson and colleagues, with an educational niranjan from [employer]. Physical exam (Primary Care) Vital Signs: Last Vital Signs Temp 98.3 F 12/21/24 11:35 Pulse 81 12/21/24 11:35 Resp 14 12/21/24 11:35 BP 118/70 12/21/24 11:35 Pulse Ox 100 12/21/24 11:35 Oxygen Delivery Method Room Air 12/21/24 11:35 BMI result Body Mass Index 32.3 Tobacco/Smoking Status: Tobacco use Status Tobacco use date assessed 11/23/24 12/21/24 11:33 Patient Tobacco Use Status Never used Tobacco 12/21/24 11:40 e-Cigarette/Vaping Use Never Used 12/21/24 11:40 Thrive Assessment: Date of Thrive Assessment Date Thrive assessed 10/18/24 12/21/24 11:33 Currently or been in a relationship where the following occur: I choose not to answer Const Orientation/consciousness: patient oriented x3 HENMT Ears: hearing grossly normal bilaterally Neck Thyroid: Thyroid normal Lymphatic: no lymphadenopathy noted Resp Auscultation: clear to auscultation bilaterally Cardio Rate: regular rate Rhythm: regular rhythm Heart sounds: S1 normal heart sound present and S2 normal heart sound present GI Inspection: Yes normal to inspection Palpation (GI): Soft to palpation and Other GI palpation findings present (nontender, no cva tenderness) Auscultation: normoactive bowel sounds Rectal Exam - Female: deferred Skin General skin exam: no rashes or lesions noted Neuro General: patient oriented x3, gait normal and no focal motor deficits Coding Level of Care Code Est Pt Level 4 (62915) Complex EM visit Add On G2211 Diagnoses HTN (hypertension) I10 Urinary incontinence, urge N39.41 Iron deficiency anemia D50.9 Assessment & Plan Assessment & Plan (1) HTN (hypertension): Code(s): I10 - Essential (primary) hypertension Category: Medical Plan: bp better with norvasc continue current plan (2) Urinary incontinence, urge: Code(s): N39.41 - Urge incontinence Category: Medical Plan: has follow up with urology discussed pelvic floor strengthening following with engineer automated equipment for fibroids (3) Iron deficiency anemia: Code(s): D50.9 - Iron deficiency anemia, unspecified Category: Medical Plan: following with engineer automated equipment has follow up with gi for scope has seen heme/onc- insurances issues right now
[2024-12-21 11:35] VITALS: BP 118/70; PULSE 81; RESP 14; TEMP 36.8; O2SAT 100; BMI 32.3
--- OUTSIDE RECORDS SUMMARY | 2024-12-21 13:00 | XMS_ITS | Encounter Summary ---
Author Organization [employer] Address [address] [place] [address] Care Team Providers Care Label Pinker Name Role Phone Kay Peterson Primary Care Provider [phone] Lino Mobley MD Unavailable Talita Gallagher MD Unavailable [phone] Reason for Visit * Reason Onset Date Comments Appointment Request 10/02/2022 Encounter Details Date Type Department Care Team (Late st Contact Info) Description 10/02/2022 Telephone [facility] [address] [place] [address] Kay Peterson FNP [address] [place], [place] [phone] Appointment Request Social History Tobacco Use Types [...] Per Elyse ). Please contact pt at [phone] documented in this encounter Plan of Treatment Not on file documented as of this encounter Visit Diagnoses Not on filedocumented in this encounter Care Teams Label Pinker Relationship Specialty Start Date End Date Kay Peterson FNP [address] [place] [phone] PCP - General Family Medicine 02/26/22 Lino Mobley MD [address] [place] [id number] Obstetrics and Gynecology 07/20/24 Talita Gallagher MD [address] [place] [phone] Hematology and Oncology 07/20/24 documented as of this encounter
== END 2024-12-21 12:09 | disposition home or self-care (01) ==
LOC: HO.HMCFM 11:28
PROVIDERS: PCP Physician Assistant; Visit Provider Physician Assistant
DX: I10 Essential (primary) hypertension (principal); N39.41 Urge incontinence; D50.9 Iron deficiency anemia, unspecified

== ENCOUNTER → 2024-12-21 11:25 | Outpatient (BNVA) | payer OTHER, SELFPAY | PROVIDERS: PCP Physician Assistant; Visit Provider Physician Assistant | DX: Z13.89 Encounter for screening for other disorder (principal) ==

== ENCOUNTER 2025-01-04 08:52 | Outpatient (AMB) | payer OTHER, SELFPAY ==
--- NOTE | 2025-01-04 08:59 | A.OFFVIS_ITS ---
Intake Visit Reasons: urge incontinence Intake Note: New Patient presents for initial visit for urinary frequency Urology Medications: none Blood Thinner: none PVR: 0ml's Motor Vehicle Assembly Supervisor Required: Yes Motor Vehicle Assembly Supervisor Services: Motor Vehicle Assembly Supervisor Present Motor Vehicle Assembly Supervisor Name: BAILEY SHAWRISSA Accompanied by: Self / Same As Patient Allergies No Known Allergies Allergy (Verified 01/04/25 09:29) Medication List - Last Reconciled 01/04/25 by MAN Hernandez bisacodyl (Dulcolax (bisacodyl)) 10 mg (2 x 5 mg) PO BEDTIME 2 days naproxen sodium 220 mg PO BID PRN omeprazole 20 mg PO DAILY peg 3350-electrolytes 236-22.74-6.74 -5.86 gram (Golytely) 240 mL PO Q10M 1 day HPI Comments Details: Manuela is a pleasant 49-year-old Korean-speaking female patient of Dr. Mg. She has a past medical history of GERD, anxiety, and iron deficiency anemia. She presents to the office today as a new patient for urge incontinence as well as bladder pressure. In discussion with the patient today she reports noting over the last few months she has been experiencing episodes of urge incontinence and bladder pressure at which time recommendations were made for urology referral for further assessment evaluation. 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 She feels this is a contributing factor to her lower urinary tract symptoms. She reports when she is home and has access to a bathroom she does not experience these issues. In office urinalysis results reviewed with the patient today 1+ leukocytes and 3+ microscopic hematuria noted however patient is currently on her menses. PVR 0 mL. We did discuss healthy bathroom behaviors. We did discussed potential causes of these lower urinary tract symptoms she is experiencing as well as further treatment options and risks and benefits of these treatment options. Will obtain retroperitoneal ultrasound for further assessment evaluation. All questions were answered. We also discussed bladder triggers/irritants. She denies nocturia, gross/visible hematuria, dysuria, foul smelling urine, changes to urinary stream, flank pain, fever, and or chills. She otherwise offers no other issues or concerns at this time. [facility] Medical History Iron deficiency anemia Palpitations Gastroesophageal reflux disease Elevated blood pressure reading Anxiety Surgical History History of hysteroscopy Hx of tubal ligation Family History Other Substance abuse Social History Household Members: Spouse, Family and Children Housing: House Alcohol intake: never Patient Tobacco Use Status: Never used Tobacco e-Cigarette/Vaping Use: Never Used Second Hand Smoke Exposure: No service: No Current occupational status: unemployed Sexual orientation: Straight/Heterosexual Gender identity: Female Cognitive needs: No Hearing needs: No Vision needs: No Female Reproductive History Menstrual Age of Menarche: 14 Review of Systems Const All systems reviewed & are unremarkable except as noted in HPI and below Physical Exam Const General: cooperative, healthy appearing, comfortable, no acute distress, well developed, alert and awake Orientation/consciousness: patient oriented x3 Limitations: language barrier HEENT Head: Yes normal to inspection, Yes normocephalic and Yes atraumatic Ears: hearing grossly normal bilaterally Eyes General: appearance normal, both eyes and all related structures Neck Neck: Yes normal visual inspection and Yes trachea midline Chest Chest palpation & inspection: normal inspection of the chest Resp Effort & Inspection: normal respiratory effort and able to speak in complete sentences Cardio Rate: regular rate GI Inspection: Yes normal to inspection General: Yes no CVA tenderness Back/Spine/Pelvis Back: no CVA tenderness Skin General skin exam: no rashes or lesions noted Neuro General: patient oriented x3 Extrem General: Yes normal to inspection Psych Appearance: grossly normal and well kempt Mental Status: mental status grossly normal Speech and movement: Normal speech and movement present and Clear speech present Affect: normal affect Attitude: cooperative Thought process: Normal thought process present Thought content: Normal thought content present Insight: Fair insight present (Psych) Judgement: Fair judgement present (Psych) Office Procedures Post Void Residual Post Residual Void Post Void Residual (PVR): 0 [id number] Void Residual by ultrasound Results AMB Urinalysis, Automated UA Leukoctes 70 Surya/uL Last Edit by Rafatfelton Albaomer [facility] on 01/04/25 09:24 UA Nitrite Last Edit by Merrill Alba, [facility] on 01/04/25 09:24 UA Urobilinogen 0.2 mg/dL Last Edit by Rafatfelton Alba, [facility] on 01/04/25 09:2 4 UA Protein 100 mg/dL Last Edit by Pafelton Anjali, [facility] on 01/04/25 09:24 UA pH 6.0 Last Edit by Pafelton Anjali, [facility] on 01/04/25 09:24 UA Blood 200 Curt/uL Last Edit by [facility], [facility] on 01/04/25 09:24 UA Specific [place] 1.030 Last Edit by Merrill Anjali, [facility] on 01/04/25 09: 24 UA Ketone Positive Last Edit by Merrill Anjali, [facility] on 01/04/25 09:24 UA Bilirubin 1 mg/dL Last Edit by [facility], [facility] on 01/04/25 09:24 UA Glucose 0 mg/dL Last Edit [facility], [facility] on 01/04/25 09:24 Results Reviewed Results Reviewed: Laboratory Last Values Urine pH (Auto) 6.0 01/04/25 09:21 Specific [place] (Auto) 1.030 01/04/25 09:21 Urine Protein (Auto) 100 mg/dL 01/04/25 09:21 Glucose (UA)(Auto) 0 mg/dL 01/04/25 09:21 Urine Ketones (Auto) Positive 01/04/25 09:21 Urine Blood (Auto) 200 Curt/uL 01/04/25 09:21 Urine Bilirubin (Auto) 1 mg/dL 01/04/25 09:21 Urine Urobilinogen (Auto) 0.2 mg/dL 01/04/25 09:21 Leukocyte Esterase (Auto) 70 Surya/uL 01/04/25 09:21 Assessment & Plan Assessment & Plan (1) Urinary incontinence, urge: Code(s): N39.41 - Urge incontinence Category: Medical Plan In office urinalysis results reviewed with the patient today; she is currently on her menses. PVR 0 mL. We did discuss healthy bathroom behaviors. We discussed bladder triggers/irritants. We discussed further treatment options and risks and benefits of these treatment options. We did discussed potential causes of lower urinary tract symptoms she is experiencing. Will obtain retroperitoneal ultrasound for further assessment evaluation. Work note provided; for patient to be able to access bathroom Follow-up in 3 months with imaging to be completed prior; or sooner with any issues, concerns, and or questions. Orders: Orders AMB Urinalysis Automated Today Z13.9 - Encounter for screening, unspecified US retroperitoneal comp Today N39.41 - Urge incontinence, R39.89 - Other s ymptoms and signs involving the genitourinary system AMB Post Void Residual by ultrasound Today N39.41 - Urge incontinence Patient Instructions: The patient had an opportunity to ask questions regarding the treatment plan. All questions were answered. Physical exam, labs, and imaging were discussed and reviewed in detail. As well as risks, benefits, and discussion of treatment choices. No major barriers to understanding were identified. The patient expressed understanding and agreement with the above treatment plan. The patient was made aware they should contact our office by phone for worsening of their current condition, the appearance of new symptoms, or with any questions or concerns. Compliance is encouraged with any medications and follow up testing that is ordered. It is a privilege to be allowed the opportunity to participate in? your urological care.? Again, if you have any questions or conc erns If you have any questions or concerns please do not hesitate to contact me. The office is [phone]. This note is constructed using voice recognition software. While every effort has been made to ensure accuracy distribution sales manager errors may have been included. Yours sincerely, MAN Hernandez Coding Level of Care Code New Pt Level 3 (30743) Diagnoses Urinary incontinence, urge N39.41 CPT Codes Post Residual Void - PVR CPT Code: 27344-Ckuw Void Residual by ultrasound ( [id number])
--- OUTSIDE RECORDS SUMMARY | 2025-01-04 09:03 | XMS_ITS | Encounter Summary ---
Author Organization [employer] Address [address] [place] [address] Care Team Providers Care Environmental Geologist Name Role Phone Kay Peterson Primary Care Provider Lino Mobley MD Unavailable Talita Gallagher MD Unavailable [phone] Reason for Visit * Reason Onset Date Comments Appointment Request 10/02/2022 Encounter Details Date Type Department Care Team (Late st Contact Info) Description 10/02/2022 Telephone [facility] [address] [place] [address] Kay Peterson FNP [address] [place], [place] [phone] Appointment Request Social History Tobacco Use Types [...] Per Elyse ). Please contact pt at [phone] documented in this encounter Plan of Treatment Not on file documented as of this encounter Visit Diagnoses Not on filedocumented in this encounter Care Teams Environmental Geologist Relationship Specialty Start Date End Date Kay Peterson FNP [address] [place] [phone] PCP - General Family Medicine 02/26/22 Lino Mobley MD [address] [place] [phone] Obstetrics and Gynecology 07/20/24 Talita Gallagher MD [address] [place] [phone] Hematology and Oncology 07/20/24 documented as of this encounter
== END 2025-01-04 09:31 | disposition home or self-care (01) ==
LOC: HO.HUSH 08:53
PROVIDERS: PCP Physician Assistant; Visit Provider Nurse Practitioner Family
DX: N39.41 Urge incontinence (principal); Z13.9 Encounter for screening, unspecified
CPT/HCPCS: 99203

== ENCOUNTER → 2025-01-04 08:52 | Outpatient (BNVA) | payer OTHER, SELFPAY | PROVIDERS: PCP Physician Assistant; Visit Provider Nurse Practitioner Family | DX: N39.41 Urge incontinence (principal) | CPT/HCPCS: 51798; 81003 ==

== ENCOUNTER 2025-01-16 | Outpatient (REF) | payer OTHER, SELFPAY ==
--- OUTSIDE RECORDS SUMMARY | 2025-01-25 08:55 | XMS_ITS | Encounter Summary ---
Author Organization [employer] Address [address] 7[address] [place] [address] Care Team Providers Care Cigarette Maker Name Role Phone Kay Peterson Primary Care Provider Lino Mobley MD Unavailable Talita Gallagher MD Unavailable [phone] Reason for Visit * Reason Onset Date Comments Appointment Request 10/02/2022 Encounter Details Date Type Department Care Team (Late st Contact Info) Description 10/02/2022 Telephone [facility] MEDICINE 230 [place] [address] Kay Peterson FNP [address] [place], [place] [phone] Appointment Request Social History Tobacco Use Types [...] Per Elyse ). Please contact pt at [phone] documented in this encounter Plan of Treatment Not on file documented as of this encounter Visit Diagnoses Not on filedocumented in this encounter Care Teams Cigarette Maker Relationship Specialty Start Date End Date Kay Peterson FNP [address] [place] [address] PCP - General Family Medicine 02/26/22 Lino Mobley MD [address] [place] [address] Obstetrics and Gynecology 07/20/24 Talita Gallagher MD [address] [place] [address] Hematology and Oncology 07/20/24 documented as of this encounter
== END 2025-01-16 00:01 | disposition home or self-care (01) ==
LOC: CF
PROVIDERS: PCP Physician Assistant; Visit Provider Obstetrics & Gynecology
DX: N93.9 Abnormal uterine and vaginal bleeding, unspecified (principal); I83.11 Varicose veins of right lower extremity with inflammation; Z32.02 Encounter for pregnancy test, result negative
CPT/HCPCS: 58100; 81025

== ENCOUNTER 2025-01-17 09:01 | Outpatient (AMB) | payer OTHER, SELFPAY ==
--- NOTE | 2025-01-17 09:07 | MHC.OFFVIS ---
Vital Signs 01/17/25 09:15 Height 5 ft 6 in Weight 200 lb BMI 32.3 Intake Visit Reasons: EMB Dormitory Counselor Required: Yes Dormitory Counselor Language: Graphic Art Designer Services: Dormitory Counselor Present (in person) Dormitory Counselor Name: Val KING Information Interpreted: non-clinical & clinical Sociocultural Anthropology Professor: Sociocultural Anthropology Professor Present (Val KING) Accompanied by: Self / Same As Patient Allergies No Known Allergies Allergy (Verified 01/17/25 09:16) HPI Comments Details: Presenting for EMB [facility] Medical History Iron deficiency anemia Palpitations Gastroesophageal reflux disease Elevated blood pressure reading Anxiety Surgical History History of hysteroscopy Hx of tubal ligation Family History Other Substance abuse Social History Household Members: Spouse, Family and Children Housing: House Alcohol intake: never Patient Tobacco Use Status: Never used Tobacco e-Cigarette/Vaping Use: Never Used Second Hand Smoke Exposure: No service: No Current occupational status: unemployed Sexual orientation: Straight/Heterosexual Gender identity: Female Cognitive needs: No Hearing needs: No Vision needs: No Female Reproductive History Menstrual Age of Menarche: 14 Review of Systems Const All systems reviewed & are unremarkable except as noted in HPI and below Reports as per HPI and Reports no additional complaints GI Reports no additional complaints Reports no additional complaints Physical Exam Vital Signs: BMI result Body Mass Index 32.3 Office Procedures Endometrial Biopsy Details: The patient was counseled regarding the indication and benefits of endometrial sampling to rule out endometrial pathology including not limited to endometrial hyperplasia or endometrial cancer and others; The alternatives (Either do nothing vs. hysteroscopy D&C) & the risks were discussed with the patient including but not limited: pain, uterine perforation, bleeding, infection, possible injury to bladder, bowel, ureter, possible need for blood transfusion with all its possible risks. The patient verbalized understanding all questions answered and signed consent. Urine test done in the office was negative The patient was placed into the dorsal lithotomy position; a speculum was inserted in the vagina. Using aseptic technique for the procedure, the cervix was cleansed with Betadine. The anterior lip of the cervix was grasped with a single tooth tenaculum. The uterus was sounded to 7 cm with a 4 mm Pipelle was used. Tissues samples were obtained and placed in formalin, in a patient labeled container and sent to the pathology department. At the end of the procedure, there was minimal bleeding noted The patient tolerated the procedure well and was discharged in good condition with the following instructions: Nothing in the vagina until the bleeding stops. No sex until the bleeding stops, to call if any of the following occurs: fever (>100.4), flu-like symptoms, abdominal pain, heavy bleeding, four smelling vaginal discharge. The patient was instructed to schedule a Follow up appointment in 2 weeks to discuss pathology results of the biopsy and treatment options. This note was generated with a voice recognition program. Some errors may have been overlooked during the review of this note. Sometimes these errors may affect the content or meaning of a given sentence. 57915-Oryyktjsoxs Biopsy Results AMB Test Urine AMB Test Urine Negative Last Edit by Val Gonzalez CMA on 01/17/25 09:17 Results Reviewed Results Reviewed: Laboratory Last Values Tst Clinic Negative 01/17/25 09:17 Assessment & Plan Assessment & Plan (1) Abnormal uterine bleeding: Code(s): N93.9 - Abnormal uterine and vaginal bleeding, unspecified Category: Medical Plan: EMB done, see procedure Orders: Orders AMB HCG Urine Test Today Z32.02 - Encounter for test, result negative AMB Endometrial Biopsy Today N93.9 - Abnormal uterine and vaginal bleeding, unspecified Coding Level of Care Code Procedure Only Diagnoses Abnormal uterine bleeding N93.9 CPT Codes Endometrial Biopsy - CPT: 03844-Ooegknolkrf Biopsy ([id number])
[2025-01-17 09:15] VITALS: BMI 32.3
--- OUTSIDE RECORDS SUMMARY | 2025-01-17 09:17 | XMS_ITS | Encounter Summary ---
Author Organization [employer] Address [address] [place] [address] Care Team Providers Care Drop Hammer Pile Driver Operator Name Role Phone Kay Peterson Primary Care Provider [phone] Lino Mobley MD Unavailable Talita Gallagher MD Unavailable [phone] Reason for Visit * Reason Onset Date Comments Appointment Request 10/02/2022 Encounter Details Date Type Department Care Team (Late st Contact Info) Description 10/02/2022 Telephone [facility] MEDICINE 230 [place] [address] Kay Peterson FNP [address] [place], [place] [phone] Appointment Request Social History Tobacco Use Types [...] Per Elyse ). Please contact pt at [phone] documented in this encounter Plan of Treatment Not on file documented as of this encounter Visit Diagnoses Not on filedocumented in this encounter Care Teams Drop Hammer Pile Driver Operator Relationship Specialty Start Date End Date Kay Peterson FNP [address] [place] [address] PCP - General Family Medicine 02/26/22 Lino Mobley MD [address] [place] [address] Obstetrics and Gynecology 07/20/24 Talita Gallagher MD [address] [place] [address] Hematology and Oncology 07/20/24 documented as of this encounter
== END 2025-01-17 09:27 | disposition home or self-care (01) ==
LOC: HO.HWS 09:02
PROVIDERS: PCP Physician Assistant; Visit Provider Obstetrics & Gynecology
DX: N93.9 Abnormal uterine and vaginal bleeding, unspecified (principal); Z32.02 Encounter for pregnancy test, result negative
CPT/HCPCS: 58100

== ENCOUNTER 2025-01-17 09:25 | Outpatient (REF) | payer OTHER, SELFPAY | END 2025-01-17 09:26 | disposition home or self-care (01) | LOC: HO.LNP 09:25 | PROVIDERS: Visit Provider Obstetrics & Gynecology | DX: Z32.02 Encounter for pregnancy test, result negative (principal); N93.9 Abnormal uterine and vaginal bleeding, unspecified | CPT/HCPCS: 88305 ==

== ENCOUNTER 2025-02-07 10:03 | Outpatient (AMB) | payer OTHER, SELFPAY ==
--- NOTE | 2025-02-07 10:04 | A.OFFVIS_ITS ---
Intake Visit Reasons: TV EMB Results Electrical Service Technician Required: Yes Electrical Service Technician Language: Family Nurse Practitioner Services: Electrical Service Technician Present (in person) Electrical Service Technician Name: Val KING Information Interpreted: non-clinical & clinical Accompanied by: Self / Same As Patient Allergies No Known Allergies Allergy (Verified 02/07/25 10:10) HPI Comments Details: The patient scheduled a telehealth visit for follow-up to discuss the results of her abnormal uterine bleeding workup and options of treatment. The following workup was done.: H&H= 9.5/32.3 on Fe 325 mg po qd TSH, hCG, GC and chlamydia were negative. Endometrial biopsy pathology showed the following: Endometrium, biopsy: Disordered proliferative endometrium; few fragments of en docervical epithelium within normal limits; no atypia or hyperplasia identified Co testing was done in 01/22 was negative. Mammogram was done in 02/25 was BI-RADS 1 Pelvic ultrasound showed the following: Uterus: The uterus is anteverted , anteflexed and measures 9.7 x 5.1 x 5.9 cm. The double wall endometrial thickness is 1.1 cm. The uterus is smooth in contour and has normal myometrial echogenicity. There are 2 small hypoechoic lesions. A 1.2 x 0.9 x 1.0 lesion likely submucosal in the mid to lower uterus. Previously measured 1.1 x 1.1 x 1.0 cm. Second lesion in the body of the left mid uterus measuring 0.6 x 0.3 x 0.6 cm. Previously it measured 0.8 x 0.4 0.6 cm. There are small nabothian cyst in the cervix. Adnexa: Both ovaries are visualized. There is normal color flow to the adnexa. There is no ovarian torsion. There is no pelvic ascites or fluid collection. Right ovary transabdominal ultrasound measures 3.5 and 1.9 x 2.8 cm in volume 9.8 mL. There is anechoic dominant follicle or cyst measuring 1.0 x 0.9 0.9 cm. Left ovary is not visualized. [facility] Medical History Iron deficiency anemia Palpitations Gastroesophageal reflux disease Elevated blood pressure reading Anxiety Surgical History History of hysteroscopy Hx of tubal ligation Family History Other Substance abuse Social History Household Members: Spouse, Family and Children Housing: House Alcohol intake: never Patient Tobacco Use Status: Never used Tobacco e-Cigarette/Vaping Use: Never Used Second Hand Smoke Exposure: No service: No Current occupational status: unemployed Sexual orientation: Straight/Heterosexual Gender identity: Female Cognitive needs: No Hearing needs: No Vision needs: No Female Reproductive History Menstrual Age of Menarche: 14 Review of Systems Const All systems reviewed & are unremarkable except as noted in HPI and below Reports as per HPI and Reports no additional complaints GI Reports no additional complaints Reports no additional complaints Telehealth Telehealth Telehealth Platform: Telephone Location of provider rendering services: practice address Location of patient: address on file Patient Identification confirmed using: Name, : Yes Telehealth method: video Patient verbally consented to treatment: Yes Patient verbally consented to billing insurance company: Yes Patient informed of any privacy concerns related to visit: Yes Minutes spent on Phone/Video with Pt.: 10 Assessment & Plan Assessment & Plan (1) Abnormal uterine bleeding: Code(s): N93.9 - Abnormal uterine and vaginal bleeding, unspecified Category: Medical Plan: Discussed with the patient the results of the work up done and options of treatment including Lysteda, control pills, Mirena IUD, endometrial ablation and hysterectomy. All pros, cons, risks and benefits if each option was discussed with the patient and the patient decided to go ahead with Mirena IUD so a more detailed discussion about it was conducted including mechanism of action, risks (uterine perforation, infection, injury to bladder, bowel, d isplacement, and others) benefits (hypo menorrhea, amenorrhea, ...). GC/CT were taken and the patient was instructed to schedule Mirena IUD insertion on day 1-5 of next cycle . All questions answered, the patient verbalized understanding I spent a total of 20 minutes reviewing the chart, talking to the patient via video and documenting in the medical record. (2) Uterine myoma: Comment: 1 myoma submucosal Code(s): D25.9 - Leiomyoma of uterus, unspecified Category: Medical Plan: Discussed with the patient the findings on pelvic ultrasound & the risk of myosarcoma; in addition reviewed with the patient that malignancy and pre malignancy cannot be ruled out without hysterectomy for pathological evaluation ; furthermore, explained to the patient the limitation of pelvic ultrasound and endometrial biopsy in the setting. Discussed with the patient the options of treatment including expectant management versus hysterectomy; the pros and cons, risks benefits of each approach were discussed with the patient including the fact that in cases of myosarcoma, surgical treatment can lead to early diagnosis and positively affects the prognosis; after further discussion, the patient decided to proceed with expectant management. Will repeat pelvic ultrasound periodically. Instructions given to patient to call in case any of the following occurs: pressure symptoms, abnormal uterine bleeding, pelvic pain; and to schedule a six-months pelvic ultrasound (order placed) and a follow-up appointment . All questions answered, the patient verbalized understanding and agreed with the plan . Orders: Orders US pelvic and transvaginal 12 Months D25.9 - Leiomyoma of uterus, unspecified Coding Level of Care Code Tele Est Pt Level 3 (78604) Diagnoses Abnormal uterine bleeding N93.9 Uterine myoma D25.9
--- OUTSIDE RECORDS SUMMARY | 2025-02-07 10:35 | XMS_ITS | Encounter Summary ---
Author Organization [employer] Address [address] 7[address] [place] [address] Care Team Providers Care Housekeeping Lead Name Role Phone Kay Peterson Primary Care Provider [phone] Lino Mobley MD Unavailable Talita Gallagher MD Unavailable [phone] Reason for Visit * Reason Onset Date Comments Appointment Request 10/02/2022 Encounter Details Date Type Department Care Team (Late st Contact Info) Description 10/02/2022 Telephone [facility] MEDICINE 230 [place] [address] Kay Peterson FNP [address] [place], [place] [phone] Appointment Request Social History Tobacco Use Types [...] Per Elyse ). Please contact pt at [phone] documented in this encounter Plan of Treatment Not on file documented as of this encounter Visit Diagnoses Not on filedocumented in this encounter Care Teams Housekeeping Lead Relationship Specialty Start Date End Date Kay Peterson FNP [address] [place] [address] PCP - General Family Medicine 02/26/22 Lino Mobley MD [address] [place] [address] Obstetrics and Gynecology 07/20/24 Talita Gallagher MD [address] [place] [address] Hematology and Oncology 07/20/24 documented as of this encounter
== END 2025-02-07 10:29 | disposition home or self-care (01) ==
LOC: HO.HWS 10:03
PROVIDERS: PCP Physician Assistant; Visit Provider Obstetrics & Gynecology
DX: N93.9 Abnormal uterine and vaginal bleeding, unspecified (principal); D25.9 Leiomyoma of uterus, unspecified
CPT/HCPCS: 99213

== ENCOUNTER 2025-04-04 14:27 | Outpatient (REF) | payer OTHER, SELFPAY ==
--- NOTE | ~2025-04-04 | US_ITS ---
EXAMINATION: US PELVIS CLINICAL INFORMATION: N 93 .9. Abnormal uterine and vaginal bleed COMPARISON: November 06, 2024 TECHNIQUE: Ultrasound of the pelvis is performed using transabdominal approach and transducer along with Doppler. . FINDINGS: Uterus: The uterus is anteversion flexion and measures 8 x 5 x 7 cm. The cervix is closed without gross abnormality. The double wall endometrial thickness is 7 mm. There is a 1.4 cm hypoechoic abnormality within the submucosal body. No dystrophic desiccation's. No flow on color Doppler interrogation. Adnexa: The ovaries are identified with flow on color Doppler interrogation.. No gross free fluid in the cul-de-sac. Right ovary measures 3 x 2 x 1 cm. Volume: 3 cc. No solid or cystic lesion. Left ovary measures 4 x 2 x 4 cm. Volume: 18 ccThere is a 3.5 cm lobulated, well-defined anechoic lesion without septations or flow on color Doppler interrogation.. US/US pelvic and transvaginal IMPRESSION: 1.4 cm submucosal uterine fibroid. 3.5 cm cystic lesion, left ovary. No ovarian torsion. Electronically signed by: Payam Meeks MD 04/04/2025 03:39 PM EDT
--- NOTE | ~2025-04-04 | US_ITS ---
EXAMINATION: US RETROPERITONEAL LIMITED (RENAL ONLY) CLINICAL INFORMATION: R 39.89.. COMPARISON: None available. TECHNIQUE: Real-time ultrasound kidneys and bladder using grayscale technique. FINDINGS: RIGHT KIDNEY: 12 x 5 x 4 cm (SAG x AP x TRV). Normal echotexture. Renal cortical thickness is normal. No hydronephrosis. No solid or cystic lesion. LEFT KIDNEY: 10 x 5 x 4 cm (SAG x AP x TRV). Normal echotexture. Renal cortical thickness is normal. No hydronephrosis. No gross solid or cystic lesion. BLADDER: Fluid-filled. Bilateral jets are present. Prevoid: 32 cc. Postvoid: 2 cc. US/US renal BI IMPRESSION: No hydronephrosis. 2 cc residual urine in a post void image... Electronically signed by: Payam Meeks MD 04/04/2025 03:33 PM EDT
--- OUTSIDE RECORDS SUMMARY | 2025-04-04 15:37 | XMS_ITS | Encounter Summary ---
Author Organization [employer] Address [address] 7[address] [place] [address] Care Team Providers Care Hospital Monitor Name Role Phone Coltonjeancarlos Kay AYALA Primary Care Provider [phone] Lino Mobley MD Unavailable Talita Gallagher MD Unavailable [phone] Reason for Visit * Reason Comments Med Refill Encounter Details Date Type Department Care Team (Late st Contact Info) Description 02/25/2025 Refill [facility] MED & PEDS 505 [place], [place] [phone] Yuki Mccormack MD 505 [place], [place] [phone] Vitamin D deficiency Social History Tobacco Use [...] as of this encounter Visit Diagnoses Diagnosis Vitamin D deficiency documented in this encounter Additional Health Concerns Assessment Noted Time PHQ-9 Depression Total Score: 0 10/20/19 25 10:22 AM EDT documented as of this encounter Care Teams Hospital Monitor Relationship Specialty Start Date End Date Kay Peterson FNP 230 [place] [address] PCP - General Family Medicine 02/26/22 Lino Mobley MD [address] [place] [address] Obstetrics and Gynecology 07/20/24 Talita Gallagher MD [address] [place] [address] Hematology and Oncology 07/20/24 documented as of this encounter
--- OUTSIDE RECORDS SUMMARY | 2025-04-04 15:37 | XMS_ITS | Encounter Summary ---
Author Organization [employer] Address [address] 7[address] [place] [address] Care Team Providers Care Pigment Mixer Name Role Phone Kay Peterson Primary Care Provider [phone] Lino Mobley MD Unavailable Talita Gallagher MD Unavailable [phone] Reason for Visit * Reason Onset Date Comments Nurse Triage 11/30/2023 Encounter Details Date Type Department Care Team (Late st Contact Info) Description 11/30/2023 Telephone [facility] MEDICINE 230 [place] [address] Kay Peterson FNP [address] [place], [place] [phone] Nurse Triage Social History Tobacco Use Types [...] for further evaluation. RN also reviews the air and hydronic balancing technician triage nurses and that ptcan call anytime, [...] The caller accepted this outcome Patient speaks greenlandic documented in this encounter Plan of Treatment Not on file documented as of this encounter Visit Diagnoses Not on filedocumented in this encounter Additional Health Concerns Assessment Noted Time PHQ-9 Depression Total Score: 3 10/08/19 24 9:44 AM EDT documented as of this encounter Care Teams Pigment Mixer Relationship Specialty Start Date End Date Kay Peterson FNP [address] [place] [address] PCP - General Family Medicine 02/26/22 Lino Mobley MD [address] [place] [address] Obstetrics and Gynecology 07/20/24 Talita Gallagher MD [address] [place] [address] Hematology and Oncology 07/20/24 documented as of this encounter
--- OUTSIDE RECORDS SUMMARY | 2025-04-04 15:37 | XMS_ITS | Encounter Summary ---
Author Organization [employer] Address [address] [facility] 7[address] [place] [address] Care Team Providers Care Credit Card Analyst Name Role Phone Kay Peterson Primary Care Provider [phone] Lino Mobley MD Unavailable Talita Gallagher MD Unavailable [phone] Reason for Visit * Reason Onset Date Comments Appointment Request 08/26/2022 Encounter Details Date Type Department Care Team (Late st Contact Info) Description 08/26/2022 Telephone [facility] MEDICINE 230 [place] [address] Kay Peterson FNP [address] [place], [place] [phone] Appointment Request Social History Tobacco Use Types [...] she doesn't mind with a different provider. (Bolivian speaker) * Telephone Encounter - Johnson Mccarthy - 08/26/2022 11:44 AM EST Tc from pt requesting an Physical appt states work is requiring pt to have Physical updated Please contact pt at [phone] documented in this encounter Plan of Treatment Not on file documented as of this encounter Visit Diagnoses Not on filedocumented in this encounter Care Teams Credit Card Analyst Relationship Specialty Start Date End Date Kay Peterson FNP 230 [place] [address] PCP - General Family Medicine 02/26/22 Lino Mobley MD [address] [place] [address] Obstetrics and Gynecology 07/20/24 Talita Gallagher MD [address] [place] [address] Hematology and Oncology 07/20/24 documented as of this encounter
--- OUTSIDE RECORDS SUMMARY | 2025-04-04 15:37 | XMS_ITS | Encounter Summary ---
Author Organization [employer] Address [address] 7[address] [place] [address] Care Team Providers Care Cold Mill Supervisor Name Role Phone Kay Peterson Primary Care Provider [phone] Lino Mobley MD Unavailable Talita Gallagher MD Unavailable [phone] Reason for Visit * Reason Onset Date Comments Lab Orders 11/05/2023 Encounter Details Date Type Department Care Team (Late st Contact Info) Description 11/05/2023 Telephone [facility] MEDICINE 230 [place] [address] Kay Peterson FNP [address] [place], [place] [phone] Lab Orders Social History Tobacco Use Types [...] documented as of this encounter Care Teams Cold Mill Supervisor Relationship Specialty Start Date End Date Kay Peterson FNP [address] [place] [address] PCP - General Family Medicine 02/26/22 Lino Mobley MD [address] [place] [address] Obstetrics and Gynecology 07/20/24 Talita Gallagher MD [address] [place] [address], [place] [address] Hematology and Oncology 07/20/24 documented as of this encounter
--- OUTSIDE RECORDS SUMMARY | 2025-04-04 15:37 | XMS_ITS | Encounter Summary ---
Author Organization [employer] Address [address] 7[address] [place] [address] Care Team Providers Care Senior Hydrogeologist Name Role Phone Kay Peterson Primary Care Provider [phone] Lino Mobley MD Unavailable Talita Gallagher MD Unavailable [phone] Encounter Details Date Type Department Care Team (Late st Contact Info) Description 10/25/2024 Orders Only [facility] CH[facility] MED & PEDS 505 [place] [address] Veronica Zhang Social History Tobacco Use Types [...] us Historical Provider HEALTH MAINTENANCE Final Result [facility] [address] [place] [phone] documented in this encounter Visit Diagnoses Not on filedocumented in this encounter Additional Health Concerns Assessment Noted Time PHQ-9 Depression Total Score: 0 10/20/19 25 10:22 AM EDT documented as of this encounter Care Teams Senior Hydrogeologist Relationship Specialty Start Date End Date Kay Peterson FNP 230 [place] [address] PCP - General Family Medicine 02/26/22 Lino Mobley MD [address] [place] [address] [place] [address] Obstetrics and Gynecology 07/20/24 Talita Gallagher MD [address] [place] [address] Hematology and Oncology 07/20/24 documented as of this encounter
--- OUTSIDE RECORDS SUMMARY | 2025-04-04 15:37 | XMS_ITS | Encounter Summary ---
Author Organization [employer] Address [address] [facility] 7t [place] [address] Care Team Providers Care Hyster Machine Operator Name Role Phone Kay Peterson Primary Care Provider [phone] Lino Mobley MD Unavailable Talita Gallagher MD Unavailable [phone] Reason for Visit * Reason Onset Date Comments Appointment Confirmation 11/08/2023 Encounter Details Date Type Department Care Team ([facility] st Contact Info) Description 11/08/2023 Telephone [facility] CHC MED & PEDS 505 [place], [place] [phone] Kay Peterson FNP 505 [place], [place] [phone] Appointment Confirmation Social History Tobacco Use Types [...] documented as of this encounter Care Teams Hyster Machine Operator Relationship Specialty Start Date End Date Kya Peterson FNP [address] [place] [address] PCP - General Family Medicine 02/26/22 Lino Mobley MD [address] [place] [address] [place] [address] Obstetrics and Gynecology 07/20/24 Talita Gallagher MD 5 [place] [address] Hematology and Oncology 07/20/24 documented as of this encounter
--- OUTSIDE RECORDS SUMMARY | 2025-04-04 15:37 | XMS_ITS | Encounter Summary ---
Author Organization [employer] Address [address] 7[address] [place] [address] Care Team Providers Care Insurance Claims Analyst Name Role Phone Kay Peterson Primary Care Provider [phone] Lino Mobley MD Unavailable Talita Gallagher MD Unavailable [phone] Reason for Visit * Reason Onset Date Comments Appointment Request 10/02/2022 Encounter Details Date Type Department Care Team (Late st Contact Info) Description 10/02/[address] [facility] MEDICINE 230 [place] [address] Kay Peterson FNP [address] [place], [place] [phone] Appointment Request Social History Tobacco Use Types [...] Per Elyse ). Please contact pt at [phone] documented in this encounter Plan of Treatment Not on file documented as of this encounter Visit Diagnoses Not on filedocumented in this encounter Care Teams Insurance Claims Analyst Relationship Specialty Start Date End Date Kay Peterson FNP [address] [place] [address] PCP - General Family Medicine 02/26/22 Lino Mobley MD [address] [place] [address] Obstetrics and Gynecology 07/20/24 Talita Gallagher MD [address] [place] [address] Hematology and Oncology 07/20/24 documented as of this encounter
--- OUTSIDE RECORDS SUMMARY | 2025-04-04 15:37 | XMS_ITS | Encounter Summary ---
Author Organization [employer] Address [address] [facility] 7t [place] [address] Care Team Providers Care Corporate Lawyer Name Role Phone Kay Peterson Primary Care Provider [phone] Lino Mobley MD Unavailable Talita Gallagher MD Unavailable [phone] Reason for Visit * Reason Onset Date Comments medication 02/19/2023 Encounter Details Date Type Department Care Team (Late st Contact Info) Description 02/19/2023 Telephone [facility] ADULT DENTAL [address] [place], [place] [phone] Fausto Rascon DDS [address] [place], [place] [phone] medication Social History Tobacco Use Types Packs/Day [...] documented as of this encounter Care Teams Corporate Lawyer Relationship Specialty Start Date End Date Kay Peterson FNP [address] [place] [address] PCP - General Family Medicine 02/26/22 Lino Mobley MD [address] [place] [phone] Obstetrics and Gynecology 07/20/24 Talita Gallagher MD [address] [place] [address] Hematology and Oncology 07/20/24 documented as of this encounter
--- OUTSIDE RECORDS SUMMARY | 2025-04-04 15:37 | XMS_ITS | Encounter Summary ---
Author Organization [employer] Address [address] [facility] [address] 7[address] [place] [address] Care Team Providers Care Bitumastic Applier Name Role Phone Kay Peterson Primary Care Provider [phone] Lino Mobley MD Unavailable Talita Gallagher MD Unavailable [phone] Reason for Visit * Reason Onset Date Comments emergency dental no dental coverage 01/02/2025 Encounter Details Date Type Department Care Team (Late st Contact Info) Description 01/02/2025 Telephone [facility] ADULT DENTAL [address] [place], [place] [phone] Fausto Rascon DDS [address] [place], [place] [phone] emergency dental no dental coverage Social History Tobacco Use Types Packs/Day Years [...] * Telephone Encounter - Gladys Bucio - 01/02/2025 10:57 AM EDT Patient has medical insurance no dental. Patient informed [facility] enrollment to recidive assistance with insurance and/or SFS prior to emergency dental appt. Patient understood DR documented in this encounter Plan of Treatment Not on file documented as of this encounter Visit Diagnoses Not on filedocumented in this encounter Additional Health Concerns Assessment Noted Time PHQ-9 Depression Total Score: 0 10/20/19 10:22 AM EDT documented as of this encounter Care Teams Bitumastic Applier Relationship Specialty Start Date End Date Kay Peterson FNP [address] [place] [phone] PCP - General Family Medicine 02/26/22 Lino Mobley MD [address] [place] [address] [place] [phone] Obstetrics and Gynecology 07/20/24 Talita Gallagher MD [address] [place] [phone] Hematology and Oncology 07/20/24 documented as of this encounter
--- OUTSIDE RECORDS SUMMARY | 2025-04-04 15:37 | XMS_ITS | Clinical Summary ---
Author Organization [facility] [employer] Address [address] [facility] [address] 7[address] [place] [address] Care Team Providers Care Equine Dentist Name Role Phone Kay Peterson Primary Care Provider [phone] Lino Mobley MD Unavailable Talita Gallagher MD Unavailable [phone] Allergies No known active allergies Medications [...] muscle spasms. 30 tablet 3 4 Active cholecalciferol (Vitamin D-3) 25 MCG [...] for heartburn 90 tablet 3 5 Active ergocalciferol (Vitamin D2) 1.25 MG (35345 UT) capsuleIndication s:Vitamin D deficiency Take 1 capsule (1.25 mg) by mouth 1 (one) time per week. Take for 8 weeks, then repeat labs. 8 capsule 5 Active simvastatin (Zocor) 5 MG tablet Take 1 tablet (5 mg) by mouth at bedtime. 30 tablet 11 5 10/27/19 26 Active propranolol (Inderal) 10 MG tabletIndications :Anxiety TAKE 1 TABLET BY MOUTH 30-60 MINUTES BEFORE STRESS INDUCING EVENT 90 tablet 5 Active Active Problems Problem Noted Date [...] 5:14 PM EDT): Intermittently bothersome/symptomatic Referral to [facility] Vascular placed 01/14/24 for further eval [...] PM EDT): BP goal: < 140/90 mmHg Initiate olmesartan 5mg daily. Reviewed med safety [...] May 2018. Due May 2023. Following with [facility] FINANCIAL ASSISTANCE SPECIALIST - encouraged to call office to schedule Colonoscopy: referred 09/25/22 for routine colon CA screening. Scheduled October 2023 Optometry: referral to [facility] Eye Care October 2023 Dental: established BMD: starting at 66 y/o ASCVD: 0.7% September 2022 Last PE: 10/08/23 Abnormal uterine bleeding 02/03/2023 Overview (07/20/2024): Followed by [facility] FINANCIAL ASSISTANCE SPECIALIST - Dr. Mobley Endometrial biopsy September 2022 w/o signs atypia or carcinoma 01/01/23: Hysteroscopy D&C, polypectomy by Dr. Mobley at [facility]. Post op diagnosis: AUB, endometrial polyp Feb 2024: Pelvic US demonstrated 2.7cm physiologic cyst right ovary. No follow up imaging rec. Endometrial stripe is 1.7cm. Also noted small submucosal uterine fibroid. Pt reviewed results w/ Dr. Mobley during FINANCIAL ASSISTANCE SPECIALIST consult in April 2024. Plan to proceed with expectant management at this time and repeat pelvic ultrasounds periodically Iron deficiency anemia 07/15/2022 Overview (07/20/2024): -Established with [facility] Heme/Onc: Dr. Gallagher -Received iron infusions (Venofer 200mg IV weekly x 5-6 weeks) through their office H/H improved from 7.8/27.8 in Jul 2022 to 11.7/37.8 in September 2022 H/H 9.4/31.5, microcytic Mar 2023 H/H 11.7/38.1 in October 2023 -Cause: upcoming colonoscopy scheduled to r/o GIB; following with [facility] FINANCIAL ASSISTANCE SPECIALIST for menorrhagia Assessment & Plan (07/20/2024 11:08 AM EST): - Plan to start iron supplementation with vitamin C through heme-onc. Encouraged hydration and fiber to help offset constipation Assessment & Plan (10/08/2023 5:51 AM EDT): -Last consult note: Jun 2023 Assessment & Plan (03/31/2023 4:21 PM EDT): -Established with [facility] Heme/Onc -Receiving iron infusions (Venofer 200mg IV weekly x 5-6 weeks) through their office -No more cravings for ice chips, energy has improved H/H improved from 7.8/27.8 in Jul 2022 to 11.7/37.8 in September 2022 - Labs ordered 03/31/2023 Assessment & Plan [...] Assessment & Plan (03/04/2023 5:56 PM EDT): Experiencing caregiver stress Continues on hydroxyzine 25mg PRN for sleep and anxiety Increase fluoxetine to 20mg daily. Reviewed med safety and SE Assessment & Plan (02/04/2023 5:35 PM EDT): Discussed caregiver stress Continues on hydroxyzine 25mg PRN for sleep and anxiety Discussed additional pharmacotherapy options. Shared decision making [...] Encounters Date Type Department Care Team Description 02/25/2025 Refill [facility] CHC MED & PEDS [address] [place] [address] Yuki Mccormack MD Vitamin D deficiency 02/17/2025 Refill [facility] MED [facility] PEDS [address] [place] [address] Kay Peterson FNP Anxiety 01/02/2025 Telephone [facility] ADULT DENTAL [address] [place], [place] [phone] Fausto Rascon DDS emergency dental no dental coverage from Last 3 Months Immunizations Immunization Administration Dates Next Due Hep B, adult [...] 90 10/19/2024 10:20 AM EDT Temperature 36.2 C (97.1 F) 10/19/2024 10:20 AM EDT Respiratory Rate 18 10/19/2024 10:20 AM EDT [...] 3 - 19+ 3-dose series) 02/07/2024 01/10/2024 Mammogram 03/03/2025 03/03/2024, 03/1 11/2021, 06/03/2018, Additional history exists COVID-19 Vaccine (2 - 2024- season) 2025 07/29/2021 Influenza Vaccine (#1) 2025 , 06/18/2023, 09/25/2022, Additional history exists Alcohol/Substance Use Screening 10/19/2025 10/19/2024 Depression Screening 10/19/2025 10/19/2024, 10/20/19 25 Disability Screening 10/19/2025 10/19/2024 SDOH Screening 10/19/2025 10/19/2024 Tobacco Screening 10/19/2025 [...] C Screening Completed 10/08/2023 , 09/29/2022, 08/12/2021 HIB Vaccines Aged Out No longer eligi [...] patient's age to complete this topic Meningococcal B Vaccine Aged Out No l onger eligible based on patient's age to complete this topic Meningococcal Vaccine Aged Out No fatou mercy eligible based on patient's age to complete this topic Pneumococcal Vaccine: Pediatrics (0 to 5 Years) and At-Risk Patients (6 to 49) Years Aged Out No longer eligible based on patient's age to complete this topic RSV under 20 months Aged Out No longe r eligible based on patient's age to complete this topic Rotavirus Vaccines Aged Out No longer eligible based on patient's age to complete this topic Procedures Procedure Name Priority Date/Time Associated Diagnosis Comments LIPID PANEL, STANDARD Routine 10/24/2024 11:40 AM EDT Primary hypertension BI MAMMOGRAM SCREENING TOMOSYNTHESIS BILATERAL Routine 03/03/2024 [...] Relevant to Health Maintenance Results * (ABNORMAL) Lipid Panel, Standard (10/24/2024 11:40 AM EDT) Triglycerides 113 <150 mg/dL [facility] Comment:Desirable Triglyceri de: less than 150 mg/dLBorderline High Triglyceride 150-199 mg/dLHigh Triglyceride: 200-499 mg/dLVery High Triglyceride: greater than or equal to 5OO mg/dL Cholesterol 220(H) <200 mg/dL [facility] Comment:Desirable Cholestero l: less than 200 mg/dLBorderline High Cholesterol: 200-239 mg/dLHigh Cholesterol: greater than 239 mg/dL LDL Cholesterol Calculated 148(H) <100 mg/dL [facility] Comment:Desirable LDL: less than 100 mg/dLNear Optimal/Above Optimal LDL: 110- 129 mg/dLBorderline High LDL: 130-159 mg/dLHigh LDL: 160-189 mg/dLVery High LDL: greater than or equal to 190 mg/dL HDL Cholesterol 50 >40 mg/dL [facility] Comment:Desirable HDL: great er than 40 mg/dL Note: This HDL assay may give artificially low results in patients with liver disease. Blood Venous blood specimen / Unknown 10/24/2024 11:40 AM EDT 10/24/2024 2:04 PM EDT us Yuki Mccormack MD LAB BLOOD ORDERABLES Final Resul t Performing Organization Address City/State/[facility] Co de Phone Number [facility] [address] [place] [phone] * BI Mammogram Screening Tomosynthesis Bilateral (03/03/2024 11:30 AM EDT) Anatomical Region Laterality Modality Breast Bilateral Mammography 03/03/2024 11:3 0 AM EDT Narrative 03/25/2024 10:40 PM EDT [facility] [address] [place] [address] Mammography Report Signed Patient: Manuela Rodriguez#: [id number] : 1975 Acct:[id number] Age/Sex: 48 / F ADM Date: 03/03/24 Loc: HO.MAMMO Attending Dr: Kay AYALA Ordering Physician: Kay Peterson Results: 1Negat roberta Date of Service: 03/03/24 Follow Up: 1 Year From Orig inal Mammogram Procedure(s): MM tomosynthesis screening BI Accession Number(s): [id number] cc: Kay Peterson EXAMINATION: MM SCREENING DIGITAL [...] signed by Alta Rodgers DO in OV> 03/25/247 DD/ 1130 TD/TT: 03/03/24 1148 Quality Control Systems Manager: Procedure Note Donotuseinterpreter, Image - 03/25/2024 [facility] [address] [place] [address] Mammography Report Signed Patient: Manuela Rodriguez R#: [id number] : 1975Acct:[id number] Age/Sex: 48 / FADM Date: 03/03/24 Loc: HO.MAMMO Attending Dr: Kay Peterson TICKET COLLECTOR OR USHER Ordering Physician: Kay PetersonPResults: 1Negat roberta Date of Service: 03/03/24Follow Up: 1 Year From Orig inal Mammogram Procedure(s): MM tomosynthesis screening BI Accession Number(s): [id number] cc: Kay Peterson EXAMINATION: MM SCREENING DIGITAL [...] by Alta Rodgers DO in OV> 03/25/24 2236 DD/ 1130 TD/TT: 03/03/24 1148 Quality Control Systems Manager: Kay Peterson [facility] IM BI PROCEDURES Edited Resul t - Final * Hepatitis C Viral RNA, Quantitative, Real-Time PCR (10/08/2023 10:47 AM EDT) Hepatitis C Viral Load <15 NOT DETECTED NOT DETECTED IU/mL [facility] HCV Log PCR <1.18 NOT DETECTED NOT DETECTED Log IU/mL [facility] Comment:This test was perfor med using Real-Time Polymerase ChainReaction.Reportable Range: 15 IU/mL to 100,000,000 IU/mL(1.18 Log IU/mL to 8.00 Log IU/mL).The analytical performance characteristics of thisassay have been determined by [employer].The modifications have not been cleared or approved bythe FDA. This assay has been validated pursuant to theCLIA regulations and is used for clinical purposes.For more information on this test, go to:http://education.[employer]/faq/DMI53h4(This link is being provided for informational/educational purposes only.)THIS TEST WAS PERFORMED AT:[employer] [place] [phone] CORNEJO MD Blood 10/08/2023 10:4 7 AM EDT 10/08/2023 2:24 PM EDT Kay Kristen TICKET COLLECTOR OR USHER LAB BLOOD ORDERABLES Final Res ult Performing Organization Address [facility]/ZIP Co de Phone Number [facility] [address] [place] [phone] * HIV-1/2 Antigen and Antibodies, Fourth Generation, with Reflexes (10/08/2023 10:47 AM EDT) [facility] HIV AB/AG Nonreactive Nonreactive [facility] Comment:HIV-1 p24 Ag and/or HIV-1/HIV-2 Ab not detected.A test result that is nonreactive does not exclude thepossibility of exposure to or infection with HIV-1 and/orHIV-2. Nonreactive results in this assay for individualswith prior exposure to HIV-1 and/or HIV-2 may be due toantigen and antibody levels that are below the limit ofdetection of this assay.The [employer] HIV Ag/Ab Combo assay result andsupplemental assay results should be interpreted inconjunction with the patient's clinical presentation,history and other laboratory results. If the results areinconsistent with clinical evidence, additional testing issuggested to confirm the result. Blood Venous blood specimen / Unknown 10/08/2023 10:47 AM EDT 10/08/2023 2:24 PM EDT us Kay Peterson TICKET COLLECTOR OR USHER LAB BLOOD ORDERABLES Final Res ult Performing Organization Address [facility]/ZIP Co de Phone Number [facility] [address] [place] [phone] * HM PAP/HPV (01/24/2021 12:00 AM EDT) Historical Provider HEALTH MAINTENANCE Final Result Performing Organization Address [facility]/ZIP Co de Phone Number [facility] [address] [place] [phone] * HPV mRNA E6/E7 (05/11/2018 3:05 PM EST) HPV mRNA E6/E7 Not Detected NOT DETECTED [facility] Comment: This test was performed using the APTIMA(R) HPV Assay ([employer] This assay detects E6/E7 viral messenger RNA (mRNA) from 14 high-risk HPV types (16,18,31,33,35,39,45,51, 52,56,58,59,66,68). For additional information please refer to: http://education.[employer]/faq/BOM997h5 (This link is being provided for informational/ educational purposes only.) The analytical performance characteristics of this assay have been determined by [employer] [place], [place]. The modifications have not been cleared or approved by the FDA. This assay has been validated pursuant to the CLIA regulations and is used for clinical purposes. Test Performed by [facility], [employer] [place], [address] [place] [address] Rogelio Lua M.D., Ph.D., Director of Laboratories , CLIA [id number] Please note: Effective 03/16/2016, HPV testing will be performed using [employer] APTIMA test which targets mRNA. Detecting mRNA instead of DNA, as in older methods, offers significant improvements in specificity. 05/11/2018 3:05 PM EST us Quin Barney MD HISTORICAL/NON ORDERABLE LABS Final Result [facility] [address] from Last 3 Months or Most Recently Relevant to Health Maintenance Insurance [employer] Care Teams Equine Dentist Relationship Specialty Start Date End Date Kay Peterson FNP [address] [place] [address] PCP - General Family Medicine 02/26/22 Lino Mobley MD [address] [place] [phone] Obstetrics and Gynecology 07/20/24 Talita Gallagher MD [address] [place] [address] Hematology and Oncology 07/20/24
== END 2025-04-04 14:28 | disposition home or self-care (01) ==
LOC: HO.US 14:27
PROVIDERS: PCP Registered Nurse; Referring Provider Obstetrics & Gynecology; Visit Provider Nurse Practitioner Family
DX: N93.9 Abnormal uterine and vaginal bleeding, unspecified (principal); R39.89 Other symptoms and signs involving the genitourinary system; N39.41 Urge incontinence; R10.20 Pelvic and perineal pain unspecified side
CPT/HCPCS: 76775; 76830; 76856

== ENCOUNTER → 2025-04-04 14:30 | Outpatient (BNV) | payer OTHER, SELFPAY | PROVIDERS: PCP Registered Nurse; Referring Provider Obstetrics & Gynecology; Visit Provider Radiology Diagnostic Radiology | DX: D25.0 Submucous leiomyoma of uterus (principal); N83.202 Unspecified ovarian cyst, left side; R39.89 Other symptoms and signs involving the genitourinary system | CPT/HCPCS: 76775; 76830; 76856 ==

== ENCOUNTER 2025-04-24 13:16 | Outpatient (AMB) | payer OTHER, SELFPAY ==
--- NOTE | 2025-04-24 13:19 | MHC.OFFVIS ---
Vital Signs 04/24/25 13:21 Height 5 ft 6 in Weight 203 lb 11.314 oz BMI 32.9 BP 120/64 Blood Pressure Location Lt brachial Position Sitting Pulse 85 Pulse Source Pulse Oximeter Intake Visit Reasons: douper/dafne romero/cardiomegaly Supervisor Denture Department Required: Yes Supervisor Denture Department Language: Explosive Ordnance Disposal Technician Name: [email or web address] Accompanied by: Self / Same As Patient Allergies No Known Allergies Allergy (Verified 02/07/25 10:10) Medication List - Last Reconciled 04/24/25 by Josh Benjamin MD lisinopril 5 mg PO DAILY naproxen sodium 220 mg PO BID PRN omeprazole 20 mg PO DAILY HPI Comments Details: Manuela is here for consultation regarding a recent echocardiogram that was thought to be abnormal. Patient herself does not have any known cardiac issues. No history of any coronary disease or myocardial infarction or cardiomyopathy or in fact any other cardiac issues. She denies any anginal-type symptoms or shortness of breath palpitations extra. She states she feels well. [facility] Medical History Iron deficiency anemia Palpitations Gastroesophageal reflux disease Elevated blood pressure reading Anxiety Surgical History History of hysteroscopy Hx of tubal ligation Family History (Updated 04/24/25 @ 13:26 by Macey Johnson [facility]) Mother No problems noted. Father No problems noted. Other Substance abuse Social History Household Members: Spouse, Family and Children Housing: House Alcohol intake: never Patient Tobacco Use Status: Never used Tobacco e-Cigarette/Vaping Use: Never Used Second Hand Smoke Exposure: No service: No Current occupational status: unemployed Sexual orientation: Straight/Heterosexual Gender identity: Female Cognitive needs: No Hearing needs: No Vision needs: No Female Reproductive History Menstrual Age of Menarche: 14 Review of Systems Const Denies chills, Denies fatigue, Denies fever(s), Denies frequent falls, Denies weakness, Denies weight gain and Denies weight loss ENT Denies dizziness Card Denies chest pain, Denies leg edema, Denies lightheadedness, Denies palpitations, Denies dyspnea, Denies dyspnea on exertion and Denies orthopnea Resp Denies cough, Denies dyspnea and Denies dyspnea on exertion GI Denies bloating and Denies change in bowel habits Musc Denies muscle weakness, Denies numbness and Denies tingling Neuro Denies dizziness, Denies frequent falls, Denies numbness, Denies tingling and Denies weakness Endo Denies fatigue and Denies palpitations Physical Exam Vital Signs: Last Vital Signs Pulse 85 04/24/25 13:21 BP 120/64 04/24/25 13:21 BMI result Body Mass Index 32.9 Const General: comfortable and no acute distress Orientation/consciousness: patient oriented x3 HEENT Other: Unremarkable Head: Yes normal to inspection Neck Neck: Yes normal visual inspection Chest Chest palpation & inspection: normal inspection of the chest Resp Auscultation: clear to auscultation bilaterally Cardio Palpation: normal PMI Heart sounds: S1 normal heart sound present, S2 normal heart sound present, no gallops, no murmurs and no rubs GI Palpation (GI): Soft to palpation Back/Spine/Pelvis Other: unremarkable Skin General skin exam: no rashes or lesions noted Neuro General: patient oriented x3 Extrem General: Yes normal to inspection Psych Mental Status: mental status grossly normal Assessment & Plan Assessment & Plan (1) Atrial dilatation, left: Code(s): I51.7 - Cardiomegaly Category: Medical (2) Right ventricular dilation: Code(s): I51.7 - Cardiomegaly Category: Medical Plan Cardiac studies reviewed. In the EKG, underlying rhythm is sinus at 67/Min; no ischemic changes; normal NH and corrected QT. Echocardiogram report as well as images reviewed from 2024. LVEF is preserved at 60-65%. Left atrium reported to be mildly dilated but the indexed volume is about 44 mL/meters squared which will be moderate dilatation. There was no more than trace to mild mitral regurgitation to explain this. Diastolic function was also within normal limits. In the previous study from 2018, left atrium seem to be normal size based on review of report/images. She has also had a bubble study in 2018 which reports no evidence of interatrial shunting. Holter monitor from this year shows sinus rhythm without any significant arrhythmias. With regard to the left atrial dilatation, unclear reason. There was no significant mitral regurgitation or diastolic dysfunction/significant hypertension which are common etiologies. There is no history of any atrial fibrillation and EKGs/Holter were unremarkable as above. There is a history of anemia and that could potentially lead to a hyperdynamic state causing some left atrial dilatation but not clear. With regard to the right ventricular enlargement, it is only mild as the size is about 4.1 cm. Could be related to just her weight. No specific concerns from that. Overall, no specific recommendations to treat the above. Suspect these are probably benign and we can recheck echocardiogram in one year. Otherwise, treat her general medical issues including anemia. Orders: Orders CA echo transthoracic complete 1 Year I51.7 - Cardiomegaly Coding Level of Care Code New Pt Level 3 (66528) Diagnoses Atrial dilatation, left I51.7 Right ventricular dilation I51.7
[2025-04-24 13:21] VITALS: BP 120/64; PULSE 85; BMI 32.9
== END 2025-04-24 13:40 | disposition home or self-care (01) ==
LOC: HO.HCS 13:18
PROVIDERS: PCP Physician Assistant; Visit Provider Internal Medicine
DX: I51.7 Cardiomegaly (principal)
CPT/HCPCS: 99203

== ENCOUNTER 2025-06-14 10:07 | Outpatient (AMB) | payer OTHER, SELFPAY ==
[2025-06-14 10:28] VITALS: BP 122/76; BMI 32.8
--- NOTE | 2025-06-14 10:28 | A.OFFVIS_ITS ---
Vital Signs 06/14/25 10:28 Height 5 ft 6 in Weight 203 lb BMI 32.8 BP 122/76 Intake Visit Reasons: US follow up Civil Project Engineer Required: Yes Civil Project Engineer Language: Medical Technologist Prn Services: Civil Project Engineer Present (in person) Civil Project Engineer Name: Val KING Information Interpreted: non-clinical & clinical Accompanied by: Self / Same As Patient Allergies No Known Allergies Allergy (Verified 06/14/25 10:29) HPI Comments Details: Presenting for follow-up ultrasound regarding uterine myoma seen on previous pelvic ultrasound. The patient is doing well with no complaints no abnormal uterine bleeding, pelvic pressure or pain. Pelvic ultrasound done recently showed the following: Uterus: The uterus is anteversion flexion and measures 8 x 5 x 7 cm. The cervix is closed without gross abnormality. The double wall endometrial thickness is 7 mm. There is a 1.4 cm hypoechoic abnormality within the submucosal body. No dystrophic desiccation's. No flow on color Doppler interrogation. Adnexa: The ovaries are identified with flow on color Doppler interrogation.. No gross free fluid in the cul-de-sac. Right ovary measures 3 x 2 x 1 cm. Volume: 3 cc. No solid or cystic lesion. Left ovary measures 4 x 2 x 4 cm. Volume: 18 ccThere is a 3.5 cm lobulated, well-defined anechoic lesion without septations or flow on color Doppler interrogation. [facility] Medical History Iron deficiency anemia Palpitations Gastroesophageal reflux disease Elevated blood pressure reading Anxiety Surgical History History of hysteroscopy Hx of tubal ligation Family History Mother No problems noted. Father No problems noted. Other Substance abuse Social History Household Members: Spouse, Family and Children Housing: House Alcohol intake: never Patient Tobacco Use Status: Never used Tobacco e-Cigarette/Vaping Use: Never Used Second Hand Smoke Exposure: No service: No Current occupational status: unemployed Sexual orientation: Straight/Heterosexual Gender identity: Female Cognitive needs: No Hearing needs: No Vision needs: No Female Reproductive History Menstrual Age of Menarche: 14 Review of Systems Const All systems reviewed & are unremarkable except as noted in HPI and below Reports as per HPI and Reports no additional complaints GI Reports no additional complaints Reports no additional complaints Physical Exam Vital Signs: Last Vital Signs BP 122/76 06/14/25 10:28 BMI result Body Mass Index 32.8 Assessment & Plan Assessment & Plan (1) Uterine myoma: Code(s): D25.9 - Leiomyoma of uterus, unspecified Category: Medical Plan: Discussed with the patient the findings on pelvic ultrasound & the risk of myosarcoma; in addition reviewed with the patient that malignancy and pre malignancy cannot be ruled out without hysterectomy for pathological evaluation ; furthermore, explained to the patient the limitation of pelvic ultrasound and endometrial biopsy in the setting. Discussed with the patient the options of treatment including expectant manag ement versus hysterectomy; the pros and cons, risks benefits of each approach were discussed with the patient including the fact that in cases of myosarcoma, surgical treatment can lead to early diagnosis and positively affects the prognosis; after further discussion, the patient decided to proceed with expectant management. Will repeat pelvic ultrasound periodically. Instructions given to patient to call in case any of the following occurs: pressure symptoms, abnormal uterine bleeding, pelvic pain; and to schedule a six-months pelvic ultrasound (order placed) and a follow-up appointment . All questions answered, the patient verbalized understanding and agreed with the plan . (2) Ovarian cyst: Code(s): N83.209 - Unspecified ovarian cyst, unspecified side Category: Medical Plan: Discussed with the patient the finding on ultrasound lobulated cyst no septation or thickening, differential diagnosis discussed with the patient includes but not limited to benign, premalignant malignant will repeat ultrasound in 4 weeks. Instructions given the patient to schedule an ultrasound follow-up appointment afterwards Orders: Orders US pelvic and transvaginal 4 Weeks N83.209 - Unspecified ovarian cyst, unspecified side Coding Level of Care Code Est Pt Level 3 (44992) Diagnoses Uterine myoma D25.9 Ovarian cyst N83.209
== END 2025-06-14 10:46 | disposition home or self-care (01) ==
LOC: HO.HWS 10:07
PROVIDERS: PCP Registered Nurse; Visit Provider Obstetrics & Gynecology
DX: D25.9 Leiomyoma of uterus, unspecified (principal); N83.209 Unspecified ovarian cyst, unspecified side
CPT/HCPCS: 99213

== ENCOUNTER 2025-06-26 11:41 | Outpatient (REF) | payer OTHER, SELFPAY ==
--- OUTSIDE RECORDS SUMMARY | 2025-06-26 13:04 | XMS_ITS | Encounter Summary ---
Author Organization [employer] Address [address] [place] [address] Care Team Providers Care Window Framer Name Role Phone Coltonjeancarlos Kay AYALA Primary Care Provider [phone] Lino Mobley MD Unavailable Talita Gallagher MD Unavailable [phone] Reason for Visit * Reason Comments Med Refill Encounter Details Date Type Department Care Team (Late st Contact Info) Description 02/25/2025 Refill [facility] MED [facility] PEDS [address] [place], [place] [phone] Yuki Mccormack MD [address] [place], [place] [phone] Vitamin D deficiency Social History Tobacco Use [...] documented as of this encounter Care Teams Window Framer Relationship Specialty Start Date End Date Kay Peterson FNP [address] [place] [address] PCP - General Family Medicine 02/26/22 06/14/25 Lino Mobley MD [address] [place] [phone] Obstetrics and Gynecology 07/20/24 Talita Gallagher MD [address] [place] [phone] Hematology and Oncology 07/20/24 documented as of this encounter
--- OUTSIDE RECORDS SUMMARY | 2025-06-26 13:04 | XMS_ITS | Encounter Summary ---
Author Organization [employer] Address [address] [facility] [address] [place] [address] Care Team Providers Care Business Data Analyst Name Role Phone Kay Peterson Primary Care Provider [phone] Lino Mobley MD Unavailable Talita Gallagher MD Unavailable [phone] Reason for Visit * Reason Onset Date Comments Appointment Confirmation 11/08/2023 Encounter Details Date Type Department Care Team ([facility] st Contact Info) Description 11/08/[address] [facility] MED & PEDS [address] [place], [place] [phone] Kay Peterson FNP [address] [place], [place] [phone] Appointment Confirmation Social History Tobacco Use Types [...] documented as of this encounter Care Teams Business Data Analyst Relationship Specialty Start Date End Date Kay Peterson FNP [address] [place] [phone] PCP - General Family Medicine 02/26/22 06/14/25 Lino Mobley MD [address] [place] [id number] Obstetrics and Gynecology 07/20/24 Talita Gallagher MD [address] [place] [address] Hematology and Oncology 07/20/24 documented as of this encounter
--- OUTSIDE RECORDS SUMMARY | 2025-06-26 13:04 | XMS_ITS | Encounter Summary ---
Author Organization [employer] Address [address] [facility] [address] [place] [address] Care Team Providers Care Campus Security Officer Name Role Phone Kay Peterson Primary Care Provider [phone] Lino Mobley MD Unavailable Talita Gallagher MD Unavailable [phone] Reason for Visit * Reason Onset Date Comments Lab Orders 11/05/2023 Encounter Details Date Type Department Care Team (Late st Contact Info) Description 11/05/2023 Telephone [facility] MEDICINE [address] [place] [address] Kay Peterson FNP [address] [place], [place] [phone] Lab Orders Social History Tobacco Use Types [...] documented as of this encounter Care Teams Campus Security Officer Relationship Specialty Start Date End Date Kay Peterson FNP [address] [place] [id number] PCP - General Family Medicine 02/26/22 06/14/25 Lino Mobley MD [address] [place] [address] [place] [phone] Obstetrics and Gynecology 07/20/24 Talita Gallagher MD [address] [place] [address] Hematology and Oncology 07/20/24 documented as of this encounter
--- OUTSIDE RECORDS SUMMARY | 2025-06-26 13:04 | XMS_ITS | Clinical Summary ---
Author Organization [employer] Address [address] 7[address] [place] [address] Care Team Providers Care Master Hearth Technician Name Role Phone Lino Mobley MD Unavailable Talita Gallagher MD Unavailable [phone] Allergies No known active allergies Medications [...] muscle spasms. 30 tablet 3 4 Active naproxen (Naprosyn) 500 MG tabletIndications :Muscle [...] 5 Active ergocalciferol (Vitamin D2) 1.25 MG (04554 UT) capsuleIndication s:Vitamin D deficiency Take 1 [...] 5:14 PM EDT): Intermittently bothersome/symptomatic Referral to [facility] placed 01/14/24 for further eval Encouraged symptomatic management such as compression stockings Class 1 obesity without seri ous comorbidity with body mass index (BMI) of 31.0 to 31.9 in adult 01/14/2024 Assessment & Plan (01/14/2024 5:17 PM EDT): Discussed multimodal approach to weight management involving pharm and non-pharm interventions. Shared decision making to proceed with PA for Juanpablo. Reviewed med safety and SE. Pt to [...] May 2018. Due May 2023. Following with [facility] CAD PROGRAMMER - encouraged to call office to schedule Colonoscopy: referred 09/25/22 for routine colon CA screening. Scheduled October 2023 Optometry: referral to [facility] Eye Care October 2023 Dental: established BMD: starting at 66 y/o ASCVD: 0.7% September 2022 Last PE: 10/08/23 Abnormal uterine bleeding 02/03/2023 Overview (07/20/2024): Followed by [facility] CAD PROGRAMMER - Dr. Mobley Endometrial biopsy September 2022 w/o signs atypia or carcinoma 01/01/23: Hysteroscopy D&C, polypectomy by Dr. Mobley at [facility]. Post op diagnosis: AUB, endometrial polyp Feb 2024: Pelvic US demonstrated 2.7cm physiologic cyst right ovary. No follow up imaging rec. Endometrial stripe is 1.7cm. Also noted small submucosal uterine fibroid. Pt reviewed results w/ Dr. Mobley during CAD PROGRAMMER consult in April 2024. Plan to proceed with expectant management at this time and repeat pelvic ultrasounds periodically Iron deficiency anemia 07/15/2022 Overview (07/20/2024): -Established with [facility] Heme/Onc: Dr. Gallagher -Received iron infusions (Venofer 200mg IV weekly x 5-6 weeks) through their office H/H improved from 7.8/27.8 in Jul 2022 to 11.7/37.8 in September 2022 H/H 9.4/31.5, microcytic Mar 2023 H/H 11.7/38.1 in October 2023 -Cause: upcoming colonoscopy scheduled to r/o GIB; following with [facility] CAD PROGRAMMER for menorrhagia Assessment & Plan (07/20/2024 11:08 AM EST): - Plan to start iron supplementation with vitamin C through heme-onc. Encouraged hydration and fiber to help offset constipation Assessment & Plan (10/08/2023 5:51 AM EDT): -Last consult note: Jun 2023 Assessment & Plan (03/31/2023 4:21 PM EDT): -Established with [facility] Heme/Onc -Receiving iron infusions (Venofer 200mg IV [...] 06/20/2023 Influenza 03/31/2023 06/20/2023 Left shoulder strain 03/31/202305 024 Muscle spasm 03/31/2023 10/08/2023 Dental caries 02/19/2023 06/20/2023 Dental abscess 02/19/2023 06/20/2023 Candidal vulvovaginitis 02/03/2023 08/0 09/2022 Menometrorrhagia 02/03/2023 02/04/2023 Pelvic pain in female 02/03/20232022 Varicose veins of right lowe r extremity with inflammation 02/03/2023 01/14/2024 Dental abscess 01/14/2023 02/04/2023 Palpitations 02/23/2018 09/27/2022 Elevated blood pressure reading 02/22/2018 09/27/2022 Encounters Date Type Department Care Team Description 05/25/2025 Refill [facility] MED & PEDS [address] [place] [address] Kay Peterson FNP Anxiety 05/02/2025 Telephone [facility] PED[facility] [address] [place] [address] Kay Peterson FNP 05/02/2025 Telephone [facility] MED & PEDS [address] [place] [address] Patti Hernández MD 05/01/2025 Telephone [facility] MED & PEDS [address] [place] [address] Kay Peterson FNP scheduling 04/04/2025 Orders Only [facility] External Provider, [facility] from Last 3 Months Immunizations Immunization Administration [...] 3-dose series) 02/07/2024 01/10/2024 Mammogram 03/03/2025 03/03/2024, 03/11/2021, 06/03/2018, Additional history exists COVID-19 Vaccine (2 [...] Procedure Name Priority Date/Time Associated Diagnosis Comments US PELVIS TRANSVAGINAL Routine 04/04/2025 3:03 PM EDT US RENAL COMPLETE Routine 04/04/2025 2:5 6 PM EDT LIPID PANEL, STANDARD Routine 10/24/2024 11:40 AM [...] Recently Relevant to Health Maintenance Results * US Pelvis Transvaginal (04/04/2025 3:03 PM EDT) Anatomical Region Laterality Modality Pelvis Ultrasound 04/04/2025 3:03 PM EDT Narrative 04/04/2025 3:42 PM EDT [address] [address] Ultrasound Report Signed Patient: Manuela Rodriguez#: [id number] : 1975 Acct:[id number] Age/Sex: 49 / F ADM Date: 04/04/25 Loc: HO.US Attending Dr: Dorothy AYALA- Ordering Physician: Lino Mobley MD Date of Service: 04/04/25 Procedure(s): US pelvic and transvaginal Accession Number(s): [id number] cc: aKy Peterson; Lino Mobley MD Reason for Exam: N93.9 - Abnormal uterine and vaginal bleeding, unspecified EXAMINATION: US PELVIS CLINICAL INFORMATION: N 93 .9. Abnormal uterine and vaginal bleed COMPARISON: November 06, 2024 TECHNIQUE: Ultrasound of the pelvis is performed using transabdominal approach and transducer along with Doppler. . FINDINGS: Uterus: The uterus is anteversion flexion and measures 8 x 5 x 7 cm. The cervix is closed without gross abnormality. The double wall endometrial thickness is 7 mm. There is a 1.4 cm hypoechoic abnormality within the submucosal body. No dystrophic desiccation's. No flow on color Doppler interrogation. Adnexa: The ovaries are identified with flow on color Doppler interrogation.. No gross free fluid in the cul-de-sac. Right ovary measures 3 x 2 x 1 cm. Volume: 3 cc. No solid or cystic lesion. Left ovary measures 4 x 2 x 4 cm. Volume: 18 ccThere is a 3.5 cm lobulated, well-defined anechoic lesion without septations or flow on color Doppler interrogation.. US/US pelvic and transvaginal IMPRESSION: 1.4 cm submucosal uterine fibroid. 3.5 cm cystic lesion, left ovary. No ovarian torsion. Electronically signed by: Payam Meeks MD 04/04/2025 03:39 PM EDT Dictated By: Payam Greenwood MD Signed By: <Electronically signed by Payam Lennon MD in OV> 04/04/25 1539 DD/ 1503 TD/TT: 04/04/25 1525 Resolution Specialist: Procedure Note Donotuseinterpreter, Image - 04/04/[address] [address] Ultrasound Report Signed Patient: Manuela Rodriguez LM R#: [id number] : 1975Acct:[id number] Age/Sex: 49 / FADM Date: 04/04/25 Loc: HO.US Attending Dr: Dorothy AYALA- Ordering Physician: Lino Mobley MD Date of Service: 04/04/25 Procedure(s): US pelvic and transvaginal Accession Number(s): [id number] cc: Kay Peterson; Lino Mobley MD Reason for Exam: N93.9 - Abnormal uterine and vaginal bleeding,unspecified EXAMINATION: US PELVIS CLINICAL INFORMATION: N 93 .9. Abnormal uterine and vaginal bleed COMPARISON: November 06, 2024 TECHNIQUE: Ultrasound of the pelvis is performed using transabdominal approach and transducer along with Doppler. . FINDINGS: Uterus: The uterus is anteversion flexion and measures 8 x 5 x 7 cm. The cervix is closed without gross abnormality. The double wall endometrial thickness is 7 mm. There is a 1.4 cm hypoechoic abnormality within the submucosal body. No dystrophic desiccation's. No flow on color Doppler interrogation. Adnexa: The ovaries are identified with flow on color Doppler interrogation.. No gross free fluid in the cul-de-sac. Right ovary measures 3 x 2 x 1 cm. Volume: 3 cc. No solid or cystic lesion. Left ovary measures 4 x 2 x 4 cm. Volume: 18 ccThere is a 3.5 cm lobulated, well-defined anechoic lesion without septations or flow on color Doppler interrogation.. US/US pelvic and transvaginal IMPRESSION: 1.4 cm submucosal uterine fibroid. 3.5 cm cystic lesion, left ovary. No ovarian torsion. Electronically signed by: Payam Meeks MD 04/04/2025 03:39 PM EDT Dictated By: Payam Greenwood MD Signed By: <Electronically signed by Payam Lennon MDin OV> 04/04/25 1539 DD/ 1503 TD/TT: 04/04/25 1525 Resolution Specialist: us [facility] External Provider IMG US PROCEDURES Final Result * US Renal Complete (04/04/2025 2:56 PM EDT) Anatomical Region Laterality Modality Kidney Ultrasound 04/04/2025 2:56 PM EDT Narrative 04/04/2025 3:36 PM EDT [place] [address] Ultrasound Report Signed Patient: Manuela Rodriguez R#: [id number] : 1975 Acct:[id number] Age/Sex: 49 / F ADM Date: 04/04/25 Loc: HO.US Attending Dr: Dorothy CONWAY Ordering Physician: Dorothy Carney Date of Service: 04/04/25 Procedure(s): US renal BI Accession Number(s): [id number] cc: Dorothy Carney; Kay Peterson Reason for Exam: R39.89 - Other symptoms and signs involving the genitourinary system EXAMINATION: US RETROPERITONEAL LIMITED (RENAL ONLY) CLINICAL INFORMATION: R 39.89.. COMPARISON: None available. TECHNIQUE: Real-time ultrasound kidneys and bladder using grayscale technique. FINDINGS: RIGHT KIDNEY: 12 x 5 x 4 cm (SAG x AP x TRV). Normal echotexture. Renal cortical thickness is normal. No hydronephrosis. No solid or cystic lesion. LEFT KIDNEY: 10 x 5 x 4 cm (SAG x AP x TRV). Normal echotexture. Renal cortical thickness is normal. No hydronephrosis. No gross solid or cystic lesion. BLADDER: Fluid-filled. Bilateral jets are present. Prevoid: 32 cc. Postvoid: 2 cc. US/US renal BI IMPRESSION: No hydronephrosis. 2 cc residual urine in a post void image... Electronically signed by: Payam Meeks MD 04/04/2025 03:33 PM EDT RP Dictated By: Payam Greenwood MD Signed By: <Electronically signed by Payam Lennon MD in OV> 04/04/25 1533 DD/ 1456 TD/TT: 04/04/25 1525 Resolution Specialist: Procedure Note Donotuseinterpreter, Image - 04/04/2025 [place] [address] Ultrasound Report Signed Patient: Manuela Rodriguez LM R#: [id number] : 1975Acct:[id number] Age/Sex: 49 / FADM Date: 04/04/25 Loc: HO.US Attending Dr: Dorothy CONWAY Ordering Physician: Dorothy Carney Date of Service: 04/04/25 Procedure(s): US renal BI Accession Number(s): [id number] cc: Dorothy Carney; Kay Peterson Reason for Exam: R39.89 - Other symptoms and signs involving thegenitourinary system EXAMINATION: US RETROPERITONEAL LIMITED (RENAL ONLY) CLINICAL INFORMATION: R 39.89.. COMPARISON: None available. TECHNIQUE: Real-time ultrasound kidneys and bladder using grayscale technique. FINDINGS: RIGHT KIDNEY: 12 x 5 x 4 cm (SAG x AP x TRV). Normal echotexture. Renal cortical thickness is normal. No hydronephrosis. No solid or cystic lesion. LEFT KIDNEY: 10 x 5 x 4 cm (SAG x AP x TRV). Normal echotexture. Renal cortical thickness is normal. No hydronephrosis. No gross solid or cystic lesion. BLADDER: Fluid-filled. Bilateral jets are present. Prevoid: 32 cc. Postvoid: 2 cc. US/US renal BI IMPRESSION: No hydronephrosis. 2 cc residual urine in a post void image... Electronically signed by: Payam Meeks MD 04/04/2025 03:33 PM EDT RP Dictated By: Payam Greenwood MD Signed By: <Electronically signed by Payam Lennon MDin OV> 04/04/25 1533 DD/ 1456 TD/TT: 04/04/25 1525 Resolution Specialist: [facility] External Provider IMG US PROCEDURES Final Result * (ABNORMAL) Lipid Panel, Standard (10/24/2024 11:40 AM EDT) Triglycerides 113 <150 mg/dL [facility] Comment:Desirable Triglyceri de: less than 150 mg/dLBorderline High Triglyceride 150-199 mg/dLHigh Triglyceride: 200-499 mg/dLVery High Triglyceride: greater than or equal to 5OO mg/dL Cholesterol 220(H) <200 mg/dL [facility] Comment:Desirable Cholestero l: less than 200 mg/dLBorderline High Cholesterol: 200-239 mg/dLHigh Cholesterol: greater than 239 mg/dL LDL Cholesterol Calculated 148(H) <100 mg/dL [facility] Comment:Desirable LDL: less than 100 mg/dLNear Optimal/Above Optimal LDL: 110- 129 mg/dLBorderline High LDL: 130-159 mg/dLHigh LDL: 160-189 mg/dLVery High LDL: greater than or equal to 190 mg/dL HDL Cholesterol 50 >40 mg/dL [facility] Comment:Desirable HDL: great er than 40 mg/dL Note: This HDL assay may give artificially low results in patients with liver disease. Blood Venous blood specimen / Unknown 10/24/2024 11:40 AM EDT 10/24/2024 2:04 PM EDT Yuki Mccormack MD LAB BLOOD ORDERABLES Final Resul t [facility] [address] [place] [address] [phone] * BI Mammogram Screening Tomosynthesis Bilateral (03/03/2024 11:30 AM EDT) Anatomical Region Laterality Modality Breast Bilateral Mammography 03/03/2024 11:3 0 AM EDT Narrative 03/25/2024 10:40 PM EDT [address] [place] [address] Mammography Report Signed Patient: Manuela Rodriguez#: [id number] : 1975 Acct:[id number] Age/Sex: 48 / F ADM Date: 03/03/24 Loc: HO.MAMMO Attending Dr: Kay Peterson ASSURANCE MANAGER Ordering Physician: Kay Peterson Results: 1Negat roberta Date of Service: 03/03/24 Follow Up: 1 Year From Orig inal Mammogram Procedure(s): MM tomosynthesis screening BI Accession Number(s): [id number] cc: Kay Peterson EXAMINATION: MM SCREENING DIGITAL [...] OV> 03/25/247 DD/ 1130 TD/TT: 03/03/24 1148 Resolution Specialist: Procedure Note Donotuseinterpreter, Image - 03/25/[address] [place] [address] Mammography Report Signed Patient: Manuela Rodriguez R#: [id number] : 1975Acct:[id number] Age/Sex: 48 / FADM Date: 03/03/24 Loc: HO.MAMMO Attending Dr: Kay AYALA Ordering Physician: Kay PetersonPResults: 1Negat roberta Date of Service: 03/03/24Follow Up: 1 Year From [facility] ina Mammogram Procedure(s): MM tomosynthesis screening BI Accession Number(s): [id number] cc: Kay Peterson EXAMINATION: MM SCREENING DIGITAL [...] 03/25/24 2237 DD/ 1130 TD/TT: 03/03/24 1148 Resolution Specialist: Kay AYALA IMG BI PROCEDURES Edited Resul t - Final * Hepatitis C Viral RNA, Quantitative, Real-Time PCR (10/08/2023 10:47 AM EDT) Hepatitis C Viral Load <15 NOT DETECTED NOT DETECTED IU/mL [facility] HCV Log PCR <1.18 NOT DETECTED NOT DETECTED Log IU/mL [facility] Comment:This test was perfor med using Real-Time Polymerase ChainReaction.Reportable Range: 15 IU/mL to 100,000,000 IU/mL(1.18 Log IU/mL to 8.00 Log IU/mL).The analytical performance characteristics of thisassay have been determined by [facility].The modifications have not been cleared or approved bythe FDA. This assay has been validated pursuant to theCLIA regulations and is used for clinical purposes.For more information on this test, go to:http://education.InfoRemate/faq/VRG37g3(This link is being provided for informational/educational purposes only.)THIS TEST WAS PERFORMED AT:[facility] [place] [phone] CORNEJO MD Blood 10/08/2023 10:4 7 AM EDT 10/08/2023 2:24 PM EDT Kay Peterson ASSURANCE MANAGER LAB BLOOD ORDERABLES Final Res ult [facility] [address] [place] [address] [phone] * HIV-1/2 Antigen and Antibodies, Fourth Generation, with Reflexes (10/08/2023 10:47 AM EDT) HIV AB/AG Nonreactive Nonreactive [facility] Comment:HIV-1 p24 Ag and/or HIV-1/HIV-2 Ab not detected.A test result that is nonreactive does not exclude thepossibility of exposure to or infection with HIV-1 and/orHIV-2. Nonreactive results in this assay for individualswith prior exposure to HIV-1 and/or HIV-2 may be due toantigen and antibody levels that are below the limit ofdetection of this assay.The [employer] HIV Ag/Ab Combo assay result andsupplemental assay results should be interpreted inconjunction with the patient's clinical presentation,history and other laboratory results. If the results areinconsistent with clinical evidence, additional testing issuggested to confirm the result. Blood Venous blood specimen / Unknown 10/08/2023 10:47 AM EDT 10/08/2023 2:24 PM EDT us Kay Peterson ASSURANCE MANAGER LAB BLOOD ORDERABLES Final Res ult Performing Organization Address [facility]/State/ZIP Co de Phone Number [facility] [address] [place] [phone] * HM PAP/HPV (01/24/2021 12:00 AM EDT) Historical Provider MD HEALTH MAINTENANCE Final Result Performing Organization Address [facility]/ZIP Co de Phone Number [facility] [address] [place] [address] [phone] * HPV mRNA E6/E7 (05/11/2018 3:05 PM EST) HPV mRNA E6/E7 Not Detected NOT DETECTED [facility] Comment: This test was performed using the APTIMA(R) HPV Assay ([employer] This assay detects E6/E7 viral messenger RNA (mRNA) from 14 high-risk HPV types (16,18,31,33,35,39,45,51, 52,56,58,59,66,68). For additional information please refer to: http://education.InfoRemate/faq/EKG159r4 (This link is being provided for informational/ educational purposes only.) The analytical performance characteristics of this assay have been determined by [facility] [place], [place]. The modifications have not been cleared or approved by the FDA. This assay has been validated pursuant to the CLIA regulations and is used for clinical purposes. Test Performed by [facility], [facility], [address] [place] [address] Rogelio Lua M.D., Ph.D., Director of Laboratories , CLIA [id number] Please note: Effective 03/16/2016, HPV testing will be performed using [employer]'s APTIMA test which targets mRNA. Detecting mRNA instead of DNA, as in older methods, offers significant improvements in specificity. 05/11/2018 3:05 PM EST us Quin Barney MD HISTORICAL/NON ORDERABLE LABS Final Result [facility] [address] from Last 3 Months or Most Recently Relevant to Health Maintenance Insurance [employer] Care Teams Master Hearth Technician Relationship Specialty Start Date End Date Lino Mobley MD [address] [place] [address] Obstetrics and Gynecology 07/20/24 Talita Gallagher MD [address] [place] [address] Hematology and Oncology 07/20/24
--- OUTSIDE RECORDS SUMMARY | 2025-06-26 13:04 | XMS_ITS | Encounter Summary ---
Author Organization [employer] Address [address] [facility] 7t [place] [address] Care Team Providers Care Halfway House Counselor Name Role Phone Kay Peterson Primary Care Provider [phone] Lino Mobley MD Unavailable Talita Gallagher MD Unavailable [phone] Reason for Visit * Reason Onset Date Comments medication 02/19/2023 Encounter Details Date Type Department Care Team (Late st Contact Info) Description 02/19/2023 Telephone [facility] [address] [place], [place] [phone] Fausto Rascon DDS [address] [place], [place] [phone] medication Social History Tobacco Use Types Packs/Day [...] documented as of this encounter Care Teams Halfway House Counselor Relationship Specialty Start Date End Date Kay Peterson FNP [address] [place] [address] PCP - General Family Medicine 02/26/22 06/14/25 Lino Mobley MD [address] [place] [phone] Obstetrics and Gynecology 07/20/24 Talita Gallagher MD [address] [place] [phone] Hematology and Oncology 07/20/24 documented as of this encounter
--- OUTSIDE RECORDS SUMMARY | 2025-06-26 13:04 | XMS_ITS | Encounter Summary ---
Author Organization [employer] Address [address] [place] [address] Care Team Providers Care Visual Specialist Name Role Phone Kay Peterson Primary Care Provider [phone] Lino Mobley MD Unavailable Talita Gallagher MD Unavailable [phone] Encounter Details Date Type Department Care Team (Late st Contact Info) Description 10/25/2024 Orders Only [facility] & PEDS [address] [place] [address] Veronica Zhang Social History Tobacco Use Types [...] us Historical Provider HEALTH MAINTENANCE Final Result [facility] [address] [place] [phone] documented in this encounter Visit Diagnoses Not on filedocumented in this encounter Additional Health Concerns Assessment Noted Time PHQ-9 Depression Total Score: 0 10/20/19 25 10:22 AM EDT documented as of this encounter Care Teams Visual Specialist Relationship Specialty Start Date End Date Kay Peterson FNP [address] [place] [address] PCP - General Family Medicine 02/26/22 06/14/25 Lino Mobley MD [address] [place] [address] Obstetrics and Gynecology 1/16/25 Talita Gallagher MD [address] [place] [address] Hematology and Oncology 07/20/24 documented as of this encounter
--- OUTSIDE RECORDS SUMMARY | 2025-06-26 13:04 | XMS_ITS | Encounter Summary ---
Author Organization [employer] Address [address] [address] [place] [address] Care Team Providers Care Marine Railway Operator Name Role Phone Kay Peterson Primary Care Provider [phone] Lino Mobley MD Unavailable Talita Gallagher MD Unavailable Reason for Visit * Reason Onset Date Comments Appointment Request 08/26/2022 Encounter Details Date Type Department Care Team (Late st Contact Info) Description 08/26/2022 Telephone [facility] [address] [place] [address] Kay Peterson FNP [address] [place], [place] [phone] Appointment Request Social History Tobacco Use Types [...] she doesn't mind with a different provider. (Mosotho speaker) * Telephone Encounter - Johnson Mccarthy - 08/26/2022 11:44 AM EST Tc from pt requesting an Physical appt states work is requiring pt to have Physical updated Please contact pt at [phone] documented in this encounter Plan of Treatment Not on file documented as of this encounter Visit Diagnoses Not on filedocumented in this encounter Care Teams Marine Railway Operator Relationship Specialty Start Date End Date Kay Peterson FNP [address] [place] [phone] PCP - General Family Medicine 02/26/22 06/14/25 Lino Mobley MD [address] [place] [phone] Obstetrics and Gynecology 07/20/24 Talita Gallagher MD [address] [place] [address] Hematology and Oncology 07/20/24 documented as of this encounter
--- OUTSIDE RECORDS SUMMARY | 2025-06-26 13:04 | XMS_ITS | Encounter Summary ---
Author Organization [employer] Address [address] [facility] [address] [place] [address] Care Team Providers Care Shopping Centre Manager Name Role Phone Kay Peterson Primary Care Provider [phone] Lino Mobley MD Unavailable Talita Gallagher MD Unavailable [phone] Reason for Visit * Reason Onset Date Comments Appointment Request 10/02/2022 Encounter Details Date Type Department Care Team (Late st Contact Info) Description 10/02/2022 Telephone [facility] [address] [place] [address] Kay Peterson FNP [address] [place], [place] [phone] Appointment Request Social History Tobacco Use Types [...] Per Elyse ). Please contact pt at [phone] documented in this encounter Plan of Treatment Not on file documented as of this encounter Visit Diagnoses Not on filedocumented in this encounter Care Teams Shopping Centre Manager Relationship Specialty Start Date End Date Kay Peterson FNP [address] [place] [address] PCP - General Family Medicine 02/26/22 06/14/25 Lino Mobley MD [address] [place] [phone] Obstetrics and Gynecology 07/20/24 Talita Gallagher MD [address] [place] [address] Hematology and Oncology 07/20/24 documented as of this encounter
--- OUTSIDE RECORDS SUMMARY | 2025-06-26 13:04 | XMS_ITS | Encounter Summary ---
Author Organization [employer] Address [address] [facility] [address] 7t [place] [address] Care Team Providers Care Rn Ostomy Name Role Phone Kay Peterson Primary Care Provider [phone] Lino Mobley MD Unavailable Talita Gallagher MD Unavailable [phone] Reason for Visit * Reason Onset Date Comments Nurse Triage 11/30/2023 Encounter Details Date Type Department Care Team (Late st Contact Info) Description 11/30/2023 Telephone [facility] 230 [place] [address] Kay Peterson FNP [address] [place], [place] [phone] Nurse Triage Social History Tobacco Use Types [...] for further evaluation. RN also reviews the expeditionary fighting vehicle crewman triage nurses and that ptcan call anytime, [...] The caller accepted this outcome Patient speaks yakut documented in this encounter Plan of Treatment Not on file documented as of this encounter Visit Diagnoses Not on filedocumented in this encounter Additional Health Concerns Assessment Noted Time PHQ-9 Depression Total Score: 3 10/08/19 24 9:44 AM EDT documented as of this encounter Care Teams Rn Ostomy Relationship Specialty Start Date End Date Kay Peterson FNP [address] [place] [address] PCP - General Family Medicine 02/26/22 06/14/25 Lino Mobley MD [address] [place] [address] Obstetrics and Gynecology 07/20/24 Talita Gallagher MD [address] [place] [address] Hematology and Oncology 07/20/24 documented as of this encounter
--- OUTSIDE RECORDS SUMMARY | 2025-06-26 13:04 | XMS_ITS | Encounter Summary ---
Author Organization [employer] Address [address] [facility] [address] 7t [place] [address] Care Team Providers Care Filler Shaker Name Role Phone Kay Peterson Primary Care Provider [phone] Lino Mobley MD Unavailable Talita Gallagher MD Unavailable [phone] Reason for Visit * Reason Onset Date Comments emergency dental no dental coverage 01/02/2025 Encounter Details Date Type Department Care Team (Late st Contact Info) Description 01/02/2025 Telephone [facility]ULT D[facility] 230 [place], [place] [phone] Fausto Rascon DDS 230 [place], [place] [phone] emergency dental no dental coverage Social History [...] must arrive prior to the [facility] insurance enrollment to recidive assistance with insurance and/or SFS prior to emergency dental appt. Patient understood DR documented in this encounter Plan of Treatment Not on file documented as of this encounter Visit Diagnoses Not on filedocumented in this encounter Additional Health Concerns Assessment Noted Time PHQ-9 Depression Total Score: 0 10/20/19 10:22 AM EDT documented as of this encounter Care Teams Filler Shaker Relationship Specialty Start Date End Date Kay Peterson FNP [address] [place] [address] PCP - General Family Medicine 02/26/22 06/14/25 Lino Mobley MD [address] [place] [address] [place] [address] Obstetrics and Gynecology 07/20/24 Talita Gallagher MD [address] [place] [address] Hematology and Oncology 07/20/24 documented as of this encounter
== END 2025-06-26 11:42 | disposition home or self-care (01) ==
LOC: HO.MAMMO 11:41
PROVIDERS: PCP Physician Assistant; Visit Provider Physician Assistant
DX: Z12.31 Encounter for screening mammogram for malignant neoplasm of breast (principal)
CPT/HCPCS: 77063; 77067

== ENCOUNTER → 2025-06-26 12:00 | Outpatient (BNV) | payer OTHER, SELFPAY | PROVIDERS: PCP Physician Assistant; Visit Provider Internal Medicine | DX: Z12.31 Encounter for screening mammogram for malignant neoplasm of breast (principal) | CPT/HCPCS: 77063; 77067 ==

== ENCOUNTER 2025-07-02 14:50 | Outpatient (REF) | payer OTHER, SELFPAY ==
--- NOTE | ~2025-07-02 | US_ITS ---
EXAMINATION: US PELVIS CLINICAL INFORMATION: Unspecified ovarian cyst, unspecified side. Follow-up. 49-year-old female. LMP 06/04/2025. COMPARISON: Pelvic ultrasound 04/04/2025. TECHNIQUE: Ultrasound of the pelvis is performed using both transabdominal and transvaginal transducers along with Doppler. Transvaginal imaging is performed due to inadequate visualization transabdominally. FINDINGS: Uterus: The uterus is anteverted, anteflexed, and measures 7.9 x 5.0 x 6.9 cm. The cervix demonstrates nabothian cysts but is otherwise normal. The double wall endometrial thickness is 12 mm. It is uniform without irregularity. The uterus is smooth in contour and has mildly heterogeneous myometrial echogenicity. There is a solitary submucosal mid uterine segment fibroid ventrally measuring 1.2 x 1.3 x 1.4 cm (previously 1.2 x 1.4 x 0.9 cm). Adnexa: Both ovaries are visualized. There is normal color flow to the adnexa. There is no ovarian torsion. There is no pelvic ascites or fluid collection. There are no adnexal masses. Right ovary measures 4.3 x 3.9 x 3.8 cm. Volume = 32.7 mL. There is a thinly septated ovarian cysts measuring 2.6 x 2.5 x 2.9 cm, not seen on the prior exam. This is most consistent with a follicular cyst. Left ovary measures 4.6 x 4.4 x 4.9 cm. Volume = 51.9 mL. There is a completely simple ovarian cyst measuring 3.4 x 3.8 x 4.7 cm (previously 3.2 x 2.3 x 3.4 cm). US/US pelvic and transvaginal IMPRESSION: 1. There is a submucosal fibroid in the mid uterine segment ventrally measuring 1.2 x 1.3 x 1.4 cm. This previously measured 1.2 x 1.4 x 0.9 cm. 2. The endometrium measures 12 mm in thickness. Aside from the fibroid, it is otherwise uniform without irregularity. 3. There is a new minimally complex RIGHT ovarian follicular cyst measuring 2.6 x 2.5 x 2.9 cm. 4. There is a completely simple LEFT ovarian cyst measuring 3.4 x 3.8 x 4.7 cm. This previously measured 3.2 x 2.3 x 3.4 cm. Electronically signed by: Emanuel Mccracken MD 07/02/2025 03:47 PM [facility]
--- OUTSIDE RECORDS SUMMARY | 2025-07-02 17:12 | XMS_ITS | Encounter Summary ---
Author Organization [employer] Address 75 [facility] 7t [place] [address] Care Team Providers Care Desk Officer Name Role Phone Kay Peterson Primary Care Provider [phone] Lino Mobley MD Unavailable Talita Gallagher MD Unavailable [phone] Reason for Visit * Reason Onset Date Comments medication 02/19/2023 Encounter Details Date Type Department Care Team (Late st Contact Info) Description 02/19/2023 Telephone [facility] ADULT D[facility] 230 [place], [place] [phone] Fausto Rascon DDS 230 [place], [place] [phone] medication Social History Tobacco Use Types Packs/Day [...] documented as of this encounter Care Teams Desk Officer Relationship Specialty Start Date End Date Kay Peterson FNP 230 [place] [address] PCP - General Family Medicine 02/26/22 06/14/25 Lino Mobley MD [address] [place] [address] Obstetrics and Gynecology 07/20/24 Talita Gallagher MD [address] [place] [address] Hematology and Oncology 07/20/24 documented as of this encounter
--- OUTSIDE RECORDS SUMMARY | 2025-07-02 17:12 | XMS_ITS | Encounter Summary ---
Author Organization [employer] Address [address] [facility] [address] 7t [place] [address] Care Team Providers Care Filtration Supervisor Name Role Phone Kay Peterson Primary Care Provider [phone] Lino Mobley MD Unavailable Talita Gallagher MD Unavailable [phone] Reason for Visit * Reason Onset Date Comments Lab Orders 11/05/2023 Encounter Details Date Type Department Care Team (Late st Contact Info) Description 11/05/[address] [facility] MED[facility]INE 230 [place] [address] Kay Peterson FNP [address] [place], [place] [phone] Lab Orders Social History Tobacco Use Types [...] documented as of this encounter Care Teams Filtration Supervisor Relationship Specialty Start Date End Date Kay Peterson FNP [address] [place] [address] PCP - General Family Medicine 02/26/22 06/14/25 Lino Mobley MD [address] [place] [address] [place] [address] Obstetrics and Gynecology 07/20/24 Talita Gallagher MD 575 [place] [address] Hematology and Oncology 07/20/24 documented as of this encounter
--- OUTSIDE RECORDS SUMMARY | 2025-07-02 17:12 | XMS_ITS | Encounter Summary ---
Author Organization [employer] Address [address] [facility] [address] 7t [place] [address] Care Team Providers Care Concrete Pipe Machine Operator Name Role Phone Kay Peterson Primary Care Provider [phone] Lino Mobley MD Unavailable Talita Gallagher MD Unavailable [phone] Reason for Visit * Reason Onset Date Comments Nurse Triage 11/30/2023 Encounter Details Date Type Department Care Team (Late st Contact Info) Description 11/30/2023 Telephone [facility] 230 [place] [address] Kay Peterson FNP [address] [place], [place] [phone] Nurse Triage Social History Tobacco Use Types [...] for further evaluation. RN also reviews the electrical engineering draftsperson triage nurses and that ptcan call anytime, [...] The caller accepted this outcome Patient speaks estonian documented in this encounter Plan of Treatment Not on file documented as of this encounter Visit Diagnoses Not on filedocumented in this encounter Additional Health Concerns Assessment Noted Time PHQ-9 Depression Total Score: 3 10/08/19 24 9:44 AM EDT documented as of this encounter Care Teams Concrete Pipe Machine Operator Relationship Specialty Start Date End Date Kay Peterson FNP [address] [place] [address] PCP - General Family Medicine 02/26/22 06/14/25 Lino Mobley MD [address] [place] [address] Obstetrics and Gynecology 07/20/24 Talita Gallagher MD [address] [place] [address] Hematology and Oncology 07/20/24 documented as of this encounter
--- OUTSIDE RECORDS SUMMARY | 2025-07-02 17:12 | XMS_ITS | Encounter Summary ---
Author Organization [employer] Address [address] [facility] [address] 7t [place] [address] Care Team Providers Care Government Relations Director Name Role Phone Lino Mobley MD Unavailable Talita Gallagher MD Unavailable [phone] Encounter Details Date Type Department Care Team ([facility] Contact Info) Description 07/02/2025 Orders Only [facility] External Provider, [facility] Social History Tobacco Use Types Packs/Day Years [...] Associated Diagnosis Comments US PELVIS TRANSVAGINAL Routine 07/02/2025 3:03 PM EST documented in this encounter Results * US Pelvis Transvaginal (07/02/2025 3:03 PM EST) Anatomical Region Laterality Modality Pelvis Ultrasound 07/02/2025 3:03 PM EST Narrative 07/02/2025 3:50 PM EST [facility] [address] [place] [address] [place] [address] Ultrasound Report Signed Patient: Manuela Rodriguez R#: [id number] : 1975 Acct:[id number] Age/Sex: 49 / F ADM Date: 07/02/25 Loc: HO.HMGCX Attending Dr: Lino Mobley MD Ordering Physician: Lino Mobley MD Date of Service: 07/02/25 Procedure(s): US pelvic and transvaginal Accession Number(s): [id number] cc: Kay Peterson; Lino Mobley MD Reason for Exam: N83.209 - Unspecified ovarian cyst, unspecified side EXAMINATION: US PELVIS CLINICAL INFORMATION: Unspecified ovarian cyst, unspecified side. Follow-up. 49-year-old female. LMP 06/04/2025. COMPARISON: Pelvic ultrasound 04/04/2025. TECHNIQUE: Ultrasound of the pelvis is performed using both transabdominal and transvaginal transducers along with Doppler. Transvaginal imaging is performed due to inadequate visualization transabdominally. FINDINGS: Uterus: The uterus is anteverted, anteflexed, and measures 7.9 x 5.0 x 6.9 cm. The cervix demonstrates nabothian cysts but is otherwise normal. The double wall endometrial thickness is 12 mm. It is uniform without irregularity. The uterus is smooth in contour and has mildly heterogeneous myometrial echogenicity. There is a solitary submucosal mid uterine segment fibroid ventrally measuring 1.2 x 1.3 x 1.4 cm (previously 1.2 x 1.4 x 0.9 cm). Adnexa: Both ovaries are visualized. There is normal color flow to the adnexa. There is no ovarian torsion. There is no pelvic ascites or fluid collection. There are no adnexal masses. Right ovary measures 4.3 x 3.9 x 3.8 cm. Volume = 32.7 mL. There is a thinly septated ovarian cysts measuring 2.6 x 2.5 x 2.9 cm, not seen on the prior exam. This is most consistent with a follicular cyst. Left ovary measures 4.6 x 4.4 x 4.9 cm. Volume = 51.9 mL. There is a completely simple ovarian cyst measuring 3.4 x 3.8 x 4.7 cm (previously 3.2 x 2.3 x 3.4 cm). US/US pelvic and transvaginal IMPRESSION: 1. There is a submucosal fibroid in the mid uterine segment ventrally measuring 1.2 x 1.3 x 1.4 cm. This previously measured 1.2 x 1.4 x 0.9 cm. 2. The endometrium measures 12 mm in thickness. Aside from the fibroid, it is otherwise uniform without irregularity. 3. There is a new minimally complex RIGHT ovarian follicular cyst measuring 2.6 x 2.5 x 2.9 cm. 4. There is a completely simple LEFT ovarian cyst measuring 3.4 x 3.8 x 4.7 cm. This previously measured 3.2 x 2.3 x 3.4 cm. Electronically signed by: Emanuel Mccracken MD 07/02/2025 03:47 PM EST [facility] Dictated By: Emanuel Mccracken MD Signed By: <Electronically signed by Emanuel Mccracken MD in OV> 07/02/25 1547 DD/ 1503 TD/TT: 07/02/25 1532 Garage Laborer: Procedure Note Donotuseinterpreter, Image - 07/02/2025 [facility] [address] [place] [address] [place] [address] Ultrasound Report Signed Patient: Manuela Rodriguez R#: [id number] : 1975Acct:[id number] Age/Sex: 49 / FADM Date: 07/02/25 Loc: HO.HMGCX Attending Dr: Lino Mobley MD Ordering Physician: Lino Mobley MD Date of Service: 07/02/25 Procedure(s): US pelvic and transvaginal Accession Number(s): [id number] cc: Kay Peterson; Lino Mobley MD Reason for Exam: N83.209 - Unspecified ovarian cyst, unspecified side EXAMINATION: US PELVIS CLINICAL INFORMATION: Unspecified ovarian cyst, unspecified side. Follow-up. 49-year-old female. LMP 06/04/2025. COMPARISON: Pelvic ultrasound 04/04/2025. TECHNIQUE: Ultrasound of the pelvis is performed using both transabdominal and transvaginal transducers along with Doppler. Transvaginal imaging is performed due to inadequate visualization transabdominally. FINDINGS: Uterus: The uterus is anteverted, anteflexed, and measures 7.9 x 5.0 x 6.9 cm. The cervix demonstrates nabothian cysts but is otherwise normal. The double wall endometrial thickness is 12 mm. It is uniform without irregularity. The uterus is smooth in contour and has mildly heterogeneous myometrial echogenicity. There is a solitary submucosal mid uterine segment fibroid ventrally measuring 1.2 x 1.3 x 1.4 cm (previously 1.2 x 1.4 x 0.9 cm). Adnexa: Both ovaries are visualized. There is normal color flow to the adnexa. There is no ovarian torsion. There is no pelvic ascites or fluid collection. There are no adnexal masses. Right ovary measures 4.3 x 3.9 x 3.8 cm. Volume = 32.7 mL. There is a thinly septated ovarian cysts measuring 2.6 x 2.5 x 2.9 cm, not seen on the prior exam. This is most consistent with a follicular cyst. Left ovary measures 4.6 x 4.4 x 4.9 cm. Volume = 51.9 mL. There is a completely simple ovarian cyst measuring 3.4 x 3.8 x 4.7 cm (previously 3.2 x 2.3 x 3.4 cm). US/US pelvic and transvaginal IMPRESSION: 1. There is a submucosal fibroid in the mid uterine segment ventrally measuring 1.2 x 1.3 x 1.4 cm. This previously measured 1.2 x 1.4 x 0.9 cm. 2. The endometrium measures 12 mm in thickness. Aside from the fibroid, it is otherwise uniform without irregularity. 3. There is a new minimally complex RIGHT ovarian follicular cyst measuring 2.6 x 2.5 x 2.9 cm. 4. There is a completely simple LEFT ovarian cyst measuring 3.4 x 3.8 x 4.7 cm. This previously measured 3.2 x 2.3 x 3.4 cm. Electronically signed by: Emanuel Mccracken MD 07/02/2025 03:47 PM [facility] Dictated By: Emanuel Mccracken MD Signed By: <Electronically signed by Emanuel Mccracken MD in OV> 07/02/25 1547 DD/ 1503 TD/TT: 07/02/25 1532 Garage Laborer: [facility] External Provider IMG US PROCEDURES Final Result documented in this encounter Visit Diagnoses Not on filedocumented in this encounter Additional Health Concerns Assessment Noted Time PHQ-9 Depression Total Score: 0 10/20/19 25 10:22 AM EDT documented as of this encounter Care Teams Government Relations Director Relationship Specialty Start Date End Date Lino Mobley MD [address] [place] [address] [place] [address] Obstetrics and Gynecology 07/20/24 Talita Gallagher MD [address] [place] [address] Hematology and Oncology 07/20/24 documented as of this encounter
--- OUTSIDE RECORDS SUMMARY | 2025-07-02 17:12 | XMS_ITS | Encounter Summary ---
Author Organization [employer] Address [address] [facility] [address] 7t [place] [address] Care Team Providers Care Machine Stone Polisher Apprentice Name Role Phone Kay Peterson Primary Care Provider [phone] Lino Mobley MD Unavailable Talita Gallagher MD Unavailable [phone] Encounter Details Date Type Department Care Team (Late st Contact Info) Description 10/25/2024 Orders Only [facility] 505 [place] [address] Veronica Zhang Social History Tobacco Use Types [...] us Historical Provider HEALTH MAINTENANCE Final Result [facility] [address] [place] [phone] documented in this encounter Visit Diagnoses Not on filedocumented in this encounter Additional Health Concerns Assessment Noted Time PHQ-9 Depression Total Score: 0 10/20/19 25 10:22 AM EDT documented as of this encounter Care Teams Machine Stone Polisher Apprentice Relationship Specialty Start Date End Date Kay Peterson FNP 230 [place] [address] PCP - General Family Medicine 02/26/22 06/14/25 Lino Mobley MD [address] [place] [address] Obstetrics and Gynecology 1/16/25 Talita Gallagher MD 5 [place] [address] Hematology and Oncology 07/20/24 documented as of this encounter
--- OUTSIDE RECORDS SUMMARY | 2025-07-02 17:12 | XMS_ITS | Encounter Summary ---
Author Organization [employer] Address [address] [facility] [address] 7t [place] [address] Care Team Providers Care Aircraft Line Assembler Name Role Phone Kay Peterson Primary Care Provider [phone] Lino Mobley MD Unavailable Talita Gallagher MD Unavailable [phone] Reason for Visit * Reason Onset Date Comments emergency dental no dental coverage 01/02/2025 Encounter Details Date Type Department Care Team (Late st Contact Info) Description 01/02/2025 Telephone [facility] ADULT DENTAL 230 [place], [place] [phone] Fausto Rascon DDS 230 [place], [place] [phone] emergency dental no dental coverage Social History [...] must arrive prior to the [facility] Care insurance enrollment to recidive assistance with insurance and/or SFS prior to emergency dental appt. Patient understood DR documented in this encounter Plan of Treatment Not on file documented as of this encounter Visit Diagnoses Not on filedocumented in this encounter Additional Health Concerns Assessment Noted Time PHQ-9 Depression Total Score: 0 10/20/19 10:22 AM EDT documented as of this encounter Care Teams Aircraft Line Assembler Relationship Specialty Start Date End Date Kay Peterson FNP [address] [place] [address] PCP - General Family Medicine 02/26/22 06/14/25 Lino Mobley MD [address] [place] [address] [place] [address] Obstetrics and Gynecology 07/20/24 Talita Gallagher MD [address] [place] [address] Hematology and Oncology 07/20/24 documented as of this encounter
--- OUTSIDE RECORDS SUMMARY | 2025-07-02 17:12 | XMS_ITS | Encounter Summary ---
Author Organization [employer] Address 75 [facility] 7t [place] [address] Care Team Providers Care Enterprise Project Manager Name Role Phone Kay Peterson Primary Care Provider [phone] Lino Mobley MD Unavailable Talita Gallagher MD Unavailable [phone] Reason for Visit * Reason Onset Date Comments Appointment Confirmation 11/08/2023 Encounter Details Date Type Department Care Team ([facility] st Contact Info) Description 11/08/2023 Telephone [facility] 505 [place], [place] [phone] Kay Peterson FNP 505 [place], [place] [phone] Appointment Confirmation Social History Tobacco Use Types [...] documented as of this encounter Care Teams Enterprise Project Manager Relationship Specialty Start Date End Date Kay Peterson FNP [address] [place] [address] PCP - General Family Medicine 02/26/22 06/14/25 Lino Mobley MD [address] [place] [address] Obstetrics and Gynecology 07/20/24 Talita Gallagher MD 5 [place] [address] Hematology and Oncology 07/20/24 documented as of this encounter
--- OUTSIDE RECORDS SUMMARY | 2025-07-02 17:12 | XMS_ITS | Clinical Summary ---
Author Organization [employer] Address [address] [place] [address] Care Team Providers Care Chief Deputy Court Clerk Name Role Phone Lino Mobley MD Unavailable Talita Gallagher MD Unavailable [phone] Allergies No known active allergies Medications [...] 5 Active ergocalciferol (Vitamin D2) 1.25 MG (48670 UT) capsuleIndication s:Vitamin D deficiency Take 1 [...] 5:14 PM EDT): Intermittently bothersome/symptomatic Referral to [facility] placed 01/14/24 for further eval [...] May 2018. Due May 2023. Following with [facility] THEATRE INSTRUCTOR - encouraged to call office to schedule Colonoscopy: referred 09/25/22 for routine colon CA screening. Scheduled October 2023 Optometry: referral to [facility] October 2023 Dental: established BMD: starting at 66 y/o ASCVD: 0.7% September 2022 Last PE: 10/08/23 Abnormal uterine bleeding 02/03/2023 Overview (07/20/2024): Followed by [facility] THEATRE INSTRUCTOR - Dr. Mobley Endometrial biopsy September 2022 w/o signs atypia or carcinoma 01/01/23: Hysteroscopy D&C, polypectomy by Dr. Mobley at [facility]. Post op diagnosis: AUB, endometrial polyp Feb 2024: Pelvic US demonstrated 2.7cm physiologic cyst right ovary. No follow up imaging rec. Endometrial stripe is 1.7cm. Also noted small submucosal uterine fibroid. Pt reviewed results w/ Dr. Mobley during THEATRE INSTRUCTOR consult in April 2024. Plan to proceed with expectant management at this time and repeat pelvic ultrasounds periodically Iron deficiency anemia 07/15/2022 Overview (07/20/2024): -Established with [facility] Heme/Onc: Dr. Gallagher -Received iron infusions (Venofer 200mg IV weekly x 5-6 weeks) through their office H/H improved from 7.8/27.8 in Jul 2022 to 11.7/37.8 in September 2022 H/H 9.4/31.5, microcytic Mar 2023 H/H 11.7/38.1 in October 2023 -Cause: upcoming colonoscopy scheduled to r/o GIB; following with [facility] THEATRE INSTRUCTOR for menorrhagia Assessment & Plan (07/20/2024 11:08 AM EST): - Plan to start iron supplementation with vitamin C through heme-onc. Encouraged hydration and fiber to help offset constipation Assessment & Plan (10/08/2023 5:51 AM EDT): -Last consult note: Jun 2023 Assessment & Plan (03/31/2023 4:21 PM EDT): -Established with [facility] Heme/Onc -Receiving iron infusions (Venofer 200mg IV [...] Encounters Date Type Department Care Team Description 07/02/2025 Orders Only [facility] External Provider, [facility] 05/25/2025 Refill [facility] MED & PEDS [address] [place] [address] Kay Peterson FNP Anxiety 05/02/2025 Telephone [facility] MED & PEDS [address] [place] [address] Kay Peterson FNP 05/02/2025 Telephone [facility] MED & PEDS [address] [place] [address] Patti Hernández MD 05/01/2025 Telephone [facility] MED & PEDS [address] [place] [address] Kay Peterson FNP scheduling 04/04/2025 Orders Only [facility] External Provider, [facility] from Last 3 Months Immunizations Immunization [...] Additional history exists COVID-19 Vaccine (2 - season) 2025 07/29/2021 Influenza Vaccine (#1) 2025 [...] PELVIS TRANSVAGINAL Routine 07/02/2025 3:03 PM EST US PELVIS TRANSVAGINAL Routine 04/04/2025 3:03 PM [...] Health Maintenance Results * US Pelvis Transvaginal (07/02/2025 3:03 PM EST) Only the most recent of2 resultswithin the time period is included. Anatomical Region Laterality Modality Pelvis Ultrasound 07/02/2025 3:03 PM EST Narrative 07/02/2025 3:50 PM EST [facility] [place] [address] Ultrasound Report Signed Patient: Manuela Rodriguez#: [id number] : 1975 Acct:[id number] Age/Sex: 49 / F ADM Date: 07/02/25 Loc: HO.HMGCX Attending Dr: Lino Mobley MD Ordering Physician: Lino Mobley MD Date of Service: 07/02/25 Procedure(s): US pelvic and transvaginal Accession Number(s): [id number] cc: Kay Peterson; Lino Mobley MD Reason [...] by: Emanuel Mccracken MD 07/02/2025 03:[address] [facility] Dictated By: Emanuel Mccracken MD Signed By: <Electronically signed by Emanuel Mccracken MD in OV> 07/02/25 1547 DD/ 1503 TD/TT: 07/02/25 1532 Director Experimental Medicine: Procedure Note Donotuseinterpreter, Image - 07/02/2025 [facility] [place] [address] Ultrasound Report Signed Patient: Manuela Rodriguez R#: [id number] : 1975Acct:[id number] Age/Sex: 49 / FADM Date: 07/02/25 Loc: HO.HMGCX Attending Dr: Lino Mobley MD Ordering Physician: Lino Mobley MD Date of Service: 07/02/25 Procedure(s): US pelvic and transvaginal Accession Number(s): [id number] cc: Kay Peterson; Lino Mobley MD Reason [...] x 3.4 cm. Electronically signed by: Emanuel Mccarcken MD 07/02/2025 03:47 PM EST Dictated By: Emanuel Mccracken MD Signed By: <Electronically signed by Emanuel Mccracken MD in OV> 07/02/25 1547 DD/ 1503 TD/TT: 07/02/25 1532 Director Experimental Medicine: us [facility] External Provider IMG US PROCEDURES Final Result * US Renal Complete (04/04/2025 2:56 PM EDT) Anatomical Region Laterality Modality Kidney Ultrasound 04/04/2025 2:56 PM EDT Narrative 04/04/2025 3:36 PM EDT [place] [address] Ultrasound Report Signed Patient: Manuela Rodriguez Naomy#: [id number] : 1975 Acct:[id number] Age/Sex: 49 / F ADM Date: 04/04/25 Loc: HO.US Attending Dr: Dorothy CONWAY Ordering Physician: Dorothy Carney Date of Service: 04/04/25 Procedure(s): US renal BI Accession Number(s): [id number] cc: Dorothy Carney; Kay Peterson Reason for [...] 04/04/25 1533 DD/ 1456 TD/TT: 04/04/25 1525 Director Experimental Medicine: Procedure Note Donotuseinterpreter, Image - 04/04/2025 [place] [address] Ultrasound Report Signed Patient: Manuela Rodriguez R#: [id number] : 1975Acct:[id number] Age/Sex: 49 / FADM Date: 04/04/25 Loc: HO.US Attending Dr: Dorothy CONWAY Ordering Physician: Dorothy Carney Date of Service: 04/04/25 Procedure(s): US renal BI Accession Number(s): [id number] cc: Dorothy Carney; Kay Peterson Reason for [...] 04/04/25 1533 DD/ 1456 TD/TT: 04/04/25 1525 Director Experimental Medicine: [facility] External Provider IMG US PROCEDURES Final Result * (ABNORMAL) Lipid Panel, Standard (10/24/2024 11:40 AM EDT) Triglycerides 113 <150 mg/dL [facility] Comment:Desirable Triglyceri de: less than 150 mg/dLBorderline High Triglyceride 150-199 mg/dLHigh Triglyceride: 200-499 mg/dLVery High Triglyceride: greater than or equal to 5OO mg/dL Cholesterol 220(H) <200 mg/dL [facility] Comment:Desirable Cholestero l: less than 200 mg/dLBorderline High Cholesterol: 200-239 mg/dLHigh Cholesterol: greater than 239 mg/dL LDL Cholesterol Calculated 148(H) <100 mg/dL [facility] Comment:Desirable LDL: less than 100 mg/dLNear Optimal/Above Optimal LDL: 110- 129 mg/dLBorderline High LDL: 130-159 mg/dLHigh LDL: 160-189 mg/dLVery High LDL: greater than or equal to 190 mg/dL HDL Cholesterol 50 >40 mg/dL [facility] Comment:Desirable HDL: great er than 40 mg/dL Note: This HDL assay may give artificially low results in patients with liver disease. Blood Venous blood specimen / Unknown 10/24/2024 11:40 AM EDT 10/24/2024 2:04 PM EDT Yuki Mccormack MD LAB BLOOD ORDERABLES Final Resul t [facility] [address] [place] [phone] * BI Mammogram Screening Tomosynthesis Bilateral (03/03/2024 11:30 AM EDT) Anatomical Region Laterality Modality Breast Bilateral Mammography 03/03/2024 11:3 0 AM EDT Narrative 03/25/2024 10:40 PM EDT [facility] [address] [place] [address] Mammography Report Signed Patient: Manuela Rodriguez R#: [id number] : 1975 Acct:[id number] Age/Sex: 48 / F ADM Date: 03/03/24 Loc: HO.MAMMO Attending Dr: Kay Peterson TRANSMISSION AND COORDINATION ENGINEER Ordering Physician: Kay Peterson Results: 1Negat roberta Date of Service: 03/03/24 Follow Up: 1 Year From Orig ina Mammogram Procedure(s): MM tomosynthesis screening BI Accession Number(s): [id number] cc: Kay Peterson EXAMINATION: MM SCREENING DIGITAL [...] signed by Alta Rodgers DO in OV> 03/25/242236 DD/ 1130 TD/TT: 03/03/24 1148 Director Experimental Medicine: Procedure Note Donotuseinterpreter, Image - 03/25/2024 [facility] [address] [place], [place] [address] Mammography Report Signed Patient: Manuela Rodriguez R#: [id number] : 1975Acct:[id number] Age/Sex: 48 / FADM Date: 03/03/24 Loc: HO.MAMMO Attending Dr: Kay Peterson TRANSMISSION AND COORDINATION ENGINEER Ordering Physician: Kay PetersonPResults: 1Negat roberta Date of Service: 03/03/24Follow Up: 1 Year From Orig inal Mammogram Procedure(s): MM tomosynthesis screening BI Accession Number(s): [id number] cc: Kay Peterson TRANSMISSION AND COORDINATION ENGINEER EXAMINATION: MM SCREENING DIGITAL BREAST TOMOSYNTHESIS, BILATERAL [...] signed by Alta Rodgers DO in OV> 03/25/242236 DD/ 1130 TD/TT: 03/03/24 1148 Director Experimental Medicine: Kay Kristen TOP IMG BI PROCEDURES Edited Resul t - Final * Hepatitis C Viral RNA, Quantitative, Real-Time PCR (10/08/2023 10:47 AM EDT) Pathologist [facility] Hepatitis C Viral Load <15 NOT DETECTED NOT DETECTED IU/mL [facility] HCV Log PCR <1.18 NOT DETECTED NOT DETECTED Log IU/mL [facility] Comment:This test was perfor med using Real-Time Polymerase ChainReaction.Reportable Range: 15 IU/mL to 100,000,000 IU/mL(1.18 Log IU/mL to 8.00 Log IU/mL).The analytical performance characteristics of thisassay have been determined by [facility].The modifications have not been cleared or approved bythe FDA. This assay has been validated pursuant to theCLIA regulations and is used for clinical purposes.For more information on this test, go to:http://education.Oktopost/faq/DKK54p6(This link is being provided for informational/educational purposes only.)THIS TEST WAS PERFORMED AT:[facility] [place] [phone] CORNEJO MD Blood 10/08/2023 10:4 7 AM EDT 10/08/2023 2:24 PM EDT Kay Kristen TOP LAB BLOOD ORDERABLES Final Res ult [facility] [address] [place] [phone] * HIV-1/2 Antigen and Antibodies, Fourth Generation, with Reflexes (10/08/2023 10:47 AM EDT) Pathologist [facility] HIV AB/AG Nonreactive Nonreactive [facility] Comment:HIV-1 p24 Ag and/or HIV-1/HIV-2 Ab not detected.A test result that is nonreactive does not exclude thepossibility of exposure to or infection with HIV-1 and/orHIV-2. Nonreactive results in this assay for individualswith prior exposure to HIV-1 and/or HIV-2 may be due toantigen and antibody levels that are below the limit ofdetection of this assay.The Test.tvniRazorGator HIV Ag/Ab Combo assay result andsupplemental assay results should be interpreted inconjunction with the patient's clinical presentation,history and other laboratory results. If the results areinconsistent with clinical evidence, additional testing issuggested to confirm the result. Blood Venous blood specimen / Unknown 10/08/2023 10:47 AM EDT 10/08/2023 2:24 PM EDT Kay Peterson TRANSMISSION AND COORDINATION ENGINEER LAB BLOOD ORDERABLES Final Res ult Performing Organization Address [facility]/ZIP Co de Phone Number [facility] [address] [place] [phone] * HM PAP/HPV (01/24/2021 12:00 AM EDT) Historical Provider MD HEALTH MAINTENANCE Final Result Performing Organization Address [facility]/ZIP Co de Phone Number [facility] [address] [place] [phone] * HPV mRNA E6/E7 (05/11/2018 3:05 PM EST) Pathologist [facility] HPV mRNA E6/E7 Not Detected NOT DETECTED [facility] Comment: This test was performed using the APTIMA(R) HPV Assay ([employer] This assay detects E6/E7 viral messenger RNA (mRNA) from 14 high-risk HPV types (16,18,31,33,35,39,45,51, 52,56,58,59,66,68). For additional information please refer to: http://education.Piqniq.Able Imaging/faq/WNG785u6 (This link is being provided for informational/ educational purposes only.) The analytical performance characteristics of this assay have been determined by [facility] [place], [place]. The modifications have not been cleared or approved by the FDA. This assay has been validated pursuant to the CLIA regulations and is used for clinical purposes. Test Performed by [facility], [facility], [address] [place], [place] Rogelio Lua M.D., Ph.D., Director of Laboratories , [facility] [id number] Please note: Effective 03/16/2016, HPV testing will be performed using real trends's APTIMA test which targets mRNA. Detecting mRNA instead of DNA, as in older methods, offers significant improvements in specificity. 05/11/2018 3:05 PM EST us Quin Barney MD HISTORICAL/NON ORDERABLE LABS Final Result [facility] [address] from Last 3 Months or Most Recently Relevant to Health Maintenance Insurance [employer] Care Teams Chief Deputy Court Clerk Relationship Specialty Start Date End Date Lino Mobley MD [address] [place] [phone] Obstetrics and Gynecology 07/20/24 Talita Gallagher MD [address] [place] [phone] Hematology and Oncology 07/20/24
--- OUTSIDE RECORDS SUMMARY | 2025-07-02 17:12 | XMS_ITS | Encounter Summary ---
Author Organization [employer] Address [address] [place] [address] Care Team Providers Care Coal Sample Tester Name Role Phone Kay Peterson Primary Care Provider [phone] Lino Mobley MD Unavailable Talita Gallagher MD Unavailable [phone] Reason for Visit * Reason Onset Date Comments Appointment Request 10/02/2022 Encounter Details Date Type Department Care Team (Late st Contact Info) Description 10/02/2022 Telephone [facility] MED[facility] [address] [place] [address] Kay Peterson FNP [address] [place], [place] [phone] Appointment Request Social History Tobacco Use Types [...] Per Elyse ). Please contact pt at [phone] documented in this encounter Plan of Treatment Not on file documented as of this encounter Visit Diagnoses Not on filedocumented in this encounter Care Teams Coal Sample Tester Relationship Specialty Start Date End Date Kay Peterson FNP [address] [place] [phone] PCP - General Family Medicine 02/26/22 06/14/25 Lino Mobley MD [address] [place] [phone] Obstetrics and Gynecology 07/20/24 Talita Gallagher MD [address] [place] [address] Hematology and Oncology 07/20/24 documented as of this encounter
--- OUTSIDE RECORDS SUMMARY | 2025-07-02 17:12 | XMS_ITS | Encounter Summary ---
Author Organization [employer] Address [address] [place] [address] Care Team Providers Care Lock Installer Name Role Phone Kay Peterson Primary Care Provider [phone] Lino Mobley MD Unavailable Talita Gallagher MD Unavailable [phone] Reason for Visit * Reason Onset Date Comments Appointment Request 08/26/2022 Encounter Details Date Type Department Care Team (Late st Contact Info) Description 08/26/[address] [facility] MEDICINE [address] [place] [address] Kay Peterson FNP [address] [place], [place] [phone] Appointment Request Social History Tobacco Use Types [...] she doesn't mind with a different provider. (Stateless speaker) * Telephone Encounter - Johnson Mccarthy - 08/26/2022 11:44 AM EST Tc from pt requesting an Physical appt states work is requiring pt to have Physical updated Please contact pt at [phone] documented in this encounter Plan of Treatment Not on file documented as of this encounter Visit Diagnoses Not on filedocumented in this encounter Care Teams Lock Installer Relationship Specialty Start Date End Date Kay Peterson FNP [address] [place] [address] PCP - General Family Medicine 02/26/22 06/14/25 Lino Mobley MD [address] [place] [phone] Obstetrics and Gynecology 07/20/24 Talita Gallagher MD [address] [place] [address] Hematology and Oncology 07/20/24 documented as of this encounter
--- OUTSIDE RECORDS SUMMARY | 2025-07-02 17:12 | XMS_ITS | Encounter Summary ---
Author Organization [employer] Address [address] [place] [address] Care Team Providers Care Medical Art Therapist Name Role Phone Coltonjeancarlos Kay AYALA Primary Care Provider [phone] Lino Mobley MD Unavailable Talita Gallagher MD Unavailable [phone] Reason for Visit * Reason Comments Med Refill Encounter Details Date Type Department Care Team (Late st Contact Info) Description 02/25/[address] [facility] PEDS [address] [place], [place] [phone] Yuki Mccormack MD [address] [place], [place] [phone] Vitamin D deficiency Social History Tobacco Use [...] documented as of this encounter Care Teams Medical Art Therapist Relationship Specialty Start Date End Date Kay Peterson FNP [address] [place] [address] PCP - General Family Medicine 02/26/22 06/14/25 Lino Mobley MD [address] [place] [phone] Obstetrics and Gynecology 07/20/24 Talita Gallagher MD [address] [place] [address] Hematology and Oncology 07/20/24 documented as of this encounter
== END 2025-07-02 14:51 | disposition home or self-care (01) ==
LOC: HO.HMGCX 14:50
PROVIDERS: PCP Registered Nurse; Visit Provider Obstetrics & Gynecology
DX: R10.20 Pelvic and perineal pain unspecified side (principal); N83.209 Unspecified ovarian cyst, unspecified side
CPT/HCPCS: 76830; 76856

== ENCOUNTER → 2025-07-02 14:53 | Outpatient (BNV) | payer OTHER, SELFPAY | PROVIDERS: PCP Registered Nurse; Visit Provider Radiology Diagnostic Radiology | DX: N83.01 Follicular cyst of right ovary (principal); N83.292 Other ovarian cyst, left side; D25.0 Submucous leiomyoma of uterus | CPT/HCPCS: 76830; 76856 ==